=== PATIENT | male | born 1975 | race Caucasian/White ===

== ENCOUNTER 2016-07-03 11:25 | Inpatient (IN) | payer OTHER ==
[2016-07-03 12:17] VITALS: BMI 27.4
--- NOTE | 2016-07-03 15:01 | HP ---
COWS - Scale Resting Pulse: 1= [place] 81-100 Sweatin= Chills/Flushing Restless Observation: 3= Extraneous Movement Pupil Size: 2= Moderately Dilated Bone or Joint Aches: 4=Acute Joint/Muscle Pain Runny Nose/ Eye Tearin= Nasal Congestion GI Upset > 30mins: 3= Vomiting/Diarrhea Tremor Observation: 2= Slight Tremor Visible Yawning Observation: 1= 1-2x During Session Anxiety or Irritability: 2=Irritable/Anxious Goose Flesh Skin: 0=Smooth Skin COWS Score: 20 CIWA Score - CIWA Score Nausea/Vomitin (N/V/D) Muscle Tremors: 4-Moderate,w/Arms Extend Anxiety: 4-Mod. Anxious/Guarded Agitation: 4-Moderately Restless Paroxysmal Sweats: 1-Minimal Palms Moist Orientation: 0-Oriented Tacttile Disturbances: 3-Moderate Itch/Numb/Burn Auditory Disturbances: 0-None Visual Disturbances: 0-None Headache: 1-Very Mild CIWA-Ar Total Score: 22 Admission [facility] - HPI Chief Complaint: DETOX TX FOR HEROIN AND ALCOHOL DEPENDENCE Allergies/Adverse Reactions: Allergies Allergy/AdvReac Type Severity Reaction Status Date / Time No Known Allergies Allergy Verified 07/03/16 13:21 History of Present Illness: 40 Y/O H/M WITH A HX OF HEROIN, ALCOHOL AND COCAINE DEPENDENCE SEEKING DETOX TX. Exam Limitations: No Limitations - Ebola screening Have you traveled outside of the country in the last 21 days: No Have you had contact with anyone from an Ebola affected area: No Have you been sick,other than usual withdrawal symptoms: No Do you have a fever: No - Review of Systems Constitutional: Chills, Loss of Appetite, Night Sweats, Changes in sleep, Unintentional Wgt. Loss EENT: reports: Tearing, Nose Congestion, Dental Problems (MISSING TEETH) Respiratory: reports: No Symptoms reported Cardiac: reports: Lightheadedness GI: reports: Constipated, Diarrhea, Nausea, Poor Appetite, Poor Fluid Intake, Vomiting, Abdominal cramping : reports: No Symptoms Reported Musculoskeletal: reports: Back Pain, Joint Pain, Muscle Pain Integumentary: reports: Bruising (IVD INJ SITES BOTH ELBOWS.) Neuro: reports: Headache, Tremors, Unsteady Gait Endocrine: reports: No Symptoms Reported Hematology: reports: No Symptoms Reported Psychiatric: reports: Orientated x3, Anxious, Depressed Other Systems: Reviewed and Negative Patient History - Patient Medical History Hx Anemia: No Hx Asthma: No Hx Chronic Obstructive Pulmonary Disease (COPD): No Hx Cardiac Disorders: No Hx Hypertension: No Hx Hypercholesterolemia: No HX Cerebrovascular Accident: No Hx Seizures: No Hx Diabetes: No Hx Gastrointestinal Disorders: No Hx Liver Disease: No Hx Genitourinary Disorders: No Hx Sexually Transmitted Disorders: No Hx Renal Disease (ESRD): No Hx Thyroid Disease: Yes (PT STATES STOPPED TAKING SYNTHROID FEW MONTHS AGO.) Hx Human Immunodeficiency Virus (HIV): No (NEGATIVE HX) Hx Hepatitis C: No Hx Depression: Yes (NOT CURRENTLY ON MED) Hx Suicide Attempt: No Hx Bipolar Disorder: No Hx Schizophrenia: No - Patient Surgical History Past Surgical History: No Hx Neurologic Surgery: No Hx Cataract Extraction: No Hx Cardiac Surgery: No Hx Lung Surgery: No Hx Breast Surgery: No Hx Breast Biopsy: No Hx Abdominal Surgery: No Hx Appendectomy: No Hx Cholecystectomy: No Hx Genitourinary Surgery: No Hx Orthopedic Surgery: No Anesthesia Reaction: No - PPD History Previous Implant?: Yes Documented Results: Negative w/o proof Implanted On Prior [facility] Admission?: Yes Date: 08/16/12 Results: 0 MM PPD to be Administered?: Yes - Reproductive History Patient is a Female of Child Bearing Age (11 -55 yrs old): No (MALE) - Smoking Cessation Smoking history: Current every day smoker Have you smoked in the past 12 months: Yes Aproximately how many cigarettes per day: 20 Cigars Per Day: 0 Hx Chewing Tobacco Use: No Initiated information on smoking cessation: Yes 'Breaking Loose' booklet given: 07/03/16 - Substance & Tx. History Hx Alcohol Use: Yes (VODKA/BEER) Hx Substance Use: Yes (HEROIN/COCAINE) - Substances Abused Heroin Route: Injection Frequency: Daily Amount used: 20 BAGS Age of first use: 17 Date of Last Use: 07/02/16 Alcohol Route: Oral Frequency: Daily Amount used: 2 PINTS VODKA Age of first use: 14 Date of Last Use: 07/02/16 Cocaine Route: Inhalation Frequency: Daily Amount used: 1 GRAM Age of first use: 17 Date of Last Use: 07/02/16 Family Disease History - Family Disease History Family Disease History: Heart Disease: Mother (HTN), Other: Father (Etoh) Admission Physical Exam [facility] - Vital Signs Vital Signs: Vital Signs - 24 hr 07/03/16 12:15 Temperature 97.4 F L Pulse Rate 97 H Respiratory 20 Rate Blood Pressure 125/78 - Physical General Appearance: Yes: Moderate Distress, Tremorous, Irritable, Anxious HEENTM: Yes: EOMI, Normocephalic, SAMANTHA, Pharynx Normal Respiratory: Yes: Chest Non-Tender, Lungs Clear, Normal Breath Sounds, No Respiratory Distress Neck: Yes: Supple, Trachea in good position Breast: Yes: Breast Exam Deferred Cardiology: Yes: Regular Rhythm, Regular Rate, S1, S2 Abdominal: Yes: Normal Bowel Sounds, Non Tender, Soft Genitourinary: Yes: Other (N/C) Back: Yes: Within Normal Limits Musculoskeletal: Yes: full range of Motion, Gait Steady Extremities: Yes: Normal Range of Motion, Non-Tender, Tremors 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: Yes: 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 intact, Fully Oriented, Alert, Motor Strength 5/5 Integumentary: Yes: Dry, Warm, Track Rodriguez Lymphatic: Yes: Within Normal Limits - Diagnostic (1) History of - hypothyroidism Current Visit: Yes Status: Chronic Comment: PT NONCOMPLIANT WITH MED (2) mmtp Current Visit: No Status: Inactive (3) Alcohol dependence with uncomplicated withdrawal Current Visit: Yes Status: Acute (4) Opioid dependence with withdrawal Current Visit: Yes Status: Acute (5) Cocaine dependence, uncomplicated Current Visit: Yes Status: Acute (6) Chronic lower back pain Current Visit: Yes Status: Chronic Qualifiers: Back pain laterality: midline Cleared for Admission [facility] - Detox or Rehab [facility] Level of Care: Medically Managed Detox Regimen/Protocol: Methadone/Librium [facility] Breath Alcohol Content Breath Alcohol Content: 0 Urine Drug Screen - Results Drug Screen Negative: No Urine Drug Screen Results: BARBARA-Cocaine, OPI-Opiates, BZO-Benzodiazepines, MTD- Methadone, TCA-Tricyclic Antidepress
[2016-07-03] MEDS ORDERED: IBUPROFEN 400 MG TABLET (FP) PO PRN (15:09)
[2016-07-03] MEDS ORDERED: MAGNESIUM CITRATE 300 ML BOTTLE PO PRN (15:09)
[2016-07-03] MEDS ORDERED: MAG HYDROX/AL HYDROX/SIMETH 30 ML UNIT-DOSE CUP PO PRN (15:09)
[2016-07-03] MEDS ORDERED: guaiFENesin/D-METHORPHAN HB 10 ML UNIT-DOSE CUPS PO PRN (15:09)
[2016-07-03] MEDS ORDERED: LOPERAMIDE HCL 2 MG CAPSULE PO PRN (15:09)
[2016-07-03] MEDS ORDERED: NICOTINE POLACRILEX 4 MG GUM BUC PRN (15:09)
[2016-07-03] MEDS ORDERED: MAGNESIUM HYDROX 2400MG/30ML ORAL SUSPENSION 30 ML CUP PO PRN (15:09)
[2016-07-03] MEDS ORDERED: hydrOXYzine PAMOATE 25 MG CAPSULE (FP) PO PRN (15:09)
[2016-07-03] MEDS ORDERED: P-EPHED 60MG/TRIPROLIDI 2.5MG TABLET PO PRN (15:09)
[2016-07-03] MEDS ORDERED: MENTHOL/PHENOL 1 EACH UD MM PRN (15:09)
[2016-07-03] MEDS ORDERED: diphenhydrAMINE HCL 50 MG CAPSULE PO PRN (15:09)
[2016-07-03] MEDS ORDERED: ACETAMINOPHEN 325 MG TABLET (FP) PO PRN (15:09)
[2016-07-03] MEDS ORDERED: chlordiazePOXIDE HCL 25 MG CAPSULE PO PRN (15:09)
[2016-07-03] MEDS ORDERED: chlordiazePOXIDE HCL 25 MG CAPSULE PO ONE (15:21)
[2016-07-03] MEDS ORDERED: METHADONE HCL 10 MG TABLET (FOR DETOX USE ONLY) PO ONE ×2 (15:21→23:00)
[2016-07-03] MEDS: LEVOTHYROXINE NA 25 MCG TABLET (FP) PO SCH (15:49)
[2016-07-03] MEDS: NICOTINE 21 MG/24 HOURS TOPICAL PATCH TD SCH (15:50)
--- NOTE | 2016-07-03 16:46 | CONSULT ---
[facility] Psychiatric Consult - Data Date of interview: 07/03/16 Admission source: [facility] Identifying data: Readmission to [facility] for this 40 y/o male seeking detox treatment,on ,for alcohol,cocaine and heroin dependence.Patient is single without children,domiciled,unemployed and supported on food stamps. Substance Abuse History: - Smoking Cessation. Smoking history: Current every day smoker. Have you smoked in the past 12 months: Yes. Aproximately how many cigarettes per day: 20. Cigars Per Day: 0. Hx Chewing Tobacco Use: No. Initiated information on smoking cessation: Yes. 'Breaking Loose' booklet given : 07/03/16. - Substance & Tx. History. Hx Alcohol Use: Yes (VODKA/BEER). Hx Substance Use: Yes (HEROIN/COCAINE). - Substances Abused. Heroin. Route: Injection. Frequency: Daily. Amount used: 20 BAGS. Age of first use: 17. Date of Last Use: 07/02/16. Alcohol. Route: Oral. Frequency: Daily. Amount used: 2 PINTS VODKA. Age of first use: 14. Date of Last Use: 07/02/16. Cocaine. Route: Inhalation. Frequency: Daily. Amount used: 1 GRAM. Age of first use: 17. Date of Last Use: 07/02/16. Confirmed by patient. Medical History: GERD and hypothyroidism. Psychiatric History: Patient admits to a remote history of psychiatric admission to [facility] " years ago ".Reportedly diagnosed with MDD.Prescribed trazodone 150 mg/hs + remeron 45 mg/hs + gabapentin 300 mg po tid.Mr Olmos reports chronic non-adherence to OPD care." I never keep my appointments." Patient indicates that his medication refills are provided by his primary care doctor.He states that he last took these medications a week ago.Patient cannot be considered as a reliable historian (pharmacy claims are not consistent with his statements).He denies history of suicide attempts. Physical/Sexual Abuse/Trauma History: Patient denies. Additional Comment: Urine Drug Screen Results: BARBARA-Cocaine, OPI-Opiates, BZO- Benzodiazepines, MTD-Methadone, TCA-Tricyclic Antidepressant.Noted. Mental Status Exam - Mental Status Exam Alert and Oriented to: Time, Place, Person Cognitive Function: Good Patient Appearance: Well Groomed Mood: Anxious, Apprehensive Affect: Mood Congruent Patient Behavior: Fatigued, Appropriate, Cooperative Speech Pattern: Clear Voice Loudness: Normal Thought Process: Goal Oriented Thought Disorder: Not Present Hallucinations: Denies Suicidal Ideation: Denies Homicidal Ideation: Denies Insight/Judgement: Poor Sleep: Poorly, Difficulty falling asleep Appetite: Good Muscle strength/Tone: Normal Gait/Station: Normal Psychiatric Findings - Problem List ([place] 1, 2,3) (1) Alcohol dependence with uncomplicated withdrawal Current Visit: Yes Status: Acute (2) Cocaine dependence, uncomplicated Current Visit: Yes Status: Acute (3) Opioid dependence with withdrawal Current Visit: Yes Status: Acute (4) Nicotine dependence Current Visit: Yes Status: Acute (5) Substance induced mood disorder Current Visit: Yes Status: Acute (6) Chronic lower back pain Current Visit: Yes Status: Chronic Qualifiers: Back pain laterality: midline (7) History of - hypothyroidism Current Visit: Yes Status: Chronic Comment: PT NONCOMPLIANT WITH MED (8) Insomnia Current Visit: Yes Status: Acute - Initial Treatment Plan Initial Treatment Plan: Psychoeducation.Detoxification.Medications : trazodone 100 mg po hs + gabapentin 300 mg po tid.Remeron not ordered (for now).Side effects/benefits discussed with the patient.Made aware of potential for priapism.Patient denies history of adverse events from trazodone and gabapentin.He agreses with this careplan.Observation.
[2016-07-03 16:54] LABS: URINE APPEARANCE CLEAR; URINE BILIRUBIN NEGATIVE (NEGATIVE); URINE BLOOD NEGATIVE (NEGATIVE); URINE COLOR YELLOW; URINE GLUCOSE (UA) NEGATIVE (NEGATIVE); URINE KETONE NEGATIVE (NEGATIVE); URINE LEUK ESTERASE NEGATIVE (NEGATIVE); URINE NITRITE NEGATIVE (NEGATIVE); URINE PROTEIN NEGATIVE (NEGATIVE); URINE UROBILINOGEN NEGATIVE E.U./dl (0.2-1.0)
[2016-07-03 17:39] LABS: MCH 29.7 pg (25.7-33.7); MCHC 32.6 g/dl (32.0-35.9); MEAN PLT VOLUME 8.9 fl (7.5-11.1); PLATELET COUNT 312 K/MM3 (134-434); RDW 14.5 % (11.9-15.9); WHITE BLOOD COUNT 11.4 K/mm3 (4.0-10.0)
[2016-07-03 17:40] LABS: ALBUMIN 4.3 g/dl (3.4-5.0); ANION GAP 11 (8-16); BILIRUBIN,TOTAL 0.7 mg/dL (0.2-1.0); CALCIUM 8.8 mg/dL (8.5-10.1); CO2 26 mmol/L (21-32); COCKROFT - GAULT 81.55; CREATININE 1.3 mg/dL (0.7-1.3); GLUCOSE,RANDOM 127 mg/dL (74-106); SGOT/AST 25 U/L (15-37); SGPT/ALT 40 U/L (12-78); THYROXINE (T4) 9.3 ug/dl (4.5-12.1); TOT PROT 7.3 g/dl (6.4-8.2)
[2016-07-03 17:49] LABS: ALK PHOS 93 U/L (45-117); THYROID STIMULATING HORMONE 5.69 uIU/ml (0.358-3.74)
[2016-07-03] MEDS: PANTOPRAZOLE 40 MG TABLET (FP) PO SCH (18:15)
[2016-07-03] MEDS: chlordiazePOXIDE HCL 25 MG CAPSULE PO SCH ×2 (18:15→22:13)
[2016-07-03 19:35] LABS: SICKLE CELL SCREEN NEGATIVE (NEGATIVE)
[2016-07-03] MEDS ORDERED: CYCLOBENZAPRINE HCL 10 MG TABLET (FP) ONE (19:57)
[2016-07-03] MEDS ORDERED: TRIMETHOBENZAMIDE HCL 200MG/2ML INJ IM ONE (20:51)
[2016-07-03] MEDS ORDERED: GABAPENTIN 250 MG/5 ML ORAL SOLUTION, 470 ML BOTTLE PO SCH (22:00)
[2016-07-03] MEDS: THIAMINE HCL 100 MG TABLET (FP) PO SCH (22:13)
[2016-07-03] MEDS: CYCLOBENZAPRINE HCL 10 MG TABLET (FP) PO SCH (22:13)
[2016-07-03] MEDS: traZODone HCL 100 MG TABLET (FP) PO SCH (22:15)
[2016-07-03] MEDS: GABAPENTIN 300 MG CAPSULE (FP) PO SCH (22:15)
[2016-07-04] MEDS: CYCLOBENZAPRINE HCL 10 MG TABLET (FP) PO SCH ×3 (05:54→22:00)
[2016-07-04] MEDS: chlordiazePOXIDE HCL 25 MG CAPSULE PO SCH ×2 (05:54→10:08)
[2016-07-04] MEDS: GABAPENTIN 300 MG CAPSULE (FP) PO SCH ×3 (05:54→22:00)
[2016-07-04] MEDS: LEVOTHYROXINE NA 25 MCG TABLET (FP) PO SCH (07:42)
--- NOTE | 2016-07-04 09:53 | PN ---
[facility] CIWA - CIWA Score Nausea/Vomitin Muscle Tremors: 4-Moderate,w/Arms Extend Anxiety: 4-Mod. Anxious/Guarded Agitation: 4-Moderately Restless Paroxysmal Sweats: 1-Minimal Palms Moist Tacttile Disturbances: 3-Moderate Itch/Numb/Burn Auditory Disturbances: 0-None Visual Disturbances: 0-None Headache: 0-None Present S COWS - Scale Resting Pulse: 0= [place] 80 or Below Sweatin= Chills/Flushing Restless Observation: 3= Extraneous Movement Pupil Size: 2= Moderately Dilated Bone or Joint Aches: 4=Acute Joint/Muscle Pain Runny Nose/ Eye Tearin= Nasal Congestion GI Upset > 30mins: 1= Stomach Cramp Tremor Observation of Outstretched Hands: 1= Tremor [place], Not Seen Yawning Observation: 2= >3x During Session Anxiety or Irritability: 2=Irritable/Anxious Goose Flesh Skin: 0=Smooth Skin COWS Score: 17 S Progress Note (SOAP) Subjective: ANXIETY,TREMORS,SWEATS,NAUSEA/VOMITING,INTERMITTENT SLEEP Objective: 07/04/16 09:52 Vital Signs Temperature 97.7 F 07/04/16 09:46 Pulse Rate 73 07/04/16 09:46 Respiratory Rate 18 07/04/16 09:46 Blood Pressure 93/52 07/04/16 09:46 O2 Sat by Pulse Oximetry (%) Laboratory Last Values WBC 11.4 K/mm3 (4.0-10.0) H 07/03/16 14:00 RBC 4.39 M/mm3 (4.00-5.60) 07/03/16 14:00 Hgb 13.0 GM/dL (11.7-16.9) 07/03/16 14:00 Hct 39.9 % (35.4-49) 07/03/16 14:00 MCV 91.0 fl (80-96) 07/03/16 14:00 MCHC 32.6 g/dl (32.0-35.9) 07/03/16 14:00 RDW 14.5 % (11.9-15.9) 07/03/16 14:00 Plt Count 312 K/MM3 (134-434) 07/03/16 14:00 MPV 8.9 fl (7.5-11.1) 07/03/16 14:00 Sickle Cell Screen Negative (NEGATIVE) 07/03/16 14:00 Sodium 138 mmol/L (136-145) 07/03/16 14:00 Potassium 4.0 mmol/L (3.5-5.1) 07/03/16 14:00 Chloride 101 mmol/L (98-107) 07/03/16 14:00 Carbon Dioxide 26 mmol/L (21-32) 07/03/16 14:00 Anion Gap 11 (8-16) 07/03/16 14:00 BUN 15 mg/dL (7-18) D 07/03/16 14:00 Creatinine 1.3 mg/dL (0.7-1.3) D 07/03/16 14:00 Creat Clearance w eGFR > 60 (>60) 07/03/16 14:00 Random Glucose 127 mg/dL (74-106) H 07/03/16 14:00 Calcium 8.8 mg/dL (8.5-10.1) 07/03/16 14:00 Total Bilirubin 0.7 mg/dL (0.2-1.0) D 07/03/16 14:00 AST 25 U/L (15-37) D 07/03/16 14:00 ALT 40 U/L (12-78) D 07/03/16 14:00 Alkaline Phosphatase 93 U/L (45-117) 07/03/16 14:00 Total Protein 7.3 g/dl (6.4-8.2) 07/03/16 14:00 Albumin 4.3 g/dl (3.4-5.0) 07/03/16 14:00 TSH 5.69 uIU/ml (0.358-3.74) H 07/03/16 14:00 Resin T3 Uptake 35.3 % (33-40) 07/03/16 14:00 Urine Color Yellow 07/03/16 14:00 Urine Appearance Clear 07/03/16 14:00 Urine pH 6.0 (5.0-8.0) 07/03/16 14:00 Ur Specific [place] 1.024 (1.001-1.035) 07/03/16 14:00 Urine Protein Negative (NEGATIVE) 07/03/16 14:00 Urine Glucose (UA) Negative (NEGATIVE) 07/03/16 14:00 Urine Ketones Negative (NEGATIVE) 07/03/16 14:00 Urine Blood Negative (NEGATIVE) 07/03/16 14:00 Urine Nitrite Negative (NEGATIVE) 07/03/16 14:00 Urine Bilirubin Negative (NEGATIVE) 07/03/16 14:00 Urine Urobilinogen Negative E.U./dl (0.2-1.0) 07/03/16 14:00 Ur Leukocyte Esterase Negative (NEGATIVE) 07/03/16 14:00 LABS NOTED Assessment: 07/04/16 09:53 WITHDRAWAL SX Plan: CONTINUE DETOX
[2016-07-04] MEDS ORDERED: METHADONE HCL 10 MG TABLET (FOR DETOX USE ONLY) PO SCH (10:00)
[2016-07-04] MEDS: PANTOPRAZOLE 40 MG TABLET (FP) PO SCH (10:08)
[2016-07-04] MEDS: PRENATAL VITAMINS W/ FOLIC ACID TABLET (FP) PO SCH (10:08)
[2016-07-04] MEDS: NICOTINE 21 MG/24 HOURS TOPICAL PATCH TD SCH (10:11)
[2016-07-04] MEDS ORDERED: diazePAM 5 MG TABLET PO ONE (14:00)
[2016-07-04] MEDS: diazePAM 5 MG TABLET PO SCH ×2 (14:43→22:00)
[2016-07-04] MEDS ORDERED: chlordiazePOXIDE HCL 25 MG CAPSULE PO SCH (17:00)
[2016-07-04] MEDS: MIRTAZAPINE 15 MG TABLET (FP) PO SCH (22:00)
[2016-07-04] MEDS: traZODone HCL 100 MG TABLET (FP) PO SCH (22:00)
[2016-07-04] MEDS: THIAMINE HCL 100 MG TABLET (FP) PO SCH (22:01)
--- NOTE | 2016-07-04 23:08 | EKG ---
Test Reason : Blood Pressure : / mmHG Vent. Rate : 064 BPM Atrial Rate : 064 BPM P-R Int : 158 ms QRS Dur : 082 ms QT Int : 398 ms P-R-T Axes : 022 031 025 degrees QTc Int : 410 ms NORMAL SINUS RHYTHM WITH SINUS ARRHYTHMIA NORMAL ECG NO PREVIOUS ECGS AVAILABLE Confirmed by BERT RODRIGUEZ MD ([id number]) on 07/04/2016 11:08:05 PM Referred By: Trevon Monaco Confirmed By:BERT RODRIGUEZ MD
[2016-07-05] MEDS: CYCLOBENZAPRINE HCL 10 MG TABLET (FP) PO SCH ×3 (06:11→22:00)
[2016-07-05] MEDS: GABAPENTIN 300 MG CAPSULE (FP) PO SCH ×3 (06:11→22:00)
[2016-07-05] MEDS: diazePAM 5 MG TABLET PO SCH ×3 (06:11→22:00)
[2016-07-05] MEDS: LEVOTHYROXINE NA 25 MCG TABLET (FP) PO SCH (06:22)
[2016-07-05] MEDS ORDERED: METHADONE HCL 5 MG TABLET (FOR DETOX USE ONLY) PO SCH (10:00)
[2016-07-05] MEDS: PANTOPRAZOLE 40 MG TABLET (FP) PO SCH (10:11)
[2016-07-05] MEDS: PRENATAL VITAMINS W/ FOLIC ACID TABLET (FP) PO SCH (10:11)
[2016-07-05] MEDS: NICOTINE 21 MG/24 HOURS TOPICAL PATCH TD SCH (10:12)
[2016-07-05] MEDS: diazePAM 5 MG TABLET PO PRN ×2 (10:12→19:57)
--- NOTE | 2016-07-05 10:14 | PN ---
[facility] CIWA - CIWA Score Nausea/Vomitin-No Nausea/No Vomiting Muscle Tremors: 4-Moderate,w/Arms Extend Anxiety: 4-Mod. Anxious/Guarded Agitation: 4-Moderately Restless Paroxysmal Sweats: 1-Minimal Palms Moist Orientation: 0-Oriented Tacttile Disturbances: 3-Moderate Itch/Numb/Burn Auditory Disturbances: 0-None Visual Disturbances: 0-None Headache: 0-None Present CIWA-Ar Total Score: 16 [facility] COWS - Scale Resting Pulse: 0= [place] 80 or Below Sweatin= Chills/Flushing Restless Observation: 3= Extraneous Movement Pupil Size: 2= Moderately Dilated Bone or Joint Aches: 4=Acute Joint/Muscle Pain Runny Nose/ Eye Tearin= Nasal Congestion GI Upset > 30mins: 1= Stomach Cramp Tremor Observation of Outstretched Hands: 1= Tremor [place], Not Seen Yawning Observation: 1= 1-2x During Session Anxiety or Irritability: 1=Feels Anxious/Irritable Goose Flesh Skin: 0=Smooth Skin COWS Score: 15 [facility] Progress Note (SOAP) Subjective: ANXIETY,SWEATS,TREMORS,INTERMITTENT SLEEP. Objective: 07/05/16 10:12 Vital Signs Temperature 96.7 F L 07/05/16 09:24 Pulse Rate 72 07/05/16 09:24 Respiratory Rate 18 07/05/16 09:24 Blood Pressure 114/77 07/05/16 09:24 O2 Sat by Pulse Oximetry (%) Laboratory Last Values WBC 11.4 K/mm3 (4.0-10.0) H 07/03/16 14:00 RBC 4.39 M/mm3 (4.00-5.60) 07/03/16 14:00 Hgb 13.0 GM/dL (11.7-16.9) 07/03/16 14:00 Hct 39.9 % (35.4-49) 07/03/16 14:00 MCV 91.0 fl (80-96) 07/03/16 14:00 MCHC 32.6 g/dl (32.0-35.9) 07/03/16 14:00 RDW 14.5 % (11.9-15.9) 07/03/16 14:00 Plt Count 312 K/MM3 (134-434) 07/03/16 14:00 MPV 8.9 fl (7.5-11.1) 07/03/16 14:00 Sickle Cell Screen Negative (NEGATIVE) 07/03/16 14:00 Sodium 138 mmol/L (136-145) 07/03/16 14:00 Potassium 4.0 mmol/L (3.5-5.1) 07/03/16 14:00 Chloride 101 mmol/L (98-107) 07/03/16 14:00 Carbon Dioxide 26 mmol/L (21-32) 07/03/16 14:00 Anion Gap 11 (8-16) 07/03/16 14:00 BUN 15 mg/dL (7-18) D 07/03/16 14:00 Creatinine 1.3 mg/dL (0.7-1.3) D 07/03/16 14:00 Creat Clearance w eGFR > 60 (>60) 07/03/16 14:00 Random Glucose 127 mg/dL (74-106) H 07/03/16 14:00 Calcium 8.8 mg/dL (8.5-10.1) 07/03/16 14:00 Total Bilirubin 0.7 mg/dL (0.2-1.0) D 07/03/16 14:00 AST 25 U/L (15-37) D 07/03/16 14:00 ALT 40 U/L (12-78) D 07/03/16 14:00 Alkaline Phosphatase 93 U/L (45-117) 07/03/16 14:00 Total Protein 7.3 g/dl (6.4-8.2) 07/03/16 14:00 Albumin 4.3 g/dl (3.4-5.0) 07/03/16 14:00 TSH 5.69 uIU/ml (0.358-3.74) H 07/03/16 14:00 Resin T3 Uptake 35.3 % (33-40) 07/03/16 14:00 Urine Color Yellow 07/03/16 14:00 Urine Appearance Clear 07/03/16 14:00 Urine pH 6.0 (5.0-8.0) 07/03/16 14:00 Ur Specific [place] 1.024 (1.001-1.035) 07/03/16 14:00 Urine Protein Negative (NEGATIVE) 07/03/16 14:00 Urine Glucose (UA) Negative (NEGATIVE) 07/03/16 14:00 Urine Ketones Negative (NEGATIVE) 07/03/16 14:00 Urine Blood Negative (NEGATIVE) 07/03/16 14:00 Urine Nitrite Negative (NEGATIVE) 07/03/16 14:00 Urine Bilirubin Negative (NEGATIVE) 07/03/16 14:00 Urine Urobilinogen Negative E.U./dl (0.2-1.0) 07/03/16 14:00 Ur Leukocyte Esterase Negative (NEGATIVE) 07/03/16 14:00 RPR Titer Nonreactive (NONREACTIVE) 07/03/16 14:00 Assessment: 07/05/16 10:13 WITHDRAWAL SX Plan: CONTINUE DETOX
[2016-07-05] MEDS ORDERED: chlordiazePOXIDE 5 MG CAPSULE PO SCH (17:00)
[2016-07-05] MEDS: traZODone HCL 100 MG TABLET (FP) PO SCH (22:00)
[2016-07-05] MEDS: MIRTAZAPINE 15 MG TABLET (FP) PO SCH (22:00)
[2016-07-05] MEDS: THIAMINE HCL 100 MG TABLET (FP) PO SCH (22:01)
[2016-07-06] MEDS: CYCLOBENZAPRINE HCL 10 MG TABLET (FP) PO SCH (06:13)
[2016-07-06] MEDS: LEVOTHYROXINE NA 25 MCG TABLET (FP) PO SCH (06:14)
[2016-07-06] MEDS: GABAPENTIN 300 MG CAPSULE (FP) PO SCH (06:14)
[2016-07-06 06:23] VITALS: BP 107/71; PULSE 68; TEMP 97.5
--- NOTE | 2016-07-06 09:45 | DS ---
[facility] Detox Discharge Summary Admission Date: 07/03/16 Discharge Date: 07/06/16 - History Present History: Alcohol Dependence, Cocaine Dependence Additional Comments: PT SIGNED OUT AMA EARLIER THIS MORNING PER NURSES NOTE. Pertinent Past History: HYPOTHYROIDISM CHRONIC BACK PAIN. - Physical Exam Results Vital Signs: Vital Signs Temperature 97.5 F L 07/06/16 06:22 Pulse Rate 68 07/06/16 06:22 Respiratory Rate 16 07/06/16 06:22 Blood Pressure 107/71 07/06/16 06:22 O2 Sat by Pulse Oximetry (%) Pertinent Admission Physical Exam Findings: WITHDRAWAL SX Laboratory Last Values WBC 11.4 K/mm3 (4.0-10.0) H 07/03/16 14:00 RBC 4.39 M/mm3 (4.00-5.60) 07/03/16 14:00 Hgb 13.0 GM/dL (11.7-16.9) 07/03/16 14:00 Hct 39.9 % (35.4-49) 07/03/16 14:00 MCV 91.0 fl (80-96) 07/03/16 14:00 MCHC 32.6 g/dl (32.0-35.9) 07/03/16 14:00 RDW 14.5 % (11.9-15.9) 07/03/16 14:00 Plt Count 312 K/MM3 (134-434) 07/03/16 14:00 MPV 8.9 fl (7.5-11.1) 07/03/16 14:00 Sickle Cell Screen Negative (NEGATIVE) 07/03/16 14:00 Sodium 138 mmol/L (136-145) 07/03/16 14:00 Potassium 4.0 mmol/L (3.5-5.1) 07/03/16 14:00 Chloride 101 mmol/L (98-107) 07/03/16 14:00 Carbon Dioxide 26 mmol/L (21-32) 07/03/16 14:00 Anion Gap 11 (8-16) 07/03/16 14:00 BUN 15 mg/dL (7-18) D 07/03/16 14:00 Creatinine 1.3 mg/dL (0.7-1.3) D 07/03/16 14:00 Creat Clearance w eGFR > 60 (>60) 07/03/16 14:00 Random Glucose 127 mg/dL (74-106) H 07/03/16 14:00 Calcium 8.8 mg/dL (8.5-10.1) 07/03/16 14:00 Total Bilirubin 0.7 mg/dL (0.2-1.0) D 07/03/16 14:00 AST 25 U/L (15-37) D 07/03/16 14:00 ALT 40 U/L (12-78) D 07/03/16 14:00 Alkaline Phosphatase 93 U/L (45-117) 07/03/16 14:00 Total Protein 7.3 g/dl (6.4-8.2) 07/03/16 14:00 Albumin 4.3 g/dl (3.4-5.0) 07/03/16 14:00 TSH 5.69 uIU/ml (0.358-3.74) H 07/03/16 14:00 Resin T3 Uptake 35.3 % (33-40) 07/03/16 14:00 Urine Color Yellow 07/03/16 14:00 Urine Appearance Clear 07/03/16 14:00 Urine pH 6.0 (5.0-8.0) 07/03/16 14:00 Ur Specific [place] 1.024 (1.001-1.035) 07/03/16 14:00 Urine Protein Negative (NEGATIVE) 07/03/16 14:00 Urine Glucose (UA) Negative (NEGATIVE) 07/03/16 14:00 Urine Ketones Negative (NEGATIVE) 07/03/16 14:00 Urine Blood Negative (NEGATIVE) 07/03/16 14:00 Urine Nitrite Negative (NEGATIVE) 07/03/16 14:00 Urine Bilirubin Negative (NEGATIVE) 07/03/16 14:00 Urine Urobilinogen Negative E.U./dl (0.2-1.0) 07/03/16 14:00 Ur Leukocyte Esterase Negative (NEGATIVE) 07/03/16 14:00 RPR Titer Nonreactive (NONREACTIVE) 07/03/16 14:00 - Treatment Hospital Course: Discharged Condition Good - Medication Discharge Medications: Ambulatory Orders Levothyroxine [Synthroid -] 50 mcg PO DAILY #30 tablet 02/24/13 Esomeprazole Magnesium [Nexium 24Hr] 20 mg PO DAILY 07/03/16 - Diagnosis (1) History of - hypothyroidism Status: Chronic (2) mmtp Status: Inactive (3) Alcohol dependence with uncomplicated withdrawal Status: Acute (4) Opioid dependence with withdrawal Status: Acute (5) Cocaine dependence, uncomplicated Status: Acute (6) Chronic lower back pain Status: Chronic Qualifiers: Back pain laterality: midline - AMA Did Patient Leave Against Medical Advice: Yes
[2016-07-06] MEDS ORDERED: diazePAM 5 MG TABLET PO SCH (10:00)
[2016-07-06] MEDS ORDERED: chlordiazePOXIDE HCL 10 MG CAPSULE PO SCH (17:00)
[2016-07-07] MEDS ORDERED: METHADONE HCL 10 MG TABLET (FOR DETOX USE ONLY) PO SCH (10:00)
[2016-07-08] MEDS ORDERED: METHADONE HCL 5 MG TABLET (FOR DETOX USE ONLY) PO SCH (06:00)
[2016-07-08] MEDS ORDERED: diazePAM 5 MG TABLET PO SCH (10:00)
== END 2016-07-06 07:10 | disposition left against medical advice (07) | DRG 770 ==
LOC: YASAS 11:25 → Y3N 14:20
PROVIDERS: ADMIT Internal Medicine; ATTEND Internal Medicine
PROC: HZ2ZZZZ Detoxification Services for Substance Abuse Treatment (ICD-10-PCS; principal; 2016-07-03)
DX: F11.23 Opioid dependence with withdrawal (principal); F10.230 Alcohol dependence with withdrawal, uncomplicated; F14.20 Cocaine dependence, uncomplicated; F17.210 Nicotine dependence, cigarettes, uncomplicated; M54.5 Low back pain; G89.29 Other chronic pain; K21.9 Gastro-esophageal reflux disease without esophagitis; Z86.39 Personal history of other endocrine, nutritional and metabolic disease; Z91.14 Patient's other noncompliance with medication regimen
CPT/HCPCS: 36415; 80053; 81003; 84436; 84443; 84479; 85027; 85660; 86593; 93005; 93010

== ENCOUNTER 2016-08-03 10:28 | Inpatient (IN) | payer OTHER ==
[2016-08-03 11:26] VITALS: BMI 29.0
--- NOTE | 2016-08-03 14:12 | HP ---
COWS - Scale Resting Pulse: 1= [place] 81-100 Sweatin= Chills/Flushing Restless Observation: 3= Extraneous Movement Pupil Size: 2= Moderately Dilated Bone or Joint Aches: 4=Acute Joint/Muscle Pain Runny Nose/ Eye Tearin= Runny Nose/Eyes GI Upset > 30mins: 2= Nausea/Diarrhea Tremor Observation: 1= Tremor [place], Not Seen Yawning Observation: 0= None Anxiety or Irritability: 2=Irritable/Anxious Goose Flesh Skin: 0=Smooth Skin COWS Score: 18 CIWA Score - CIWA Score Nausea/Vomitin Muscle Tremors: 4-Moderate,w/Arms Extend Anxiety: 4-Mod. Anxious/Guarded Agitation: 4-Moderately Restless Paroxysmal Sweats: 1-Minimal Palms Moist Orientation: 0-Oriented Tacttile Disturbances: 3-Moderate Itch/Numb/Burn Auditory Disturbances: 0-None Visual Disturbances: 0-None Headache: 0-None Present CIWA-Ar Total Score: 19 Admission ROS S - HPI Chief Complaint: DETOX TX FOR HEROIN AND ALCOHOL DEPENDENCE Allergies/Adverse Reactions: Allergies Allergy/AdvReac Type Severity Reaction Status Date / Time No Known Allergies Allergy Verified 08/03/16 14:35 History of Present Illness: 40 Y/O H/MALE WITH A HX HEROIN AND ALCOHOL DEPENDENCE SEEKING DETOX [place]. Exam Limitations: No Limitations - Ebola screening Have you traveled outside of the country in the last 21 days: No Have you had contact with anyone from an Ebola affected area: No Have you been sick,other than usual withdrawal symptoms: No Do you have a fever: No - Review of Systems Constitutional: Chills, Loss of Appetite, Night Sweats, Changes in sleep, Unintentional Wgt. Loss EENT: reports: Tearing, Nose Congestion, Dental Problems (MISSING TEETH) Respiratory: reports: No Symptoms reported Cardiac: reports: Chest Pain (DUE TO ANXIETY), Lightheadedness, Chest Tightness (DUE TO ANXIETY) GI: reports: Constipated, Diarrhea, Nausea, Poor Fluid Intake, Vomiting, Abdominal cramping : reports: Dysuria (DUE TO HEROIN USE) Musculoskeletal: reports: Back Pain, Joint Pain, Muscle Pain Integumentary: reports: No Symptoms Reported Neuro: reports: Headache, Tremors, Unsteady Gait, Dizziness Endocrine: reports: No Symptoms Reported Hematology: reports: No Symptoms Reported Psychiatric: reports: Orientated x3, Anxious, Depressed Other Systems: Reviewed and Negative Patient History - Patient Medical History Hx Anemia: No Hx Asthma: No Hx Chronic Obstructive Pulmonary Disease (COPD): No Hx Cardiac Disorders: No Hx Hypertension: No Hx Hypercholesterolemia: No HX Cerebrovascular Accident: No Hx Seizures: No Hx Diabetes: No Hx Gastrointestinal Disorders: Yes (WAS ON PPI) Hx Liver Disease: No Hx Genitourinary Disorders: No Hx Sexually Transmitted Disorders: No Hx Renal Disease (ESRD): No Hx Thyroid Disease: Yes (PT STATES STOPPED TAKING SYNTHROID FEW MONTHS AGO.) Hx Human Immunodeficiency Virus (HIV): No (NEGATIVE HX) Hx Hepatitis C: No Hx Depression: Yes (NOT CURRENTLY ON MED) Hx Suicide Attempt: No Hx Bipolar Disorder: No Hx Schizophrenia: No - Patient Surgical History Past Surgical History: No Hx Neurologic Surgery: No Hx Cataract Extraction: No Hx Cardiac Surgery: No Hx Lung Surgery: No Hx Breast Surgery: No Hx Breast Biopsy: No Hx Abdominal Surgery: No Hx Appendectomy: No Hx Cholecystectomy: No Hx Genitourinary Surgery: No Hx Orthopedic Surgery: No Anesthesia Reaction: No - PPD History Previous Implant?: Yes Documented Results: Negative w/proof Date: 07/05/16 Results: 0 MM PPD to be Administered?: No - Reproductive History Patient is a Female of Child Bearing Age (11 -55 yrs old): No (MALE) - Smoking Cessation Smoking history: Current every day smoker Have you smoked in the past 12 months: Yes Aproximately how many cigarettes per day: 20 Cigars Per Day: 0 Hx Chewing Tobacco Use: No Initiated information on smoking cessation: Yes 'Breaking Loose' booklet given: 08/03/16 - Substance & Tx. History Hx Alcohol Use: Yes (VODKA/BEER) Hx Substance Use: Yes (HEROIN) Substance Use Type: Alcohol, Heroin Hx Substance Use Treatment: Yes ([facility]OX) - Substances Abused Alcohol Route: Oral Frequency: Daily Amount used: 1 PT VODKA/2 CANS 22 OZ Age of first use: 12 Date of Last Use: 08/02/16 Heroin Route: Inhalation Frequency: Daily Amount used: 15 BAGS Age of first use: 12 Date of Last Use: 08/02/16 Family Disease History - Family Disease History Family Disease History: Heart Disease: Mother (HTN), Other: Father (Etoh) Admission Physical Exam BHS - Vital Signs Vital Signs: Vital Signs - 24 hr 08/03/16 11:24 Temperature 96.6 F L Pulse Rate 87 Respiratory 19 Rate Blood Pressure 144/90 Cleared for Admission [facility] - Detox or Rehab [facility] Level of Care: Medically Managed Detox Regimen/Protocol: Methadone/Valium [facility] Breath Alcohol Content Breath Alcohol Content: 0 Urine Drug Screen - Results Drug Screen Negative: No Urine Drug Screen Results: BARBARA-Cocaine, OPI-Opiates, MTD-Methadone, TCA- Tricyclic Antidepress
[2016-08-03] MEDS ORDERED: guaiFENesin/D-METHORPHAN HB 10 ML UNIT-DOSE CUPS PO PRN (14:27)
[2016-08-03] MEDS ORDERED: LOPERAMIDE HCL 2 MG CAPSULE PO PRN (14:27)
[2016-08-03] MEDS ORDERED: P-EPHED 60MG/TRIPROLIDI 2.5MG TABLET PO PRN (14:27)
[2016-08-03] MEDS ORDERED: IBUPROFEN 400 MG TABLET (FP) PO PRN (14:27)
[2016-08-03] MEDS ORDERED: MENTHOL/PHENOL 1 EACH UD MM PRN (14:27)
[2016-08-03] MEDS ORDERED: MAG HYDROX/AL HYDROX/SIMETH 30 ML UNIT-DOSE CUP PO PRN (14:27)
[2016-08-03] MEDS ORDERED: MAGNESIUM CITRATE 300 ML BOTTLE PO PRN (14:27)
[2016-08-03] MEDS ORDERED: NICOTINE POLACRILEX 4 MG GUM BUC PRN (14:27)
[2016-08-03] MEDS ORDERED: MAGNESIUM HYDROX 2400MG/30ML ORAL SUSPENSION 30 ML CUP PO PRN (14:27)
[2016-08-03] MEDS ORDERED: diazePAM 5 MG TABLET PO ONE (15:12)
[2016-08-03] MEDS ORDERED: ACETAMINOPHEN 325 MG TABLET (FP) PO PRN (15:12)
[2016-08-03] MEDS ORDERED: METHADONE HCL 10 MG TABLET (FOR DETOX USE ONLY) PO ONE ×2 (15:13→23:00)
[2016-08-03 17:40] LABS: MCH 30.1 pg (25.7-33.7); MCHC 33.4 g/dl (32.0-35.9); MEAN CELL VOLUME 90.4 fl (80-96); MEAN PLT VOLUME 9.1 fl (7.5-11.1); PLATELET COUNT 349 K/MM3 (134-434); RDW 14.9 % (11.9-15.9); WHITE BLOOD COUNT 10.6 K/mm3 (4.0-10.0)
[2016-08-03] MEDS: NICOTINE 21 MG/24 HOURS TOPICAL PATCH TD SCH (17:43)
[2016-08-03 18:21] LABS: ALBUMIN 4.4 g/dl (3.4-5.0); ALK PHOS 87 U/L (45-117); ANION GAP 12 (8-16); BILIRUBIN,TOTAL 0.4 mg/dL (0.2-1.0); CALCIUM 10.1 mg/dL (8.5-10.1); CO2 26 mmol/L (21-32); COCKROFT - GAULT 86.35; CREATININE 1.3 mg/dL (0.7-1.3); GLUCOSE,RANDOM 123 mg/dL (74-106); SGOT/AST 18 U/L (15-37); SGPT/ALT 25 U/L (12-78); T3 UPTAKE 36.3 % (33-40); THYROID STIMULATING HORMONE 8.59 uIU/ml (0.358-3.74); TOT PROT 7.7 g/dl (6.4-8.2)
[2016-08-03] MEDS: diazePAM 5 MG TABLET PO SCH (22:04)
[2016-08-03] MEDS: diphenhydrAMINE HCL 50 MG CAPSULE PO PRN (22:04)
[2016-08-03] MEDS: THIAMINE HCL 100 MG TABLET (FP) PO SCH (22:04)
[2016-08-03] MEDS ORDERED: RANITIDINE HCL 150 MG TABLET (FP) PO ONE (23:27)
[2016-08-04] MEDS: diazePAM 5 MG TABLET PO SCH ×3 (05:27→22:06)
--- NOTE | 2016-08-04 09:55 | EKG ---
Test Reason : Blood Pressure : / mmHG Vent. Rate : 065 BPM Atrial Rate : 065 BPM P-R Int : 150 ms QRS Dur : 082 ms QT Int : 404 ms P-R-T Axes : 038 057 046 degrees QTc Int : 420 ms NORMAL SINUS RHYTHM NORMAL ECG WHEN COMPARED WITH ECG OF 03-JUL-2016 14:50, NO SIGNIFICANT CHANGE WAS FOUND Confirmed by ADITYA HILL MD ([id number]) on 08/04/2016 9:54:43 AM Referred By: Confirmed By:ADITYA HILL MD
[2016-08-04] MEDS ORDERED: METHADONE HCL 10 MG TABLET (FOR DETOX USE ONLY) PO SCH (10:00)
--- NOTE | 2016-08-04 10:05 | PN ---
S CIWA - CIWA Score Nausea/Vomitin-No Nausea/No Vomiting Muscle Tremors: 4-Moderate,w/Arms Extend Anxiety: 3 Agitation: 4-Moderately Restless Paroxysmal Sweats: 3 Orientation: 0-Oriented Tacttile Disturbances: 0-None Auditory Disturbances: 0-None Visual Disturbances: 0-None Headache: 0-None Present CIWA-Ar Total Score: 14 BHS COWS - Scale Resting Pulse: 0= [place] 80 or Below Sweatin=Flushed/Facial Moisture Restless Observation: 1= Difficult to Sit Still Pupil Size: 0= Normal to Room Light Bone or Joint Aches: 2= Severe Diffuse Aches Runny Nose/ Eye Tearin= Nasal Congestion GI Upset > 30mins: 2= Nausea/Diarrhea Tremor Observation of Outstretched Hands: 2= Slight Tremor Visible Yawning Observation: 2= >3x During Session Anxiety or Irritability: 2=Irritable/Anxious Goose Flesh Skin: 0=Smooth Skin COWS Score: 14 S Progress Note (SOAP) Subjective: sweats agitation irritable body aches interrupted sleep Objective: 08/04/16 10:03 Vital Signs Temperature 97.5 F L 08/04/16 07:10 Pulse Rate 59 L 08/04/16 07:10 Respiratory Rate 16 08/04/16 07:10 Blood Pressure 137/75 08/04/16 07:10 O2 Sat by Pulse Oximetry (%) Laboratory Tests 08/03/16 08/03/16 13:00 13:00 WBC 10.6 H RBC 4.63 Hgb 14.0 Hct 41.9 MCV 90.4 MCHC 33.4 RDW 14.9 Plt Count 349 MPV 9.1 Sodium 141 Potassium 3.9 Chloride 103 Carbon Dioxide 26 Anion Gap 12 BUN 13 Creatinine 1.3 Creat Clearance w eGFR > 60 Random Glucose 123 H Calcium 10.1 Total Bilirubin 0.4 D AST 18 D ALT 25 D Alkaline Phosphatase 87 Total Protein 7.7 Albumin 4.4 TSH 8.59 H D Resin T3 Uptake 36.3 labs pending awake/alert ambulating no acute distress Assessment: 08/04/16 10:04 withdrawal sx Plan: continue detox increase fluids labs pending
[2016-08-04] MEDS: PRENATAL VITAMINS W/ FOLIC ACID TABLET (FP) PO SCH (10:09)
[2016-08-04] MEDS: RANITIDINE HCL 150 MG TABLET (FP) PO SCH ×2 (10:09→22:55)
[2016-08-04] MEDS: NICOTINE 21 MG/24 HOURS TOPICAL PATCH TD SCH (10:09)
[2016-08-04] MEDS: diazePAM 5 MG TABLET PO PRN ×2 (10:09→17:33)
[2016-08-04 13:21] LABS: HIV 1 & 2 AB NEGATIVE; HIV 1 AGp24 NEGATIVE
--- NOTE | 2016-08-04 17:30 | CONSULT ---
[facility] Psychiatric Consult - Data Date of interview: 08/04/16 Admission source: [facility] Identifying data: Another admission to [facility] for this 40 y/o male seeking detox treatment,on ,for alcohol,cocaine and heroin dependence.Patient is single without children,domiciled,unemployed and supported on food stamps. Substance Abuse History: - Smoking Cessation. Smoking history: Current every day smoker. Have you smoked in the past 12 months: Yes. Aproximately how many cigarettes per day: 20. Cigars Per Day: 0. Hx Chewing Tobacco Use: No. Initiated information on smoking cessation: Yes. 'Breaking Loose' booklet given : 08/03/16. - Substance & Tx. History. Hx Alcohol Use: Yes (VODKA/BEER). Hx Substance Use: Yes (HEROIN). Substance Use Type: Alcohol, Heroin. Hx Substance Use Treatment: Yes ([facility]-DETOX). - Substances Abused. Alcohol. Route: Oral. Frequency: Daily. Amount used: 1 PT VODKA/2 CANS 22 OZ. Age of first use: 12. Date of Last Use: 08/02/16. Heroin. Route: Inhalation. Frequency: Daily. Amount used: 15 BAGS. Age of first use: 12. Date of Last Use: 08/02/16. Confirmed by patient. Medical History: GERD and hypothyroidism. Psychiatric History: Distant history of one psychiatric admission to [facility] " years ago ". Diagnosed with MDD.Prescribed trazodone 150 mg/hs + remeron 45 mg/hs + gabapentin 300 mg po tid.Mr Olmos reports chronic non- adherence to [facility]PD care.Stopped taking medications " a few weeks " ago.No contact with psychiatric [facility] care providers..He states that he last took these medications a week ago.He denies history of suicide attempts. Physical/Sexual Abuse/Trauma History: Patient denies. Additional Comment: Urine Drug Screen Results: BARBARA-Cocaine, OPI-Opiates, MTD- Methadone, TCA-Tricyclic Antidepressant.Noted. Mental Status Exam - Mental Status Exam Alert and Oriented to: Time, Place, Person Cognitive Function: Good Patient Appearance: Well Groomed Mood: Nervous, Withdrawn, Anxious Affect: Mood Congruent Patient Behavior: Fatigued, Appropriate, Cooperative Speech Pattern: Clear Voice Loudness: Normal Thought Process: Goal Oriented Thought Disorder: Not Present Hallucinations: Denies Suicidal Ideation: Denies Homicidal Ideation: Denies Insight/Judgement: Poor Sleep: Poorly, Difficulty falling asleep Appetite: Good Muscle strength/Tone: Normal Gait/Station: Normal Psychiatric Findings - Problem List ([place] 1, 2,3) (1) Alcohol dependence with uncomplicated withdrawal Current Visit: Yes Status: Acute (2) Cocaine dependence, uncomplicated Current Visit: Yes Status: Acute (3) Opioid dependence with withdrawal Current Visit: Yes Status: Acute (4) Nicotine dependence Current Visit: Yes Status: Acute (5) Substance induced mood disorder Current Visit: Yes Status: Acute (6) Chronic lower back pain Current Visit: Yes Status: Chronic Qualifiers: Back pain laterality: midline (7) History of - hypothyroidism Current Visit: Yes Status: Chronic Comment: PT NONCOMPLIANT WITH MED (8) Insomnia Current Visit: Yes Status: Acute - Initial Treatment Plan Initial Treatment Plan: Psychoeducation.Detoxification.Medications : seroquel 150 mg po hs + remeron 7.5 mg po hs.Side effects/benefits discussed with patient.He is in agreement with this careplan.Observation.
[2016-08-04] MEDS ORDERED: QUEtiapine FUMARATE 100 MG TABLET (FP) PO SCH (22:00)
[2016-08-04] MEDS: MIRTAZAPINE 15 MG TABLET (FP) PO SCH (22:07)
[2016-08-04] MEDS: THIAMINE HCL 100 MG TABLET (FP) PO SCH (22:07)
[2016-08-05] MEDS: diazePAM 5 MG TABLET PO PRN ×2 (07:34→13:37)
[2016-08-05] MEDS: PRENATAL VITAMINS W/ FOLIC ACID TABLET (FP) PO SCH (11:03)
[2016-08-05] MEDS: METHADONE HCL 5 MG TABLET (FOR DETOX USE ONLY) PO SCH (11:03)
[2016-08-05] MEDS: diazePAM 5 MG TABLET PO SCH ×2 (11:04→21:59)
[2016-08-05] MEDS: RANITIDINE HCL 150 MG TABLET (FP) PO SCH ×2 (11:04→21:58)
[2016-08-05] MEDS: NICOTINE 21 MG/24 HOURS TOPICAL PATCH TD SCH (11:44)
[2016-08-05 15:01] LABS: URINE APPEARANCE CLEAR; URINE BILIRUBIN NEGATIVE (NEGATIVE); URINE BLOOD NEGATIVE (NEGATIVE); URINE COLOR LTYELLOW; URINE GLUCOSE (UA) NEGATIVE (NEGATIVE); URINE KETONE NEGATIVE (NEGATIVE); URINE LEUK ESTERASE NEGATIVE (NEGATIVE); URINE NITRITE NEGATIVE (NEGATIVE); URINE PROTEIN NEGATIVE (NEGATIVE); URINE UROBILINOGEN NEGATIVE E.U./dl (0.2-1.0)
--- NOTE | 2016-08-05 15:46 | PN ---
[facility] CIWA - CIWA Score Nausea/Vomitin-Mild Nausea/No Vomiting Muscle Tremors: 3 Anxiety: 4-Mod. Anxious/Guarded Agitation: 3 Paroxysmal Sweats: 3 Orientation: 0-Oriented Tacttile Disturbances: 0-None Auditory Disturbances: 0-None Visual Disturbances: 0-None Headache: 0-None Present CIWA-Ar Total Score: 14 BHS COWS - Scale Resting Pulse: 0= [place] 80 or Below Sweatin=Flushed/Facial Moisture Restless Observation: 1= Difficult to Sit Still Pupil Size: 0= Normal to Room Light Bone or Joint Aches: 1= Mild Discomfort Runny Nose/ Eye Tearin= Runny Nose/Eyes GI Upset > 30mins: 2= Nausea/Diarrhea Tremor Observation of Outstretched Hands: 2= Slight Tremor Visible Yawning Observation: 1= 1-2x During Session Anxiety or Irritability: 2=Irritable/Anxious Goose Flesh Skin: 0=Smooth Skin COWS Score: 13 S Progress Note (SOAP) Subjective: Anxiety,tremors,sweating,interrupted sleep,restless,body aches Objective: 08/05/16 15:45 Vital Signs - 8 hr 08/05/16 08/05/16 10:00 14:21 Temperature 98.4 F 97.7 F Pulse Rate 73 64 Respiratory 18 16 Rate Blood Pressure 118/68 134/67 Laboratory Tests 08/03/16 08/03/16 08/03/16 13:00 13:00 13:00 WBC 10.6 H RBC 4.63 Hgb 14.0 Hct 41.9 MCV 90.4 MCHC 33.4 RDW 14.9 Plt Count 349 MPV 9.1 Sodium 141 Potassium 3.9 Chloride 103 Carbon Dioxide 26 Anion Gap 12 BUN 13 Creatinine 1.3 Creat Clearance w eGFR > 60 Random Glucose 123 H Calcium 10.1 Total Bilirubin 0.4 D AST 18 D ALT 25 D Alkaline Phosphatase 87 Total Protein 7.7 Albumin 4.4 TSH 8.59 H D Resin T3 Uptake 36.3 Urine Color Urine Appearance Urine pH Urine Protein Urine Glucose (UA) Urine Ketones Urine Blood Urine Nitrite Urine Bilirubin Urine Urobilinogen Ur Leukocyte Esterase RPR Titer Nonreactive HIV 1&2 Antibody Screen HIV P24 Antigen 08/04/16 08/05/16 06:15 09:03 WBC RBC Hgb Hct MCV MCHC RDW Plt Count MPV Sodium Potassium Chloride Carbon Dioxide Anion Gap BUN Creatinine Creat Clearance w eGFR Random Glucose Calcium Total Bilirubin AST ALT Alkaline Phosphatase Total Protein Albumin TSH Resin T3 Uptake Urine Color Ltyellow Urine Appearance Clear Urine pH 6.0 Urine Protein Negative Urine Glucose (UA) Negative Urine Ketones Negative Urine Blood Negative Urine Nitrite Negative Urine Bilirubin Negative Urine Urobilinogen Negative Ur Leukocyte Esterase Negative RPR Titer HIV 1&2 Antibody Screen Negative HIV P24 Antigen Negative labs noted Assessment: 08/05/16 15:45 Withdrawal sx. Plan: Continue detox
[2016-08-05] MEDS: THIAMINE HCL 100 MG TABLET (FP) PO SCH (21:59)
[2016-08-05] MEDS ORDERED: QUEtiapine FUMARATE 50 MG TABLET PO SCH (22:00)
[2016-08-05] MEDS: diphenhydrAMINE HCL 50 MG CAPSULE PO PRN (22:01)
[2016-08-05] MEDS: MIRTAZAPINE 15 MG TABLET (FP) PO SCH (22:02)
[2016-08-06] MEDS: diazePAM 5 MG TABLET PO SCH (10:24)
[2016-08-06] MEDS: METHADONE HCL 5 MG TABLET (FOR DETOX USE ONLY) PO SCH (10:24)
[2016-08-06] MEDS: RANITIDINE HCL 150 MG TABLET (FP) PO SCH (10:25)
[2016-08-06] MEDS: PRENATAL VITAMINS W/ FOLIC ACID TABLET (FP) PO SCH (10:25)
[2016-08-06] MEDS: NICOTINE 21 MG/24 HOURS TOPICAL PATCH TD SCH (10:26)
[2016-08-06] MEDS: diazePAM 5 MG TABLET PO PRN (11:58)
[2016-08-06] MEDS ORDERED: LEVOTHYROXINE NA 50 MCG TABLET (FP) PO SCH (12:00)
--- NOTE | 2016-08-06 12:04 | PN ---
BHS Progress Note (SOAP) Subjective: Sweating,interrupted sleep,restless Objective: 08/06/16 12:04 Vital Signs - 8 hr 08/06/16 08/06/16 06:00 09:56 Temperature 97.5 F L 98.6 F Pulse Rate 55 L 64 Respiratory 18 18 Rate Blood Pressure 120/62 154/80 Laboratory Tests 08/03/16 08/03/16 08/03/16 13:00 13:00 13:00 WBC 10.6 H RBC 4.63 Hgb 14.0 Hct 41.9 MCV 90.4 MCHC 33.4 RDW 14.9 Plt Count 349 MPV 9.1 Sodium 141 Potassium 3.9 Chloride 103 Carbon Dioxide 26 Anion Gap 12 BUN 13 Creatinine 1.3 Creat Clearance w eGFR > 60 Random Glucose 123 H Calcium 10.1 Total Bilirubin 0.4 D AST 18 D ALT 25 D Alkaline Phosphatase 87 Total Protein 7.7 Albumin 4.4 TSH 8.59 H D Resin T3 Uptake 36.3 Urine Color Urine Appearance Urine pH Ur Specific [place] Urine Protein Urine Glucose (UA) Urine Ketones Urine Blood Urine Nitrite Urine Bilirubin Urine Urobilinogen Ur Leukocyte Esterase RPR Titer Nonreactive HIV 1&2 Antibody Screen HIV P24 Antigen 08/04/16 08/05/16 06:15 09:03 WBC RBC Hgb Hct MCV MCHC RDW Plt Count MPV Sodium Potassium Chloride Carbon Dioxide Anion Gap BUN Creatinine Creat Clearance w eGFR Random Glucose Calcium Total Bilirubin AST ALT Alkaline Phosphatase Total Protein Albumin TSH Resin T3 Uptake Urine Color Ltyellow Urine Appearance Clear Urine pH 6.0 Ur Specific [place] 1.020 Urine Protein Negative Urine Glucose (UA) Negative Urine Ketones Negative Urine Blood Negative Urine Nitrite Negative Urine Bilirubin Negative Urine Urobilinogen Negative Ur Leukocyte Esterase Negative RPR Titer HIV 1&2 Antibody Screen Negative HIV P24 Antigen Negative labs noted Assessment: 08/06/16 12:04 Withdrawal sx. Plan: Continue detox
[2016-08-06] MEDS ORDERED: LEVOTHYROXINE NA 25 MCG TABLET (FP) PO SCH (15:00)
[2016-08-06] MEDS ORDERED: cloNIDine HCL 0.1 MG TABLET PO ONE (16:07)
[2016-08-06] MEDS ORDERED: CYCLOBENZAPRINE HCL 10 MG TABLET (FP) PO ONE (16:30)
[2016-08-06 18:10] VITALS: BP 112/58; PULSE 68; TEMP 97.5
--- NOTE | 2016-08-06 18:54 | DS ---
[facility] Detox Discharge Summary Admission Date: 08/03/16 Discharge Date: 08/06/16 - History Present History: Alcohol Dependence, Cocaine Dependence, Opioid Dependence Pertinent Past History: Hypothyroidism - Physical Exam Results Vital Signs: Vital Signs Temperature 97.5 F L 08/06/16 17:56 Pulse Rate 68 08/06/16 17:56 Respiratory Rate 16 08/06/16 17:56 Blood Pressure 112/58 08/06/16 17:56 O2 Sat by Pulse Oximetry (%) Pertinent Admission Physical Exam Findings: Withdrawal sx. Laboratory Last Values WBC 10.6 K/mm3 (4.0-10.0) H 08/03/16 13:00 RBC 4.63 M/mm3 (4.00-5.60) 08/03/16 13:00 Hgb 14.0 GM/dL (11.7-16.9) 08/03/16 13:00 Hct 41.9 % (35.4-49) 08/03/16 13:00 MCV 90.4 fl (80-96) 08/03/16 13:00 MCHC 33.4 g/dl (32.0-35.9) 08/03/16 13:00 RDW 14.9 % (11.9-15.9) 08/03/16 13:00 Plt Count 349 K/MM3 (134-434) 08/03/16 13:00 MPV 9.1 fl (7.5-11.1) 08/03/16 13:00 Sodium 141 mmol/L (136-145) 08/03/16 13:00 Potassium 3.9 mmol/L (3.5-5.1) 08/03/16 13:00 Chloride 103 mmol/L (98-107) 08/03/16 13:00 Carbon Dioxide 26 mmol/L (21-32) 08/03/16 13:00 Anion Gap 12 (8-16) 08/03/16 13:00 BUN 13 mg/dL (7-18) 08/03/16 13:00 Creatinine 1.3 mg/dL (0.7-1.3) 08/03/16 13:00 Creat Clearance w eGFR > 60 (>60) 08/03/16 13:00 Random Glucose 123 mg/dL (74-106) H 08/03/16 13:00 Calcium 10.1 mg/dL (8.5-10.1) 08/03/16 13:00 Total Bilirubin 0.4 mg/dL (0.2-1.0) D 08/03/16 13:00 AST 18 U/L (15-37) D 08/03/16 13:00 ALT 25 U/L (12-78) D 08/03/16 13:00 Alkaline Phosphatase 87 U/L (45-117) 08/03/16 13:00 Total Protein 7.7 g/dl (6.4-8.2) 08/03/16 13:00 Albumin 4.4 g/dl (3.4-5.0) 08/03/16 13:00 TSH 8.59 uIU/ml (0.358-3.74) H D 08/03/16 13:00 Resin T3 Uptake 36.3 % (33-40) 08/03/16 13:00 Urine Color Ltyellow 08/05/16 09:03 Urine Appearance Clear 08/05/16 09:03 Urine pH 6.0 (5.0-8.0) 08/05/16 09:03 Ur Specific [place] 1.020 (1.005-1.025) 08/05/16 09:03 Urine Protein Negative (NEGATIVE) 08/05/16 09:03 Urine Glucose (UA) Negative (NEGATIVE) 08/05/16 09:03 Urine Ketones Negative (NEGATIVE) 08/05/16 09:03 Urine Blood Negative (NEGATIVE) 08/05/16 09:03 Urine Nitrite Negative (NEGATIVE) 08/05/16 09:03 Urine Bilirubin Negative (NEGATIVE) 08/05/16 09:03 Urine Urobilinogen Negative E.U./dl (0.2-1.0) 08/05/16 09:03 Ur Leukocyte Esterase Negative (NEGATIVE) 08/05/16 09:03 RPR Titer Nonreactive (NONREACTIVE) 08/03/16 13:00 HIV 1&2 Antibody Screen Negative 08/04/16 06:15 HIV P24 Antigen Negative 08/04/16 06:15 labs noted - Treatment Patient has Accepted a Rehab Referral to: Positive direction - Medication Discharge Medications: Ambulatory Orders Levothyroxine [Synthroid -] 50 mcg PO DAILY #30 tablet 02/24/13 Esomeprazole Magnesium [Nexium 24Hr] 20 mg PO DAILY 07/03/16 Mirtazapine [Remeron -] 15 mg PO HS #30 tablet 08/04/16 Quetiapine Fumarate [Seroquel -] 200 mg PO HS #30 tab 08/04/16 - Diagnosis (1) Alcohol dependence with uncomplicated withdrawal Status: Acute (2) Cocaine dependence, uncomplicated Status: Acute (3) Insomnia Status: Acute (4) Opioid dependence with withdrawal Status: Acute (5) History of - hypothyroidism Status: Chronic (6) Substance induced mood disorder Status: Acute (7) Nicotine dependence Status: Acute Qualifiers: Nicotine product type: cigarettes Substance use status: uncomplicated Qualified Code(s): F17.210 - Nicotine dependence, cigarettes, uncomplicated - AMA Did Patient Leave Against Medical Advice: Yes
[2016-08-06] MEDS ORDERED: CYCLOBENZAPRINE HCL 10 MG TABLET (FP) PO SCH (22:00)
[2016-08-06] MEDS ORDERED: cloNIDine HCL 0.1 MG TABLET PO SCH (22:00)
[2016-08-07] MEDS ORDERED: METHADONE HCL 10 MG TABLET (FOR DETOX USE ONLY) PO SCH (10:00)
[2016-08-07] MEDS ORDERED: diazePAM 5 MG TABLET PO SCH (10:00)
[2016-08-07] MEDS ORDERED: LEVOTHYROXINE NA 25 MCG TABLET (FP) PO SCH (14:15)
[2016-08-08] MEDS ORDERED: METHADONE HCL 5 MG TABLET (FOR DETOX USE ONLY) PO SCH (06:00)
== END 2016-08-06 18:09 | disposition left against medical advice (07) | DRG 770 ==
LOC: YASAS 10:28 → Y6N 15:04
PROVIDERS: ADMIT Internal Medicine; ATTEND Internal Medicine
PROC: HZ2ZZZZ Detoxification Services for Substance Abuse Treatment (ICD-10-PCS; principal; 2016-08-06)
DX: F11.23 Opioid dependence with withdrawal (principal); F10.230 Alcohol dependence with withdrawal, uncomplicated; F14.20 Cocaine dependence, uncomplicated; F17.210 Nicotine dependence, cigarettes, uncomplicated; F19.24 Other psychoactive substance dependence with psychoactive substance-induced mood disorder; G47.00 Insomnia, unspecified; E03.9 Hypothyroidism, unspecified; M54.5 Low back pain; G89.29 Other chronic pain
CPT/HCPCS: 36415; 80053; 81003; 84436; 84443; 84479; 85027; 86593; 87389; 93005; 93010; J0735

== ENCOUNTER 2016-09-28 09:38 | Inpatient (IN) | payer OTHER ==
[2016-09-28 09:57] VITALS: BMI 28.1
--- NOTE | 2016-09-28 14:37 | HP ---
CIWA Score - CIWA Score Nausea/Vomitin (N/V/D) Muscle Tremors: 4-Moderate,w/Arms Extend Anxiety: 4-Mod. Anxious/Guarded Agitation: 4-Moderately Restless Paroxysmal Sweats: 1-Minimal Palms Moist Orientation: 0-Oriented Tacttile Disturbances: 3-Moderate Itch/Numb/Burn Auditory Disturbances: 0-None Visual Disturbances: 0-None Headache: 0-None Present CIWA-Ar Total Score: 21 Admission ROS S - HPI Chief Complaint: DETOX TX FOR ALCOHOL DEPENDENCE Allergies/Adverse Reactions: Allergies Allergy/AdvReac Type Severity Reaction Status Date / Time No Known Allergies Allergy Verified 09/28/16 13:07 History of Present Illness: 40 Y/O H/M WITH A HX OF ALCOHOL,COCAINE AND HEROIN DEPENDENCE AND ON MMTP SEEKING DETOX TX. Exam Limitations: No Limitations - Ebola screening Have you had contact with anyone from an Ebola affected area: No Have you been sick,other than usual withdrawal symptoms: No Do you have a fever: No - Review of Systems Constitutional: Chills, Loss of Appetite, Night Sweats, Changes in sleep EENT: reports: Tearing, Nose Congestion, Dental Problems (MISSING TEETH) Respiratory: reports: No Symptoms reported Cardiac: reports: Lightheadedness GI: reports: Constipated, Diarrhea, Nausea, Poor Appetite, Poor Fluid Intake, Vomiting : reports: No Symptoms Reported Musculoskeletal: reports: Back Pain, Joint Pain, Muscle Pain Integumentary: reports: No Symptoms Reported Neuro: reports: Headache, Numbness, Tingling, Tremors, Unsteady Gait, Dizziness Endocrine: reports: No Symptoms Reported Hematology: reports: No Symptoms Reported Psychiatric: reports: Orientated x3, Anxious, Depressed Other Systems: Reviewed and Negative Patient History - Patient Medical History Hx Anemia: No Hx Asthma: No Hx Chronic Obstructive Pulmonary Disease (COPD): No Hx Cardiac Disorders: No Hx Hypertension: No Hx Hypercholesterolemia: No HX Cerebrovascular Accident: No Hx Seizures: No Hx Diabetes: No Hx Gastrointestinal Disorders: Yes (acid reflux-NEXIUM IN THE PAST) Hx Liver Disease: No Hx Genitourinary Disorders: No Hx Sexually Transmitted Disorders: No (DENIES) Hx Renal Disease (ESRD): No Hx Thyroid Disease: Yes (PT STATES STOPPED TAKING SYNTHROID FOR 2 WKS AND RESTARTED NOW.) Hx Human Immunodeficiency Virus (HIV): No (NEGATIVE HX) Hx Hepatitis C: No Hx Depression: Yes (ON MED--SEROQUEL AND REMERON) Hx Suicide Attempt: No (DENIES) Hx Bipolar Disorder: No Hx Schizophrenia: No - Patient Surgical History Past Surgical History: No Hx Neurologic Surgery: No Hx Cataract Extraction: No Hx Cardiac Surgery: No Hx Lung Surgery: No Hx Breast Surgery: No Hx Breast Biopsy: No Hx Abdominal Surgery: No Hx Appendectomy: No Hx Cholecystectomy: No Hx Genitourinary Surgery: No Hx Orthopedic Surgery: No Anesthesia Reaction: No - PPD History Previous Implant?: Yes Documented Results: Negative w/proof Implanted On Prior [facility] Admission?: Yes Date: 07/05/16 Results: 0 mm PPD to be Administered?: No - Reproductive History Patient is a Female of Child Bearing Age (11 -55 yrs old): No (MALE) Patient : (N/A) - Smoking Cessation Smoking history: Current every day smoker Have you smoked in the past 12 months: Yes Aproximately how many cigarettes per day: 20 Cigars Per Day: 0 Hx Chewing Tobacco Use: No Initiated information on smoking cessation: Yes 'Breaking Loose' booklet given: 09/28/16 - Substance & Tx. History Hx Alcohol Use: Yes (VODKA/BEER) Hx Substance Use: Yes (HEROIN/COCAINE) Substance Use Type: Alcohol, Cocaine, Heroin Hx Substance Use Treatment: Yes (LAST TX AT [facility] DETOX) - Substances Abused Cocaine Route: Inhalation Frequency: Daily Amount used: 2 gms. Age of first use: 14 Date of Last Use: 09/27/16 Heroin Route: Inhalation Frequency: Daily Amount used: 4-5 bags Age of first use: 14 Date of Last Use: 09/27/16 Alcohol-vodka/beer Route: Oral Frequency: Daily Amount used: 2 pts./1-6 pk. Age of first use: 14 Date of Last Use: 09/27/16 Family Disease History - Family Disease History Family Disease History: Heart Disease: Mother (HTN), Other: Father (Etoh) Admission Physical Exam BHS - Vital Signs Vital Signs: Vital Signs - 24 hr 09/28/16 09:56 Temperature 97.7 F Pulse Rate 73 Respiratory 18 Rate Blood Pressure 139/92 - Physical General Appearance: Yes: Moderate Distress, Irritable, Anxious HEENTM: Yes: EOMI, Normocephalic, SAMANTHA, Pharynx Normal, Nasal Congestion, Rhinorrhea Respiratory: Yes: Chest Non-Tender, Rhonchi, Wheezing Breast: Yes: Breast Exam Deferred Cardiology: Yes: Regular Rhythm, Regular Rate, S1, S2 Abdominal: Yes: Normal Bowel Sounds, Non Tender, Soft Genitourinary: Yes: Other (N/C) Back: Yes: Within Normal Limits Musculoskeletal: Yes: full range of Motion, Gait Steady Extremities: Yes: Normal Range of Motion, Non-Tender 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: Yes: kst operator II-XII NML intact, Fully Oriented, Alert, Motor Strength 5/5 Integumentary: Yes: Dry, Warm Lymphatic: Yes: Within Normal Limits - Diagnostic (1) Alcohol dependence with uncomplicated withdrawal Current Visit: Yes Status: Acute (2) Cocaine dependence, uncomplicated Current Visit: Yes Status: Acute (3) Nicotine dependence Current Visit: Yes Status: Acute Qualifiers: Nicotine product type: cigarettes Substance use status: in withdrawal Qualified Code(s): F17.213 - Nicotine dependence, cigarettes, with withdrawal (4) Chronic lower back pain Current Visit: Yes Status: Chronic Qualifiers: Back pain laterality: midline (5) History of - hypothyroidism Current Visit: Yes Status: Chronic Comment: PT NONCOMPLIANT WITH MED BUT STATES HE RESTARTED ON MED RECENTLY. (6) Bronchitis Current Visit: Yes Status: Acute (7) Methadone maintenance therapy patient Current Visit: Yes Status: Chronic Cleared for Admission [facility] - Detox or Rehab [facility] Level of Care: Medically Managed Detox Regimen/Protocol: Librium [facility] Breath Alcohol Content Breath Alcohol Content: 0 Urine Drug Screen - Results Drug Screen Negative: No Urine Drug Screen Results: BARBARA-Cocaine, OPI-Opiates, MTD-Methadone
[2016-09-28] MEDS ORDERED: MAGNESIUM HYDROX 2400MG/30ML ORAL SUSPENSION 30 ML CUP PO PRN (14:41)
[2016-09-28] MEDS ORDERED: IBUPROFEN 400 MG TABLET (FP) PO PRN (14:41)
[2016-09-28] MEDS ORDERED: MENTHOL/PHENOL 1 EACH UD MM PRN (14:41)
[2016-09-28] MEDS ORDERED: guaiFENesin/D-METHORPHAN HB 10 ML UNIT-DOSE CUPS PO PRN (14:41)
[2016-09-28] MEDS ORDERED: MAGNESIUM CITRATE 300 ML BOTTLE PO PRN (14:41)
[2016-09-28] MEDS ORDERED: ACETAMINOPHEN 325 MG TABLET (FP) PO PRN (14:41)
[2016-09-28] MEDS ORDERED: MAG HYDROX/AL HYDROX/SIMETH 30 ML UNIT-DOSE CUP PO PRN (14:41)
[2016-09-28] MEDS ORDERED: P-EPHED 60MG/TRIPROLIDI 2.5MG TABLET PO PRN (14:41)
[2016-09-28] MEDS ORDERED: LOPERAMIDE HCL 2 MG CAPSULE PO PRN (14:41)
[2016-09-28] MEDS ORDERED: diazePAM 5 MG TABLET PO ONE (14:52)
--- NOTE | 2016-09-28 14:53 | CONSULT ---
[facility] Psychiatric Consult - Data Date of interview: 09/28/16 Admission source: [facility] Identifying data: This is 40 years old male with history of psychiatric hospitalizations, history of MDD, intoxicated with: Alcohol, Heroin, Cocaine and Methadone, Nicotine Substance Abuse History: Urine Drug Screen Results: BRABARA-Cocaine, OPI-Opiates, MTD-Methadone. - Smoking Cessation. Smoking history: Current every day smoker. Have you smoked in the past 12 months: Yes. Aproximately how many cigarettes per day: 20. Cigars Per Day: 0. Hx Chewing Tobacco Use: No. Initiated information on smoking cessation: Yes. 'Breaking Loose' booklet given : 09/28/16. - Substance & Tx. History. Hx Alcohol Use: Yes (VODKA/BEER). Hx Substance Use: Yes (HEROIN/COCAINE). Substance Use Type: Alcohol, Cocaine, Heroin. Hx Substance Use Treatment: Yes (LAST TX AT [facility] DETOX). - Substances Abused. Cocaine. Route: Inhalation. Frequency: Daily. Amount used: 2 gms. Age of first use: 14. Date of Last Use: 09/27/16. Heroin. Route: Inhalation. Frequency: Daily. Amount used: 4-5 bags. Age of first use: 14. Date of Last Use: 09/27/16. Alcohol-vodka/beer. Route: Oral. Frequency: Daily. Amount used: 2 pts./1-6 pk. Age of first use: 14. Date of Last Use: Medical History: Hyporhyroidism, LBP, MMTP 40MG PER DAY Psychiatric History: Patient reports hisatory of MDD with most recent psychiatric hospitalization at [facility] for safety on 2015. Reports currently taking: Seroquel 200mg po qhs. Remeron 15mg po qhs Physical/Sexual Abuse/Trauma History: Denies Additional Comment: Urine Drug Screen Results: BARBARA-Cocaine, OPI-Opiates, MTD- Methadone. Seroquel 200mg po qhs. Remeron 15mg po qhs Mental Status Exam - Mental Status Exam Alert and Oriented to: Person Cognitive Function: Fair Patient Appearance: Well Groomed Mood: Anxious Affect: Mood Congruent Patient Behavior: Cooperative Speech Pattern: Appropriate Voice Loudness: Normal Thought Process: Goal Oriented Thought Disorder: Being Controlled Hallucinations: Denies Suicidal Ideation: Denies Homicidal Ideation: Denies Insight/Judgement: Fair Sleep: Difficulty falling asleep Appetite: Fair Muscle strength/Tone: Normal Gait/Station: Normal Additional Comments: Seroquel 200mg po qhs. Remeron 15mg po qhs Psychiatric Findings - Problem List ([place] 1, 2,3) (1) Alcohol dependence with uncomplicated withdrawal Current Visit: Yes Status: Acute (2) Cocaine dependence, uncomplicated Current Visit: Yes Status: Acute (3) Nicotine dependence Current Visit: Yes Status: Acute Qualifiers: Nicotine product type: cigarettes Substance use status: in withdrawal Qualified Code(s): F17.213 - Nicotine dependence, cigarettes, with withdrawal (4) Major depressive disorder Current Visit: No Status: Acute (5) Substance induced mood disorder Current Visit: No Status: Acute (6) Opioid dependence with withdrawal Current Visit: No Status: Chronic - Initial Treatment Plan Initial Treatment Plan: Seroquel 200mg po qhs. Remeron 15mg po qhs
[2016-09-28] MEDS: NICOTINE 21 MG/24 HOURS TOPICAL PATCH TD SCH (15:13)
[2016-09-28] MEDS: LEVOTHYROXINE NA 25 MCG TABLET (FP) PO SCH (15:13)
[2016-09-28] MEDS: PANTOPRAZOLE 40 MG TABLET (FP) PO SCH (15:13)
[2016-09-28] MEDS: NICOTINE POLACRILEX 4 MG GUM BUC PRN (15:13)
[2016-09-28 17:02] LABS: URINE APPEARANCE CLEAR; URINE BILIRUBIN NEGATIVE (NEGATIVE); URINE BLOOD NEGATIVE (NEGATIVE); URINE COLOR YELLOW; URINE GLUCOSE (UA) NEGATIVE (NEGATIVE); URINE KETONE NEGATIVE (NEGATIVE); URINE LEUK ESTERASE NEGATIVE (NEGATIVE); URINE NITRITE NEGATIVE (NEGATIVE); URINE PROTEIN NEGATIVE (NEGATIVE); URINE UROBILINOGEN NEGATIVE mg/dL (0.2-1.0)
[2016-09-28] MEDS ORDERED: ALBUTEROL SO4 2.5/IPRATROPIUM 0.5 INH SOL 3 ML VIAL.NEB. NEB ONE (19:08)
[2016-09-28] MEDS: diazePAM 5 MG TABLET PO SCH (22:34)
[2016-09-28] MEDS: MIRTAZAPINE 15 MG TABLET (FP) PO SCH (22:34)
[2016-09-28] MEDS: THIAMINE HCL 100 MG TABLET (FP) PO SCH (22:34)
[2016-09-28] MEDS: QUEtiapine FUMARATE 200 MG TABLET PO SCH (22:34)
[2016-09-29] MEDS: ALBUTEROL SO4 2.5/IPRATROPIUM 0.5 INH SOL 3 ML VIAL.NEB. NEB SCH ×5 (00:38→23:49)
[2016-09-29] MEDS: diazePAM 5 MG TABLET PO SCH ×3 (06:03→22:29)
[2016-09-29] MEDS: LEVOTHYROXINE NA 25 MCG TABLET (FP) PO SCH (07:35)
--- NOTE | 2016-09-29 09:26 | EKG ---
Test Reason : Blood Pressure : / mmHG Vent. Rate : 067 BPM Atrial Rate : 067 BPM P-R Int : 138 ms QRS Dur : 082 ms QT Int : 408 ms P-R-T Axes : 000 049 027 degrees QTc Int : 431 ms NORMAL SINUS RHYTHM NORMAL ECG WHEN COMPARED WITH ECG OF 03-AUG-2016 15:45, NO SIGNIFICANT CHANGE WAS FOUND Confirmed by ADITYA HILL MD ([id number]) on 09/29/2016 9:25:50 AM Referred By: Confirmed By:ADITYA HILL MD
[2016-09-29 10:23] LABS: MCH 29.8 pg (25.7-33.7); MCHC 32.8 g/dl (32.0-35.9); MEAN CELL VOLUME 90.7 fl (80-96); MEAN PLT VOLUME 9.3 fl (7.5-11.1); PLATELET COUNT 349 K/MM3 (134-434); RDW 14.2 % (11.9-15.9); WHITE BLOOD COUNT 12.9 K/mm3 (4.0-10.0)
[2016-09-29 10:37] LABS: ALBUMIN 4.3 g/dl (3.4-5.0); ALK PHOS 91 U/L (45-117); ANION GAP 9 (8-16); BILIRUBIN,TOTAL 0.8 mg/dL (0.2-1.0); CALCIUM 9.5 mg/dL (8.5-10.1); CO2 27 mmol/L (21-32); CREATININE 1.2 mg/dL (0.7-1.3); GLUCOSE,RANDOM 114 mg/dL (74-106); SGOT/AST 21 U/L (15-37); SGPT/ALT 23 U/L (12-78); TOT PROT 7.3 g/dl (6.4-8.2)
[2016-09-29] MEDS: NICOTINE 21 MG/24 HOURS TOPICAL PATCH TD SCH (11:05)
[2016-09-29] MEDS: PRENATAL VITAMINS W/ FOLIC ACID TABLET (FP) PO SCH (11:05)
[2016-09-29] MEDS: METHADONE HCL 40 MG DISPERSABLE TABLET PO SCH (11:05)
[2016-09-29] MEDS: PANTOPRAZOLE 40 MG TABLET (FP) PO SCH (11:06)
[2016-09-29] MEDS: diazePAM 5 MG TABLET PO PRN (12:16)
--- NOTE | 2016-09-29 12:20 | PN ---
[facility] CIWA - CIWA Score Nausea/Vomitin-Mild Nausea/No Vomiting Muscle Tremors: 2 Anxiety: 3 Agitation: 2 Paroxysmal Sweats: 3 Orientation: 0-Oriented Tacttile Disturbances: 0-None Auditory Disturbances: 2-Mild Harshness/Frighten Visual Disturbances: 2-Mild Sensitivity Headache: 3-Moderate CIWA-Ar Total Score: 18 S Progress Note (SOAP) Subjective: Fatigue, Sweating, H/A, Lower Back Ache. Objective: PT. A & O X 3. NO ACUTE DISTRESS. PT. DENIES CHEST PAIN. 09/29/16 12:18 Vital Signs Temperature 97.6 F 09/29/16 09:30 Pulse Rate 61 09/29/16 09:30 Respiratory Rate 18 09/29/16 09:30 Blood Pressure 131/90 09/29/16 09:30 O2 Sat by Pulse Oximetry (%) Laboratory Tests 09/28/16 09/29/16 09/29/16 15:15 06:00 06:00 WBC 12.9 H RBC 4.56 Hgb 13.6 Hct 41.4 MCV 90.7 MCH 29.8 MCHC 32.8 RDW 14.2 Plt Count 349 MPV 9.3 Sodium 137 Potassium 4.2 Chloride 101 Carbon Dioxide 27 Anion Gap 9 BUN 15 Creatinine 1.2 Creat Clearance w eGFR > 60 Random Glucose 114 H Calcium 9.5 Total Bilirubin 0.8 D AST 21 ALT 23 Alkaline Phosphatase 91 Total Protein 7.3 Albumin 4.3 Urine Color Yellow Urine Appearance Clear Urine pH 5.0 Ur Specific [place] 1.025 Urine Protein Negative Urine Glucose (UA) Negative Urine Ketones Negative Urine Blood Negative Urine Nitrite Negative Urine Bilirubin Negative Urine Urobilinogen Negative Ur Leukocyte Esterase Negative LABS NOTED. HIV AND RPR RESULTS PENDING. 09/29/16 12:19 09/29/16 12:20 Assessment: 09/29/16 12:18 WITHDRAWAL SYMPTOMS. Plan: CONTINUE DETOX.
[2016-09-29 14:48] LABS: HIV 1 & 2 AB NEGATIVE; HIV 1 AGp24 NEGATIVE
[2016-09-29] MEDS: THIAMINE HCL 100 MG TABLET (FP) PO SCH (22:29)
[2016-09-29] MEDS: diphenhydrAMINE HCL 50 MG CAPSULE PO PRN (22:30)
[2016-09-29] MEDS: MIRTAZAPINE 15 MG TABLET (FP) PO SCH (22:34)
[2016-09-29] MEDS: QUEtiapine FUMARATE 200 MG TABLET PO SCH (22:58)
[2016-09-30] MEDS: METHADONE HCL 40 MG DISPERSABLE TABLET PO SCH (05:48)
[2016-09-30] MEDS: ALBUTEROL SO4 2.5/IPRATROPIUM 0.5 INH SOL 3 ML VIAL.NEB. NEB SCH ×3 (05:48→20:48)
[2016-09-30] MEDS: diazePAM 5 MG TABLET PO PRN ×2 (05:50→17:59)
[2016-09-30] MEDS: LEVOTHYROXINE NA 25 MCG TABLET (FP) PO SCH (06:16)
[2016-09-30] MEDS: PANTOPRAZOLE 40 MG TABLET (FP) PO SCH (10:35)
[2016-09-30] MEDS: PRENATAL VITAMINS W/ FOLIC ACID TABLET (FP) PO SCH (10:35)
[2016-09-30] MEDS: NICOTINE 21 MG/24 HOURS TOPICAL PATCH TD SCH (10:35)
[2016-09-30] MEDS: diazePAM 5 MG TABLET PO SCH ×2 (10:35→22:31)
--- NOTE | 2016-09-30 16:59 | PN ---
[facility] CIWA - CIWA Score Nausea/Vomitin-No Nausea/No Vomiting Muscle Tremors: 4-Moderate,w/Arms Extend Anxiety: 3 Agitation: 2 Paroxysmal Sweats: 3 Orientation: 0-Oriented Tacttile Disturbances: 1-Very Mild Itch/Numbness Auditory Disturbances: 0-None Visual Disturbances: 2-Mild Sensitivity Headache: 0-None Present CIWA-Ar Total Score: 15 S Progress Note (SOAP) Subjective: Tremors, Interrupted Sleep, sweating, Lower Back Ache. Objective: PT. A & O X 3, OBSERVED AMBULATING ON UNIT. NO ACUTE DISTRESS. 09/30/16 17:01 Vital Signs Temperature 97.5 F L 09/30/16 14:01 Pulse Rate 58 L 09/30/16 14:01 Respiratory Rate 18 09/30/16 14:01 Blood Pressure 127/75 09/30/16 14:01 O2 Sat by Pulse Oximetry (%) Laboratory Tests 09/28/16 09/28/16 09/29/16 10:30 15:15 06:00 WBC 12.9 H RBC 4.56 Hgb 13.6 Hct 41.4 MCV 90.7 MCH 29.8 MCHC 32.8 RDW 14.2 Plt Count 349 MPV 9.3 Sodium Potassium Chloride Carbon Dioxide Anion Gap BUN Creatinine Creat Clearance w eGFR Random Glucose Calcium Total Bilirubin AST ALT Alkaline Phosphatase Total Protein Albumin Urine Color Yellow Urine Appearance Clear Urine pH 5.0 Ur Specific [place] 1.025 Urine Protein Negative Urine Glucose (UA) Negative Urine Ketones Negative Urine Blood Negative Urine Nitrite Negative Urine Bilirubin Negative Urine Urobilinogen Negative Ur Leukocyte Esterase Negative RPR Titer HIV 1&2 Antibody Screen Negative HIV P24 Antigen Negative 09/29/16 09/29/16 06:00 06:00 WBC RBC Hgb Hct MCV MCH MCHC RDW Plt Count MPV Sodium 137 Potassium 4.2 Chloride 101 Carbon Dioxide 27 Anion Gap 9 BUN 15 Creatinine 1.2 Creat Clearance w eGFR > 60 Random Glucose 114 H Calcium 9.5 Total Bilirubin 0.8 D AST 21 ALT 23 Alkaline Phosphatase 91 Total Protein 7.3 Albumin 4.3 Urine Color Urine Appearance Urine pH Ur Specific [place] Urine Protein Urine Glucose (UA) Urine Ketones Urine Blood Urine Nitrite Urine Bilirubin Urine Urobilinogen Ur Leukocyte Esterase RPR Titer Nonreactive HIV 1&2 Antibody Screen HIV P24 Antigen LABS NOTED. Assessment: WITHDRAWAL SYMPTOMS. 09/30/16 17:02 Plan: CONTINUE DETOX.
[2016-09-30] MEDS: QUEtiapine FUMARATE 200 MG TABLET PO SCH (22:30)
[2016-09-30] MEDS: THIAMINE HCL 100 MG TABLET (FP) PO SCH (22:30)
[2016-09-30] MEDS: MIRTAZAPINE 15 MG TABLET (FP) PO SCH (22:30)
[2016-10-01] MEDS: METHADONE HCL 40 MG DISPERSABLE TABLET PO SCH (05:47)
[2016-10-01] MEDS: LEVOTHYROXINE NA 25 MCG TABLET (FP) PO SCH (06:11)
[2016-10-01] MEDS: PRENATAL VITAMINS W/ FOLIC ACID TABLET (FP) PO SCH (10:28)
[2016-10-01] MEDS: PANTOPRAZOLE 40 MG TABLET (FP) PO SCH (10:28)
[2016-10-01] MEDS: diazePAM 5 MG TABLET PO SCH ×2 (10:28→22:15)
[2016-10-01] MEDS: NICOTINE 21 MG/24 HOURS TOPICAL PATCH TD SCH (10:48)
[2016-10-01] MEDS: diazePAM 5 MG TABLET PO PRN (13:26)
[2016-10-01] MEDS: ALBUTEROL SO4 2.5/IPRATROPIUM 0.5 INH SOL 3 ML VIAL.NEB. NEB SCH (13:27)
--- NOTE | 2016-10-01 16:12 | PN ---
[facility] Progress Note (SOAP) Subjective: Anxious, restless, interrupted sleep Objective: 10/01/16 16:10 Last Vital Signs Temp Pulse Resp BP Pulse Ox 97.4 F L 75 18 120/73 10/01/16 14:05 10/01/16 14:05 10/01/16 14:05 10/01/16 14:05 Laboratory Tests 09/28/16 09/28/16 09/29/16 10:30 15:15 06:00 WBC 12.9 H RBC 4.56 Hgb 13.6 Hct 41.4 MCV 90.7 MCH 29.8 MCHC 32.8 RDW 14.2 Plt Count 349 MPV 9.3 Sodium Potassium Chloride Carbon Dioxide Anion Gap BUN Creatinine Creat Clearance w eGFR Random Glucose Calcium Total Bilirubin AST ALT Alkaline Phosphatase Total Protein Albumin Urine Color Yellow Urine Appearance Clear Urine pH 5.0 Ur Specific [place] 1.025 Urine Protein Negative Urine Glucose (UA) Negative Urine Ketones Negative Urine Blood Negative Urine Nitrite Negative Urine Bilirubin Negative Urine Urobilinogen Negative Ur Leukocyte Esterase Negative RPR Titer HIV 1&2 Antibody Screen Negative HIV P24 Antigen Negative 09/29/16 09/29/16 06:00 06:00 WBC RBC Hgb Hct MCV MCH MCHC RDW Plt Count MPV Sodium 137 Potassium 4.2 Chloride 101 Carbon Dioxide 27 Anion Gap 9 BUN 15 Creatinine 1.2 Creat Clearance w eGFR > 60 Random Glucose 114 H Calcium 9.5 Total Bilirubin 0.8 D AST 21 ALT 23 Alkaline Phosphatase 91 Total Protein 7.3 Albumin 4.3 Urine Color Urine Appearance Urine pH Ur Specific [place] Urine Protein Urine Glucose (UA) Urine Ketones Urine Blood Urine Nitrite Urine Bilirubin Urine Urobilinogen Ur Leukocyte Esterase RPR Titer Nonreactive HIV 1&2 Antibody Screen HIV P24 Antigen Labs noted: wbc 12.9 Assessment: 10/01/16 16:11 Withdrawal symptoms Noted with leukocytosis Plan: Continue detox Leukocytosis: repeat CBC
[2016-10-01] MEDS: MIRTAZAPINE 15 MG TABLET (FP) PO SCH (22:15)
[2016-10-01] MEDS: QUEtiapine FUMARATE 200 MG TABLET PO SCH (22:15)
[2016-10-01] MEDS: THIAMINE HCL 100 MG TABLET (FP) PO SCH (22:15)
[2016-10-01] MEDS: diphenhydrAMINE HCL 50 MG CAPSULE PO PRN (22:16)
[2016-10-02] MEDS: ALBUTEROL SO4 2.5/IPRATROPIUM 0.5 INH SOL 3 ML VIAL.NEB. NEB SCH ×4 (00:46→23:03)
[2016-10-02] MEDS: METHADONE HCL 40 MG DISPERSABLE TABLET PO SCH (07:02)
[2016-10-02] MEDS: LEVOTHYROXINE NA 25 MCG TABLET (FP) PO SCH (07:03)
[2016-10-02 09:48] LABS: BASOPHIL 0.7 % (0-2.0); EOSINOPHIL 6.5 % (0-4.5); MCH 30.1 pg (25.7-33.7); MCHC 33.4 g/dl (32.0-35.9); MEAN PLT VOLUME 8.6 fl (7.5-11.1); NEUTROPHILS 39.3 % (42.8-82.8); PLATELET COUNT 270 K/MM3 (134-434); RDW 14.3 % (11.9-15.9); WHITE BLOOD COUNT 7.9 K/mm3 (4.0-10.0)
[2016-10-02] MEDS ORDERED: diazePAM 5 MG TABLET PO SCH (10:00)
[2016-10-02] MEDS: PANTOPRAZOLE 40 MG TABLET (FP) PO SCH (10:16)
[2016-10-02] MEDS: PRENATAL VITAMINS W/ FOLIC ACID TABLET (FP) PO SCH (10:16)
[2016-10-02] MEDS: NICOTINE 21 MG/24 HOURS TOPICAL PATCH TD SCH (10:17)
--- NOTE | 2016-10-02 13:32 | PN ---
[facility] Progress Note (SOAP) Subjective: Sweating,interrupted sleep,restless. Objective: 10/02/16 13:31 Vital Signs - 8 hr 10/02/16 10/02/16 06:30 09:32 Temperature 97.3 F L 97.5 F L Pulse Rate 76 72 Respiratory 18 16 Rate Blood Pressure 131/76 126/81 Laboratory Last Values WBC 7.9 K/mm3 (4.0-10.0) D 10/02/16 06:30 RBC 4.71 M/mm3 (4.00-5.60) 10/02/16 06:30 Hgb 14.1 GM/dL (11.7-16.9) 10/02/16 06:30 Hct 42.3 % (35.4-49) 10/02/16 06:30 MCV 90.0 fl (80-96) 10/02/16 06:30 MCH 30.1 pg (25.7-33.7) 10/02/16 06:30 MCHC 33.4 g/dl (32.0-35.9) 10/02/16 06:30 RDW 14.3 % (11.9-15.9) 10/02/16 06:30 Plt Count 270 K/MM3 (134-434) D 10/02/16 06:30 MPV 8.6 fl (7.5-11.1) 10/02/16 06:30 Neutrophils % 39.3 % (42.8-82.8) L D 10/02/16 06:30 Lymphocytes % 44.4 % (8-40) H 10/02/16 06:30 Monocytes % 9.1 % (3.8-10.2) 10/02/16 06:30 Eosinophils % 6.5 % (0-4.5) H D 10/02/16 06:30 Basophils % 0.7 % (0-2.0) 10/02/16 06:30 Sodium 137 mmol/L (136-145) 09/29/16 06:00 Potassium 4.2 mmol/L (3.5-5.1) 09/29/16 06:00 Chloride 101 mmol/L (98-107) 09/29/16 06:00 Carbon Dioxide 27 mmol/L (21-32) 09/29/16 06:00 Anion Gap 9 (8-16) 09/29/16 06:00 BUN 15 mg/dL (7-18) 09/29/16 06:00 Creatinine 1.2 mg/dL (0.7-1.3) 09/29/16 06:00 Creat Clearance w eGFR > 60 (>60) 09/29/16 06:00 Random Glucose 114 mg/dL (74-106) H 09/29/16 06:00 Calcium 9.5 mg/dL (8.5-10.1) 09/29/16 06:00 Total Bilirubin 0.8 mg/dL (0.2-1.0) D 09/29/16 06:00 AST 21 U/L (15-37) 09/29/16 06:00 ALT 23 U/L (12-78) 09/29/16 06:00 Alkaline Phosphatase 91 U/L (45-117) 09/29/16 06:00 Total Protein 7.3 g/dl (6.4-8.2) 09/29/16 06:00 Albumin 4.3 g/dl (3.4-5.0) 09/29/16 06:00 Urine Color Yellow 09/28/16 15:15 Urine Appearance Clear 09/28/16 15:15 Urine pH 5.0 (5.0-8.0) 09/28/16 15:15 Ur Specific [place] 1.025 (1.005-1.025) 09/28/16 15:15 Urine Protein Negative (NEGATIVE) 09/28/16 15:15 Urine Glucose (UA) Negative (NEGATIVE) 09/28/16 15:15 Urine Ketones Negative (NEGATIVE) 09/28/16 15:15 Urine Blood Negative (NEGATIVE) 09/28/16 15:15 Urine Nitrite Negative (NEGATIVE) 09/28/16 15:15 Urine Bilirubin Negative (NEGATIVE) 09/28/16 15:15 Urine Urobilinogen Negative mg/dL (0.2-1.0) 09/28/16 15:15 Ur Leukocyte Esterase Negative (NEGATIVE) 09/28/16 15:15 RPR Titer Nonreactive (NONREACTIVE) 09/29/16 06:00 HIV 1&2 Antibody Screen Negative 09/28/16 10:30 HIV P24 Antigen Negative 09/28/16 10:30 labs noted Assessment: 10/02/16 13:32 Withdrawal sx. Plan: Continue detox
[2016-10-02] MEDS: AMOX TR/POT CLAV 875MG/125MG TABLETS (FP) PO SCH (17:21)
[2016-10-02] MEDS: NICOTINE POLACRILEX 4 MG GUM BUC PRN (19:47)
[2016-10-02] MEDS: THIAMINE HCL 100 MG TABLET (FP) PO SCH (22:34)
[2016-10-02] MEDS: QUEtiapine FUMARATE 200 MG TABLET PO SCH (22:34)
[2016-10-02] MEDS: MIRTAZAPINE 15 MG TABLET (FP) PO SCH (22:34)
[2016-10-03 06:17] VITALS: BP 122/74; PULSE 73; TEMP 97.5
[2016-10-03] MEDS: ALBUTEROL SO4 2.5/IPRATROPIUM 0.5 INH SOL 3 ML VIAL.NEB. NEB SCH (07:00)
[2016-10-03] MEDS: LEVOTHYROXINE NA 25 MCG TABLET (FP) PO SCH (07:26)
[2016-10-03] MEDS: AMOX TR/POT CLAV 875MG/125MG TABLETS (FP) PO SCH (07:26)
[2016-10-03] MEDS: METHADONE HCL 40 MG DISPERSABLE TABLET PO SCH (07:26)
--- NOTE | 2016-10-03 11:05 | DS ---
[facility] Detox Discharge Summary Admission Date: 09/28/16 Discharge Date: 10/03/16 - History Present History: Alcohol Dependence, Cocaine Dependence, MMTP Additional Comments: DETOX COMPLETED. PT INSTRUCTED TO FOLLOW UP WITH AFTERCARE AT POSITIVE DIRECTIONS/MMTP AND MEDICAL MANAGEMENT AT [facility]. Pertinent Past History: R/O COPD HYPOTHYROIDISM GERD - Physical Exam Results Vital Signs: Vital Signs Temperature 97.5 F L 10/03/16 06:17 Pulse Rate 73 10/03/16 06:17 Respiratory Rate 18 10/03/16 06:17 Blood Pressure 122/74 10/03/16 06:17 O2 Sat by Pulse Oximetry (%) Pertinent Admission Physical Exam Findings: WITHDRAWAL SX WHEEZING WITH RHONCHI COUGHING WITH YELLOWISH BROWN SPUTUM Laboratory Last Values WBC 7.9 K/mm3 (4.0-10.0) D 10/02/16 06:30 RBC 4.71 M/mm3 (4.00-5.60) 10/02/16 06:30 Hgb 14.1 GM/dL (11.7-16.9) 10/02/16 06:30 Hct 42.3 % (35.4-49) 10/02/16 06:30 MCV 90.0 fl (80-96) 10/02/16 06:30 MCH 30.1 pg (25.7-33.7) 10/02/16 06:30 MCHC 33.4 g/dl (32.0-35.9) 10/02/16 06:30 RDW 14.3 % (11.9-15.9) 10/02/16 06:30 Plt Count 270 K/MM3 (134-434) D 10/02/16 06:30 MPV 8.6 fl (7.5-11.1) 10/02/16 06:30 Neutrophils % 39.3 % (42.8-82.8) L D 10/02/16 06:30 Lymphocytes % 44.4 % (8-40) H 10/02/16 06:30 Monocytes % 9.1 % (3.8-10.2) 10/02/16 06:30 Eosinophils % 6.5 % (0-4.5) H D 10/02/16 06:30 Basophils % 0.7 % (0-2.0) 10/02/16 06:30 Sodium 137 mmol/L (136-145) 09/29/16 06:00 Potassium 4.2 mmol/L (3.5-5.1) 09/29/16 06:00 Chloride 101 mmol/L (98-107) 09/29/16 06:00 Carbon Dioxide 27 mmol/L (21-32) 09/29/16 06:00 Anion Gap 9 (8-16) 09/29/16 06:00 BUN 15 mg/dL (7-18) 09/29/16 06:00 Creatinine 1.2 mg/dL (0.7-1.3) 09/29/16 06:00 Creat Clearance w eGFR > 60 (>60) 09/29/16 06:00 Random Glucose 114 mg/dL (74-106) H 09/29/16 06:00 Calcium 9.5 mg/dL (8.5-10.1) 09/29/16 06:00 Total Bilirubin 0.8 mg/dL (0.2-1.0) D 09/29/16 06:00 AST 21 U/L (15-37) 09/29/16 06:00 ALT 23 U/L (12-78) 09/29/16 06:00 Alkaline Phosphatase 91 U/L (45-117) 09/29/16 06:00 Total Protein 7.3 g/dl (6.4-8.2) 09/29/16 06:00 Albumin 4.3 g/dl (3.4-5.0) 09/29/16 06:00 Urine Color Yellow 09/28/16 15:15 Urine Appearance Clear 09/28/16 15:15 Urine pH 5.0 (5.0-8.0) 09/28/16 15:15 Ur Specific [place] 1.025 (1.005-1.025) 09/28/16 15:15 Urine Protein Negative (NEGATIVE) 09/28/16 15:15 Urine Glucose (UA) Negative (NEGATIVE) 09/28/16 15:15 Urine Ketones Negative (NEGATIVE) 09/28/16 15:15 Urine Blood Negative (NEGATIVE) 09/28/16 15:15 Urine Nitrite Negative (NEGATIVE) 09/28/16 15:15 Urine Bilirubin Negative (NEGATIVE) 09/28/16 15:15 Urine Urobilinogen Negative mg/dL (0.2-1.0) 09/28/16 15:15 Ur Leukocyte Esterase Negative (NEGATIVE) 09/28/16 15:15 RPR Titer Nonreactive (NONREACTIVE) 09/29/16 06:00 HIV 1&2 Antibody Screen Negative 09/28/16 10:30 HIV P24 Antigen Negative 09/28/16 10:30 - Treatment Hospital Course: Detox Protocol Followed, Detoxed Safely, Responded well, Discharged Condition Good, Rehab Referral Accepted Patient has Accepted a Rehab Referral to: [facility] - Medication Discharge Medications: Ambulatory Orders Levothyroxine [Synthroid -] 50 mcg PO DAILY #30 tablet 10/03/16 Tiotropium [place] [Spiriva] 1 inh IH DAILY #1 inh 10/03/16 Albuterol Sulfate Inhaler - [Ventolin HFA Inhaler -] 2 inh PO Q4H PRN 10/04/16 Baclofen 10 mg PO Q8H 10/04/16 Clonidine HCl [Catapres -] 0.2 mg PO BID 10/04/16 Folic Acid - 1 mg PO DAILY 10/04/16 Gabapentin [Neurontin] 600 mg PO TID 10/04/16 Hydroxyzine Pamoate [Vistaril -] 50 mg PO Q6H PRN 10/04/16 Ibuprofen [Motrin -] 600 mg PO Q6H PRN 10/04/16 Mirtazapine [Remeron -] 30 mg PO HS 10/04/16 Ranitidine [Zantac -] 150 mg PO BID 10/04/16 - Diagnosis (1) Alcohol dependence with uncomplicated withdrawal Status: Acute (2) Cocaine dependence, uncomplicated Status: Acute (3) Nicotine dependence Status: Acute Qualifiers: Nicotine product type: cigarettes Substance use status: in withdrawal Qualified Code(s): F17.213 - Nicotine dependence, cigarettes, with withdrawal (4) Chronic lower back pain Status: Chronic Qualifiers: Back pain laterality: unspecified (5) History of - hypothyroidism Status: Chronic (6) Bronchitis Status: Acute (7) Methadone maintenance therapy patient Status: Chronic (8) GERD (gastroesophageal reflux disease) Status: Chronic Qualifiers: Esophagitis presence: without esophagitis Qualified Code(s): K21.9 - Gastro-esophageal reflux disease without esophagitis - AMA Did Patient Leave Against Medical Advice: No
== END 2016-10-03 09:25 | disposition home or self-care (01) | DRG 773 ==
LOC: YASAS 09:38 → Y3N 13:50
PROVIDERS: ADMIT Internal Medicine; ATTEND Internal Medicine
PROC: HZ2ZZZZ Detoxification Services for Substance Abuse Treatment (ICD-10-PCS; principal; 2016-09-28)
DX: F10.230 Alcohol dependence with withdrawal, uncomplicated (principal); F11.20 Opioid dependence, uncomplicated; F14.20 Cocaine dependence, uncomplicated; F17.213 Nicotine dependence, cigarettes, with withdrawal; F32.9 Major depressive disorder, single episode, unspecified; F19.24 Other psychoactive substance dependence with psychoactive substance-induced mood disorder; E03.9 Hypothyroidism, unspecified; J40 Bronchitis, not specified as acute or chronic; M54.5 Low back pain; G89.29 Other chronic pain; D72.829 Elevated white blood cell count, unspecified; K21.9 Gastro-esophageal reflux disease without esophagitis
CPT/HCPCS: 36415; 80053; 81003; 85025; 85027; 86593; 87389; 93005; 93010; 94640

== ENCOUNTER 2016-10-04 10:22 | Inpatient (IN) | payer OTHER ==
[2016-10-04 10:50] VITALS: BMI 28.1
[2016-10-04] MEDS ORDERED: MENTHOL/PHENOL 1 EACH UD MM PRN (12:54)
[2016-10-04] MEDS ORDERED: diphenhydrAMINE HCL 50 MG CAPSULE PO PRN (12:54)
[2016-10-04] MEDS ORDERED: NICOTINE POLACRILEX 4 MG GUM BUC PRN (12:54)
[2016-10-04] MEDS ORDERED: MAG HYDROX/AL HYDROX/SIMETH 30 ML UNIT-DOSE CUP PO PRN (12:54)
[2016-10-04] MEDS ORDERED: IBUPROFEN 400 MG TABLET (FP) PO PRN (12:54)
[2016-10-04] MEDS ORDERED: P-EPHED 60MG/TRIPROLIDI 2.5MG TABLET PO PRN (12:54)
[2016-10-04] MEDS ORDERED: hydrOXYzine PAMOATE 50 MG CAPSULE (FP) PO PRN (12:54)
[2016-10-04] MEDS ORDERED: ACETAMINOPHEN 325 MG TABLET (FP) PO PRN (12:54)
[2016-10-04] MEDS ORDERED: MAGNESIUM CITRATE 300 ML BOTTLE PO PRN (12:54)
[2016-10-04] MEDS ORDERED: LOPERAMIDE HCL 2 MG CAPSULE PO PRN (12:54)
[2016-10-04] MEDS ORDERED: guaiFENesin/D-METHORPHAN HB 10 ML UNIT-DOSE CUPS PO PRN (12:54)
[2016-10-04] MEDS ORDERED: MAGNESIUM HYDROX 2400MG/30ML ORAL SUSPENSION 30 ML CUP PO PRN (12:54)
--- NOTE | 2016-10-04 12:54 | HP ---
[facility] Rehab Assess/Revision - Admission History Admitted to Rehab from: [facility] (COMPLETED DETOX ON ON 10/03/16) Date of Admission to Rehab: 10/04/16 - Vital signs Vital Signs: Vital Signs Period Temp Pulse Resp BP Sys/[place] Pulse Ox Last 24 Hr 97 F 119 18 139/87 - Findings Detox History & Physical reviewed: Yes Concur with findings: Yes Comments/Additional Findings: PT RETURNED TODAY TO CONTINUE WITH REHAB AFTERCARE PLANNED. ALERT O X 3. NAD. LUNGS:MILD TO MODERATE WHEEZING WITH RHONCHI MOSTLY IN RIGHT LUNG BASES. ADMIT TO REHAB.
[2016-10-04] MEDS ORDERED: ALBUTEROL SO4 6.7 GM HFA INHALER IH PRN (13:17)
[2016-10-04] MEDS: NICOTINE 21 MG/24 HOURS TOPICAL PATCH TD SCH (14:51)
[2016-10-04] MEDS: ACLIDINIUM BROMIDE 400 MCG/INH AERO.POWD IH SCH ×2 (14:52→21:19)
[2016-10-04] MEDS: GABAPENTIN 300 MG CAPSULE (FP) PO SCH ×2 (14:54→21:15)
[2016-10-04] MEDS: LEVOTHYROXINE NA 25 MCG TABLET (FP) PO SCH (15:29)
[2016-10-04] MEDS: AMOX TR/POT CLAV 875MG/125MG TABLETS (FP) PO SCH (17:00)
[2016-10-04 17:08] LABS: URINE APPEARANCE CLEAR; URINE BILIRUBIN NEGATIVE (NEGATIVE); URINE BLOOD NEGATIVE (NEGATIVE); URINE COLOR YELLOW; URINE GLUCOSE (UA) NEGATIVE (NEGATIVE); URINE KETONE NEGATIVE (NEGATIVE); URINE LEUK ESTERASE NEGATIVE (NEGATIVE); URINE NITRITE NEGATIVE (NEGATIVE); URINE UROBILINOGEN NEGATIVE mg/dL (0.2-1.0)
[2016-10-04 17:14] LABS: URINE PROTEIN 2+ (NEGATIVE)
[2016-10-04 17:43] LABS: GRANULAR CASTS 3 /lpf; URINE HYALINE CAST 4 /lpf; URINE MUCUS RARE; URINE RBC 2 /hpf (0-3); URINE WBC 2 /hpf (3-5)
--- NOTE | 2016-10-04 19:21 | PN ---
S Progress Note Note: called by the nurse to enter the orders for Seroquel 200 mg po hs ans Remeron 15 mg po hs, patient was transferred from , was on the same medications, will continue the same.
[2016-10-04] MEDS: THIAMINE HCL 100 MG TABLET (FP) PO SCH (21:15)
[2016-10-04] MEDS: MIRTAZAPINE 15 MG TABLET (FP) PO SCH (21:17)
[2016-10-04] MEDS: QUEtiapine FUMARATE 200 MG TABLET PO SCH (21:17)
[2016-10-04] MEDS: RANITIDINE HCL 150 MG TABLET (FP) PO SCH (21:17)
[2016-10-05] MEDS: LEVOTHYROXINE NA 25 MCG TABLET (FP) PO SCH (06:36)
[2016-10-05] MEDS: GABAPENTIN 300 MG CAPSULE (FP) PO SCH ×3 (06:36→21:56)
[2016-10-05] MEDS: METHADONE HCL 40 MG DISPERSABLE TABLET PO SCH (06:36)
[2016-10-05] MEDS: AMOX TR/POT CLAV 875MG/125MG TABLETS (FP) PO SCH ×2 (07:49→17:05)
[2016-10-05] MEDS: RANITIDINE HCL 150 MG TABLET (FP) PO SCH ×2 (10:36→21:56)
[2016-10-05] MEDS: PRENATAL VITAMINS W/ FOLIC ACID TABLET (FP) PO SCH (10:36)
[2016-10-05] MEDS: NICOTINE 21 MG/24 HOURS TOPICAL PATCH TD SCH (10:37)
[2016-10-05] MEDS: ACLIDINIUM BROMIDE 400 MCG/INH AERO.POWD IH SCH ×2 (10:37→21:58)
--- NOTE | 2016-10-05 11:28 | EKG ---
Test Reason : Blood Pressure : / mmHG Vent. Rate : 077 BPM Atrial Rate : 077 BPM P-R Int : 148 ms QRS Dur : 084 ms QT Int : 398 ms P-R-T Axes : 046 049 034 degrees QTc Int : 450 ms NORMAL SINUS RHYTHM NORMAL ECG WHEN COMPARED WITH ECG OF 28-SEP-2016 14:20, NO SIGNIFICANT CHANGE WAS FOUND Confirmed by PRIMO MATHIAS MD ([id number]) on 10/05/2016 11:28:14 AM Referred By: Lorena Bowman Confirmed By:PRIMO MATHIAS MD
--- NOTE | 2016-10-05 11:58 | HP ---
Psychiatrist Admission - Data Date of interview: 10/05/16 Admission source: [facility] Identifying data: This is the first [facility] inpatient rehabilitation admission for this 40 year old single without children male, unemployed, no source of income, residing with his mother. Medical History: Acid Reflux, Hypothyroidism, Asthma, Bronchitis. Patient is on Methadone 40 mg. p.o. daily with [facility]. Smokes cigarettes 1PPD. Psychiatric History: Patient reports one psychiatric hospitalization in 2014 to [facility] to address depression, reports was asolative, anxious, poor appetite, was not abble to sleep, was admitted for 2 weeks, after discharge did not follow with aftercare. He states he was on and off medications , latly his PCP prescribed him Seroquel 200 mg po hs and Remeron 30 mg po hs. Reports no history of suicidal attempts. While at [facility] seen by and continued his medications. Physical/Sexual Abuse/Trauma History: Patient reports no history of sexual, physical and verbal abuse. Additional Comment: ! 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 Vital Signs: Vital Signs - 24 hr 10/04/16 10/05/16 10/05/16 14:12 00:30 03:30 Temperature 97.9 F Pulse Rate 93 H Respiratory 18 16 16 Rate Blood Pressure 143/86 10/05/16 07:56 Temperature 97.1 F L Pulse Rate 87 Respiratory 18 Rate Blood Pressure 115/57 Allergies/Adverse Reactions: Allergies Allergy/AdvReac Type Severity Reaction Status Date / Time No Known Allergies Allergy Verified 10/04/16 10:55 Date of last physical exam: 10/04/16 Concur with the findings of this exam: Yes - Substance Abuse/Tx History Hx Alcohol Use: Yes (started at age of 12, his drinking progressed at age of 29 ) Substance Use Type: Alcohol (1 pint of vodka, beer daily), Cocaine ("here and there" 2 gr), Heroin (started at age 14, progressed at 29, daily use 7-12 bags) Hx Substance Use Treatment: Yes ([facility]) Mental Status Exam - Mental Status Exam Alert and Oriented to: Time, Place, Person Cognitive Function: Good Patient Appearance: Well Groomed Mood: Sad Affect: Appropriate, Mood Congruent Patient Behavior: Appropriate, Cooperative Speech Pattern: Clear, Appropriate Voice Loudness: Normal Thought Process: Intact, Goal Oriented Thought Disorder: Not Present Hallucinations: Denies Suicidal Ideation: Denies Homicidal Ideation: Denies Insight/Judgement: Fair Sleep: Fair Appetite: Fair Muscle strength/Tone: Normal Gait/Station: Normal Psychiatric Findings - Problem List ([place] 1, 2,3) (1) Cocaine dependence, uncomplicated Current Visit: Yes Status: Acute (2) Nicotine dependence Current Visit: Yes Status: Acute Qualifiers: Nicotine product type: cigarettes Substance use status: in withdrawal Qualified Code(s): F17.213 - Nicotine dependence, cigarettes, with withdrawal (3) History of - hypothyroidism Current Visit: Yes Status: Chronic Comment: PT NONCOMPLIANT WITH MED BUT STATES HE RESTARTED ON MED RECENTLY. (4) Methadone maintenance therapy patient Current Visit: Yes Status: Chronic (5) GERD (gastroesophageal reflux disease) Current Visit: No Status: Chronic Qualifiers: (6) Alcohol dependence Current Visit: Yes Status: Acute (7) Opioid dependence Current Visit: Yes Status: Acute (8) MDD (major depressive disorder), recurrent episode Current Visit: Yes Status: Acute - Initial Treatment Plan Initial Treatment Plan: Will continue his current medications, monitor progress as needed.
[2016-10-05] MEDS ORDERED: diphenhydrAMINE HCL 25 MG CAPSULE (FP) PO PRN (17:00)
[2016-10-05] MEDS: QUEtiapine FUMARATE 200 MG TABLET PO SCH (21:56)
[2016-10-05] MEDS: THIAMINE HCL 100 MG TABLET (FP) PO SCH (21:56)
[2016-10-05] MEDS: MIRTAZAPINE 15 MG TABLET (FP) PO SCH (21:57)
[2016-10-06] MEDS: GABAPENTIN 300 MG CAPSULE (FP) PO SCH ×3 (06:34→21:58)
[2016-10-06] MEDS: METHADONE HCL 40 MG DISPERSABLE TABLET PO SCH (06:34)
[2016-10-06] MEDS: LEVOTHYROXINE NA 25 MCG TABLET (FP) PO SCH (06:35)
[2016-10-06] MEDS: AMOX TR/POT CLAV 875MG/125MG TABLETS (FP) PO SCH ×2 (07:08→16:54)
[2016-10-06] MEDS: PRENATAL VITAMINS W/ FOLIC ACID TABLET (FP) PO SCH (10:16)
[2016-10-06] MEDS: ACLIDINIUM BROMIDE 400 MCG/INH AERO.POWD IH SCH ×2 (10:16→22:24)
[2016-10-06] MEDS: NICOTINE 21 MG/24 HOURS TOPICAL PATCH TD SCH (10:16)
[2016-10-06] MEDS: RANITIDINE HCL 150 MG TABLET (FP) PO SCH ×2 (10:16→21:59)
[2016-10-06] MEDS: MIRTAZAPINE 15 MG TABLET (FP) PO SCH (21:58)
[2016-10-06] MEDS: QUEtiapine FUMARATE 200 MG TABLET PO SCH (21:59)
[2016-10-06] MEDS: THIAMINE HCL 100 MG TABLET (FP) PO SCH (21:59)
[2016-10-07] MEDS: GABAPENTIN 300 MG CAPSULE (FP) PO SCH ×2 (07:02→14:02)
[2016-10-07] MEDS: LEVOTHYROXINE NA 25 MCG TABLET (FP) PO SCH (07:02)
[2016-10-07] MEDS: AMOX TR/POT CLAV 875MG/125MG TABLETS (FP) PO SCH (07:02)
[2016-10-07 07:34] VITALS: BP 134/73; PULSE 60; TEMP 97.3
[2016-10-07] MEDS ORDERED: METHADONE HCL 40 MG DISPERSABLE TABLET PO SCH (10:00)
[2016-10-07] MEDS: PRENATAL VITAMINS W/ FOLIC ACID TABLET (FP) PO SCH (10:38)
[2016-10-07] MEDS: RANITIDINE HCL 150 MG TABLET (FP) PO SCH (10:39)
[2016-10-07] MEDS: NICOTINE 21 MG/24 HOURS TOPICAL PATCH TD SCH (10:39)
[2016-10-07] MEDS: ACLIDINIUM BROMIDE 400 MCG/INH AERO.POWD IH SCH (10:39)
== END 2016-10-07 14:30 | disposition left against medical advice (07) | DRG 770 ==
LOC: YASAS 10:22 → Y5N 13:32
PROVIDERS: ADMIT Psychiatry & Neurology Psychiatry; ATTEND Psychiatry & Neurology Psychiatry
PROC: HZ42ZZZ Group Counseling for Substance Abuse Treatment, Cognitive-Behavioral (ICD-10-PCS; principal; 2016-10-04)
DX: F10.20 Alcohol dependence, uncomplicated (principal); F11.20 Opioid dependence, uncomplicated; F14.20 Cocaine dependence, uncomplicated; F17.213 Nicotine dependence, cigarettes, with withdrawal; F33.9 Major depressive disorder, recurrent, unspecified; F19.24 Other psychoactive substance dependence with psychoactive substance-induced mood disorder; K21.9 Gastro-esophageal reflux disease without esophagitis; E03.9 Hypothyroidism, unspecified; J40 Bronchitis, not specified as acute or chronic; M54.5 Low back pain; G89.29 Other chronic pain
CPT/HCPCS: 81003; 81015; 93005; 93010

== ENCOUNTER 2016-11-04 12:28 | Inpatient (IN) | payer OTHER ==
[2016-11-04 12:51] VITALS: BMI 27.3
--- NOTE | 2016-11-04 14:12 | HP ---
COWS - Scale Resting Pulse: 0= [place] 80 or Below Sweatin= Chills/Flushing Restless Observation: 1= Difficult to Sit Still Pupil Size: 0= Normal to Room Light Bone or Joint Aches: 1= Mild Discomfort Runny Nose/ Eye Tearin= Nasal Congestion GI Upset > 30mins: 1= Stomach Cramp Tremor Observation: 1= Tremor [place], Not Seen Yawning Observation: 1= 1-2x During Session Anxiety or Irritability: 1=Feels Anxious/Irritable Goose Flesh Skin: 0=Smooth Skin COWS Score: 8 Admission ROS S - HPI Allergies/Adverse Reactions: Allergies Allergy/AdvReac Type Severity Reaction Status Date / Time No Known Allergies Allergy Verified 10/04/16 10:55 - Ebola screening Have you traveled outside of the country in the last 21 days: No Have you had contact with anyone from an Ebola affected area: No Have you been sick,other than usual withdrawal symptoms: No Do you have a fever: No Patient History - Patient Medical History Hx Anemia: No Hx Asthma: Yes Hx Chronic Obstructive Pulmonary Disease (COPD): No Hx Cardiac Disorders: No Hx Hypertension: No Hx Hypercholesterolemia: No HX Cerebrovascular Accident: No Hx Seizures: No Hx Diabetes: No Hx Gastrointestinal Disorders: Yes (acid reflux) Hx Liver Disease: No Hx Genitourinary Disorders: No Hx Sexually Transmitted Disorders: No Hx Renal Disease (ESRD): No Hx Thyroid Disease: Yes (PT STATES STOPPED TAKING SYNTHROID FOR 2 WKS AND RESTARTED NOW.) Hx Human Immunodeficiency Virus (HIV): No (NEGATIVE HX) Hx Hepatitis C: No Hx Depression: Yes Hx Suicide Attempt: No Hx Bipolar Disorder: No Hx Schizophrenia: No - Patient Surgical History Past Surgical History: No Hx Neurologic Surgery: No Hx Cataract Extraction: No Hx Cardiac Surgery: No Hx Lung Surgery: No Hx Breast Surgery: No Hx Breast Biopsy: No Hx Abdominal Surgery: No Hx Appendectomy: No Hx Cholecystectomy: No Hx Genitourinary Surgery: No Hx Section: No Hx Orthopedic Surgery: No Anesthesia Reaction: No - PPD History Date: 07/05/16 Results: 0 mm - Smoking Cessation Smoking history: Current every day smoker Have you smoked in the past 12 months: Yes Aproximately how many cigarettes per day: 20 Cigars Per Day: 0 Hx Chewing Tobacco Use: No Family Disease History - Family Disease History Family Disease History: Heart Disease: Mother (HTN), Other: Father (Etoh) Admission Physical Exam [facility] - Vital Signs Vital Signs: Vital Signs - 24 hr 11/04/16 12:50 Temperature 96.8 F L Pulse Rate 77 Respiratory 20 Rate Blood Pressure 155/92 [facility] Breath Alcohol Content Breath Alcohol Content: 0 Urine Drug Screen - Results Drug Screen Negative: No Urine Drug Screen Results: BARBARA-Cocaine, OPI-Opiates, BZO-Benzodiazepines, MTD- Methadone
[2016-11-04] MEDS ORDERED: METHADONE HCL 10 MG TABLET (FOR DETOX USE ONLY) PO ONE ×2 (14:13→23:00)
[2016-11-04] MEDS ORDERED: IBUPROFEN 400 MG TABLET (FP) PO PRN (14:13)
[2016-11-04] MEDS ORDERED: NICOTINE POLACRILEX 4 MG GUM BUC PRN (14:13)
[2016-11-04] MEDS ORDERED: LOPERAMIDE HCL 2 MG CAPSULE PO PRN (14:13)
[2016-11-04] MEDS ORDERED: hydrOXYzine PAMOATE 25 MG CAPSULE (FP) PO PRN (14:13)
[2016-11-04] MEDS ORDERED: diphenhydrAMINE HCL 50 MG CAPSULE PO PRN (14:13)
[2016-11-04] MEDS ORDERED: MAGNESIUM CITRATE 300 ML BOTTLE PO PRN (14:13)
[2016-11-04] MEDS ORDERED: guaiFENesin/D-METHORPHAN HB 10 ML UNIT-DOSE CUPS PO PRN (14:13)
[2016-11-04] MEDS ORDERED: P-EPHED 60MG/TRIPROLIDI 2.5MG TABLET PO PRN (14:13)
[2016-11-04] MEDS ORDERED: diazePAM 5 MG TABLET PO ONE (14:13)
[2016-11-04] MEDS ORDERED: MENTHOL/PHENOL 1 EACH UD MM PRN (14:13)
[2016-11-04] MEDS ORDERED: MAGNESIUM HYDROX 2400MG/30ML ORAL SUSPENSION 30 ML CUP PO PRN (14:13)
[2016-11-04] MEDS ORDERED: ACETAMINOPHEN 325 MG TABLET (FP) PO PRN (14:13)
[2016-11-04] MEDS ORDERED: ALBUTEROL SO4 6.7 GM HFA INHALER IH PRN (14:15)
--- NOTE | 2016-11-04 14:32 | HP ---
COWS - Scale Resting Pulse: 0= [place] 80 or Below Sweatin= Chills/Flushing Restless Observation: 1= Difficult to Sit Still Pupil Size: 0= Normal to Room Light Bone or Joint Aches: 1= Mild Discomfort Runny Nose/ Eye Tearin= Runny Nose/Eyes GI Upset > 30mins: 1= Stomach Cramp Tremor Observation: 1= Tremor [place], Not Seen Yawning Observation: 1= 1-2x During Session Anxiety or Irritability: 1=Feels Anxious/Irritable Goose Flesh Skin: 0=Smooth Skin COWS Score: 9 CIWA Score - CIWA Score Nausea/Vomitin-Mild Nausea/No Vomiting Muscle Tremors: 2 Anxiety: 4-Mod. Anxious/Guarded Agitation: 1-Slight > Activity Paroxysmal Sweats: No Perspiration Orientation: 1-Uncertain about Date Tacttile Disturbances: 1-Very Mild Itch/Numbness Auditory Disturbances: 1-Very Mild Visual Disturbances: 1-Very Mild Sensitivity Headache: 2-Mild CIWA-Ar Total Score: 14 Admission ROS S - HPI Chief Complaint: I need to kick this, I want to stop using Allergies/Adverse Reactions: Allergies Allergy/AdvReac Type Severity Reaction Status Date / Time No Known Allergies Allergy Verified 10/04/16 10:55 History of Present Illness: 40 yo gentleman here for detox from heroin and alcohol,also using cocaine. Was on [facility] but states he stopped going 'a month ago' . Last here in detox 10/04/16. No seizures but does have black outs. Exam Limitations: Clinical Condition - Ebola screening Have you traveled outside of the country in the last 21 days: No Have you had contact with anyone from an Ebola affected area: No Have you been sick,other than usual withdrawal symptoms: No Do you have a fever: No - Review of Systems Constitutional: Chills, Loss of Appetite, Malaise, Changes in sleep, Weakness, Unintentional Wgt. Loss EENT: reports: Nose Congestion Respiratory: reports: No Symptoms reported Cardiac: reports: No Symptoms Reported GI: reports: Poor Appetite, Indigestion : reports: No Symptoms Reported Musculoskeletal: reports: Back Pain Integumentary: reports: No Symptoms Reported Neuro: reports: Headache Endocrine: reports: No Symptoms Reported Hematology: reports: No Symptoms Reported Psychiatric: reports: Judgement Intact, Mood/Affect Appropiate, Anxious Other Systems: Reviewed and Negative Patient History - Patient Medical History Hx Anemia: No Hx Asthma: Yes Hx Chronic Obstructive Pulmonary Disease (COPD): No Hx Cancer: No Hx Cardiac Disorders: No Hx Hypertension: No Hx Hypercholesterolemia: No HX Cerebrovascular Accident: No Hx Seizures: No Hx Diabetes: No Hx Gastrointestinal Disorders: Yes (gerd) Hx Liver Disease: No Hx Genitourinary Disorders: No Hx Sexually Transmitted Disorders: No Hx Renal Disease (ESRD): No Hx Thyroid Disease: Yes (on meds, poor adherence) Hx Human Immunodeficiency Virus (HIV): No (NEGATIVE HX) Hx Hepatitis C: No Hx Depression: Yes Hx Suicide Attempt: No Hx Bipolar Disorder: No Hx Schizophrenia: No Other Medical History: back pain - Patient Surgical History Past Surgical History: No Hx Neurologic Surgery: No Hx Cataract Extraction: No Hx Cardiac Surgery: No Hx Lung Surgery: No Hx Breast Surgery: No Hx Breast Biopsy: No Hx Abdominal Surgery: No Hx Appendectomy: No Hx Cholecystectomy: No Hx Genitourinary Surgery: No Hx Section: No Hx Orthopedic Surgery: No Anesthesia Reaction: No - PPD History Previous Implant?: Yes Documented Results: Negative w/proof Implanted On Prior [facility] Admission?: Yes Date: 07/05/16 Results: 0 mm PPD to be Administered?: No - Reproductive History Patient is a Female of Child Bearing Age (11 -55 yrs old): No (male) - Smoking Cessation Smoking history: Current every day smoker Have you smoked in the past 12 months: Yes Aproximately how many cigarettes per day: 20 Cigars Per Day: 0 Hx Chewing Tobacco Use: No Initiated information on smoking cessation: Yes 'Breaking Loose' booklet given: 11/04/16 (give on floor) - Substance & Tx. History Hx Alcohol Use: Yes Hx Substance Use: Yes Substance Use Type: Alcohol, Cocaine, Heroin, Opiates Hx Substance Use Treatment: Yes (detox, methadone program) - Substances Abused Alcohol Route: Oral Frequency: Daily Amount used: 1 pint liquor; 3 beers Age of first use: 12 Date of Last Use: 11/03/16 Heroin Route: Inhalation Frequency: Daily Amount used: 15 bags Age of first use: 15 Date of Last Use: 11/03/16 Non-Rx Methadone Route: Oral Frequency: 1-2 times per week Amount used: 30mg Age of first use: 24 Date of Last Use: 11/01/16 cocaine Route: Inhalation Frequency: Daily Amount used: 1 gram Age of first use: 17 Date of Last Use: 11/03/16 Family Disease History - Family Disease History Family Disease History: Heart Disease: Mother (HTN), Other: Father (Etoh), Brother (younger etoh/drugs), Sister (depression) Admission Physical Exam [facility] - Vital Signs Vital Signs: Vital Signs - 24 hr 11/04/16 12:50 Temperature 96.8 F L Pulse Rate 77 Respiratory 20 Rate Blood Pressure 155/92 - Physical General Appearance: Yes: Nourished, Appropriately Dressed, Moderate Distress, Anxious HEENTM: Yes: Hearing grossly Normal, Normocephalic, Normal Voice, Pharynx Normal Respiratory: Yes: Normal Breath Sounds, No Respiratory Distress Neck: Yes: No masses,lesions,Nodules, Supple Breast: Yes: Breast Exam Deferred Cardiology: Yes: Regular Rhythm, Regular Rate Abdominal: Yes: Soft Genitourinary: Yes: Within Normal Limits Back: Yes: Normal Inspection Musculoskeletal: Yes: full range of Motion, Gait Steady Extremities: Yes: Normal Inspection, Normal Range of Motion, Non-Tender 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: Yes: Fully Oriented, Alert, Normal Mood/Affect, Normal Response Integumentary: Yes: Normal Color, Warm Lymphatic: Yes: Within Normal Limits - Diagnostic (1) Opioid dependence with withdrawal Current Visit: Yes Status: Chronic (2) Alcohol dependence with uncomplicated withdrawal Current Visit: Yes Status: Chronic (3) Cocaine dependence, uncomplicated Current Visit: Yes Status: Chronic (4) Chronic lower back pain Current Visit: Yes Status: Chronic Qualifiers: Back pain laterality: unspecified Sciatica presence: without sciatica Qualified Code(s): M54.5 - Low back pain; G89.29 - Other chronic pain (5) GERD (gastroesophageal reflux disease) Current Visit: Yes Status: Chronic Qualifiers: Esophagitis presence: without esophagitis Qualified Code(s): K21.9 - Gastro-esophageal reflux disease without esophagitis (6) History of - hypothyroidism Current Visit: Yes Status: Chronic Comment: poor adherence (7) Nicotine dependence Current Visit: Yes Status: Chronic Qualifiers: Nicotine product type: cigarettes Substance use status: in withdrawal Qualified Code(s): F17.213 - Nicotine dependence, cigarettes, with withdrawal Cleared for Admission [facility] - Detox or Rehab [facility] Level of Care: Medically Managed Detox Regimen/Protocol: Methadone/Valium [facility] Breath Alcohol Content Breath Alcohol Content: 0 Urine Drug Screen - Results Drug Screen Negative: No Urine Drug Screen Results: BARBARA-Cocaine, OPI-Opiates, BZO-Benzodiazepines, MTD- Methadone
[2016-11-04] MEDS: GABAPENTIN 300 MG CAPSULE (FP) PO SCH ×2 (15:46→22:03)
[2016-11-04] MEDS: LIDOCAINE 5% TOPICAL PATCH TP SCH (15:46)
[2016-11-04 15:47] LABS: URINE APPEARANCE CLEAR; URINE BILIRUBIN NEGATIVE (NEGATIVE); URINE BLOOD NEGATIVE (NEGATIVE); URINE COLOR LTYELLOW; URINE GLUCOSE (UA) NEGATIVE (NEGATIVE); URINE KETONE NEGATIVE (NEGATIVE); URINE LEUK ESTERASE NEGATIVE (NEGATIVE); URINE NITRITE NEGATIVE (NEGATIVE); URINE PROTEIN NEGATIVE (NEGATIVE); URINE UROBILINOGEN NEGATIVE mg/dL (0.2-1.0)
[2016-11-04] MEDS: LEVOTHYROXINE NA 50 MCG TABLET (FP) PO SCH (16:52)
[2016-11-04] MEDS: MAG HYDROX/AL HYDROX/SIMETH 30 ML UNIT-DOSE CUP PO PRN (20:14)
[2016-11-04] MEDS: RANITIDINE HCL 150 MG TABLET (FP) PO SCH (22:03)
[2016-11-04] MEDS: THIAMINE HCL 100 MG TABLET (FP) PO SCH (22:03)
[2016-11-04] MEDS: ACLIDINIUM BROMIDE 400 MCG/INH AERO.POWD IH SCH (22:04)
[2016-11-04] MEDS: diazePAM 5 MG TABLET PO SCH (22:04)
[2016-11-04] MEDS: LIDOCAINE PATCH REMOVAL MC SCH (23:34)
[2016-11-05] MEDS: diazePAM 5 MG TABLET PO SCH ×3 (05:25→22:05)
[2016-11-05] MEDS: GABAPENTIN 300 MG CAPSULE (FP) PO SCH ×3 (05:25→22:05)
[2016-11-05] MEDS ORDERED: METHADONE HCL 10 MG TABLET (FOR DETOX USE ONLY) PO SCH (10:00)
[2016-11-05 10:28] LABS: MCH 29.4 pg (25.7-33.7); MCHC 32.5 g/dl (32.0-35.9); MEAN CELL VOLUME 90.5 fl (80-96); MEAN PLT VOLUME 8.2 fl (7.5-11.1); PLATELET COUNT 294 K/MM3 (134-434); RDW 14.6 % (11.9-15.9); WHITE BLOOD COUNT 8.1 K/mm3 (4.0-10.0)
--- NOTE | 2016-11-05 10:32 | PN ---
S CIWA - CIWA Score Nausea/Vomitin Muscle Tremors: 4-Moderate,w/Arms Extend Anxiety: 4-Mod. Anxious/Guarded Agitation: 4-Moderately Restless Paroxysmal Sweats: 3 Orientation: 0-Oriented Tacttile Disturbances: 0-None Auditory Disturbances: 0-None Visual Disturbances: 0-None Headache: 0-None Present CIWA-Ar Total Score: 18 [facility] COWS - Scale Resting Pulse: 1= [place] 81-100 Sweatin= Chills/Flushing Restless Observation: 1= Difficult to Sit Still Pupil Size: 1= Pupils >than Normal Bone or Joint Aches: 1= Mild Discomfort Runny Nose/ Eye Tearin= Nasal Congestion GI Upset > 30mins: 2= Nausea/Diarrhea Tremor Observation of Outstretched Hands: 2= Slight Tremor Visible Yawning Observation: 1= 1-2x During Session Anxiety or Irritability: 2=Irritable/Anxious Goose Flesh Skin: 3=Piloerection COWS Score: 16 B[facility] Progress Note (SOAP) Subjective: nausea, sweats, interrupted sleep, anxiety, tremors Objective: 11/05/16 10:31 Vital Signs - 24 hr 11/04/16 11/04/16 11/04/16 12:50 15:16 18:24 Temperature 96.8 F L 97.7 F 97.7 F Pulse Rate 77 77 82 Respiratory 20 18 18 Rate Blood Pressure 155/92 120/72 127/78 11/04/16 11/05/16 11/05/16 23:21 00:30 03:30 Temperature 97.9 F Pulse Rate 79 Respiratory 18 18 18 Rate Blood Pressure 125/76 11/05/16 06:24 Temperature 97.3 F L Pulse Rate 74 Respiratory 18 Rate Blood Pressure 115/50 Laboratory Tests 11/04/16 15:35 Urine Color Ltyellow Urine Appearance Clear Urine pH 5.0 D Ur Specific [place] 1.020 Urine Protein Negative Urine Glucose (UA) Negative Urine Ketones Negative Urine Blood Negative Urine Nitrite Negative Urine Bilirubin Negative Urine Urobilinogen Negative Ur Leukocyte Esterase Negative labs pending Assessment: 11/05/16 10:32 withdrawal sx Plan: cont detox
[2016-11-05 10:52] LABS: ALBUMIN 3.8 g/dl (3.4-5.0); SGOT/AST 18 U/L (15-37)
[2016-11-05] MEDS: diazePAM 5 MG TABLET PO PRN ×2 (10:53→20:06)
[2016-11-05] MEDS: PRENATAL VITAMINS W/ FOLIC ACID TABLET (FP) PO SCH (10:53)
[2016-11-05] MEDS: RANITIDINE HCL 150 MG TABLET (FP) PO SCH (10:53)
[2016-11-05] MEDS: ACLIDINIUM BROMIDE 400 MCG/INH AERO.POWD IH SCH ×2 (10:53→22:03)
[2016-11-05] MEDS: LIDOCAINE 5% TOPICAL PATCH TP SCH (10:54)
[2016-11-05 10:55] LABS: ALK PHOS 79 U/L (45-117); ANION GAP 8 (8-16); BILIRUBIN,TOTAL 0.7 mg/dL (0.2-1.0); CALCIUM 9.2 mg/dL (8.5-10.1); CO2 28 mmol/L (21-32); GLUCOSE,RANDOM 83 mg/dL (74-106); SGPT/ALT 28 U/L (12-78); TOT PROT 6.6 g/dl (6.4-8.2)
[2016-11-05] MEDS: LEVOTHYROXINE NA 50 MCG TABLET (FP) PO SCH (11:10)
[2016-11-05 11:28] LABS: HIV 1 & 2 AB NEGATIVE; HIV 1 AGp24 NEGATIVE
--- NOTE | 2016-11-05 13:59 | EKG ---
Test Reason : Blood Pressure : / mmHG Vent. Rate : 068 BPM Atrial Rate : 068 BPM P-R Int : 148 ms QRS Dur : 094 ms QT Int : 404 ms P-R-T Axes : 013 037 035 degrees QTc Int : 429 ms NORMAL SINUS RHYTHM MINOR ST CHANGES WHEN COMPARED WITH ECG OF 04-OCT-2016 21:36, NO SIGNIFICANT CHANGE WAS FOUND CLINICAL CORRELATION IS RECOMMENDED Confirmed by ELIN VIZCAINO MD ([id number]) on 11/05/2016 1:58:52 PM Referred By: Confirmed By:ELIN VIZCAINO MD
[2016-11-05] MEDS ORDERED: cloNIDine HCL 0.1 MG TABLET PO ONE (14:26)
[2016-11-05] MEDS: PANTOPRAZOLE 40 MG TABLET (FP) PO SCH (15:35)
[2016-11-05] MEDS: BACLOFEN 10 MG TABLET (FP) PO SCH ×2 (20:18→23:47)
[2016-11-05] MEDS: cloNIDine HCL 0.1 MG TABLET PO SCH (22:04)
[2016-11-05] MEDS: THIAMINE HCL 100 MG TABLET (FP) PO SCH (22:04)
[2016-11-05] MEDS: QUEtiapine FUMARATE 200 MG TABLET PO SCH (22:04)
[2016-11-05] MEDS: ZOLPIDEM TARTRATE 10 MG TABLET (PARK CARE ONLY) PO SCH (22:04)
[2016-11-05] MEDS: NAPROXEN 500 MG TABLET (FP) PO SCH (22:05)
[2016-11-05] MEDS: MIRTAZAPINE 30 MG TABLET (FP) PO SCH (22:05)
[2016-11-05] MEDS: LIDOCAINE PATCH REMOVAL MC SCH (23:47)
[2016-11-05] MEDS ORDERED: ONDANSETRON *ODT* 4 MG TABLET SL PRN (23:58)
[2016-11-06] MEDS: GABAPENTIN 300 MG CAPSULE (FP) PO SCH ×3 (05:38→22:02)
[2016-11-06] MEDS: diazePAM 5 MG TABLET PO PRN ×3 (05:40→18:11)
[2016-11-06] MEDS: BACLOFEN 10 MG TABLET (FP) PO SCH ×3 (06:32→22:02)
[2016-11-06] MEDS: LEVOTHYROXINE NA 25 MCG TABLET (FP) PO SCH (06:32)
[2016-11-06] MEDS: METHADONE HCL 5 MG TABLET (FOR DETOX USE ONLY) PO SCH (10:08)
[2016-11-06] MEDS: diazePAM 5 MG TABLET PO SCH ×2 (10:08→22:03)
[2016-11-06] MEDS: LIDOCAINE 5% TOPICAL PATCH TP SCH (10:09)
[2016-11-06] MEDS: NAPROXEN 500 MG TABLET (FP) PO SCH ×2 (10:09→22:02)
[2016-11-06] MEDS: cloNIDine HCL 0.1 MG TABLET PO SCH ×2 (10:09→22:03)
[2016-11-06] MEDS: ACLIDINIUM BROMIDE 400 MCG/INH AERO.POWD IH SCH ×2 (10:09→22:04)
[2016-11-06] MEDS: PANTOPRAZOLE 40 MG TABLET (FP) PO SCH (10:09)
[2016-11-06] MEDS: PRENATAL VITAMINS W/ FOLIC ACID TABLET (FP) PO SCH (10:09)
--- NOTE | 2016-11-06 10:18 | PN ---
S CIWA - CIWA Score Nausea/Vomitin-Int. Nausea w/Dry Heave Muscle Tremors: 4-Moderate,w/Arms Extend Anxiety: 4-Mod. Anxious/Guarded Agitation: 4-Moderately Restless Paroxysmal Sweats: 3 Orientation: 0-Oriented Tacttile Disturbances: 0-None Auditory Disturbances: 0-None Visual Disturbances: 0-None Headache: 0-None Present CIWA-Ar Total Score: 19 [facility] COWS - Scale Resting Pulse: 0= [place] 80 or Below Sweatin= Chills/Flushing Restless Observation: 1= Difficult to Sit Still Pupil Size: 1= Pupils >than Normal Bone or Joint Aches: 1= Mild Discomfort Runny Nose/ Eye Tearin= Nasal Congestion GI Upset > 30mins: 2= Nausea/Diarrhea Tremor Observation of Outstretched Hands: 2= Slight Tremor Visible Yawning Observation: 1= 1-2x During Session Anxiety or Irritability: 2=Irritable/Anxious Goose Flesh Skin: 3=Piloerection COWS Score: 15 S Progress Note (SOAP) Subjective: nausea, sweats, interrupted sleep, anxiety, tremors Objective: 11/06/16 10:18 Vital Signs - 24 hr 11/05/16 11/05/16 11/05/16 10:40 14:19 18:13 Temperature 97.7 F 96.3 F L 97.0 F L Pulse Rate 73 72 63 Respiratory 16 18 20 Rate Blood Pressure 113/81 137/62 107/65 11/05/16 11/06/16 11/06/16 23:18 00:30 03:30 Temperature 98.1 F Pulse Rate 72 Respiratory 18 18 18 Rate Blood Pressure 108/71 11/06/16 11/06/16 06:39 09:34 Temperature 97.3 F L 97.9 F Pulse Rate 61 70 Respiratory 16 18 Rate Blood Pressure 101/54 125/75 Laboratory Tests 11/04/16 11/05/16 11/05/16 15:35 07:00 07:00 WBC 8.1 RBC 4.91 Hgb 14.5 Hct 44.5 MCV 90.5 MCH 29.4 MCHC 32.5 RDW 14.6 Plt Count 294 MPV 8.2 Sodium 138 Potassium 4.6 Chloride 102 Carbon Dioxide 28 Anion Gap 8 BUN 13 Creatinine 1.0 Creat Clearance w eGFR > 60 Random Glucose 83 D Calcium 9.2 Total Bilirubin 0.7 AST 18 ALT 28 D Alkaline Phosphatase 79 Total Protein 6.6 Albumin 3.8 Urine Color Ltyellow Urine Appearance Clear Urine pH 5.0 D Ur Specific [place] 1.020 Urine Protein Negative Urine Glucose (UA) Negative Urine Ketones Negative Urine Blood Negative Urine Nitrite Negative Urine Bilirubin Negative Urine Urobilinogen Negative Ur Leukocyte Esterase Negative RPR Titer HIV 1&2 Antibody Screen HIV P24 Antigen 11/05/16 11/05/16 07:00 07:00 WBC RBC Hgb Hct MCV MCH MCHC RDW Plt Count MPV Sodium Potassium Chloride Carbon Dioxide Anion Gap BUN Creatinine Creat Clearance w eGFR Random Glucose Calcium Total Bilirubin AST ALT Alkaline Phosphatase Total Protein Albumin Urine Color Urine Appearance Urine pH Ur Specific [place] Urine Protein Urine Glucose (UA) Urine Ketones Urine Blood Urine Nitrite Urine Bilirubin Urine Urobilinogen Ur Leukocyte Esterase RPR Titer Nonreactive HIV 1&2 Antibody Screen Negative HIV P24 Antigen Negative Assessment: 11/06/16 10:18 withdrawal sx Plan: cont detox , fluids
--- NOTE | 2016-11-06 10:35 | CONSULT ---
[facility] Psychiatric Consult - Data Date of interview: 11/06/16 Admission source: [facility] Identifying data: This is a 40 year old single without children male , unemployed, no source of income, residing with his mother. Substance Abuse History: Patient reports age of first use of cocaine 17, uses 1 gm 1-2 times a week, heroin age of first use 15, daily use of 15 bags, alcohol age of first use 12, 1 pint of liquor and 3 beers daily, he uses methadone 30 mg 1-2 times a week. Smokes cigarettes 1 ppd. Medical History: GERD, hypothiroidism, asthma. Psychiatric History: Patient reports carries a diagnosis of depressive disorder , reports one psychiatric hospitalization in 2014 at [facility] for 2 weeks due to depression, isolation, insomnia, poor appetite and anxiety, was put on Seroquel 200 mg po hs and Remeron 30 mg, he did not f/u with a psychiatrist, states his PCP was provided with scripts. Physical/Sexual Abuse/Trauma History: Denies. Mental Status Exam - Mental Status Exam Alert and Oriented to: Time, Place, Person Cognitive Function: Grossly Intact Patient Appearance: Well Groomed Mood: Sad, Anxious Affect: Mood Congruent Patient Behavior: Cooperative Speech Pattern: Clear, Appropriate Voice Loudness: Normal Thought Process: Goal Oriented Thought Disorder: Not Present Hallucinations: Denies Suicidal Ideation: Denies Homicidal Ideation: Denies Insight/Judgement: Fair Sleep: Poorly, Difficulty falling asleep Appetite: Fair Muscle strength/Tone: Normal Gait/Station: Normal Psychiatric Findings - Problem List ([place] 1, 2,3) (1) Alcohol dependence with uncomplicated withdrawal Current Visit: Yes Status: Chronic (2) Cocaine dependence, uncomplicated Current Visit: Yes Status: Chronic (3) Nicotine dependence Current Visit: Yes Status: Chronic Qualifiers: Nicotine product type: cigarettes Substance use status: in withdrawal Qualified Code(s): F17.213 - Nicotine dependence, cigarettes, with withdrawal (4) Opioid dependence with withdrawal Current Visit: Yes Status: Chronic (5) MDD (major depressive disorder), recurrent episode Current Visit: No Status: Acute - Initial Treatment Plan Initial Treatment Plan: will continue seroquel and remeron, monitor progress.
[2016-11-06] MEDS: MAG HYDROX/AL HYDROX/SIMETH 30 ML UNIT-DOSE CUP PO PRN (15:56)
[2016-11-06] MEDS: MIRTAZAPINE 30 MG TABLET (FP) PO SCH (22:02)
[2016-11-06] MEDS: ZOLPIDEM TARTRATE 10 MG TABLET (PARK CARE ONLY) PO SCH (22:02)
[2016-11-06] MEDS: QUEtiapine FUMARATE 200 MG TABLET PO SCH (22:03)
[2016-11-06] MEDS: THIAMINE HCL 100 MG TABLET (FP) PO SCH (22:03)
[2016-11-06] MEDS: LIDOCAINE PATCH REMOVAL MC SCH (22:04)
[2016-11-07] MEDS: GABAPENTIN 300 MG CAPSULE (FP) PO SCH (05:22)
[2016-11-07] MEDS: BACLOFEN 10 MG TABLET (FP) PO SCH (05:22)
[2016-11-07] MEDS: diazePAM 5 MG TABLET PO PRN (05:24)
[2016-11-07 06:13] VITALS: TEMP 97.5
[2016-11-07] MEDS: LEVOTHYROXINE NA 25 MCG TABLET (FP) PO SCH (07:42)
[2016-11-07] MEDS: cloNIDine HCL 0.1 MG TABLET PO SCH (10:14)
[2016-11-07] MEDS: PANTOPRAZOLE 40 MG TABLET (FP) PO SCH (10:14)
[2016-11-07] MEDS: NAPROXEN 500 MG TABLET (FP) PO SCH (10:14)
[2016-11-07] MEDS: ACLIDINIUM BROMIDE 400 MCG/INH AERO.POWD IH SCH (10:14)
[2016-11-07] MEDS: PRENATAL VITAMINS W/ FOLIC ACID TABLET (FP) PO SCH (10:14)
[2016-11-07] MEDS: diazePAM 5 MG TABLET PO SCH (10:14)
[2016-11-07] MEDS: METHADONE HCL 5 MG TABLET (FOR DETOX USE ONLY) PO SCH (10:15)
[2016-11-07] MEDS: LIDOCAINE 5% TOPICAL PATCH TP SCH (10:15)
[2016-11-07 11:14] VITALS: BP 115/66; PULSE 69
--- NOTE | 2016-11-07 12:20 | PN ---
[facility] Progress Note Note: I need to go home I have things to do. Pt was asked to stay to complete but he insisted on signing out. Pt signed out AMA.
--- NOTE | 2016-11-07 12:22 | DS ---
[facility] Detox Discharge Summary Admission Date: 11/04/16 Discharge Date: 11/07/16 - History Present History: Alcohol Dependence, Cocaine Dependence, Opioid Dependence - Physical Exam Results Vital Signs: Vital Signs Temperature 97.5 F L 11/07/16 06:00 Pulse Rate 69 11/07/16 11:13 Respiratory Rate 18 11/07/16 11:13 Blood Pressure 115/66 11/07/16 11:13 O2 Sat by Pulse Oximetry (%) - Medication Discharge Medications: Ambulatory Orders Levothyroxine [Synthroid -] 50 mcg PO DAILY #30 tablet 10/03/16 Tiotropium Arma [Spiriva] 1 inh IH DAILY #1 inh 10/03/16 Albuterol Sulfate Inhaler - [Ventolin HFA Inhaler -] 2 inh PO Q4H PRN 10/04/16 Baclofen 10 mg PO Q8H 10/04/16 Gabapentin [Neurontin] 600 mg PO TID 10/04/16 Mirtazapine [Remeron -] 30 mg PO HS 10/04/16 Quetiapine Fumarate [Seroquel -] 200 mg PO HS 10/04/16 Ranitidine [Zantac -] 150 mg PO BID 10/04/16 Zolpidem Tartrate [Ambien] 10 mg PO HS 11/04/16 Mirtazapine [Remeron -] 30 mg PO HS #30 tablet 11/06/16 Quetiapine Fumarate [Seroquel -] 200 mg PO HS #30 tablet 11/06/16 - Diagnosis (1) Alcohol dependence with uncomplicated withdrawal Current Visit: Yes Status: Chronic (2) Chronic lower back pain Current Visit: Yes Status: Chronic Qualifiers: Back pain laterality: unspecified Sciatica presence: without sciatica Qualified Code(s): M54.5 - Low back pain; G89.29 - Other chronic pain (3) Cocaine dependence, uncomplicated Current Visit: Yes Status: Chronic (4) GERD (gastroesophageal reflux disease) Current Visit: Yes Status: Chronic Qualifiers: Esophagitis presence: without esophagitis Qualified Code(s): K21.9 - Gastro-esophageal reflux disease without esophagitis (5) History of - hypothyroidism Current Visit: Yes Status: Chronic (6) Nicotine dependence Current Visit: Yes Status: Chronic Qualifiers: Nicotine product type: cigarettes Substance use status: uncomplicated Qualified Code(s): F17.210 - Nicotine dependence, cigarettes, uncomplicated (7) Opioid dependence with withdrawal Current Visit: Yes Status: Chronic (8) Insomnia Current Visit: No Status: Acute (9) MDD (major depressive disorder), recurrent episode Current Visit: No Status: Acute (10) Major depressive disorder Current Visit: No Status: Acute (11) Substance induced mood disorder Current Visit: No Status: Acute - AMA Did Patient Leave Against Medical Advice: Yes
[2016-11-08] MEDS ORDERED: diazePAM 5 MG TABLET PO SCH (10:00)
[2016-11-08] MEDS ORDERED: METHADONE HCL 10 MG TABLET (FOR DETOX USE ONLY) PO SCH (10:00)
[2016-11-09] MEDS ORDERED: METHADONE HCL 5 MG TABLET (FOR DETOX USE ONLY) PO SCH (06:00)
== END 2016-11-07 11:35 | disposition left against medical advice (07) | DRG 770 ==
LOC: YASAS 12:28 → Y6N 14:27
PROVIDERS: ADMIT Internal Medicine Addiction Medicine; ATTEND Internal Medicine Addiction Medicine
PROC: HZ2ZZZZ Detoxification Services for Substance Abuse Treatment (ICD-10-PCS; principal; 2016-11-04)
DX: F11.23 Opioid dependence with withdrawal (principal); F10.230 Alcohol dependence with withdrawal, uncomplicated; F14.20 Cocaine dependence, uncomplicated; F17.210 Nicotine dependence, cigarettes, uncomplicated; F33.9 Major depressive disorder, recurrent, unspecified; F19.24 Other psychoactive substance dependence with psychoactive substance-induced mood disorder; K21.9 Gastro-esophageal reflux disease without esophagitis; G47.00 Insomnia, unspecified; E03.9 Hypothyroidism, unspecified; J45.909 Unspecified asthma, uncomplicated; M54.5 Low back pain; G89.29 Other chronic pain; Z91.14 Patient's other noncompliance with medication regimen
CPT/HCPCS: 36415; 80053; 81003; 85027; 86593; 87389; 93005; 93010; J0475

== ENCOUNTER 2016-12-18 14:02 | Inpatient (IN) | payer OTHER ==
[2016-12-18 18:25] VITALS: BMI 27.2
--- NOTE | 2016-12-18 20:14 | HP ---
COWS - Scale Resting Pulse: 0= [place] 80 or Below Sweatin= Beads of Sweat on Face Restless Observation: 5= Unable to Sit Still Pupil Size: 1= Pupils >than Normal Bone or Joint Aches: 4=Acute Joint/Muscle Pain Runny Nose/ Eye Tearin= Runny Nose/Eyes GI Upset > 30mins: 3= Vomiting/Diarrhea (diarrhea) Tremor Observation: 4= Gross Tremor/Twitching Yawning Observation: 1= 1-2x During Session Anxiety or Irritability: 4=Extreme Anxiety Goose Flesh Skin: 3=Piloerection COWS Score: 30 CIWA Score - CIWA Score Nausea/Vomitin Muscle Tremors: 5 Anxiety: 4-Mod. Anxious/Guarded Agitation: 4-Moderately Restless Paroxysmal Sweats: 3 Orientation: 0-Oriented Tacttile Disturbances: 3-Moderate Itch/Numb/Burn Auditory Disturbances: 0-None Visual Disturbances: 0-None Headache: 4-Moderately Severe CIWA-Ar Total Score: 26 Admission ROS BHS - HPI Chief Complaint: alcohol and heroin Allergies/Adverse Reactions: Allergies Allergy/AdvReac Type Severity Reaction Status Date / Time No Known Allergies Allergy Verified 12/18/16 19:45 History of Present Illness: 41 years old male with long dependence admitted for detox. Patient has been in previous rehab. Reports a year of sobriety. Exam Limitations: Intoxication - Ebola screening Have you traveled outside of the country in the last 21 days: No (N) Have you had contact with anyone from an Ebola affected area: No Have you been sick,other than usual withdrawal symptoms: No Do you have a fever: No - Review of Systems Constitutional: Chills, Malaise, Night Sweats, Changes in sleep EENT: reports: No Symptoms Reported, Nose Congestion, Sinus Pressure Respiratory: reports: No Symptoms reported Cardiac: reports: No Symptoms Reported GI: reports: Diarrhea, Poor Appetite, Poor Fluid Intake : reports: No Symptoms Reported Musculoskeletal: reports: Joint Pain, Muscle Pain, Muscle Weakness, Neck Pain, Joint Stiffness Integumentary: reports: Dryness, Flushing Neuro: reports: Headache, Tingling, Tremors, Weakness Endocrine: reports: Excessive Sweating Hematology: reports: No Symptoms Reported Psychiatric: reports: Orientated x3, Agitated, Anxious Other Systems: Reviewed and Negative Patient History - Patient Medical History Hx Anemia: No Hx Asthma: Yes (Not on meds) Hx Chronic Obstructive Pulmonary Disease (COPD): No Hx Cancer: No Hx Cardiac Disorders: No Hx Hypertension: No Hx Hypercholesterolemia: No HX Cerebrovascular Accident: No Hx Seizures: No Hx Diabetes: No Hx Gastrointestinal Disorders: Yes (GERD) Hx Liver Disease: No Hx Genitourinary Disorders: No Hx Sexually Transmitted Disorders: No Hx Renal Disease (ESRD): No Hx Thyroid Disease: Yes (on meds, poor adherence) Hx Human Immunodeficiency Virus (HIV): No (NEGATIVE HX) Hx Hepatitis C: No Hx Depression: Yes Hx Suicide Attempt: No Hx Bipolar Disorder: No Hx Schizophrenia: No - Patient Surgical History Past Surgical History: No Hx Neurologic Surgery: No Hx Cataract Extraction: No Hx Cardiac Surgery: No Hx Lung Surgery: No Hx Breast Surgery: No Hx Breast Biopsy: No Hx Abdominal Surgery: No Hx Appendectomy: No Hx Cholecystectomy: No Hx Genitourinary Surgery: No Hx Section: No Hx Orthopedic Surgery: No Anesthesia Reaction: No - PPD History Previous Implant?: Yes Documented Results: Negative w/proof Date: 07/05/16 Results: 0 mm PPD to be Administered?: No - Smoking Cessation Smoking history: Current every day smoker Have you smoked in the past 12 months: Yes Aproximately how many cigarettes per day: 20 Cigars Per Day: 0 Hx Chewing Tobacco Use: No Initiated information on smoking cessation: Yes 'Breaking Loose' booklet given: 12/18/16 - Substance & Tx. History Hx Alcohol Use: Yes Hx Substance Use: Yes (Heroine) Substance Use Type: Alcohol, Cocaine, Heroin Hx Substance Use Treatment: Yes (Alcohol/ Heroin Detox 11/2016) - Substances Abused Alcohol Route: Oral Frequency: Daily Amount used: LIQUOR- 1 PINT, BEER- 4 (25oz) Age of first use: 14 Date of Last Use: 12/17/16 Heroin Route: Inhalation Frequency: Daily Amount used: 15 bags Age of first use: 14 Date of Last Use: 12/17/16 Family Disease History - Family Disease History Family Disease History: Heart Disease: Mother (HTN), Other: Father (Etoh), Brother (younger etoh/drugs), Sister (depression) Admission Physical Exam BHS - Vital Signs Vital Signs: Vital Signs - 24 hr 12/18/16 18:23 Temperature 95.9 F L Pulse Rate 75 Respiratory 18 Rate Blood Pressure 123/91 - Physical General Appearance: Yes: Severe Distress, Alcohol on Breath, Intoxicated HEENTM: Yes: Normal Voice, SAMANTHA Respiratory: Yes: Lungs Clear (mild), No Accessory Muscle Use, Wheezing Neck: Yes: Supple Breast: Yes: Breast Exam Deferred Cardiology: Yes: Regular Rhythm, Regular Rate, S1, S2 Abdominal: Yes: Normal Bowel Sounds, Soft Genitourinary: Yes: Within Normal Limits Back: Yes: Normal Inspection Musculoskeletal: Yes: Joint Stiffness, Muscle Pain, Muscle weakness Extremities: Yes: Tremors, Other (Right arm and left leg tatoo) 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: Yes: Fully Oriented, Alert, Normal Response Integumentary: Yes: Dry, Warm, Clammy Lymphatic: Yes: Within Normal Limits Cleared for Admission S - Detox or Rehab [facility] Level of Care: Medically Managed Detox Regimen/Protocol: Methadone/Valium [facility] Breath Alcohol Content Breath Alcohol Content: 0 Urine Drug Screen - Results Drug Screen Negative: No Urine Drug Screen Results: BARBARA-Cocaine, OPI-Opiates
[2016-12-18] MEDS ORDERED: chlordiazePOXIDE HCL 25 MG CAPSULE PO PRN ×2 (20:37→21:00)
[2016-12-18] MEDS ORDERED: MAGNESIUM HYDROX 2400MG/30ML ORAL SUSPENSION 30 ML CUP PO PRN (20:37)
[2016-12-18] MEDS ORDERED: P-EPHED 60MG/TRIPROLIDI 2.5MG TABLET PO PRN (20:37)
[2016-12-18] MEDS ORDERED: IBUPROFEN 400 MG TABLET (FP) PO PRN (20:37)
[2016-12-18] MEDS ORDERED: MAG HYDROX/AL HYDROX/SIMETH 30 ML UNIT-DOSE CUP PO PRN (20:37)
[2016-12-18] MEDS ORDERED: MENTHOL/PHENOL 1 EACH UD MM PRN (20:37)
[2016-12-18] MEDS ORDERED: LOPERAMIDE HCL 2 MG CAPSULE PO PRN (20:37)
[2016-12-18] MEDS ORDERED: NICOTINE POLACRILEX 2 MG GUM BUC PRN (20:37)
[2016-12-18] MEDS ORDERED: METHADONE HCL 10 MG TABLET (FOR DETOX USE ONLY) PO ONE ×4 (20:37→23:00)
[2016-12-18] MEDS ORDERED: diphenhydrAMINE HCL 50 MG CAPSULE PO PRN (20:37)
[2016-12-18] MEDS ORDERED: ACETAMINOPHEN 325 MG TABLET (FP) PO PRN (20:37)
[2016-12-18] MEDS ORDERED: MAGNESIUM CITRATE 300 ML BOTTLE PO PRN (20:37)
[2016-12-18] MEDS ORDERED: guaiFENesin/D-METHORPHAN HB 10 ML UNIT-DOSE CUPS PO PRN (20:37)
[2016-12-18] MEDS: THIAMINE HCL 100 MG TABLET (FP) PO SCH (22:28)
[2016-12-18] MEDS ORDERED: diazePAM 5 MG TABLET PO ONE (22:42)
[2016-12-18] MEDS ORDERED: chlordiazePOXIDE HCL 25 MG CAPSULE PO SCH ×2 (23:00)
[2016-12-18] MEDS: diazePAM 5 MG TABLET PO SCH (23:05)
[2016-12-18] MEDS: RANITIDINE HCL 150 MG TABLET (FP) PO SCH (23:05)
[2016-12-19 01:07] LABS: URINE APPEARANCE CLEAR; URINE BILIRUBIN NEGATIVE (NEGATIVE); URINE BLOOD NEGATIVE (NEGATIVE); URINE COLOR YELLOW; URINE GLUCOSE (UA) NEGATIVE (NEGATIVE); URINE KETONE NEGATIVE (NEGATIVE); URINE NITRITE NEGATIVE (NEGATIVE); URINE PROTEIN NEGATIVE (NEGATIVE); URINE UROBILINOGEN NEGATIVE mg/dL (0.2-1.0)
[2016-12-19] MEDS: diazePAM 5 MG TABLET PO SCH ×3 (06:32→22:34)
[2016-12-19 10:00] LABS: MCH 29.8 pg (25.7-33.7); MCHC 32.8 g/dl (32.0-35.9); MEAN CELL VOLUME 90.9 fl (80-96); MEAN PLT VOLUME 8.5 fl (7.5-11.1); PLATELET COUNT 305 K/MM3 (134-434); RDW 14.6 % (11.9-15.9); WHITE BLOOD COUNT 10.8 K/mm3 (4.0-10.0)
[2016-12-19] MEDS ORDERED: METHADONE HCL 10 MG TABLET (FOR DETOX USE ONLY) PO SCH ×2 (10:00)
[2016-12-19 10:18] LABS: ALBUMIN 3.6 g/dl (3.4-5.0); ALK PHOS 87 U/L (45-117); ANION GAP 8 (8-16); BILIRUBIN,TOTAL 0.6 mg/dL (0.2-1.0); CALCIUM 8.2 mg/dL (8.5-10.1); CO2 29 mmol/L (21-32); GLUCOSE,RANDOM 72 mg/dL (74-106); SGOT/AST 18 U/L (15-37); SGPT/ALT 20 U/L (12-78); TOT PROT 6.3 g/dl (6.4-8.2)
[2016-12-19 10:25] LABS: HIV 1 & 2 AB NEGATIVE; HIV 1 AGp24 NEGATIVE
[2016-12-19 10:26] LABS: URINE LEUK ESTERASE Negative (NEGATIVE)
[2016-12-19] MEDS: PRENATAL VITAMINS W/ FOLIC ACID TABLET (FP) PO SCH (10:33)
[2016-12-19] MEDS: RANITIDINE HCL 150 MG TABLET (FP) PO SCH ×2 (10:33→22:34)
[2016-12-19] MEDS: diazePAM 5 MG TABLET PO PRN (10:34)
[2016-12-19] MEDS: NICOTINE 14 MG/24 HOURS TOPICAL PATCH TD SCH (10:35)
--- NOTE | 2016-12-19 12:40 | PN ---
[facility] CIWA - CIWA Score Nausea/Vomitin-No Nausea/No Vomiting Muscle Tremors: 4-Moderate,w/Arms Extend Anxiety: 3 Agitation: 3 Paroxysmal Sweats: 3 Orientation: 0-Oriented Tacttile Disturbances: 2-Mild Itch/Numbness/Burn Auditory Disturbances: 1-Very Mild Visual Disturbances: 2-Mild Sensitivity Headache: 0-None Present CIWA-Ar Total Score: 18 S COWS - Scale Resting Pulse: 1= [place] 81-100 Sweatin= Chills/Flushing Restless Observation: 1= Difficult to Sit Still Pupil Size: 0= Normal to Room Light Bone or Joint Aches: 2= Severe Diffuse Aches Runny Nose/ Eye Tearin= Nasal Congestion GI Upset > 30mins: 2= Nausea/Diarrhea Tremor Observation of Outstretched Hands: 2= Slight Tremor Visible Yawning Observation: 1= 1-2x During Session Anxiety or Irritability: 2=Irritable/Anxious Goose Flesh Skin: 0=Smooth Skin COWS Score: 13 [facility] Progress Note (SOAP) Subjective: Tremors, Chills, Fatigue, Diarrhea, Sweating, interrupted sleep, Body Aches. Objective: PT. A & O X 3. NO ACUTE DISTRESS. 12/19/16 12:38 Vital Signs Temperature 97.3 F L 12/19/16 09:45 Pulse Rate 89 12/19/16 09:45 Respiratory Rate 18 12/19/16 09:45 Blood Pressure 117/71 12/19/16 09:45 O2 Sat by Pulse Oximetry (%) Laboratory Tests 12/18/16 12/19/16 12/19/16 22:25 07:00 07:00 WBC 10.8 H D RBC 4.72 Hgb 14.1 Hct 42.9 MCV 90.9 MCH 29.8 MCHC 32.8 RDW 14.6 Plt Count 305 MPV 8.5 Sodium Potassium Chloride Carbon Dioxide Anion Gap BUN Creatinine Creat Clearance w eGFR Random Glucose Calcium Total Bilirubin AST ALT Alkaline Phosphatase Total Protein Albumin Urine Color Yellow Urine Appearance Clear Urine pH 5.0 Ur Specific [place] >= 1.030 H Urine Protein Negative Urine Glucose (UA) Negative Urine Ketones Negative Urine Blood Negative Urine Nitrite Negative Urine Bilirubin Negative Urine Urobilinogen Negative Ur Leukocyte Esterase Negative RPR Titer HIV 1&2 Antibody Screen Negative HIV P24 Antigen Negative 12/19/16 12/19/16 07:00 07:00 WBC RBC Hgb Hct MCV MCH MCHC RDW Plt Count MPV Sodium 139 Potassium 3.9 Chloride 102 Carbon Dioxide 29 Anion Gap 8 BUN 17 D Creatinine 1.0 Creat Clearance w eGFR > 60 Random Glucose 72 L Calcium 8.2 L Total Bilirubin 0.6 AST 18 ALT 20 D Alkaline Phosphatase 87 Total Protein 6.3 L Albumin 3.6 Urine Color Urine Appearance Urine pH Ur Specific [place] Urine Protein Urine Glucose (UA) Urine Ketones Urine Blood Urine Nitrite Urine Bilirubin Urine Urobilinogen Ur Leukocyte Esterase RPR Titer Nonreactive HIV 1&2 Antibody Screen HIV P24 Antigen LABS NOTED. Assessment: 12/19/16 12:39 WITHDRAWAL SYMPTOMS. Plan: CONTINUE DETOX. PRN IMMODIUM FOR DIARRHEA. INCREASE DAILY PO FLUID INTAKE.
--- NOTE | 2016-12-19 17:14 | CONSULT ---
[facility] Psychiatric Consult - Data Date of interview: 12/19/16 Admission source: [facility] Identifying data: Readmission to [facility] for this 41 y/o male seeking detox treatment,on ,for alcohol,cocaine and heroin dependence.Patient is single without children,domiciled,unemployed and supported on food stamps. Substance Abuse History: Confirmed by patient in this session. Smoking Cessation. Smoking history: Current every day smoker. Have you smoked in the past 12 months: Yes. Aproximately how many cigarettes per day: 20. Cigars Per Day: 0. Hx Chewing Tobacco Use: No. Initiated information on smoking cessation : Yes. 'Breaking Loose' booklet given: 12/18/16. - Substance & Tx. History. Hx Alcohol Use: Yes. Hx Substance Use: Yes (Heroine). Substance Use Type: Alcohol, Cocaine, Heroin. Hx Substance Use Treatment: Yes (Alcohol/ Heroin Detox 11/2016). - Substances Abused. Alcohol. Route: Oral. Frequency: Daily. Amount used: LIQUOR- 1 PINT, BEER- 4 (25oz). Age of first use: 14. Date of Last Use: 12/17/16. Heroin. Route: Inhalation. Frequency: Daily. Amount used: 15 bags. Age of first use: 14. Date of Last Use: 12/17/16 Medical History: GERD and hypothyroidism. Psychiatric History: One psychiatric admission to [facility] " years ago ". Diagnosed with MDD.Prescribed seroquel 200 mg/hs + remeron 45 mg/hs .Mr Olmos reports chronic non-adherence to OPD care.No contact with psychiatric OPD care providers.Patient relies on a primary care provider for refills.No reported history of suicide attempts. Physical/Sexual Abuse/Trauma History: Patient denies. Additional Comment: Urine Drug Screen Results: BARBARA-Cocaine, OPI-Opiates.Noted. Mental Status Exam - Mental Status Exam Alert and Oriented to: Time, Place, Person Cognitive Function: Good Patient Appearance: Well Groomed Mood: Hopeful, Euthymic Affect: Appropriate, Normal Range Patient Behavior: Fatigued, Cooperative Speech Pattern: Clear Voice Loudness: Normal Thought Process: Goal Oriented Thought Disorder: Not Present Hallucinations: Denies Suicidal Ideation: Denies Homicidal Ideation: Denies Insight/Judgement: Poor Sleep: Poorly, Difficulty falling asleep Appetite: Good Muscle strength/Tone: Normal Gait/Station: Normal Psychiatric Findings - Problem List ([place] 1, 2,3) (1) Alcohol dependence with uncomplicated withdrawal Current Visit: Yes Status: Acute (2) Cocaine dependence, uncomplicated Current Visit: Yes Status: Acute (3) Opioid dependence with withdrawal Current Visit: Yes Status: Acute (4) Nicotine dependence Current Visit: Yes Status: Acute Qualifiers: Nicotine product type: cigarettes Substance use status: uncomplicated Qualified Code(s): F17.210 - Nicotine dependence, cigarettes, uncomplicated; F17.210 - Nicotine dependence, cigarettes, uncomplicated (5) Substance induced mood disorder Current Visit: Yes Status: Acute (6) GERD (gastroesophageal reflux disease) Current Visit: Yes Status: Chronic Qualifiers: Esophagitis presence: without esophagitis Qualified Code(s): K21.9 - Gastro-esophageal reflux disease without esophagitis; K21.9 - Gastro- esophageal reflux disease without esophagitis; K21.9 - Gastro-esophageal reflux disease without esophagitis (7) History of - hypothyroidism Current Visit: Yes Status: Chronic Comment: poor adherence (8) Chronic lower back pain Current Visit: No Status: Chronic Qualifiers: Back pain laterality: unspecified Sciatica presence: without sciatica Qualified Code(s): M54.5 - Low back pain; M54.5 - Low back pain; G89.29 - Other chronic pain; G89.29 - Other chronic pain (9) Insomnia Current Visit: Yes Status: Acute - Initial Treatment Plan Initial Treatment Plan: Psychoeducation.Detoxification.Medications : seroquel 200 mg po hs + remeron 7.5 mg po hs.Side effects/benefits discussed with the patient.Consent (verbal) given.Observation.
[2016-12-19] MEDS ORDERED: QUEtiapine FUMARATE 200 MG TABLET PO SCH (22:00)
[2016-12-19] MEDS: THIAMINE HCL 100 MG TABLET (FP) PO SCH (22:34)
[2016-12-19] MEDS ORDERED: chlordiazePOXIDE HCL 25 MG CAPSULE PO SCH ×2 (23:00)
[2016-12-20] MEDS: diazePAM 5 MG TABLET PO PRN (08:42)
[2016-12-20] MEDS ORDERED: METHADONE HCL 5 MG TABLET (FOR DETOX USE ONLY) PO SCH ×2 (10:00)
[2016-12-20] MEDS ORDERED: diazePAM 5 MG TABLET PO SCH (10:00)
[2016-12-20] MEDS: RANITIDINE HCL 150 MG TABLET (FP) PO SCH (10:15)
[2016-12-20] MEDS: PRENATAL VITAMINS W/ FOLIC ACID TABLET (FP) PO SCH (10:15)
[2016-12-20] MEDS: NICOTINE 14 MG/24 HOURS TOPICAL PATCH TD SCH (10:17)
--- NOTE | 2016-12-20 11:58 | EKG ---
Test Reason : Blood Pressure : / mmHG Vent. Rate : 069 BPM Atrial Rate : 069 BPM P-R Int : 152 ms QRS Dur : 080 ms QT Int : 396 ms P-R-T Axes : 035 061 040 degrees QTc Int : 424 ms NORMAL SINUS RHYTHM NORMAL ECG WHEN COMPARED WITH ECG OF 04-NOV-2016 14:19, NO SIGNIFICANT CHANGE WAS FOUND Confirmed by NORMA WALLACE MD ([id number]) on 12/20/2016 11:58:43 AM Referred By: Confirmed By:NORMA WALLACE MD
--- NOTE | 2016-12-20 13:33 | PN ---
S CIWA - CIWA Score Nausea/Vomitin Muscle Tremors: 4-Moderate,w/Arms Extend Anxiety: 4-Mod. Anxious/Guarded Agitation: 2 Paroxysmal Sweats: 3 Orientation: 2-Disoriented Date<2 days Tacttile Disturbances: 1-Very Mild Itch/Numbness Auditory Disturbances: 0-None Visual Disturbances: 0-None Headache: 2-Mild CIWA-Ar Total Score: 21 BHS COWS - Scale Resting Pulse: 1= [place] 81-100 Sweatin= Chills/Flushing Restless Observation: 1= Difficult to Sit Still Pupil Size: 0= Normal to Room Light Bone or Joint Aches: 2= Severe Diffuse Aches Runny Nose/ Eye Tearin= Nasal Congestion GI Upset > 30mins: 2= Nausea/Diarrhea Tremor Observation of Outstretched Hands: 2= Slight Tremor Visible Yawning Observation: 1= 1-2x During Session Anxiety or Irritability: 2=Irritable/Anxious Goose Flesh Skin: 0=Smooth Skin COWS Score: 13 S Progress Note (SOAP) Subjective: Tremors, Nausea, Anxious, Body Aches, H/A, Sweating, Diarrhea. Objective: PT. A & O X 2 (DISORIENTED ABOUT DAY / DATE). PT. OBSERVED AMBULATING ON UNIT. NO ACUTE DISTRESS. 12/20/16 13:29 Vital Signs Temperature 97.7 F 12/20/16 13:08 Pulse Rate 100 H 12/20/16 13:08 Respiratory Rate 20 12/20/16 13:08 Blood Pressure 127/77 12/20/16 13:08 O2 Sat by Pulse Oximetry (%) Laboratory Tests 12/18/16 12/19/16 12/19/16 22:25 07:00 07:00 WBC 10.8 H D RBC 4.72 Hgb 14.1 Hct 42.9 MCV 90.9 MCH 29.8 MCHC 32.8 RDW 14.6 Plt Count 305 MPV 8.5 Sodium Potassium Chloride Carbon Dioxide Anion Gap BUN Creatinine Creat Clearance w eGFR Random Glucose Calcium Total Bilirubin AST ALT Alkaline Phosphatase Total Protein Albumin Urine Color Yellow Urine Appearance Clear Urine pH 5.0 Ur Specific [place] >= 1.030 H Urine Protein Negative Urine Glucose (UA) Negative Urine Ketones Negative Urine Blood Negative Urine Nitrite Negative Urine Bilirubin Negative Urine Urobilinogen Negative Ur Leukocyte Esterase Negative RPR Titer HIV 1&2 Antibody Screen Negative HIV P24 Antigen Negative 12/19/16 12/19/16 07:00 07:00 WBC RBC Hgb Hct MCV MCH MCHC RDW Plt Count MPV Sodium 139 Potassium 3.9 Chloride 102 Carbon Dioxide 29 Anion Gap 8 BUN 17 D Creatinine 1.0 Creat Clearance w eGFR > 60 Random Glucose 72 L Calcium 8.2 L Total Bilirubin 0.6 AST 18 ALT 20 D Alkaline Phosphatase 87 Total Protein 6.3 L Albumin 3.6 Urine Color Urine Appearance Urine pH Ur Specific [place] Urine Protein Urine Glucose (UA) Urine Ketones Urine Blood Urine Nitrite Urine Bilirubin Urine Urobilinogen Ur Leukocyte Esterase RPR Titer Nonreactive HIV 1&2 Antibody Screen HIV P24 Antigen LABS NOTED. Assessment: 12/20/16 13:30 WITHDRAWAL SYMPTOMS. Plan: CONTINUE DETOX. PATIENT REPORTS HISTORY OF PRESCRIPTION PRIOR TO ADMISSION TO DETOX AND REQUESTING TO BE CONTINUED ON GABAPENTIN WHILE ADMITTED TO DETOX. HOWEVER, PHARMACIST AT PATIENT'S PHARMACY ([facility] [place] DENIES ANY RECORD OF PREVIOUS PRESCRIPTION OF GABAPENTIN FOR PATIENT.
[2016-12-20 17:16] VITALS: BP 121/61; PULSE 62; TEMP 97.9
--- NOTE | 2016-12-20 19:25 | DS ---
[facility] Detox Discharge Summary Admission Date: 12/18/16 Discharge Date: 12/20/16 - History Present History: Alcohol Dependence, Cocaine Dependence Additional Comments: received nurse call that the patient is smoking heavily in his room, insists continuing cigarette smoking patient had been removed from the unit prior to arrival to the unit Pertinent Past History: gerd nicotine - Physical Exam Results Vital Signs: Vital Signs Temperature 97.9 F 12/20/16 17:16 Pulse Rate 62 12/20/16 17:16 Respiratory Rate 18 12/20/16 17:16 Blood Pressure 121/61 12/20/16 17:16 O2 Sat by Pulse Oximetry (%) Pertinent Admission Physical Exam Findings: withdrawal sx Laboratory Last Values WBC 10.8 K/mm3 (4.0-10.0) H D 12/19/16 07:00 RBC 4.72 M/mm3 (4.00-5.60) 12/19/16 07:00 Hgb 14.1 GM/dL (11.7-16.9) 12/19/16 07:00 Hct 42.9 % (35.4-49) 12/19/16 07:00 MCV 90.9 fl (80-96) 12/19/16 07:00 MCH 29.8 pg (25.7-33.7) 12/19/16 07:00 MCHC 32.8 g/dl (32.0-35.9) 12/19/16 07:00 RDW 14.6 % (11.9-15.9) 12/19/16 07:00 Plt Count 305 K/MM3 (134-434) 12/19/16 07:00 MPV 8.5 fl (7.5-11.1) 12/19/16 07:00 Sodium 139 mmol/L (136-145) 12/19/16 07:00 Potassium 3.9 mmol/L (3.5-5.1) 12/19/16 07:00 Chloride 102 mmol/L (98-107) 12/19/16 07:00 Carbon Dioxide 29 mmol/L (21-32) 12/19/16 07:00 Anion Gap 8 (8-16) 12/19/16 07:00 BUN 17 mg/dL (7-18) D 12/19/16 07:00 Creatinine 1.0 mg/dL (0.7-1.3) 12/19/16 07:00 Creat Clearance w eGFR > 60 (>60) 12/19/16 07:00 Random Glucose 72 mg/dL (74-106) L 12/19/16 07:00 Calcium 8.2 mg/dL (8.5-10.1) L 12/19/16 07:00 Total Bilirubin 0.6 mg/dL (0.2-1.0) 12/19/16 07:00 AST 18 U/L (15-37) 12/19/16 07:00 ALT 20 U/L (12-78) D 12/19/16 07:00 Alkaline Phosphatase 87 U/L (45-117) 12/19/16 07:00 Total Protein 6.3 g/dl (6.4-8.2) L 12/19/16 07:00 Albumin 3.6 g/dl (3.4-5.0) 12/19/16 07:00 Urine Color Yellow 12/18/16 22:25 Urine Appearance Clear 12/18/16 22:25 Urine pH 5.0 (5.0-8.0) 12/18/16 22:25 Ur Specific [place] >= 1.030 (1.005-1.025) H 12/18/16 22:25 Urine Protein Negative (NEGATIVE) 12/18/16 22:25 Urine Glucose (UA) Negative (NEGATIVE) 12/18/16 22:25 Urine Ketones Negative (NEGATIVE) 12/18/16 22:25 Urine Blood Negative (NEGATIVE) 12/18/16 22:25 Urine Nitrite Negative (NEGATIVE) 12/18/16 22:25 Urine Bilirubin Negative (NEGATIVE) 12/18/16 22:25 Urine Urobilinogen Negative mg/dL (0.2-1.0) 12/18/16 22:25 Ur Leukocyte Esterase Negative (NEGATIVE) 12/18/16 22:25 RPR Titer Nonreactive (NONREACTIVE) 12/19/16 07:00 HIV 1&2 Antibody Screen Negative 12/19/16 07:00 HIV P24 Antigen Negative 12/19/16 07:00 lab noted - Treatment Hospital Course: Detox Protocol Followed, Responded well - Medication Discharge Medications: Ambulatory Orders Levothyroxine [Synthroid -] 50 mcg PO DAILY #30 tablet 10/03/16 Tiotropium [place] [Spiriva] 1 inh IH DAILY #1 inh 10/03/16 Albuterol Sulfate Inhaler - [Ventolin HFA Inhaler -] 2 inh PO Q4H PRN 10/04/16 Baclofen 10 mg PO Q8H 10/04/16 Gabapentin [Neurontin] 600 mg PO TID 10/04/16 Mirtazapine [Remeron -] 30 mg PO HS 10/04/16 Quetiapine Fumarate [Seroquel -] 200 mg PO HS 10/04/16 Ranitidine [Zantac -] 150 mg PO BID 10/04/16 Zolpidem Tartrate [Ambien] 10 mg PO HS 11/04/16 Mirtazapine [Remeron -] 30 mg PO HS #30 tablet 11/06/16 Quetiapine Fumarate [Seroquel -] 200 mg PO HS #30 tablet 11/06/16 Quetiapine Fumarate [Seroquel -] 200 mg PO HS #30 tab 12/19/16 - Diagnosis (1) Alcohol dependence with uncomplicated withdrawal Current Visit: Yes Status: Acute (2) Cocaine dependence, uncomplicated Current Visit: Yes Status: Chronic (3) Nicotine dependence Current Visit: Yes Status: Acute Qualifiers: Nicotine product type: cigarettes Substance use status: in withdrawal Qualified Code(s): F17.213 - Nicotine dependence, cigarettes, with withdrawal; F17.213 - Nicotine dependence, cigarettes, with withdrawal (4) GERD (gastroesophageal reflux disease) Current Visit: Yes Status: Chronic Qualifiers: Esophagitis presence: without esophagitis Qualified Code(s): K21.9 - Gastro-esophageal reflux disease without esophagitis; K21.9 - Gastro- esophageal reflux disease without esophagitis; K21.9 - Gastro-esophageal reflux disease without esophagitis - AMA Did Patient Leave Against Medical Advice: No
[2016-12-20] MEDS ORDERED: chlordiazePOXIDE 5 MG CAPSULE PO SCH ×2 (23:00)
[2016-12-21] MEDS ORDERED: chlordiazePOXIDE HCL 10 MG CAPSULE PO SCH ×2 (23:00)
[2016-12-22] MEDS ORDERED: diazePAM 5 MG TABLET PO SCH (10:00)
[2016-12-22] MEDS ORDERED: METHADONE HCL 10 MG TABLET (FOR DETOX USE ONLY) PO SCH ×2 (10:00)
[2016-12-23] MEDS ORDERED: METHADONE HCL 5 MG TABLET (FOR DETOX USE ONLY) PO SCH ×2 (06:00)
== END 2016-12-20 19:15 | disposition home or self-care (01) | DRG 773 ==
LOC: YASAS 14:02 → Y3N 21:17
PROVIDERS: ADMIT Internal Medicine; ATTEND Internal Medicine
PROC: HZ2ZZZZ Detoxification Services for Substance Abuse Treatment (ICD-10-PCS; principal; 2016-12-18)
DX: F11.23 Opioid dependence with withdrawal (principal); F10.230 Alcohol dependence with withdrawal, uncomplicated; F14.20 Cocaine dependence, uncomplicated; F17.210 Nicotine dependence, cigarettes, uncomplicated; F19.24 Other psychoactive substance dependence with psychoactive substance-induced mood disorder; K21.9 Gastro-esophageal reflux disease without esophagitis; E03.9 Hypothyroidism, unspecified; G47.00 Insomnia, unspecified; M54.5 Low back pain; G89.29 Other chronic pain
CPT/HCPCS: 36415; 80053; 81003; 85027; 86593; 87389; 93005; 93010

== ENCOUNTER 2017-03-01 19:05 | Inpatient (IN) | payer OTHER ==
[2017-03-01 20:21] VITALS: BMI 27.4
--- NOTE | 2017-03-01 22:16 | HP ---
COWS - Scale Resting Pulse: 1= [place] 81-100 Sweatin=Flushed/Facial Moisture Restless Observation: 1= Difficult to Sit Still Pupil Size: 1= Pupils >than Normal Bone or Joint Aches: 4=Acute Joint/Muscle Pain Runny Nose/ Eye Tearin= Runny Nose/Eyes GI Upset > 30mins: 3= Vomiting/Diarrhea (diarrhea x 3, vomiting x 2) Tremor Observation: 2= Slight Tremor Visible Yawning Observation: 0= None Anxiety or Irritability: 2=Irritable/Anxious Goose Flesh Skin: 0=Smooth Skin COWS Score: 18 CIWA Score - CIWA Score Nausea/Vomitin Muscle Tremors: 4-Moderate,w/Arms Extend Anxiety: 4-Mod. Anxious/Guarded Agitation: 2 Paroxysmal Sweats: 3 Orientation: 1-Uncertain about Date Tacttile Disturbances: 0-None Auditory Disturbances: 0-None Visual Disturbances: 0-None Headache: 3-Moderate CIWA-Ar Total Score: 20 Admission ROS S - HPI Chief Complaint: Opioid and alcohol withdrawal symptoms Allergies/Adverse Reactions: Allergies Allergy/AdvReac Type Severity Reaction Status Date / Time No Known Allergies Allergy Verified 03/01/17 23:30 History of Present Illness: 41 years old male with a long history of heroin, alcohol and cocaine dependence is admitted to detox. Patient has been in previous detox and reports insignificant period of abstinence. He has medical history of hypothyroidism, Asthma, GERD and depression. Denies suicidal ideation at this time. Exam Limitations: No Limitations - Ebola screening Have you traveled outside of the country in the last 21 days: No Have you had contact with anyone from an Ebola affected area: No Have you been sick,other than usual withdrawal symptoms: No Do you have a fever: No - Review of Systems Constitutional: Chills, Diaphoresis, Loss of Appetite, Malaise, Night Sweats, Changes in sleep, Weakness EENT: reports: No Symptoms Reported Respiratory: reports: No Symptoms reported, Cough (yellowish phlegm) Cardiac: reports: No Symptoms Reported GI: reports: Diarrhea, Nausea, Poor Appetite, Poor Fluid Intake, Vomiting, Abdominal cramping : reports: No Symptoms Reported Musculoskeletal: reports: Back Pain, Joint Pain, Muscle Pain, Muscle Weakness, Joint Stiffness Integumentary: reports: Dryness, Flushing Neuro: reports: Headache, Tingling, Tremors Endocrine: reports: No Symptoms Reported Hematology: reports: No Symptoms Reported Psychiatric: reports: Mood/Affect Appropiate, Orientated x3, Agitated, Anxious Other Systems: Reviewed and Negative Patient History - Patient Medical History Hx Anemia: No Hx Asthma: Yes (Not on meds) Hx Chronic Obstructive Pulmonary Disease (COPD): No Hx Cancer: No Hx Cardiac Disorders: No Hx Congestive Heart Failure: No Hx Hypertension: No Hx Hypercholesterolemia: No Hx Pacemaker: No HX Cerebrovascular Accident: No Hx Seizures: No Hx Dementia: No Hx Diabetes: No Hx Gastrointestinal Disorders: Yes (GERD) Hx Liver Disease: No Hx Genitourinary Disorders: No Hx Sexually Transmitted Disorders: No Hx Renal Disease (ESRD): No Hx Thyroid Disease: Yes (on meds, poor adherence) Hx Human Immunodeficiency Virus (HIV): No (NEGATIVE HX) Hx Hepatitis C: No Hx Depression: Yes Hx Suicide Attempt: No (Denies suicidal ideation) Hx Bipolar Disorder: No Hx Schizophrenia: No - Patient Surgical History Past Surgical History: No Hx Neurologic Surgery: No Hx Cataract Extraction: No Hx Cardiac Surgery: No Hx Lung Surgery: No Hx Abdominal Surgery: No Hx Appendectomy: No Hx Cholecystectomy: No Hx Genitourinary Surgery: No Hx Orthopedic Surgery: No Anesthesia Reaction: No - PPD History Previous Implant?: Yes Documented Results: Negative w/proof Implanted On Prior [facility] Admission?: Yes Date: 07/05/16 Results: 0 mm PPD to be Administered?: No - Reproductive History Patient is a Female of Child Bearing Age (11 -55 yrs old): No (Male) - Smoking Cessation Smoking history: Current every day smoker Have you smoked in the past 12 months: Yes Aproximately how many cigarettes per day: 20 Cigars Per Day: 0 Hx Chewing Tobacco Use: No Initiated information on smoking cessation: Yes 'Breaking Loose' booklet given: 03/01/17 - Substance & Tx. History Hx Alcohol Use: Yes (Vodka, Beer) Hx Substance Use: Yes Substance Use Type: Alcohol, Cocaine, Heroin Hx Substance Use Treatment: Yes - Substances Abused Alcohol Route: Smoking Frequency: Daily Amount used: Beer 6 x (6 pack of 22oz), Vodka 1 pint Age of first use: 17 Date of Last Use: 02/28/17 Cocaine Route: Inhalation Frequency: Daily Age of first use: 17 Date of Last Use: 03/01/17 Heroin Route: Injection Frequency: Daily Amount used: 20 bags Age of first use: 17 Date of Last Use: 03/01/17 Family Disease History - Family Disease History Family Disease History: Heart Disease: Mother (HTN), Other: Father (Etoh), Brother (younger etoh/drugs), Sister (depression) Admission Physical Exam [facility] - Vital Signs Vital Signs: Vital Signs - 24 hr 03/01/17 20:20 Temperature 96 F L Pulse Rate 91 H Respiratory 18 Rate Blood Pressure 146/93 - Physical General Appearance: Yes: Moderate Distress, Tremorous, Irritable, Sweating, Anxious HEENTM: Yes: EOMI, Normal Voice, SAMANTHA Respiratory: Yes: Lungs Clear, Normal Breath Sounds, No Respiratory Distress, No Accessory Muscle Use Neck: Yes: Within Normal Limits, Supple, Trachea in good position Breast: Yes: Breast Exam Deferred Cardiology: Yes: Regular Rhythm, Regular Rate, S1, S2 Abdominal: Yes: Normal Bowel Sounds, Soft Genitourinary: Yes: Within Normal Limits Back: Yes: Normal Inspection Musculoskeletal: Yes: Back pain, Muscle Pain, Muscle weakness Extremities: Yes: Normal Range of Motion, Tremors 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: Yes: Within Normal Limits, Alert, Normal Response Integumentary: Yes: Dry Lymphatic: Yes: Within Normal Limits - Diagnostic (1) Alcohol dependence with uncomplicated withdrawal Current Visit: Yes Status: Chronic (2) Nicotine dependence Current Visit: Yes Status: Chronic Qualifiers: Nicotine product type: cigarettes Substance use status: in withdrawal Qualified Code(s): F17.213 - Nicotine dependence, cigarettes, with withdrawal (3) Opioid dependence with withdrawal Current Visit: Yes Status: Chronic (4) Cocaine dependence, uncomplicated Current Visit: Yes Status: Chronic (5) GERD (gastroesophageal reflux disease) Current Visit: Yes Status: Chronic Qualifiers: Esophagitis presence: without esophagitis Qualified Code(s): K21.9 - Gastro -esophageal reflux disease without esophagitis (6) History of - hypothyroidism Current Visit: Yes Status: Chronic Comment: poor adherence Cleared for Admission [facility] - Detox or Rehab [facility] Level of Care: Medically Managed [facility] Breath Alcohol Content Breath Alcohol Content: 0 Urine Drug Screen - Results Drug Screen Negative: No Urine Drug Screen Results: BARBARA-Cocaine, OPI-Opiates
[2017-03-01] MEDS ORDERED: guaiFENesin/D-METHORPHAN HB 10 ML UNIT-DOSE CUPS PO PRN (22:36)
[2017-03-01] MEDS ORDERED: LOPERAMIDE HCL 2 MG CAPSULE PO PRN (22:36)
[2017-03-01] MEDS ORDERED: MAGNESIUM HYDROX 2400MG/30ML ORAL SUSPENSION 30 ML CUP PO PRN (22:36)
[2017-03-01] MEDS ORDERED: P-EPHED 60MG/TRIPROLIDI 2.5MG TABLET PO PRN (22:36)
[2017-03-01] MEDS ORDERED: ACETAMINOPHEN 325 MG TABLET (FP) PO PRN (22:36)
[2017-03-01] MEDS ORDERED: MAGNESIUM CITRATE 300 ML BOTTLE PO PRN (22:36)
[2017-03-01] MEDS ORDERED: IBUPROFEN 400 MG TABLET (FP) PO PRN (22:36)
[2017-03-01] MEDS ORDERED: chlordiazePOXIDE HCL 25 MG CAPSULE PO PRN (22:36)
[2017-03-01] MEDS ORDERED: MAG HYDROX/AL HYDROX/SIMETH 30 ML UNIT-DOSE CUP PO PRN (22:36)
[2017-03-01] MEDS ORDERED: MENTHOL/PHENOL 1 EACH UD MM PRN (22:36)
[2017-03-01] MEDS ORDERED: chlordiazePOXIDE HCL 25 MG CAPSULE PO SCH (23:00)
[2017-03-02] MEDS ORDERED: METHADONE HCL 10 MG TABLET (FOR DETOX USE ONLY) PO ONE ×3 (00:11→23:00)
[2017-03-02] MEDS ORDERED: diazePAM 5 MG TABLET PO ONE (00:11)
[2017-03-02] MEDS: diazePAM 5 MG TABLET PO SCH ×3 (05:51→22:25)
[2017-03-02 09:44] LABS: MCH 29.4 pg (25.7-33.7); MCHC 32.6 g/dl (32.0-35.9); MEAN CELL VOLUME 90.4 fl (80-96); MEAN PLT VOLUME 8.6 fl (7.5-11.1); PLATELET COUNT 298 K/MM3 (134-434); WHITE BLOOD COUNT 10.5 K/mm3 (4.0-10.0)
--- NOTE | 2017-03-02 09:51 | EKG ---
Test Reason : Blood Pressure : / mmHG Vent. Rate : 078 BPM Atrial Rate : 078 BPM P-R Int : 130 ms QRS Dur : 078 ms QT Int : 368 ms P-R-T Axes : -15 073 045 degrees QTc Int : 419 ms NORMAL SINUS RHYTHM NORMAL ECG WHEN COMPARED WITH ECG OF 18-DEC-2016 21:57, NO SIGNIFICANT CHANGE WAS FOUND Confirmed by ADITYA HILL MD ([id number]) on 03/02/2017 9:51:17 AM Referred By: Confirmed By:ADITYA HILL MD
[2017-03-02 10:15] LABS: ALBUMIN 3.2 g/dl (3.4-5.0); ALK PHOS 85 U/L (45-117); ANION GAP 6 (8-16); BILIRUBIN,TOTAL 0.4 mg/dL (0.2-1.0); CALCIUM 7.9 mg/dL (8.5-10.1); CO2 28 mmol/L (21-32); CREATININE 0.9 mg/dL (0.7-1.3); GLUCOSE,RANDOM 98 mg/dL (74-106); SGOT/AST 14 U/L (15-37); SGPT/ALT 22 U/L (12-78); TOT PROT 5.9 g/dl (6.4-8.2)
[2017-03-02] MEDS: diazePAM 5 MG TABLET PO PRN (10:34)
[2017-03-02] MEDS: PRENATAL VITAMINS W/ FOLIC ACID TABLET (FP) PO SCH (10:34)
[2017-03-02 11:13] LABS: HIV 1 & 2 AB NEGATIVE; HIV 1 AGp24 NEGATIVE
[2017-03-02] MEDS ORDERED: FLU VACCINE QUAD 60 MCG/0.5 ML (MDV 17-18) IM ONE (12:00)
--- NOTE | 2017-03-02 12:41 | PN ---
[facility] CIWA - CIWA Score Nausea/Vomitin-No Nausea/No Vomiting Muscle Tremors: 4-Moderate,w/Arms Extend Anxiety: 4-Mod. Anxious/Guarded Agitation: 4-Moderately Restless Paroxysmal Sweats: 1-Minimal Palms Moist Orientation: 0-Oriented Tacttile Disturbances: 3-Moderate Itch/Numb/Burn Auditory Disturbances: 0-None Visual Disturbances: 0-None Headache: 0-None Present CIWA-Ar Total Score: 16 BHS COWS - Scale Resting Pulse: 0= [place] 80 or Below Sweatin= Chills/Flushing Restless Observation: 3= Extraneous Movement Pupil Size: 2= Moderately Dilated Bone or Joint Aches: 4=Acute Joint/Muscle Pain Runny Nose/ Eye Tearin= Nasal Congestion GI Upset > 30mins: 0= None Tremor Observation of Outstretched Hands: 1= Tremor [place], Not Seen Yawning Observation: 1= 1-2x During Session Anxiety or Irritability: 2=Irritable/Anxious Goose Flesh Skin: 0=Smooth Skin COWS Score: 15 S Progress Note (SOAP) Subjective: ANXIETY,IRRITABILITY,FATIGUE. Objective: 03/02/17 12:41 Vital Signs Temperature 97.8 F 03/02/17 09:14 Pulse Rate 66 03/02/17 09:14 Respiratory Rate 18 03/02/17 09:14 Blood Pressure 115/79 03/02/17 09:14 O2 Sat by Pulse Oximetry (%) Laboratory Last Values WBC 10.5 K/mm3 (4.0-10.0) H 03/02/17 07:30 RBC 4.54 M/mm3 (4.00-5.60) 03/02/17 07:30 Hgb 13.4 GM/dL (11.7-16.9) 03/02/17 07:30 Hct 41.1 % (35.4-49) 03/02/17 07:30 MCV 90.4 fl (80-96) 03/02/17 07:30 MCH 29.4 pg (25.7-33.7) 03/02/17 07:30 MCHC 32.6 g/dl (32.0-35.9) 03/02/17 07:30 RDW 14.0 % (11.9-15.9) 03/02/17 07:30 Plt Count 298 K/MM3 (134-434) 03/02/17 07:30 MPV 8.6 fl (7.5-11.1) 03/02/17 07:30 Sodium 139 mmol/L (136-145) 03/02/17 07:30 Potassium 3.9 mmol/L (3.5-5.1) 03/02/17 07:30 Chloride 105 mmol/L (98-107) 03/02/17 07:30 Carbon Dioxide 28 mmol/L (21-32) 03/02/17 07:30 Anion Gap 6 (8-16) L 03/02/17 07:30 BUN 14 mg/dL (7-18) 03/02/17 07:30 Creatinine 0.9 mg/dL (0.7-1.3) 03/02/17 07:30 Creat Clearance w eGFR > 60 (>60) 03/02/17 07:30 Random Glucose 98 mg/dL (74-106) D 03/02/17 07:30 Calcium 7.9 mg/dL (8.5-10.1) L 03/02/17 07:30 Total Bilirubin 0.4 mg/dL (0.2-1.0) D 03/02/17 07:30 AST 14 U/L (15-37) L D 03/02/17 07:30 ALT 22 U/L (12-78) 03/02/17 07:30 Alkaline Phosphatase 85 U/L (45-117) 03/02/17 07:30 Total Protein 5.9 g/dl (6.4-8.2) L 03/02/17 07:30 Albumin 3.2 g/dl (3.4-5.0) L 03/02/17 07:30 RPR Titer Nonreactive (NONREACTIVE) 03/02/17 07:30 HIV 1&2 Antibody Screen Negative 03/02/17 07:30 HIV P24 Antigen Negative 03/02/17 07:30 Assessment: 03/02/17 12:41 WITHDRAWAL SX Plan: CONTINUE DETOX
--- NOTE | 2017-03-02 12:42 | CONSULT ---
[facility] Psychiatric Consult - Data Date of interview: 03/02/17 Admission source: [facility] Identifying data: One of multiple admissions to [facility] for this 41 y/o male seeking detox treatment,on ,for alcohol,cocaine and heroin dependence.Patient is single without children,domiciled,unemployed and supported on food stamps. Substance Abuse History: Confirmed by patient in this interview.See details in current [facility] report : Smoking history: Current every day smoker. Have you smoked in the past 12 months: Yes. Aproximately how many cigarettes per day: 20. Cigars Per Day: 0. Hx Chewing Tobacco Use: No. Initiated information on smoking cessation: Yes. 'Breaking Loose' booklet given: 03/01/17. - Substance & Tx. History. Hx Alcohol Use: Yes (Vodka, Beer). Hx Substance Use: Yes. Substance Use Type: Alcohol, Cocaine, Heroin. Hx Substance Use Treatment: Yes. - Substances Abused. Alcohol. Route: Smoking. Frequency: Daily. Amount used: Beer 6 x (6 pack of 22oz), Vodka 1 pint. Age of first use: 17. Date of Last Use: 02/28/17. Cocaine. Route: Inhalation. Frequency: Daily. Age of first use: 17. Date of Last Use: 03/01/17. Heroin. Route: Injection. Frequency: Daily. Amount used: 20 bags. Age of first use: 17. Date of Last Use: 03/01/17 Medical History: Bronchial asthma,GERD and hypothyroidism. Psychiatric History: Patient declines to provide information (hostile and irritable historian).History taken for previous records : multiple psychiatric admissions to [facility] and [facility]. Diagnosed with MDD.Used to be prescribed seroquel 200 mg/hs + remeron 45 mg/hs.Non- adherent to OPD care.No contact with psychiatric OPD care providers.Dependence on primary care providers for refills.No reported history of suicide attempts. Physical/Sexual Abuse/Trauma History: No information. Additional Comment: Urine Drug Screen Results: BARBARA-Cocaine, OPI-Opiates.Noted. Mental Status Exam - Mental Status Exam Alert and Oriented to: Time, Place, Person Cognitive Function: Grossly Intact Patient Appearance: Disheveled Mood: Hostile, Withdrawn, Irritable Affect: Mood Congruent Patient Behavior: Fatigued, Uncooperative Speech Pattern: Clear Voice Loudness: Normal Thought Process: Goal Oriented Thought Disorder: Not Present Hallucinations: Denies Suicidal Ideation: Denies Homicidal Ideation: Denies Insight/Judgement: Poor Sleep: Poorly, Difficulty falling asleep (requests seroquel at bedtime) Appetite: Good Muscle strength/Tone: Normal Gait/Station: Normal Psychiatric Findings - Problem List ([place] 1, 2,3) (1) Opioid dependence with withdrawal Current Visit: Yes Status: Acute (2) Alcohol dependence with uncomplicated withdrawal Current Visit: Yes Status: Acute (3) Cocaine dependence, uncomplicated Current Visit: Yes Status: Acute (4) Nicotine dependence Current Visit: Yes Status: Acute Qualifiers: Nicotine product type: cigarettes Substance use status: in withdrawal Qualified Code(s): F17.213 - Nicotine dependence, cigarettes, with withdrawal (5) Substance induced mood disorder Current Visit: Yes Status: Acute (6) Insomnia Current Visit: Yes Status: Acute - Initial Treatment Plan Initial Treatment Plan: Previous records are reviewed.Psychoeducation initiated (met with patient's indifference).Detoxification in progress.Seroquel 100 mg is ordered at patient's specific request (insomnia).He is made aware of side effects/benefits.Consent (verbal) given.Observation.
[2017-03-02] MEDS ORDERED: THIAMINE HCL 100 MG TABLET (FP) PO SCH (22:00)
[2017-03-02] MEDS ORDERED: QUEtiapine FUMARATE 100 MG TABLET (FP) PO SCH (22:00)
[2017-03-02] MEDS ORDERED: chlordiazePOXIDE HCL 25 MG CAPSULE PO SCH (23:00)
[2017-03-03] MEDS: diazePAM 5 MG TABLET PO SCH ×2 (06:27→13:10)
[2017-03-03] MEDS ORDERED: METHADONE HCL 10 MG TABLET (FOR DETOX USE ONLY) PO SCH (10:00)
[2017-03-03] MEDS: PRENATAL VITAMINS W/ FOLIC ACID TABLET (FP) PO SCH (10:10)
[2017-03-03] MEDS: diazePAM 5 MG TABLET PO PRN ×2 (10:12→16:41)
--- NOTE | 2017-03-03 16:43 | PN ---
[facility] CIWA - CIWA Score Nausea/Vomitin-No Nausea/No Vomiting Muscle Tremors: None Anxiety: 4-Mod. Anxious/Guarded Agitation: 3 Paroxysmal Sweats: 3 Orientation: 2-Disoriented Date<2 days Tacttile Disturbances: 2-Mild Itch/Numbness/Burn Auditory Disturbances: 2-Mild Harshness/Frighten Visual Disturbances: 1-Very Mild Sensitivity Headache: 0-None Present CIWA-Ar Total Score: 17 S COWS - Scale Resting Pulse: 0= [place] 80 or Below Sweatin= Chills/Flushing Restless Observation: 1= Difficult to Sit Still Pupil Size: 0= Normal to Room Light Bone or Joint Aches: 2= Severe Diffuse Aches Runny Nose/ Eye Tearin= None GI Upset > 30mins: 0= None Tremor Observation of Outstretched Hands: 2= Slight Tremor Visible Yawning Observation: 2= >3x During Session Anxiety or Irritability: 2=Irritable/Anxious Goose Flesh Skin: 3=Piloe[place] COWS Score: 13 S Progress Note (SOAP) Subjective: Anxious, Sweating, Body Aches. Objective: PT. A & O X 2 (UNCERTAIN ABOUT CURRENT DAY / DATE). PT. OBSERVED AMBULATING ON UNIT. NO ACUTE DISTRESS. 03/03/17 16:41 Vital Signs Temperature 96.7 F L 03/03/17 13:43 Pulse Rate 69 03/03/17 13:43 Respiratory Rate 18 03/03/17 13:43 Blood Pressure 121/74 03/03/17 13:43 O2 Sat by Pulse Oximetry (%) Laboratory Tests 03/02/17 03/02/17 03/02/17 07:30 07:30 07:30 WBC 10.5 H RBC 4.54 Hgb 13.4 Hct 41.1 MCV 90.4 MCH 29.4 MCHC 32.6 RDW 14.0 Plt Count 298 MPV 8.6 Sodium 139 Potassium 3.9 Chloride 105 Carbon Dioxide 28 Anion Gap 6 L BUN 14 Creatinine 0.9 Creat Clearance w eGFR > 60 Random Glucose 98 D Calcium 7.9 L Total Bilirubin 0.4 D AST 14 L D ALT 22 Alkaline Phosphatase 85 Total Protein 5.9 L Albumin 3.2 L RPR Titer Nonreactive HIV 1&2 Antibody Screen HIV P24 Antigen 03/02/17 07:30 WBC RBC Hgb Hct MCV MCH MCHC RDW Plt Count MPV Sodium Potassium Chloride Carbon Dioxide Anion Gap BUN Creatinine Creat Clearance w eGFR Random Glucose Calcium Total Bilirubin AST ALT Alkaline Phosphatase Total Protein Albumin RPR Titer HIV 1&2 Antibody Screen Negative HIV P24 Antigen Negative LABS NOTED. Assessment: 03/03/17 16:42 WITHDRAWAL SYMPTOMS. Plan: CONTINUE DETOX.
[2017-03-03 18:50] VITALS: BP 119/70; PULSE 68; TEMP 98.3
[2017-03-03] MEDS ORDERED: chlordiazePOXIDE 5 MG CAPSULE PO SCH (23:00)
[2017-03-04] MEDS ORDERED: diazePAM 5 MG TABLET PO SCH (10:00)
[2017-03-04] MEDS ORDERED: METHADONE HCL 5 MG TABLET (FOR DETOX USE ONLY) PO SCH (10:00)
[2017-03-04] MEDS ORDERED: chlordiazePOXIDE HCL 10 MG CAPSULE PO SCH (23:00)
[2017-03-06] MEDS ORDERED: diazePAM 5 MG TABLET PO SCH (10:00)
[2017-03-06] MEDS ORDERED: METHADONE HCL 10 MG TABLET (FOR DETOX USE ONLY) PO SCH (10:00)
[2017-03-07] MEDS ORDERED: METHADONE HCL 5 MG TABLET (FOR DETOX USE ONLY) PO SCH (06:00)
== END 2017-03-03 06:55 | disposition left against medical advice (07) | DRG 770 ==
LOC: YASAS 19:05 → Y3N 23:43
PROVIDERS: ADMIT Internal Medicine; ATTEND Internal Medicine
PROC: HZ2ZZZZ Detoxification Services for Substance Abuse Treatment (ICD-10-PCS; principal; 2017-03-01)
DX: F11.23 Opioid dependence with withdrawal (principal); F10.230 Alcohol dependence with withdrawal, uncomplicated; F14.20 Cocaine dependence, uncomplicated; F17.213 Nicotine dependence, cigarettes, with withdrawal; F19.24 Other psychoactive substance dependence with psychoactive substance-induced mood disorder; K21.9 Gastro-esophageal reflux disease without esophagitis; G47.00 Insomnia, unspecified; M54.5 Low back pain; G89.29 Other chronic pain; Z86.39 Personal history of other endocrine, nutritional and metabolic disease
CPT/HCPCS: 36415; 80053; 85027; 86593; 87389; 93005; 93010

== ENCOUNTER 2017-04-14 09:13 | Inpatient (IN) | payer OTHER ==
[2017-04-14 09:52] VITALS: BMI 26.4
--- NOTE | 2017-04-14 10:08 | HP ---
COWS - Scale Resting Pulse: 0= [place] 80 or Below Sweatin= Chills/Flushing Restless Observation: 1= Difficult to Sit Still Pupil Size: 0= Normal to Room Light Bone or Joint Aches: 1= Mild Discomfort Runny Nose/ Eye Tearin= Nasal Congestion GI Upset > 30mins: 1= Stomach Cramp Tremor Observation: 1= Tremor [place], Not Seen Yawning Observation: 0= None Anxiety or Irritability: 1=Feels Anxious/Irritable Goose Flesh Skin: 0=Smooth Skin COWS Score: 7 CIWA Score - CIWA Score Nausea/Vomitin Muscle Tremors: 4-Moderate,w/Arms Extend Anxiety: 4-Mod. Anxious/Guarded Agitation: 1-Slight > Activity Paroxysmal Sweats: 1-Minimal Palms Moist Orientation: 1-Uncertain about Date Tacttile Disturbances: 0-None Auditory Disturbances: 0-None Visual Disturbances: 1-Very Mild Sensitivity Headache: 1-Very Mild CIWA-Ar Total Score: 15 Admission ROS [facility] - HPI Chief Complaint: I got to stop, I need help, I have to get it right this time Allergies/Adverse Reactions: Allergies Allergy/AdvReac Type Severity Reaction Status Date / Time No Known Allergies Allergy Verified 04/14/17 10:31 History of Present Illness: 41 yo gentleman here for detox from alcohol and opiates. No seizures, but does have black outs. This is one of many admissions for detox, has also been in rehab. Interested in getting back on methadone program which he was on in the past. Exam Limitations: No Limitations - Ebola screening Have you traveled outside of the country in the last 21 days: No (N) Have you had contact with anyone from an Ebola affected area: No Have you been sick,other than usual withdrawal symptoms: No Do you have a fever: No - Review of Systems Constitutional: Chills, Loss of Appetite, Night Sweats, Changes in sleep EENT: reports: Blurred Vision, Nose Congestion Respiratory: reports: No Symptoms reported Cardiac: reports: Lightheadedness GI: reports: Nausea, Poor Appetite, Poor Fluid Intake, Indigestion : reports: Frequency Musculoskeletal: reports: Back Pain, Muscle Pain Integumentary: reports: No Symptoms Reported Neuro: reports: Headache, Tremors Endocrine: reports: No Symptoms Reported Hematology: reports: No Symptoms Reported Psychiatric: reports: Judgement Intact, Mood/Affect Appropiate, Anxious Other Systems: Reviewed and Negative Patient History - Patient Medical History Hx Anemia: No Hx Asthma: Yes (Pt is on MDI.) Hx Chronic Obstructive Pulmonary Disease (COPD): No Hx Cancer: No Hx Cardiac Disorders: No Hx Congestive Heart Failure: No Hx Hypertension: No Hx Hypercholesterolemia: No Hx Pacemaker: No HX Cerebrovascular Accident: No Hx Seizures: No Hx Dementia: No Hx Diabetes: No Hx Gastrointestinal Disorders: No Hx Liver Disease: No Hx Genitourinary Disorders: No Hx Sexually Transmitted Disorders: No Hx Renal Disease (ESRD): No Hx Thyroid Disease: Yes (on meds, poor adherence) Hx Human Immunodeficiency Virus (HIV): No Hx Hepatitis C: No Hx Depression: Yes (hx seroquel ) Hx Suicide Attempt: No Hx Bipolar Disorder: No Hx Schizophrenia: No - Patient Surgical History Past Surgical History: No Hx Neurologic Surgery: No Hx Cataract Extraction: No Hx Cardiac Surgery: No Hx Lung Surgery: No Hx Breast Surgery: No Hx Breast Biopsy: No Hx Abdominal Surgery: No Hx Appendectomy: No Hx Cholecystectomy: No Hx Genitourinary Surgery: No Hx Section: No Hx Orthopedic Surgery: No Anesthesia Reaction: No - PPD History Previous Implant?: Yes Documented Results: Negative w/proof Implanted On Prior R Admission?: Yes Date: 07/05/16 Results: 0 mm PPD to be Administered?: No - Reproductive History Patient is a Female of Child Bearing Age (11 -55 yrs old): No (male) - Smoking Cessation Smoking history: Former smoker Have you smoked in the past 12 months: Yes Aproximately how many cigarettes per day: 20 Cigars Per Day: 0 Hx Chewing Tobacco Use: No Initiated information on smoking cessation: Yes 'Breaking Loose' booklet given: 04/14/17 (give on floor) - Substance & Tx. History Hx Alcohol Use: Yes Hx Substance Use: Yes Substance Use Type: Alcohol, Cocaine, Heroin Hx Substance Use Treatment: Yes (detox, rehab) - Substances Abused alcohol Route: Oral Frequency: Daily Amount used: 1.5 pints vodka Age of first use: 14 Date of Last Use: 04/13/17 Heroin Route: Inhalation Frequency: Daily Amount used: 15 bags Age of first use: 14 Date of Last Use: 04/13/17 Cocaine Route: Inhalation Frequency: 1-2 times per week Amount used: 1gm Age of first use: 14 Date of Last Use: 04/13/17 Family Disease History - Family Disease History Family Disease History: Other: Father (living, healthy), Mother (living, healthy ), Brother (younger etoh/drugs), Sister (living, depression) Admission Physical Exam [facility] - Vital Signs Vital Signs: Vital Signs - 24 hr 04/14/17 09:46 Temperature 97.4 F L Pulse Rate 73 Respiratory 20 Rate Blood Pressure 119/68 - Physical General Appearance: Yes: Nourished, Appropriately Dressed, Mild Distress HEENTM: Yes: EOMI, Hearing grossly Normal, Normocephalic, Normal Voice, Pharynx Normal Respiratory: Yes: No Respiratory Distress, Wheezing Neck: Yes: No masses,lesions,Nodules, Supple Breast: Yes: Breast Exam Deferred Cardiology: Yes: Regular Rhythm, Regular Rate Abdominal: Yes: Flat Genitourinary: Yes: Frequency Back: Yes: Normal Inspection Musculoskeletal: Yes: Gait Steady, Back pain, Muscle Pain Extremities: Yes: Normal Inspection, Normal Range of Motion, Non-Tender 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: Yes: Alert, Motor Strength 5/5, Normal Mood/Affect, Normal Response Integumentary: Yes: Normal Color, Warm Lymphatic: Yes: Within Normal Limits - Diagnostic (1) Opioid dependence with withdrawal Current Visit: Yes Status: Chronic (2) Alcohol dependence with uncomplicated withdrawal Current Visit: Yes Status: Chronic (3) Asthma Current Visit: Yes Status: Chronic Qualifiers: Asthma severity: moderate Asthma persistence: persistent Asthma complication type: uncomplicated Qualified Code(s): J45.40 - Moderate persistent asthma, uncomplicated (4) Nicotine dependence Current Visit: Yes Status: Chronic Qualifiers: Nicotine product type: cigarettes Substance use status: in withdrawal Qualified Code(s): F17.213 - Nicotine dependence, cigarettes, with withdrawal (5) History of - hypothyroidism Current Visit: Yes Status: Chronic Comment: poor adherence Cleared for Admission [facility] - Detox or Rehab [facility] Level of Care: Medically Managed Detox Regimen/Protocol: Methadone/Librium [facility] Breath Alcohol Content Breath Alcohol Content: 0 Urine Drug Screen - Results Drug Screen Negative: No Urine Drug Screen Results: BARBARA-Cocaine, OPI-Opiates, TCA-Tricyclic Antidepress
[2017-04-14] MEDS ORDERED: P-EPHED 60MG/TRIPROLIDI 2.5MG TABLET PO PRN (10:28)
[2017-04-14] MEDS ORDERED: ACETAMINOPHEN 325 MG TABLET (FP) PO PRN (10:28)
[2017-04-14] MEDS ORDERED: LOPERAMIDE HCL 2 MG CAPSULE PO PRN (10:28)
[2017-04-14] MEDS ORDERED: IBUPROFEN 400 MG TABLET (FP) PO PRN (10:28)
[2017-04-14] MEDS ORDERED: MENTHOL/PHENOL 1 EACH UD MM PRN (10:28)
[2017-04-14] MEDS ORDERED: chlordiazePOXIDE HCL 25 MG CAPSULE PO PRN (10:28)
[2017-04-14] MEDS ORDERED: guaiFENesin/D-METHORPHAN HB 10 ML UNIT-DOSE CUPS PO PRN (10:28)
[2017-04-14] MEDS ORDERED: MAGNESIUM HYDROX 2400MG/30ML ORAL SUSPENSION 30 ML CUP PO PRN (10:28)
[2017-04-14] MEDS ORDERED: MAGNESIUM CITRATE 300 ML BOTTLE PO PRN (10:28)
[2017-04-14] MEDS ORDERED: MAG HYDROX/AL HYDROX/SIMETH 30 ML UNIT-DOSE CUP PO PRN (10:28)
[2017-04-14] MEDS ORDERED: NICOTINE POLACRILEX 4 MG GUM BUC PRN (10:28)
[2017-04-14] MEDS ORDERED: ALBUTEROL SO4 18 GM HFA INHALER IH PRN (10:31)
[2017-04-14] MEDS ORDERED: hydrOXYzine PAMOATE 25 MG CAPSULE (FP) PO PRN (10:54)
[2017-04-14] MEDS ORDERED: METHADONE HCL 10 MG TABLET (FOR DETOX USE ONLY) PO ONE ×2 (11:00→23:00)
[2017-04-14] MEDS ORDERED: chlordiazePOXIDE HCL 25 MG CAPSULE PO ONE (11:00)
[2017-04-14] MEDS: chlordiazePOXIDE HCL 25 MG CAPSULE PO SCH ×2 (17:44→22:52)
[2017-04-14 18:22] LABS: URINE APPEARANCE CLEAR; URINE BILIRUBIN NEGATIVE (NEGATIVE); URINE BLOOD NEGATIVE (NEGATIVE); URINE COLOR AMBER; URINE GLUCOSE (UA) NEGATIVE (NEGATIVE); URINE KETONE NEGATIVE (NEGATIVE); URINE LEUK ESTERASE NEGATIVE (NEGATIVE); URINE NITRITE NEGATIVE (NEGATIVE); URINE PROTEIN NEGATIVE (NEGATIVE); URINE UROBILINOGEN 4.0 E.U/dl mg/dL (0.2-1.0)
[2017-04-14] MEDS: THIAMINE HCL 100 MG TABLET (FP) PO SCH (22:51)
[2017-04-15] MEDS: chlordiazePOXIDE HCL 25 MG CAPSULE PO SCH ×2 (06:01→10:43)
[2017-04-15] MEDS: LEVOTHYROXINE NA 25 MCG TABLET (FP) PO SCH (07:20)
--- NOTE | 2017-04-15 08:39 | EKG ---
Test Reason : Blood Pressure : / mmHG Vent. Rate : 067 BPM Atrial Rate : 067 BPM P-R Int : 128 ms QRS Dur : 082 ms QT Int : 398 ms P-R-T Axes : 007 058 031 degrees QTc Int : 420 ms NORMAL SINUS RHYTHM NORMAL ECG WHEN COMPARED WITH ECG OF 02-MAR-2017 01:36, NO SIGNIFICANT CHANGE WAS FOUND Confirmed by NORMA WALLACE MD ([id number]) on 04/15/2017 8:38:40 AM Referred By: Confirmed By:NORMA WALLACE MD
--- NOTE | 2017-04-15 08:52 | PN ---
[facility] CIWA - CIWA Score Nausea/Vomitin-Mild Nausea/No Vomiting Muscle Tremors: 4-Moderate,w/Arms Extend Anxiety: 4-Mod. Anxious/Guarded Agitation: 4-Moderately Restless Paroxysmal Sweats: 1-Minimal Palms Moist Orientation: 0-Oriented Tacttile Disturbances: 0-None Auditory Disturbances: 0-None Visual Disturbances: 0-None Headache: 0-None Present CIWA-Ar Total Score: 14 S COWS - Scale Resting Pulse: 0= [place] 80 or Below Sweatin= Chills/Flushing Restless Observation: 1= Difficult to Sit Still Pupil Size: 0= Normal to Room Light Bone or Joint Aches: 0= None Runny Nose/ Eye Tearin= None GI Upset > 30mins: 2= Nausea/Diarrhea Tremor Observation of Outstretched Hands: 2= Slight Tremor Visible Yawning Observation: 0= None Anxiety or Irritability: 0= None Goose Flesh Skin: 0=Smooth Skin COWS Score: 6 S Progress Note (SOAP) Subjective: joint ache stuffy nose GI distress/ acid reflux anxiety irritable agitation Objective: 04/15/17 08:51 Vital Signs Temperature 98.1 F 04/15/17 06:00 Pulse Rate 60 04/15/17 06:00 Respiratory Rate 18 04/15/17 06:00 Blood Pressure 122/65 04/15/17 06:00 O2 Sat by Pulse Oximetry (%) Laboratory Last Values Urine Color Essence 04/14/17 13:46 Urine Appearance Clear 04/14/17 13:46 Urine pH 6.0 (5.0-8.0) 04/14/17 13:46 Ur Specific [place] 1.020 (1.001-1.035) 04/14/17 13:46 Urine Protein Negative (NEGATIVE) 04/14/17 13:46 Urine Glucose (UA) Negative (NEGATIVE) 04/14/17 13:46 Urine Ketones Negative (NEGATIVE) 04/14/17 13:46 Urine Blood Negative (NEGATIVE) 04/14/17 13:46 Urine Nitrite Negative (NEGATIVE) 04/14/17 13:46 Urine Bilirubin Negative (NEGATIVE) 04/14/17 13:46 Urine Urobilinogen 4.0 e.u/dl mg/dL (0.2-1.0) 04/14/17 13:46 Ur Leukocyte Esterase Negative (NEGATIVE) 04/14/17 13:46 lab noted Assessment: 04/15/17 08:52 withdrawal sx gerd Plan: continue detox zantac 150 mg po bid
[2017-04-15] MEDS ORDERED: METHADONE HCL 10 MG TABLET (FOR DETOX USE ONLY) PO SCH (10:00)
--- NOTE | 2017-04-15 10:00 | CONSULT ---
[facility] Psychiatric Consult - Data Date of interview: 04/15/17 Admission source: Self-referred Identifying data: Mr Olmos is a 41 years old single male, unemployed on food stamp, domiciled seeking detox treatment for alcohol, heroin and cocaine Substance Abuse History: Reports history of alcohol, heroin and cocaine use. Refer to addiction counselor's note for further information Medical History: Significant for bronchial asthma, GERD and hypothyroidism. Smokes cigarettes 1ppd Psychiatric History: Patient was uncooperative and reluctant to provide information (hostile and irritable historian). Acording to previous record, he was diagnosed with MDD in 2007 while in skilled nursing and treated with Prozac, Seroquel. Reports multiple psychiatric admissions to [facility] and [facility]. Reportedly used to be prescribed Seroquel 200 mg/hs + Remeron 45 mg/hs. Non-adherent to OPD care. No contact with psychiatric OPD care providers.Claims that he was taking Seroquel prescribed to his brother. No reported history of suicide attempt. Reports feeling depressed and sleeping poorly at present and requests to be ordered Seroquel Physical/Sexual Abuse/Trauma History: Denies Additional Comment: 07/04 Mental Status Exam - Mental Status Exam Alert and Oriented to: Time, Place, Person Cognitive Function: Fair Patient Appearance: Well Groomed Mood: Depressed, Anxious Affect: Appropriate Speech Pattern: Clear Voice Loudness: Normal Thought Process: Intact, Goal Oriented Thought Disorder: Not Present Hallucinations: Denies Suicidal Ideation: Denies Homicidal Ideation: Denies Insight/Judgement: Poor Sleep: Poorly Appetite: Poor Muscle strength/Tone: Normal Gait/Station: Normal Psychiatric Findings - Problem List ([place] 1, 2,3) (1) Substance induced mood disorder Current Visit: No Status: Acute (2) MDD (major depressive disorder), recurrent episode Current Visit: No Status: Ruled-out (3) Substance-induced sleep disorder Current Visit: Yes Status: Acute (4) Alcohol dependence with uncomplicated withdrawal Current Visit: Yes Status: Chronic (5) Opioid dependence with withdrawal Current Visit: Yes Status: Chronic (6) Cocaine dependence, uncomplicated Current Visit: No Status: Acute (7) Nicotine dependence Current Visit: Yes Status: Chronic Qualifiers: Nicotine product type: cigarettes Substance use status: in withdrawal Qualified Code(s): F17.213 - Nicotine dependence, cigarettes, with withdrawal (8) Asthma Current Visit: Yes Status: Chronic Qualifiers: Asthma severity: moderate Asthma persistence: persistent Asthma complication type: uncomplicated Qualified Code(s): J45.40 - Moderate persistent asthma, uncomplicated (9) History of - hypothyroidism Current Visit: Yes Status: Chronic Comment: poor adherence - Initial Treatment Plan Initial Treatment Plan: 1) Start Seroquel 100 mg po HS. 2) Continue inpatient detoxification
[2017-04-15] MEDS: PRENATAL VITAMINS W/ FOLIC ACID TABLET (FP) PO SCH (10:42)
[2017-04-15] MEDS: RANITIDINE HCL 150 MG TABLET (FP) PO SCH ×2 (10:42→22:29)
[2017-04-15] MEDS: diazePAM 5 MG TABLET PO SCH ×2 (15:00→22:28)
[2017-04-15] MEDS ORDERED: chlordiazePOXIDE HCL 25 MG CAPSULE PO SCH (17:00)
[2017-04-15] MEDS: diazePAM 5 MG TABLET PO PRN (17:33)
[2017-04-15] MEDS ORDERED: QUEtiapine FUMARATE 100 MG TABLET (FP) PO SCH (22:00)
[2017-04-15] MEDS: THIAMINE HCL 100 MG TABLET (FP) PO SCH (22:28)
[2017-04-16] MEDS: diazePAM 5 MG TABLET PO SCH ×2 (06:49→14:27)
[2017-04-16] MEDS: LEVOTHYROXINE NA 25 MCG TABLET (FP) PO SCH (07:49)
[2017-04-16] MEDS ORDERED: METHADONE HCL 5 MG TABLET (FOR DETOX USE ONLY) PO SCH (10:00)
[2017-04-16] MEDS: PRENATAL VITAMINS W/ FOLIC ACID TABLET (FP) PO SCH (10:36)
[2017-04-16] MEDS: RANITIDINE HCL 150 MG TABLET (FP) PO SCH (10:37)
[2017-04-16] MEDS: diazePAM 5 MG TABLET PO PRN (10:51)
--- NOTE | 2017-04-16 11:04 | PN ---
[facility] CIWA - CIWA Score Nausea/Vomitin Muscle Tremors: 3 Anxiety: 3 Agitation: 2 Paroxysmal Sweats: 1-Minimal Palms Moist Orientation: 0-Oriented Tacttile Disturbances: 1-Very Mild Itch/Numbness Auditory Disturbances: 1-Very Mild Visual Disturbances: 0-None Headache: 2-Mild CIWA-Ar Total Score: 16 BHS COWS - Scale Resting Pulse: 0= [place] 80 or Below Sweatin= Chills/Flushing Restless Observation: 3= Extraneous Movement Pupil Size: 1= Pupils >than Normal Bone or Joint Aches: 2= Severe Diffuse Aches Runny Nose/ Eye Tearin= Runny Nose/Eyes GI Upset > 30mins: 2= Nausea/Diarrhea Tremor Observation of Outstretched Hands: 2= Slight Tremor Visible Yawning Observation: 1= 1-2x During Session Anxiety or Irritability: 2=Irritable/Anxious Goose Flesh Skin: 0=Smooth Skin COWS Score: 16 [facility] Progress Note (SOAP) Subjective: ALERT,IRRITABLE,ANXIOUS,INTERRUPTED SLEEP,TREMOR,PAIN IN THE BODY AND BACK Objective: 04/16/17 11:01 Vital Signs Temperature 97.9 F 04/16/17 10:38 Pulse Rate 58 L 04/16/17 10:38 Respiratory Rate 20 04/16/17 10:38 Blood Pressure 120/65 04/16/17 10:38 O2 Sat by Pulse Oximetry (%) EKG NSR,NORMAL ECG Laboratory Last Values Urine Color Essence 04/14/17 13:46 Urine Appearance Clear 04/14/17 13:46 Urine pH 6.0 (5.0-8.0) 04/14/17 13:46 Ur Specific [place] 1.020 (1.001-1.035) 04/14/17 13:46 Urine Protein Negative (NEGATIVE) 04/14/17 13:46 Urine Glucose (UA) Negative (NEGATIVE) 04/14/17 13:46 Urine Ketones Negative (NEGATIVE) 04/14/17 13:46 Urine Blood Negative (NEGATIVE) 04/14/17 13:46 Urine Nitrite Negative (NEGATIVE) 04/14/17 13:46 Urine Bilirubin Negative (NEGATIVE) 04/14/17 13:46 Urine Urobilinogen 4.0 e.u/dl mg/dL (0.2-1.0) 04/14/17 13:46 Ur Leukocyte Esterase Negative (NEGATIVE) 04/14/17 13:46 LABS PENDING Assessment: 04/16/17 11:02 WITHDRAWAL SYMPTOM Plan: CONTINUE DETOX
--- NOTE | 2017-04-16 16:52 | DS ---
[facility] Detox Discharge Summary Admission Date: 04/14/17 Discharge Date: 04/16/17 - History Present History: Alcohol Dependence, Cocaine Dependence, Opioid Dependence Pertinent Past History: GERD Asthma Hypothyroidism - Physical Exam Results Vital Signs: Vital Signs Temperature 97 F L 04/16/17 14:54 Pulse Rate 57 L 04/16/17 14:54 Respiratory Rate 18 04/16/17 14:54 Blood Pressure 117/70 04/16/17 14:54 O2 Sat by Pulse Oximetry (%) Pertinent Admission Physical Exam Findings: Laboratory Last Values Urine Color Essence 04/14/17 13:46 Urine Appearance Clear 04/14/17 13:46 Urine pH 6.0 (5.0-8.0) 04/14/17 13:46 Ur Specific [place] 1.020 (1.001-1.035) 04/14/17 13:46 Urine Protein Negative (NEGATIVE) 04/14/17 13:46 Urine Glucose (UA) Negative (NEGATIVE) 04/14/17 13:46 Urine Ketones Negative (NEGATIVE) 04/14/17 13:46 Urine Blood Negative (NEGATIVE) 04/14/17 13:46 Urine Nitrite Negative (NEGATIVE) 04/14/17 13:46 Urine Bilirubin Negative (NEGATIVE) 04/14/17 13:46 Urine Urobilinogen 4.0 e.u/dl mg/dL (0.2-1.0) 04/14/17 13:46 Ur Leukocyte Esterase Negative (NEGATIVE) 04/14/17 13:46 - Medication Discharge Medications: Ambulatory Orders Albuterol Sulfate Inhaler - [Ventolin HFA Inhaler -] 2 inh PO Q4H PRN 10/04/16 Levothyroxine Sodium [Levoxyl] 25 mcg PO DAILY 03/29/17 Quetiapine Fumarate [Seroquel] 100 mg PO HS #30 tablet 04/15/17 - Diagnosis (1) Substance-induced sleep disorder Current Visit: Yes Status: Acute (2) Alcohol dependence with uncomplicated withdrawal Current Visit: Yes Status: Chronic (3) Asthma Current Visit: Yes Status: Chronic Qualifiers: Asthma severity: moderate Asthma persistence: persistent Asthma complication type: uncomplicated Qualified Code(s): J45.40 - Moderate persistent asthma, uncomplicated (4) History of - hypothyroidism Current Visit: Yes Status: Chronic (5) Nicotine dependence Current Visit: Yes Status: Chronic Qualifiers: Nicotine product type: cigarettes Substance use status: in withdrawal Qualified Code(s): F17.213 - Nicotine dependence, cigarettes, with withdrawal (6) Opioid dependence with withdrawal Current Visit: Yes Status: Chronic (7) Cocaine dependence, uncomplicated Current Visit: No Status: Acute (8) GERD (gastroesophageal reflux disease) Current Visit: No Status: Chronic Qualifiers: Esophagitis presence: without esophagitis Qualified Code(s): K21.9 - Gastro -esophageal reflux disease without esophagitis (9) MDD (major depressive disorder), recurrent episode Current Visit: No Status: Ruled-out - AMA Did Patient Leave Against Medical Advice: Yes
[2017-04-16] MEDS ORDERED: chlordiazePOXIDE 5 MG CAPSULE PO SCH (17:00)
[2017-04-16 17:17] VITALS: BP 124/67; PULSE 60; TEMP 98.1
[2017-04-17] MEDS ORDERED: diazePAM 5 MG TABLET PO SCH (10:00)
[2017-04-17] MEDS ORDERED: chlordiazePOXIDE HCL 10 MG CAPSULE PO SCH (17:00)
[2017-04-18] MEDS ORDERED: METHADONE HCL 10 MG TABLET (FOR DETOX USE ONLY) PO SCH (10:00)
[2017-04-19] MEDS ORDERED: diazePAM 5 MG TABLET PO SCH ×2 (06:00→10:00)
[2017-04-19] MEDS ORDERED: METHADONE HCL 5 MG TABLET (FOR DETOX USE ONLY) PO SCH (06:00)
== END 2017-04-16 16:57 | disposition left against medical advice (07) | DRG 770 ==
LOC: YASAS 09:13 → Y6N 10:58
PROVIDERS: ADMIT Internal Medicine; ATTEND Internal Medicine
PROC: HZ2ZZZZ Detoxification Services for Substance Abuse Treatment (ICD-10-PCS; principal; 2017-04-14)
DX: F11.23 Opioid dependence with withdrawal (principal); F10.230 Alcohol dependence with withdrawal, uncomplicated; F14.20 Cocaine dependence, uncomplicated; F17.213 Nicotine dependence, cigarettes, with withdrawal; F19.24 Other psychoactive substance dependence with psychoactive substance-induced mood disorder; F19.282 Other psychoactive substance dependence with psychoactive substance-induced sleep disorder; F33.9 Major depressive disorder, recurrent, unspecified; J45.40 Moderate persistent asthma, uncomplicated; E03.9 Hypothyroidism, unspecified; K21.9 Gastro-esophageal reflux disease without esophagitis; Z91.14 Patient's other noncompliance with medication regimen
CPT/HCPCS: 81003; 93005; 93010

== ENCOUNTER 2017-06-13 16:23 | Inpatient (IN) | payer OTHER ==
[2017-06-13 17:07] VITALS: BMI 24.2
--- NOTE | 2017-06-13 21:26 | HP ---
COWS - Scale Resting Pulse: 0= [place] 80 or Below Sweatin= Chills/Flushing Restless Observation: 1= Difficult to Sit Still Pupil Size: 0= Normal to Room Light Bone or Joint Aches: 1= Mild Discomfort Runny Nose/ Eye Tearin= Runny Nose/Eyes GI Upset > 30mins: 2= Nausea/Diarrhea (BM x 2) Tremor Observation: 1= Tremor [place], Not Seen Yawning Observation: 2= >3x During Session Anxiety or Irritability: 2=Irritable/Anxious Goose Flesh Skin: 0=Smooth Skin COWS Score: 12 CIWA Score - CIWA Score Nausea/Vomitin Muscle Tremors: 2 Anxiety: 3 Agitation: 2 Paroxysmal Sweats: 2 Orientation: 1-Uncertain about Date Tacttile Disturbances: 0-None Auditory Disturbances: 0-None Visual Disturbances: 1-Very Mild Sensitivity Headache: 2-Mild CIWA-Ar Total Score: 15 Admission ROS S - HPI Chief Complaint: withdrawal symptoms Allergies/Adverse Reactions: Allergies Allergy/AdvReac Type Severity Reaction Status Date / Time No Known Allergies Allergy Verified 06/13/17 21:10 History of Present Illness: 41 yo with history of nicotine, opioid, cocaine and alcohol dependence is here seeking detox. Patient current1 pack of cigarretets per day No seizures, but does have black outs. This is one of many admissions for detox, has also been in rehab. Interested in getting back on methadone program which he was on in the past. PMHX: hypothyroid, anxiety, insominia. Longest period of sobrierity 1 year. Plan to attends rehab. Denies suicidal / homicidal ideation, suicide attempts. Denies hx of OD or seizures. Exam Limitations: No Limitations - Ebola screening Have you traveled outside of the country in the last 21 days: No Have you had contact with anyone from an Ebola affected area: No Have you been sick,other than usual withdrawal symptoms: No Do you have a fever: No - Review of Systems Constitutional: Chills, Changes in sleep, Unintentional Wgt. Loss (20 lbs over the past two months) EENT: reports: Nose Congestion Respiratory: reports: No Symptoms reported Cardiac: reports: No Symptoms Reported GI: reports: Diarrhea Musculoskeletal: reports: No Symptoms Reported Integumentary: reports: No Symptoms Reported Neuro: reports: Weakness Endocrine: reports: Excessive Sweating, Increased Thirst Hematology: reports: No Symptoms Reported Psychiatric: reports: Orientated x3, Anxious Other Systems: Reviewed and Negative Patient History - Patient Medical History Hx Anemia: No Hx Asthma: No Hx Chronic Obstructive Pulmonary Disease (COPD): No Hx Cancer: No Hx Cardiac Disorders: No Hx Congestive Heart Failure: No Hx Hypertension: No Hx Hypercholesterolemia: No Hx Pacemaker: No HX Cerebrovascular Accident: No Hx Seizures: No Hx Dementia: No Hx Diabetes: No Hx Gastrointestinal Disorders: No Hx Liver Disease: No Hx Genitourinary Disorders: No Hx Sexually Transmitted Disorders: No Hx Renal Disease (ESRD): No Hx Thyroid Disease: Yes (on meds, poor adherence) Hx Human Immunodeficiency Virus (HIV): No Hx Hepatitis C: No Hx Depression: Yes Hx Suicide Attempt: No Hx Bipolar Disorder: No Hx Schizophrenia: No - Patient Surgical History Past Surgical History: No Hx Neurologic Surgery: No Hx Cataract Extraction: No Hx Cardiac Surgery: No Hx Lung Surgery: No Hx Breast Surgery: No Hx Breast Biopsy: No Hx Abdominal Surgery: No Hx Appendectomy: No Hx Cholecystectomy: No Hx Genitourinary Surgery: No Hx Section: No Hx Orthopedic Surgery: No Anesthesia Reaction: No - PPD History Previous Implant?: Yes Date: 07/05/16 Results: 0 mm - Reproductive History Patient : No - Smoking Cessation Smoking history: Current every day smoker Have you smoked in the past 12 months: Yes Aproximately how many cigarettes per day: 20 Cigars Per Day: 0 Hx Chewing Tobacco Use: No Initiated information on smoking cessation: Yes 'Breaking Loose' booklet given: 06/13/17 - Substance & Tx. History Hx Alcohol Use: Yes Hx Substance Use: Yes Substance Use Type: Alcohol, Cocaine, Heroin Hx Substance Use Treatment: Yes ([facility] 2017) - Substances Abused Alcohol Amount used: 2 pint Age of first use: 14 Date of Last Use: 06/13/17 Cocaine Route: Injection Frequency: Daily Amount used: i bag Age of first use: 17 Date of Last Use: 06/13/17 Heroin Route: Injection Frequency: Daily Amount used: 20 bag Age of first use: 14 Date of Last Use: 06/13/17 Family Disease History - Family Disease History Family Disease History: Other: Father (living, healthy), Mother (living, healthy ), Brother (younger etoh/drugs), Sister (living, depression) Admission Physical Exam S - Vital Signs Vital Signs: Vital Signs - 24 hr 06/13/17 17:04 Temperature 97.6 F Pulse Rate 78 Respiratory 20 Rate Blood Pressure 150/87 - Physical General Appearance: Yes: Mild Distress, Thin, Anxious HEENTM: Yes: EOMI, Hearing grossly Normal, Normal ENT Inspection, Normocephalic , Normal Voice, SAMANTHA, Pharynx Normal, Tm's normal Respiratory: Yes: Chest Non-Tender, No Respiratory Distress, No Accessory Muscle Use, Wheezing Neck: Yes: No masses,lesions,Nodules, Trachea in good position Breast: Yes: Breast Exam Deferred Cardiology: Yes: Regular Rhythm, Regular Rate Abdominal: Yes: Normal Bowel Sounds, Non Tender, Flat, Soft Genitourinary: Yes: Within Normal Limits Back: Yes: Normal Inspection Musculoskeletal: Yes: full range of Motion, Gait Steady, Pelvis Stable, Back pain Extremities: Yes: Normal Capillary Refill, Normal Inspection, Normal Range of Motion, Non-Tender 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: Yes: director intelligence analysis programs II-XII NML intact, Fully Oriented, Motor Strength 5/5, Depressed Affect Integumentary: Yes: Normal Color, Warm, Moist Lymphatic: Yes: Within Normal Limits - Diagnostic (1) Hypothyroid Current Visit: Yes Status: Chronic Qualifiers: Hypothyroidism type: unspecified Qualified Code(s): E03.9 - Hypothyroidism , unspecified (2) Cocaine dependence, uncomplicated Current Visit: Yes Status: Acute (3) Insomnia Current Visit: Yes Status: Acute Qualifiers: Insomnia type: unspecified Qualified Code(s): G47.00 - Insomnia, unspecified (4) Alcohol dependence with uncomplicated withdrawal Current Visit: Yes Status: Chronic (5) Asthma Current Visit: Yes Status: Chronic Qualifiers: Asthma severity: moderate Asthma persistence: persistent Asthma complication type: uncomplicated Qualified Code(s): J45.40 - Moderate persistent asthma, uncomplicated (6) Chronic lower back pain Current Visit: Yes Status: Chronic Qualifiers: Back pain laterality: bilateral Sciatica presence: without sciatica Qualified Code(s): M54.5 - Low back pain; G89.29 - Other chronic pain; G89.29 - Other chronic pain (7) GERD (gastroesophageal reflux disease) Current Visit: Yes Status: Chronic Qualifiers: Esophagitis presence: without esophagitis Qualified Code(s): K21.9 - Gastro -esophageal reflux disease without esophagitis (8) Nicotine dependence Current Visit: Yes Status: Chronic Qualifiers: Nicotine product type: cigarettes Substance use status: in withdrawal Qualified Code(s): F17.213 - Nicotine dependence, cigarettes, with withdrawal (9) Opioid dependence with withdrawal Current Visit: Yes Status: Acute (10) Wheezing Current Visit: Yes Status: Acute Cleared for Admission S - Detox or Rehab S Level of Care: Medically Managed Detox Regimen/Protocol: Methadone/Valium BHS Breath Alcohol Content Breath Alcohol Content: 0 Urine Drug Screen - Results Drug Screen Negative: No Urine Drug Screen Results: BARBARA-Cocaine, OPI-Opiates
[2017-06-13] MEDS ORDERED: hydrOXYzine PAMOATE 50 MG CAPSULE (FP) PO PRN (21:30)
[2017-06-13] MEDS ORDERED: P-EPHED 60MG/TRIPROLIDI 2.5MG TABLET PO PRN (21:30)
[2017-06-13] MEDS ORDERED: NICOTINE POLACRILEX 2 MG GUM BC PRN (21:30)
[2017-06-13] MEDS ORDERED: LOPERAMIDE HCL 2 MG CAPSULE PO PRN (21:30)
[2017-06-13] MEDS ORDERED: MAG HYDROX/AL HYDROX/SIMETH 30 ML UNIT-DOSE CUP PO PRN (21:30)
[2017-06-13] MEDS ORDERED: MAGNESIUM CITRATE 300 ML BOTTLE PO PRN (21:30)
[2017-06-13] MEDS ORDERED: ACETAMINOPHEN 325 MG TABLET (FP) PO PRN (21:30)
[2017-06-13] MEDS ORDERED: diazePAM 5 MG TABLET PO ONE (21:30)
[2017-06-13] MEDS ORDERED: MAGNESIUM HYDROX 2400MG/30ML ORAL SUSPENSION 30 ML CUP PO PRN (21:30)
[2017-06-13] MEDS ORDERED: MENTHOL/PHENOL 1 EACH UD MM PRN (21:30)
[2017-06-13] MEDS ORDERED: IBUPROFEN 400 MG TABLET (FP) PO PRN (21:30)
[2017-06-13] MEDS ORDERED: guaiFENesin/D-METHORPHAN HB 10 ML UNIT-DOSE CUPS PO PRN (21:30)
[2017-06-13] MEDS ORDERED: METHADONE HCL 10 MG TABLET (FOR DETOX USE ONLY) PO ONE ×2 (21:30→23:00)
[2017-06-13] MEDS ORDERED: CYCLOBENZAPRINE HCL 5 MG TABLET PO PRN (21:33)
[2017-06-13] MEDS ORDERED: ALBUTEROL SO4 2.5/IPRATROPIUM 0.5 INH SOL 3 ML VIAL.NEB. NEB PRN (21:35)
[2017-06-13] MEDS ORDERED: ALBUTEROL SO4 18 GM HFA INHALER IH PRN (21:35)
[2017-06-13] MEDS ORDERED: MELATONIN 5 MG TABLETS PO PRN (22:00)
[2017-06-13] MEDS: THIAMINE HCL 100 MG TABLET (FP) PO SCH (22:58)
[2017-06-13] MEDS: LIDOCAINE PATCH REMOVAL MC SCH (22:59)
[2017-06-13] MEDS: diazePAM 5 MG TABLET PO SCH (22:59)
[2017-06-13] MEDS: LIDOCAINE 5% TOPICAL PATCH TP SCH (22:59)
[2017-06-13 23:58] LABS: URINE APPEARANCE CLOUDY; URINE BILIRUBIN NEGATIVE (<2.0 mg/dL); URINE BLOOD NEGATIVE (NEGATIVE); URINE COLOR YELLOW; URINE GLUCOSE (UA) NEGATIVE (NEGATIVE); URINE KETONE NEGATIVE (NEGATIVE); URINE LEUK ESTERASE NEGATIVE (NEGATIVE); URINE NITRITE NEGATIVE (NEGATIVE); URINE PROTEIN NEGATIVE (NEGATIVE)
[2017-06-14] MEDS: diazePAM 5 MG TABLET PO SCH ×3 (06:56→22:36)
[2017-06-14] MEDS: LEVOTHYROXINE NA 25 MCG TABLET (FP) PO SCH (07:15)
[2017-06-14] MEDS: diazePAM 5 MG TABLET PO PRN (07:17)
[2017-06-14] MEDS ORDERED: METHADONE HCL 10 MG TABLET (FOR DETOX USE ONLY) PO SCH (10:00)
[2017-06-14 10:28] LABS: HEMATOCRIT 42.4 % (35.4-49); HEMOGLOBIN 14.3 GM/dL (11.7-16.9); MCH 30.7 pg (25.7-33.7); MCHC 33.8 g/dl (32.0-35.9); MEAN CELL VOLUME 90.9 fl (80-96); MEAN PLT VOLUME 8.7 fl (7.5-11.1); PLATELET COUNT 334 K/MM3 (134-434); RBC 4.66 M/mm3 (4.00-5.60); RDW 15.5 % (11.9-15.9); WHITE BLOOD COUNT 9.7 K/mm3 (4.0-10.0)
[2017-06-14] MEDS: PRENATAL VITAMINS W/ FOLIC ACID TABLET (FP) PO SCH (10:46)
[2017-06-14] MEDS: LIDOCAINE 5% TOPICAL PATCH TP SCH (10:47)
[2017-06-14] MEDS: NICOTINE 21 MG/24 HOURS TOPICAL PATCH TD SCH (10:47)
[2017-06-14 10:52] LABS: ALBUMIN 3.3 g/dl (3.4-5.0); ANION GAP 5 (8-16); BLOOD UREA NITROGEN 13 mg/dL (7-18); CALCIUM 8.6 mg/dL (8.5-10.1); CHLORIDE 104 mmol/L (98-107); CO2 29 mmol/L (21-32); CREATININE 0.9 mg/dL (0.7-1.3); GLUCOSE,RANDOM 88 mg/dL (74-106); POTASSIUM 4.5 mmol/L (3.5-5.1); SODIUM 138 mmol/L (136-145)
[2017-06-14 11:00] LABS: ALK PHOS 107 U/L (45-117); BILIRUBIN,TOTAL 0.3 mg/dL (0.2-1.0); SGOT/AST 118 U/L (15-37); SGPT/ALT 236 U/L (12-78); TOT PROT 6.3 g/dl (6.4-8.2)
--- NOTE | 2017-06-14 14:59 | CONSULT ---
[facility] Psychiatric Consult - Data Date of interview: 06/14/17 Admission source: [facility] Identifying data: Pt. is a 41 year old single male, without kids, unemployed, and living with family. This is one of multiple admissions for patient. Pt. admitted to for alcohol, cocaine, and opiate dependence. Substance Abuse History: Following information confirmed with Mr. Olmos: - Smoking Cessation. Smoking history: Current every day smoker. Have you smoked in the past 12 months: Yes. Aproximately how many cigarettes per day: 20. Cigars Per Day: 0. Hx Chewing Tobacco Use: No. Initiated information on smoking cessation: Yes. 'Breaking Loose' booklet given: 06/13/17. - Substance & Tx. History. Hx Alcohol Use: Yes. Hx Substance Use: Yes. Substance Use Type : Alcohol, Cocaine, Heroin. Hx Substance Use Treatment: Yes ([facility] 2017) . - Substances Abused. Alcohol. Amount used: 2 pint. Age of first use: 14. Date of Last Use: 06/13/17. Cocaine. Route: Injection. Frequency: Daily. Amount used: i bag. Age of first use: 17. Date of Last Use: 06/13/17. Heroin. Route: Injection. Frequency: Daily. Amount used: 20 bag. Age of first use: 14. Date of Last Use: 06/13/17 Medical History: Thyroid disease. Psychiatric History: Pt. presents as fatigues and is relucatant to provide detailed information. Pt. denies h/o psychiatric hospitalizations but as per Dr. Bowman's and Dr. Hinton note patient has a diagnosis of MDD and has been prescribed Seroquel 200mg + Mirtzapine 45mg. Pt. has been hospitalized at [facility] and [facility]. While incarcerated patient was treated with seroquel and prozac. Pt. is nonadherent to medication and outpatient care. Pt. requesting to take seroquel. Pt. denies h/o suicide attempt. Pt. currently denies suicidal and homicidal ideation. Physical/Sexual Abuse/Trauma History: Denies. Mental Status Exam - Mental Status Exam Alert and Oriented to: Time, Place, Person Cognitive Function: Good Patient Appearance: Well Groomed Mood: Withdrawn Affect: Mood Congruent Patient Behavior: Sedated, Fatigued (Pt. able to be awaken but is reluctant to give information. ) Speech Pattern: Delayed Voice Loudness: Moderately Soft/Quiet Thought Process: Intact Thought Disorder: Not Present Hallucinations: Denies Suicidal Ideation: Denies Homicidal Ideation: Denies Insight/Judgement: Poor Sleep: Fair Appetite: Fair Muscle strength/Tone: Normal Gait/Station: Normal Psychiatric Findings - Problem List ([place] 1, 2,3) (1) Cocaine dependence, uncomplicated Current Visit: Yes Status: Acute (2) Opioid dependence with withdrawal Current Visit: Yes Status: Acute (3) Alcohol dependence with uncomplicated withdrawal Current Visit: Yes Status: Acute (4) Substance induced mood disorder Current Visit: Yes Status: Acute (5) Nicotine dependence Current Visit: Yes Status: Chronic Qualifiers: Nicotine product type: cigarettes Substance use status: in withdrawal Qualified Code(s): F17.213 - Nicotine dependence, cigarettes, with withdrawal - Initial Treatment Plan Initial Treatment Plan: Psychoeducation provided. Detoxification provided. Seroquel 100mg qhs ordered. Benefits and side effects discussed. Verbal consent given. Will continue to monitor.
--- NOTE | 2017-06-14 15:56 | PN ---
[facility] CIWA - CIWA Score Nausea/Vomitin-No Nausea/No Vomiting Muscle Tremors: 2 Anxiety: 3 Agitation: 3 Paroxysmal Sweats: 3 Orientation: 0-Oriented Tacttile Disturbances: 3-Moderate Itch/Numb/Burn Auditory Disturbances: 2-Mild Harshness/Frighten Visual Disturbances: 0-None Headache: 0-None Present CIWA-Ar Total Score: 16 S COWS - Scale Resting Pulse: 0= [place] 80 or Below Sweatin= Chills/Flushing Restless Observation: 1= Difficult to Sit Still Pupil Size: 0= Normal to Room Light Bone or Joint Aches: 1= Mild Discomfort Runny Nose/ Eye Tearin= None GI Upset > 30mins: 1= Stomach Cramp Tremor Observation of Outstretched Hands: 2= Slight Tremor Visible Yawning Observation: 1= 1-2x During Session Anxiety or Irritability: 2=Irritable/Anxious Goose Flesh Skin: 3=Piloerection COWS Score: 12 S Progress Note (SOAP) Subjective: Sweating, Fatigue, anxious, Tremors. Objective: PATIENT A & O X 3. NO ACUTE DISTRESS. 06/14/17 15:57 Vital Signs Temperature 98.1 F 06/14/17 13:09 Pulse Rate 66 06/14/17 13:09 Respiratory Rate 19 06/14/17 13:09 Blood Pressure 117/69 06/14/17 13:09 O2 Sat by Pulse Oximetry (%) Laboratory Tests 06/13/17 06/14/17 06/14/17 23:50 07:00 07:00 WBC 9.7 RBC 4.66 Hgb 14.3 Hct 42.4 MCV 90.9 MCH 30.7 MCHC 33.8 RDW 15.5 D Plt Count 334 MPV 8.7 Sodium Potassium Chloride Carbon Dioxide Anion Gap BUN Creatinine Creat Clearance w eGFR Random Glucose Calcium Total Bilirubin AST ALT Alkaline Phosphatase Total Protein Albumin Urine Color Yellow Urine Appearance Cloudy Urine pH 7.0 Ur Specific [place] 1.017 Urine Protein Negative Urine Glucose (UA) Negative Urine Ketones Negative Urine Blood Negative Urine Nitrite Negative Urine Bilirubin Negative Urine Urobilinogen 2.0 Ur Leukocyte Esterase Negative HIV 1&2 Antibody Screen Negative HIV P24 Antigen Negative 06/14/17 07:00 WBC RBC Hgb Hct MCV MCH MCHC RDW Plt Count MPV Sodium 138 Potassium 4.5 Chloride 104 Carbon Dioxide 29 Anion Gap 5 L BUN 13 Creatinine 0.9 Creat Clearance w eGFR > 60 Random Glucose 88 Calcium 8.6 Total Bilirubin 0.3 D AST 118 H D ALT 236 H D Alkaline Phosphatase 107 D Total Protein 6.3 L Albumin 3.3 L Urine Color Urine Appearance Urine pH Ur Specific [place] Urine Protein Urine Glucose (UA) Urine Ketones Urine Blood Urine Nitrite Urine Bilirubin Urine Urobilinogen Ur Leukocyte Esterase HIV 1&2 Antibody Screen HIV P24 Antigen LABS NOTED. Assessment: 06/14/17 15:58 WITHDRAWAL SYMPTOMS. Plan: CONTINUE DETOX. INCREASE DAILY PO FLUID INTAKE. REPEAT AST, ALT ON 06/16/2017.
[2017-06-14] MEDS: THIAMINE HCL 100 MG TABLET (FP) PO SCH (22:35)
[2017-06-14] MEDS: LIDOCAINE PATCH REMOVAL MC SCH (22:35)
[2017-06-14] MEDS: RANITIDINE HCL 150 MG TABLET (FP) PO SCH (22:35)
[2017-06-14] MEDS: QUEtiapine FUMARATE 100 MG TABLET (FP) PO SCH (22:36)
[2017-06-15] MEDS: LEVOTHYROXINE NA 25 MCG TABLET (FP) PO SCH (08:36)
--- NOTE | 2017-06-15 09:37 | EKG ---
Test Reason : Blood Pressure : / mmHG Vent. Rate : 065 BPM Atrial Rate : 065 BPM P-R Int : 136 ms QRS Dur : 082 ms QT Int : 400 ms P-R-T Axes : 052 077 062 degrees QTc Int : 416 ms NORMAL SINUS RHYTHM NORMAL ECG WHEN COMPARED WITH ECG OF 14-APR-2017 12:40, NO SIGNIFICANT CHANGE WAS FOUND Confirmed by ADITYA HILL MD ([id number]) on 06/15/2017 9:37:14 AM Referred By: Confirmed By:ADITYA HILL MD
[2017-06-15] MEDS: METHADONE HCL 5 MG TABLET (FOR DETOX USE ONLY) PO SCH (10:11)
[2017-06-15] MEDS: diazePAM 5 MG TABLET PO SCH ×2 (10:12→22:36)
[2017-06-15] MEDS: RANITIDINE HCL 150 MG TABLET (FP) PO SCH ×2 (10:13→22:36)
[2017-06-15] MEDS: PRENATAL VITAMINS W/ FOLIC ACID TABLET (FP) PO SCH (10:13)
[2017-06-15] MEDS: LIDOCAINE 5% TOPICAL PATCH TP SCH (10:14)
[2017-06-15] MEDS: NICOTINE 21 MG/24 HOURS TOPICAL PATCH TD SCH (10:14)
--- NOTE | 2017-06-15 11:27 | PN ---
[facility] CIWA - CIWA Score Nausea/Vomitin-No Nausea/No Vomiting Muscle Tremors: 4-Moderate,w/Arms Extend Anxiety: 4-Mod. Anxious/Guarded Agitation: 4-Moderately Restless Paroxysmal Sweats: 1-Minimal Palms Moist Orientation: 0-Oriented Tacttile Disturbances: 0-None Auditory Disturbances: 0-None Visual Disturbances: 0-None Headache: 0-None Present CIWA-Ar Total Score: 13 S COWS - Scale Resting Pulse: 2= [place] 101-120 Sweatin= Chills/Flushing Restless Observation: 3= Extraneous Movement Pupil Size: 0= Normal to Room Light Bone or Joint Aches: 1= Mild Discomfort Runny Nose/ Eye Tearin= Nasal Congestion GI Upset > 30mins: 0= None Tremor Observation of Outstretched Hands: 2= Slight Tremor Visible Yawning Observation: 0= None Anxiety or Irritability: 2=Irritable/Anxious Goose Flesh Skin: 0=Smooth Skin COWS Score: 12 S Progress Note (SOAP) Subjective: ANXIETY,SWEATS,FATIGUE. Objective: 06/15/17 11:27 Vital Signs Temperature 98.6 F 06/15/17 09:04 Pulse Rate 101 H 06/15/17 09:04 Respiratory Rate 18 06/15/17 09:04 Blood Pressure 114/81 06/15/17 09:04 O2 Sat by Pulse Oximetry (%) Laboratory Last Values WBC 9.7 K/mm3 (4.0-10.0) 06/14/17 07:00 RBC 4.66 M/mm3 (4.00-5.60) 06/14/17 07:00 Hgb 14.3 GM/dL (11.7-16.9) 06/14/17 07:00 Hct 42.4 % (35.4-49) 06/14/17 07:00 MCV 90.9 fl (80-96) 06/14/17 07:00 MCH 30.7 pg (25.7-33.7) 06/14/17 07:00 MCHC 33.8 g/dl (32.0-35.9) 06/14/17 07:00 RDW 15.5 % (11.9-15.9) D 06/14/17 07:00 Plt Count 334 K/MM3 (134-434) 06/14/17 07:00 MPV 8.7 fl (7.5-11.1) 06/14/17 07:00 Sodium 138 mmol/L (136-145) 06/14/17 07:00 Potassium 4.5 mmol/L (3.5-5.1) 06/14/17 07:00 Chloride 104 mmol/L (98-107) 06/14/17 07:00 Carbon Dioxide 29 mmol/L (21-32) 06/14/17 07:00 Anion Gap 5 (8-16) L 06/14/17 07:00 BUN 13 mg/dL (7-18) 06/14/17 07:00 Creatinine 0.9 mg/dL (0.7-1.3) 06/14/17 07:00 Creat Clearance w eGFR > 60 (>60) 06/14/17 07:00 Random Glucose 88 mg/dL (74-106) 06/14/17 07:00 Calcium 8.6 mg/dL (8.5-10.1) 06/14/17 07:00 Total Bilirubin 0.3 mg/dL (0.2-1.0) D 06/14/17 07:00 AST 118 U/L (15-37) H D 06/14/17 07:00 ALT 236 U/L (12-78) H D 06/14/17 07:00 Alkaline Phosphatase 107 U/L (45-117) D 06/14/17 07:00 Total Protein 6.3 g/dl (6.4-8.2) L 06/14/17 07:00 Albumin 3.3 g/dl (3.4-5.0) L 06/14/17 07:00 Urine Color Yellow 06/13/17 23:50 Urine Appearance Cloudy 06/13/17 23:50 Urine pH 7.0 (5.0-8.0) 06/13/17 23:50 Ur Specific [place] 1.017 (1.001-1.035) 06/13/17 23:50 Urine Protein Negative (NEGATIVE) 06/13/17 23:50 Urine Glucose (UA) Negative (NEGATIVE) 06/13/17 23:50 Urine Ketones Negative (NEGATIVE) 06/13/17 23:50 Urine Blood Negative (NEGATIVE) 06/13/17 23:50 Urine Nitrite Negative (NEGATIVE) 06/13/17 23:50 Urine Bilirubin Negative (<2.0 mg/dL) 06/13/17 23:50 Urine Urobilinogen 2.0 mg/dL (0.2-1.0) 06/13/17 23:50 Ur Leukocyte Esterase Negative (NEGATIVE) 06/13/17 23:50 RPR Titer Nonreactive (NONREACTIVE) 06/14/17 07:00 HIV 1&2 Antibody Screen Negative 06/14/17 07:00 HIV P24 Antigen Negative 06/14/17 07:00 Assessment: 06/15/17 11:27 WITHDRAWAL SX Plan: CONTINUE DETOX
[2017-06-15] MEDS: diazePAM 5 MG TABLET PO PRN (16:40)
[2017-06-15] MEDS: QUEtiapine FUMARATE 100 MG TABLET (FP) PO SCH (22:36)
[2017-06-15] MEDS: THIAMINE HCL 100 MG TABLET (FP) PO SCH (22:36)
[2017-06-15] MEDS: LIDOCAINE PATCH REMOVAL MC SCH (23:20)
[2017-06-16] MEDS: diazePAM 5 MG TABLET PO PRN (07:33)
[2017-06-16] MEDS: LEVOTHYROXINE NA 25 MCG TABLET (FP) PO SCH (07:34)
[2017-06-16] MEDS: METHADONE HCL 5 MG TABLET (FOR DETOX USE ONLY) PO SCH (10:28)
[2017-06-16] MEDS: PRENATAL VITAMINS W/ FOLIC ACID TABLET (FP) PO SCH (10:28)
[2017-06-16] MEDS: diazePAM 5 MG TABLET PO SCH (10:28)
[2017-06-16] MEDS: NICOTINE 21 MG/24 HOURS TOPICAL PATCH TD SCH (10:29)
[2017-06-16] MEDS: LIDOCAINE 5% TOPICAL PATCH TP SCH (10:29)
[2017-06-16] MEDS: RANITIDINE HCL 150 MG TABLET (FP) PO SCH (10:29)
[2017-06-16 10:32] VITALS: BP 97/57; PULSE 70; TEMP 97.4
--- NOTE | 2017-06-16 14:46 | PN ---
[facility] Progress Note (SOAP) Subjective: Anxiety, Sweating. Objective: PATIENT A & O X 3, OBSERVED AMBULATING ON UNIT. NO ACUTE DISTRESS. 06/16/17 14:45 Vital Signs Temperature 97.4 F L 06/16/17 10:31 Pulse Rate 70 06/16/17 10:31 Respiratory Rate 18 06/16/17 10:31 Blood Pressure 97/57 06/16/17 10:31 O2 Sat by Pulse Oximetry (%) Laboratory Tests 06/13/17 06/14/17 06/14/17 23:50 07:00 07:00 WBC 9.7 RBC 4.66 Hgb 14.3 Hct 42.4 MCV 90.9 MCH 30.7 MCHC 33.8 RDW 15.5 D Plt Count 334 MPV 8.7 Sodium Potassium Chloride Carbon Dioxide Anion Gap BUN Creatinine Creat Clearance w eGFR Random Glucose Calcium Total Bilirubin AST ALT Alkaline Phosphatase Total Protein Albumin Urine Color Yellow Urine Appearance Cloudy Urine pH 7.0 Ur Specific [place] 1.017 Urine Protein Negative Urine Glucose (UA) Negative Urine Ketones Negative Urine Blood Negative Urine Nitrite Negative Urine Bilirubin Negative Urine Urobilinogen 2.0 Ur Leukocyte Esterase Negative RPR Titer HIV 1&2 Antibody Screen Negative HIV P24 Antigen Negative 06/14/17 06/14/17 07:00 07:00 WBC RBC Hgb Hct MCV MCH MCHC RDW Plt Count MPV Sodium 138 Potassium 4.5 Chloride 104 Carbon Dioxide 29 Anion Gap 5 L BUN 13 Creatinine 0.9 Creat Clearance w eGFR > 60 Random Glucose 88 Calcium 8.6 Total Bilirubin 0.3 D AST 118 H D ALT 236 H D Alkaline Phosphatase 107 D Total Protein 6.3 L Albumin 3.3 L Urine Color Urine Appearance Urine pH Ur Specific [place] Urine Protein Urine Glucose (UA) Urine Ketones Urine Blood Urine Nitrite Urine Bilirubin Urine Urobilinogen Ur Leukocyte Esterase RPR Titer Nonreactive HIV 1&2 Antibody Screen HIV P24 Antigen LABS NOTED. Assessment: 06/16/17 14:45 WITHDRAWAL SYMPTOMS. Plan: CONTINUE DETOX. INCREASE DAILY PO FLUID INTAKE.
--- NOTE | 2017-06-16 14:50 | DS ---
[facility] Detox Discharge Summary Admission Date: 06/13/17 Discharge Date: 06/16/17 - History Present History: Alcohol Dependence, Cocaine Dependence, Opioid Dependence Additional Comments: PATIENT DOES NOT WISH TO STAY TO COMPLETE DETOX REGIMEN. RISKS OF LEAVING DETOX UNIT AGAINST MEDICAL ADVICE AND PRIOR TO COMPLETION OF DETOX REGIMEN EXPLAINED TO PATIENT. PATIENT ADVISED TO GO IMMEDIATELY TO NEAREST ER SHOULD ANY INTOLERABLE DETOX SYMPTOMS DEVELOP AT ANY TIME. PATIENT LEFT DETOX UNIT IN STABLE MEDICAL CONDITION. Pertinent Past History: Asthma, Hypothyroidism, Wheezing, Insomnia, Low Back Pain, GERD, Nicotine Dependence. - Physical Exam Results Vital Signs: Vital Signs Temperature 97.4 F L 06/16/17 10:31 Pulse Rate 70 06/16/17 10:31 Respiratory Rate 18 06/16/17 10:31 Blood Pressure 97/57 06/16/17 10:31 O2 Sat by Pulse Oximetry (%) Pertinent Admission Physical Exam Findings: WITHDRAWAL SYMPTOMS. Laboratory Tests 06/13/17 06/14/17 06/14/17 23:50 07:00 07:00 WBC 9.7 RBC 4.66 Hgb 14.3 Hct 42.4 MCV 90.9 MCH 30.7 MCHC 33.8 RDW 15.5 D Plt Count 334 MPV 8.7 Sodium Potassium Chloride Carbon Dioxide Anion Gap BUN Creatinine Creat Clearance w eGFR Random Glucose Calcium Total Bilirubin AST ALT Alkaline Phosphatase Total Protein Albumin Urine Color Yellow Urine Appearance Cloudy Urine pH 7.0 Ur Specific [place] 1.017 Urine Protein Negative Urine Glucose (UA) Negative Urine Ketones Negative Urine Blood Negative Urine Nitrite Negative Urine Bilirubin Negative Urine Urobilinogen 2.0 Ur Leukocyte Esterase Negative RPR Titer HIV 1&2 Antibody Screen Negative HIV P24 Antigen Negative 06/14/17 06/14/17 07:00 07:00 WBC RBC Hgb Hct MCV MCH MCHC RDW Plt Count MPV Sodium 138 Potassium 4.5 Chloride 104 Carbon Dioxide 29 Anion Gap 5 L BUN 13 Creatinine 0.9 Creat Clearance w eGFR > 60 Random Glucose 88 Calcium 8.6 Total Bilirubin 0.3 D AST 118 H D ALT 236 H D Alkaline Phosphatase 107 D Total Protein 6.3 L Albumin 3.3 L Urine Color Urine Appearance Urine pH Ur Specific [place] Urine Protein Urine Glucose (UA) Urine Ketones Urine Blood Urine Nitrite Urine Bilirubin Urine Urobilinogen Ur Leukocyte Esterase RPR Titer Nonreactive HIV 1&2 Antibody Screen HIV P24 Antigen LABS NOTED. - Treatment Hospital Course: Detoxed Safely - Medication Discharge Medications: Ambulatory Orders Albuterol Sulfate Inhaler - [Ventolin HFA Inhaler -] 2 inh PO Q4H PRN 10/04/16 Levothyroxine Sodium [Levoxyl] 25 mcg PO DAILY 03/29/17 Quetiapine Fumarate [Seroquel] 100 mg PO HS #30 tablet 04/15/17 - Diagnosis (1) Alcohol dependence with uncomplicated withdrawal Status: Acute (2) Cocaine dependence, uncomplicated Status: Acute (3) Insomnia Status: Acute Qualifiers: Insomnia type: unspecified Qualified Code(s): G47.00 - Insomnia, unspecified (4) Opioid dependence with withdrawal Status: Acute (5) Wheezing Status: Acute (6) Asthma Status: Chronic Qualifiers: Asthma severity: moderate Asthma persistence: persistent Asthma complication type: uncomplicated Qualified Code(s): J45.40 - Moderate persistent asthma, uncomplicated (7) Chronic lower back pain Status: Chronic Qualifiers: Back pain laterality: bilateral Sciatica presence: without sciatica Qualified Code(s): M54.5 - Low back pain; G89.29 - Other chronic pain; G89.29 - Other chronic pain (8) Hypothyroid Status: Chronic Qualifiers: Hypothyroidism type: unspecified Qualified Code(s): E03.9 - Hypothyroidism , unspecified (9) Nicotine dependence Status: Acute Qualifiers: Nicotine product type: cigarettes Substance use status: in withdrawal Qualified Code(s): F17.213 - Nicotine dependence, cigarettes, with withdrawal (10) GERD (gastroesophageal reflux disease) Status: Chronic Qualifiers: Esophagitis presence: without esophagitis Qualified Code(s): K21.9 - Gastro -esophageal reflux disease without esophagitis (11) Substance induced mood disorder Status: Acute - AMA Did Patient Leave Against Medical Advice: Yes (PATIENT DID NOT WISH TO STAY TO COMPLETE DETOX REGIMEN.)
[2017-06-17] MEDS ORDERED: diazePAM 5 MG TABLET PO SCH (10:00)
[2017-06-17] MEDS ORDERED: METHADONE HCL 10 MG TABLET (FOR DETOX USE ONLY) PO SCH (10:00)
[2017-06-18] MEDS ORDERED: METHADONE HCL 5 MG TABLET (FOR DETOX USE ONLY) PO SCH (06:00)
== END 2017-06-16 10:30 | disposition left against medical advice (07) | DRG 770 ==
LOC: YASAS 16:23 → Y3N 18:37
PROVIDERS: ADMIT Internal Medicine; ATTEND Internal Medicine
PROC: HZ2ZZZZ Detoxification Services for Substance Abuse Treatment (ICD-10-PCS; principal; 2017-06-13)
DX: F11.23 Opioid dependence with withdrawal (principal); F10.230 Alcohol dependence with withdrawal, uncomplicated; F14.20 Cocaine dependence, uncomplicated; F17.210 Nicotine dependence, cigarettes, uncomplicated; F19.24 Other psychoactive substance dependence with psychoactive substance-induced mood disorder; J45.909 Unspecified asthma, uncomplicated; R06.2 Wheezing; G47.00 Insomnia, unspecified; E03.9 Hypothyroidism, unspecified; K21.9 Gastro-esophageal reflux disease without esophagitis; M54.5 Low back pain; G89.29 Other chronic pain
CPT/HCPCS: 36415; 80053; 81003; 85027; 86593; 87389; 93005; 93010

== ENCOUNTER 2017-07-14 13:27 | Inpatient (IN) | payer OTHER ==
--- NOTE | 2017-07-14 13:46 | PDOC ---
History of Present Illness - General Chief Complaint: Pain Stated Complaint: SWOLLEN FACE - History of Present Illness Initial Comments: Patient is a 41 year old male, with a significant past medical history of asthma , hypothyroidism, GERD, Nicotine Dependence, PSA, who presents to the emergency department complaining of two days of worsening L sided facial swelling and pain. Pt was recently seen at [facility] due to increasing swelling and pain in the L maxilla, now with mild inferior periorbital edema. He was discharged with PO clindamycin and did not receive imaging at the time. Pt states the pain has been worsening over the last two days and endorses mild subjective fevers/ chills. Pt had brief episode of similar pain one month ago, which resolved spontaneously. Pt denies any trauma to the area, recent dental procedures and endorses good oral care. Has been unable to tolerate PO feeds due to pain. Denies any neuro symptoms, changes in vision, lightheadness or local numbness. No GI symptoms. No recent travel or sick contacts. No prior hx of dental abscesses. Patient denies chest pain, shortness of breath, headache or dizziness. Denies nausea, vomiting and constipation. One episode of diarrhea this AM. Denies dysuria, frequency, urgency and hematuria. Allergies: None Past surgical history: None Social History: Current smoker, half pack per day. Prior alcohol use. Prior hx of drug use, IV heroin. PMD: Dr. Winters 07/14/17 14:15 Past History - Past Medical History Allergies/Adverse Reactions: Allergies Allergy/AdvReac Type Severity Reaction Status Date / Time Fish Containing Products Allergy Verified 07/14/17 13:34 Home Medications: Ambulatory Orders Clindamycin [Cleocin -] 300 mg PO Q6HPO 07/14/17 Anemia: No Asthma: No Cancer: No Cardiac Disorders: No CVA: No COPD: No CHF: No DVT: No Dementia: No Diabetes: No GI Disorders: No Disorders: No HTN: No Hypercholesterolemia: No Kidney Stones: No Liver Disease: No Seizures: No Thyroid Disease: Yes (on meds, poor adherence) Other medical history: HEROIN ABUSE - Surgical History Abdominal Surgery: No Appendectomy: No Cardiac Surgery: No Cholecystectomy: No Lung Surgery: No Neurologic Surgery: No Orthopedic Surgery: No - Reproductive History Testicular Surgery: No - Suicide/Smoking/Psychosocial Hx Smoking History: Current every day smoker Have you smoked in the past 12 months: Yes Number of Cigarettes Smoked Daily: 20 Cigars Per Day: 0 Information on smoking cessation initiated: Yes 'Breaking Loose' booklet given: 07/14/17 Hx Alcohol Use: Yes Drug/Substance Use Hx: Yes Substance Use Type: Alcohol, Cocaine, Heroin Hx Substance Use Treatment: Yes ([facility] 2017) Review of Systems - Review of Systems Comments:: GENERAL/CONSTITUTIONAL: Intermittent fever/chills for last day. No weakness. HEAD, EYES, EARS, NOSE AND THROAT: L maxillary pakin, Mild blurry vision in L eye. No ear pain or discharge. No sore throat. CARDIOVASCULAR: No chest pain or shortness of breath RESPIRATORY: No cough, wheezing, or hemoptysis. GASTROINTESTINAL: One episode of diarrhea this AM. No nausea, vomiting, or constipation. GENITOURINARY: No dysuria, frequency, or change in urination. MUSCULOSKELETAL: No joint or muscle swelling or pain. No neck or back pain. SKIN: No rash NEUROLOGIC: No headache, vertigo, loss of consciousness, or change in strength/ sensation. ENDOCRINE: No increased thirst. No abnormal weight change HEMATOLOGIC/LYMPHATIC: No anemia, easy bleeding, or history of blood clots. ALLERGIC/IMMUNOLOGIC: No hives or skin allergy. 07/14/17 13:44 *Physical Exam - Vital Signs Last Vital Signs Temp Pulse Resp BP Pulse Ox 98.6 F 97 H 18 131/82 100 07/14/17 13:35 07/14/17 13:35 07/14/17 13:35 07/14/17 13:35 07/14/17 13:35 - Physical Exam Comments: GENERAL: Middle aged man, Awake, alert, and fully oriented, in mild discomfort HEAD: No signs of trauma, normocephalic, atraumatic. L maxillary swelling, with mild inferior periorbital edema. TTP. EYES: PERRLA, EOMI, sclera anicteric, conjunctiva clear ENT: Oropharynx with no lesions, erythema, edema or drainage. Poor dentition noted, with defect in L upper posterior molars. Auricles normal inspection, hearing grossly normal, nares patent. Moist mucosa NECK: Normal ROM, supple, no lymphadenopathy, JVD, or masses LUNGS: No distress, speaks full sentences, clear to auscultation bilaterally HEART: Regular rate and rhythm, normal S1 and S2, no murmurs, rubs or gallops, peripheral pulses normal and equal bilaterally. ABDOMEN: Soft, nontender, normoactive bowel sounds. No guarding, no rebound. No masses EXTREMITIES : Normal inspection, Normal range of motion, no edema. No clubbing or cyanosis. NEUROLOGICAL: Cranial nerves II through XII grossly intact. Normal speech, normal gait, no focal sensorimotor deficits SKIN: Warm, Dry, normal turgor, no rashes or lesions noted 07/14/17 13:45 ED Treatment Course - LABORATORY CBC & Chemistry Diagram: 07/14/17 15:25 07/14/17 15:25 Medical Decision Making - Medical Decision Making Patient is a 41 year old male, with a significant past medical history of asthma , hypothyroidism, GERD, Nicotine Dependence, PSA, who presents to the emergency department complaining of two days of worsening L sided facial swelling and pain. Will order CBC, CMP. Give IV fluids and pain meds. Consider possible CT soft tissue head to evaluate for abscess. 07/14/17 14:30 Spoke with Hospitalist on-call Dr. Bernal. Will admit to [facility] 07/14/17 19:48 *DC/Admit/Observation/Transfer Diagnosis at time of Disposition: Cellulitis and abscess of face - Discharge Dispostion Condition at time of disposition: Fair Decision to Admit order: Yes - Referrals Referrals: Nav Winters [Primary Care Provider] - - Patient Instructions - Post Discharge Activity
[2017-07-14] MEDS ORDERED: morphine SULFATE 4 MG/ML VIAL IVPUSH ONE (14:52)
[2017-07-14] MEDS ORDERED: CLINDAMYCIN 600MG PREMIX IVPB 600 MG/50 ML BAG IVPB ONE ×3 (14:56→21:24)
--- NOTE | 2017-07-14 15:16 | PDOC ---
Attending Attestation - Resident Resident Name: Madhu Louie - ED Attending Attestation I have performed the following: I have examined & evaluated the patient, The case was reviewed & discussed with the resident, I agree w/resident's findings & plan, Exceptions are as noted - HPI HPI: 07/14/17 15:06 The patient is a 41 year old female with past medical history of hypothyroidism , asthma, GERD, and polysubstance abuse (previous IV heroin, non currently) who presents to the ED with complaints of L facial swelling for the past few days. He reports yesterday he went to [facility] for these symptoms where he was discharged on clindamycin, which he has taken 4 doses of. Since then hes begun to experience subjective chills as well as worsening swelling and pain. He also states it has been hard to eat with these symptoms and reports decreased PO intake. He denies any dental procedures or trauma. Denies any fevers, nausea, vomiting, diarrhea, cough, SOB or urinary symptoms. Denies visual sxs. - Physicial Exam PE: 07/14/17 15:06 GENERAL: Awake, alert, and fully oriented, in no acute distress HEAD: No signs of trauma EYES: PERRLA, EOMI, sclera anicteric, conjunctiva clear ENT: Auricles normal inspection, hearing grossly normal, nares patent, oropharynx clear without exudates. Dentition wnl. Submandibular spaces wnl. Moist mucosa NECK: Normal ROM, supple, no lymphadenopathy, JVD, or masses LUNGS: Breath sounds equal, clear to auscultation bilaterally. No wheezes, and no crackles HEART: Regular rate and rhythm, normal S1 and S2, no murmurs, rubs or gallops ABDOMEN: Soft, nontender, normoactive bowel sounds. No guarding, no rebound. No masses EXTREMITIES: Normal range of motion, no edema. No clubbing or cyanosis. No cords, erythema, or tenderness NEUROLOGICAL: Normal speech, cranial nerves intact, negative pronator drift, 5/ 5 strength in all 4 extremities, normal sensation to light touch in all 4 extremities, normal cerebellar exam, normal gait, normal reflexes and tone SKIN: L face, extending from zygoma to mandible with erythema, edema, and ttp. No palpable collections. Warm, Dry, normal turgor, no rashes or lesions noted. - Medical Decision Making 07/14/17 15:16 41-year-old male presents with worsening L facial pain, swelling, redness and chills after 24hrs of PO clinda. Vitals wnl. Will obtain CT facial bones, give IV abx and reassess. 07/14/17 17:30 Labs with WBC 12. CT pending. Pt given IV clinda, admit to obs. Case signed out to evening attending for f/u on CT and admission.
[2017-07-14] MEDS ORDERED: morphine SULFATE 4 MG/ML VIAL ONE ×2 (15:33→17:22)
[2017-07-14 15:34] LABS: BASO % 0.6 % (0-2.0); EOS % 3.2 % (0-4.5); HEMATOCRIT 41.5 % (35.4-49); HEMOGLOBIN 14.2 GM/dL (11.7-16.9); LYMPH % 17.5 % (8-40); MCHC 34.1 g/dl (32.0-35.9); MEAN CELL VOLUME 90.7 fl (80-96); MEAN PLT VOLUME 8.1 fl (7.5-11.1); MONO % 15.2 % (3.8-10.2); NEUT % 63.5 % (42.8-82.8); PLATELET COUNT 295 K/MM3 (134-434); RBC 4.57 M/mm3 (4.00-5.60); RDW 15.2 % (11.9-15.9); WHITE BLOOD COUNT 12.3 K/mm3 (4.0-10.0)
[2017-07-14] MEDS: SODIUM CHLORIDE 1,000 ML IV SCH ×2 (15:35→23:43)
[2017-07-14 15:58] LABS: ALBUMIN 3.8 g/dl (3.4-5.0); AMYLASE 78 U/L (25-115); ANION GAP 7 (8-16); BILIRUBIN,TOTAL 0.7 mg/dL (0.2-1.0); BLOOD UREA NITROGEN 13 mg/dL (7-18); CALCIUM 9.4 mg/dL (8.5-10.1); CHLORIDE 105 mmol/L (98-107); CO2 27 mmol/L (21-32); GLUCOSE,RANDOM 111 mg/dL (74-106); POTASSIUM 4.3 mmol/L (3.5-5.1); SGOT/AST 134 U/L (15-37); SGPT/ALT 338 U/L (12-78); SODIUM 139 mmol/L (136-145); TOT PROT 7.5 g/dl (6.4-8.2)
[2017-07-14 15:59] LABS: ALK PHOS 111 U/L (45-117)
[2017-07-14] MEDS ORDERED: morphine CARPU-JECT 2 MG/1 ML DISP.SYRIN IVPUSH ONE (16:39)
[2017-07-14] MEDS ORDERED: morphine CARPU-JECT 4 MG/1 ML DISP.SYRIN IVPUSH ONE (18:15)
[2017-07-14 18:27] LABS: PHENCYCLIDINE,URINE NEGATIVE ng/ml (CUTOFF=25); URINE AMPHETAMINES NEGATIVE ng/ml (CUTOFF=500); URINE BARBITURATES NEGATIVE ng/ml (CUTOFF=200)
[2017-07-14 18:28] LABS: COCAINE, UR POSITIVE ng/ml (CUTOFF=300); METHADONE, UR POSITIVE ng/ml (CUTOFF=300); OPIATES, URI POSITIVE ng/ml (CUTOFF=300); URINE APPEARANCE CLEAR; URINE BENZODIAZEPINES POSITIVE ng/ml (CUTOFF=200); URINE BILIRUBIN NEGATIVE (<2.0 mg/dL); URINE COLOR YELLOW; URINE GLUCOSE (UA) 1+ (NEGATIVE); URINE KETONE NEGATIVE (NEGATIVE); URINE LEUK ESTERASE NEGATIVE (NEGATIVE); URINE NITRITE NEGATIVE (NEGATIVE); URINE PROTEIN NEGATIVE (NEGATIVE)
[2017-07-14] MEDS ORDERED: MORPHINE SULFATE 10 MG/1 ML *VIAL ONE (18:46)
--- NOTE | 2017-07-14 20:04 | HP ---
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: Alzheimer's, CVA, Dementia, Migraine, Multiple Sclerosis, Peripheral Neuropathy, Parkinson's, Seizure, Syncope, TIA, Vertigo, Other Cardiovascular: No: AFIB, Aneurysm, Aortic Insufficiency, Aortic Stenosis, CAD, CHF, Deep Vein Thrombosis, HTN, Hyperlipdemia, GA, Mitral Insufficiency, Mitral Stenosis, Murmur, Pulmonary Hypertension, Other Pulmonary: No: Asthma, Bronchitis, Cancer, COPD, O2 Dependent, Pneumonia, Previously Intubated, Pulmonary Embolus, Pulmonary Fibrosis, Sleep Apnea, Other Endocrine: Yes: Hypothyroidism - Past Surgical History Past Surgical History: No: None, AAA Repair, AICD, Amputation, Appendectomy, Arthrosocopy, AV Fistula/Graft, Bariatric Surgery, Breast Biopsy, Bypass, CABG, Carotid Endarterectomy, Cataract Removal, Cholecystectomy, Colectomy, Colonoscopy, Colostomy, Craniotomy, , Cystectomy, Hernia Repair, Hysterectomy, Ileal Conduit, Ileosotomy, Joint Replacement, Kidney Transplant, Laminectomy, Liver Transplant, Mastectomy, Nephrectomy, Oopherectomy, Orchiectomy, Permanent Pacemaker, Prostatectomy, Splenectomy, Stent, Thoracotomy , TURP, Tonsillectomy, Tubal Ligation, Upper Endoscopy, Valve Replacement, Vasectomy, Vein Stripping/Ligation - Smoking History Smoking history: Current every day smoker Have you smoked in the past 12 months: Yes Aproximately how many cigarettes per day: 20 - Alcohol/Substance Use Hx Alcohol Use: Yes History of Substance Use: reports: Heroin Date of Last Use: 07/12/17 Home Medications - Allergies Allergies/Adverse Reactions: Allergies Allergy/AdvReac Type Severity Reaction Status Date / Time Fish Containing Products Allergy Verified 07/14/17 13:34 - Home Medications Home Medications: Ambulatory Orders Clindamycin [Cleocin -] 300 mg PO Q6HPO 07/14/17 Family Disease History - Family Disease History Family Disease History: Other: Father (living, healthy), Mother (living, healthy ), Brother (younger etoh/drugs), Sister (living, depression) Review of Systems - Review of Systems Constitutional: reports: Chills, Diaphoresis, Fever, Malaise, Night Sweats Eyes: reports: No Symptoms HENT: reports: No Symptoms Neck: reports: No Symptoms Cardiovascular: reports: No Symptoms Respiratory: reports: No Symptoms Gastrointestinal: reports: No Symptoms Genitourinary: reports: No Symptoms Musculoskeletal: reports: No Symptoms Integumentary: reports: No Symptoms Physical Examination Vital Signs: Vital Signs Temperature 98.6 F 07/14/17 13:35 Pulse Rate 76 07/14/17 17:35 Respiratory Rate 18 07/14/17 13:35 Blood Pressure 133/86 07/14/17 17:35 O2 Sat by Pulse Oximetry (%) 100 07/14/17 17:35 Constitutional: Yes: Well Nourished, No Distress, Calm Eyes: Yes: WNL, Conjunctiva Clear, EOM Intact HENT: Yes: WNL, Other (swelling of the left side of the face, with tenderness) Neck: Yes: WNL Cardiovascular: Yes: WNL Respiratory: Yes: WNL Labs: CBC, BMP 07/14/17 15:25 07/14/17 15:25 Imaging - Results Cat Scan: Report Reviewed, Image Reviewed Problem List - Problems (1) Nicotine dependence Assessment/Plan: nicotine patch placement advised to stop smoking Code(s): F17.200 - NICOTINE DEPENDENCE, UNSPECIFIED, UNCOMPLICATED Qualifiers: (2) Opioid dependence with withdrawal Assessment/Plan: [facility] consult detox withdrawal monitoring advised to quit and if he needs rehab we can assist him Code(s): F11.23 - OPIOID DEPENDENCE WITH WITHDRAWAL (3) GERD (gastroesophageal reflux disease) Assessment/Plan: panteprazole 40mg daily Code(s): K21.9 - GASTRO-ESOPHAGEAL REFLUX DISEASE WITHOUT ESOPHAGITIS Qualifiers: (4) Hypothyroid Assessment/Plan: synthroid 25ucg daily in the am Code(s): E03.9 - HYPOTHYROIDISM, UNSPECIFIED Qualifiers: (5) Cellulitis and abscess of face Assessment/Plan: clindamycin 600mg q6hrs oral maxillary facial consultation Code(s): L03.211 - CELLULITIS OF FACE; L02.01 - CUTANEOUS ABSCESS OF FACE
[2017-07-14] MEDS ORDERED: LEVOTHYROXINE NA 25 MCG TABLET (FP) PO ONE (20:15)
[2017-07-14] MEDS ORDERED: PANTOPRAZOLE 40 MG TABLET (FP) PO ONE (20:30)
[2017-07-14] MEDS ORDERED: METHADONE HCL 10 MG TABLET ONE (20:34)
[2017-07-14] MEDS: METHADONE HCL 10 MG TABLET PO SCH (20:45)
[2017-07-14] MEDS ORDERED: LEVOTHYROXINE NA 25 MCG TABLET (FP) ONE (21:24)
[2017-07-14] MEDS ORDERED: PANTOPRAZOLE 40 MG TABLET (FP) ONE (21:24)
[2017-07-14] MEDS: CLINDAMYCIN 600MG PREMIX IVPB 600 MG/50 ML BAG IVPB SCH (21:35)
[2017-07-15] MEDS ORDERED: IBUPROFEN 400 MG TABLET (FP) PO ONE (00:31)
[2017-07-15] MEDS ORDERED: ZOLPIDEM TARTRATE 5 MG TABLET PO ONE (00:32)
[2017-07-15] MEDS: CLINDAMYCIN 600MG PREMIX IVPB 600 MG/50 ML BAG IVPB SCH ×4 (02:52→20:43)
[2017-07-15] MEDS ORDERED: KETOROLAC TROMETHAMINE 15 MG/ML VIAL IM ONE (05:12)
[2017-07-15 07:37] LABS: BASO % 0.7 % (0-2.0); EOS % 4.5 % (0-4.5); HEMATOCRIT 35.8 % (35.4-49); HEMOGLOBIN 12.4 GM/dL (11.7-16.9); LYMPH % 27.8 % (8-40); MCH 31.5 pg (25.7-33.7); MCHC 34.6 g/dl (32.0-35.9); MEAN PLT VOLUME 8.2 fl (7.5-11.1); MONO % 13.9 % (3.8-10.2); NEUT % 53.1 % (42.8-82.8); PLATELET COUNT 292 K/MM3 (134-434); RBC 3.93 M/mm3 (4.00-5.60); RDW 15.3 % (11.9-15.9); WHITE BLOOD COUNT 10.8 K/mm3 (4.0-10.0)
[2017-07-15 07:53] LABS: ANION GAP 6 (8-16); BILIRUBIN,TOTAL 0.9 mg/dL (0.2-1.0); BLOOD UREA NITROGEN 11 mg/dL (7-18); CHLORIDE 108 mmol/L (98-107); CO2 28 mmol/L (21-32); CREATININE 0.9 mg/dL (0.7-1.3); GLUCOSE,RANDOM 82 mg/dL (74-106); PHOSPHOROUS 3.9 mg/dL (2.5-4.9); POTASSIUM 4.6 mmol/L (3.5-5.1); SGOT/AST 91 U/L (15-37); SGPT/ALT 236 U/L (12-78); SODIUM 142 mmol/L (136-145); TOT PROT 5.8 g/dl (6.4-8.2)
[2017-07-15 07:54] LABS: ALK PHOS 90 U/L (45-117)
[2017-07-15 07:59] LABS: INR 0.98 (0.82-1.09); PROTHROMBIN TIME (PATIENT) 11.1 SEC (9.7-13.0)
[2017-07-15 08:01] LABS: ACTIVATED PTT 33.9 SECONDS (26.9-34.4)
[2017-07-15] MEDS: METHADONE HCL 10 MG TABLET PO SCH (09:14)
[2017-07-15] MEDS: KETOROLAC TROMETHAMINE 30 MG/1 ML VIAL IVPUSH PRN ×3 (09:45→21:55)
--- NOTE | 2017-07-15 11:36 | PN ---
Progress Note, Physician Chief Complaint: Maxillary abscess History of Present Illness: Patient Name: Trevin Olmos Date: 1975 [facility] [address] [place] [id number] Sex: Male Rx Written Rx Dispensed Drug Quantity Days Supply Prescriber Name 04/19/2017 04/19/2017 chlordiazepoxide 25 mg capsule 12 3 Ryan Us 01/16/2017 01/16/2017 chlordiazepoxide 25 mg capsule 8 2 Andrea Zhao ( HEATHER) Patient Name: Trevin Olmos Date: 1975 Address: [address] [place] [address] Sex: Male Rx Written Rx Dispensed Drug Quantity Days Supply Prescriber Name 11/13/2016 11/13/2016 diazepam 5 mg tablet 16 8 Blanquita Guadalupesa [employer] LIBRARIAN 11/13/2016 11/13/2016 suboxone 2 mg-0.5 mg sl film 16 2 Bette Guadalupe FIL[employer] TAPE LIBRARIAN Patient Name: Trevin Olmos Date: 1975 Address: [address] [place] [address] Sex: Male Rx Written Rx Dispensed Drug Quantity Days Supply Prescriber Name 07/08/2016 09/08/2016 tramadol hcl 50 mg tablet 60 30 Nav Winters MD 07/08/2016 08/07/2016 tramadol hcl 50 mg tablet 60 30 Nav Winters MD Patient Name: Trevin Olmos Date: 1975 Address: [place] [address] Sex: Male Rx Written Rx Dispensed Drug Quantity Days Supply Prescriber Name 08/11/2016 08/14/2016 chlordiazepoxide 25 mg capsule 8 2 Andrea Zhao ( HEATHER) NAD Father at bedside, very anxious Tox screen positive for multiple illicit drugs He - Current Medication List Current Medications: Active Medications Acetaminophen (Tylenol -) 650 mg PO Q4H PRN PRN Reason: PAIN LEVEL 1-5 Sodium Chloride (Normal Saline -) 1,000 mls @ 75 mls/hr IV ASDIR MAYA Last Admin: 07/14/17 23:43 Dose: 75 mls/hr Clindamycin Phosphate (Cleocin 600 Mg Premix Ivpb -) 600 mg in 50 mls @ 100 mls /hr IVPB Q6H-IV MAYA PRN Reason: Protocol Last Admin: 07/15/17 09:14 Dose: 100 mls/hr Ketorolac Tromethamine (Toradol Injection -) 30 mg IVPUSH Q6H PRN PRN Reason: PAIN LEVEL 6-10 Stop: 07/20/17 09:35 Last Admin: 07/15/17 09:45 Dose: 30 mg Methadone HCl (Dolophine -) 10 mg PO BID MAYA Last Admin: 07/15/17 09:14 Dose: 10 mg - Objective Vital Signs: Vital Signs Temperature 98.2 F 07/15/17 05:00 Pulse Rate 61 07/15/17 05:00 Respiratory Rate 18 07/15/17 05:00 Blood Pressure 129/86 07/15/17 05:00 O2 Sat by Pulse Oximetry (%) 98 07/14/17 21:00 Constitutional: Yes: Well Nourished, No Distress, Calm HENT: Yes: Other (maxila) Cardiovascular: Yes: Regular Rate and Rhythm Respiratory: Yes: Regular Gastrointestinal: Yes: Normal Bowel Sounds, Soft Musculoskeletal: Yes: WNL Extremities: Yes: WNL Edema: No Peripheral Pulses WNL: Yes 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: Yes: Alert, Oriented Psychiatric: Yes: Alert, Oriented Labs: CBC, BMP 07/15/17 06:35 07/15/17 06:35 INR, PTT INR 0.98 (0.82-1.09) 07/15/17 06:35 Problem List - Problems (1) Drug abuse and dependence Assessment/Plan: -Toxicology screen + for methadone,benzodiazepine, cocaine and opiates-as per pt he gets all of them off the street -Please avoid ay narcotics at this time -S consult -Psychiatry consult -Pain management consult Code(s): F19.20 - OTHER PSYCHOACTIVE SUBSTANCE DEPENDENCE, UNCOMPLICATED (2) Cellulitis and abscess of face Assessment/Plan: -ID consult -WBC trendig down -afebrile -IV abx -CT maxillary reviewed -pain management: Methadone 10 mg TID, Toradol 30 g Q6H prn x 2 days only along with PPI, trial of gabapentin 300 mg po TID, titrate up as tolerated Code(s): L03.211 - CELLULITIS OF FACE; L02.01 - CUTANEOUS ABSCESS OF FACE (3) Major depressive disorder Assessment/Plan: -Psychiatry consult -Compliance is an issue Code(s): F32.9 - MAJOR DEPRESSIVE DISORDER, SINGLE EPISODE, UNSPECIFIED Assessment/Plan see problem list
[2017-07-15] MEDS ORDERED: diphenhydrAMINE HCL 25 MG CAPSULE (FP) PO PRN (11:48)
[2017-07-15] MEDS ORDERED: PANTOPRAZOLE SODIUM 40 MG in SODIUM CHLORIDE 100 ML IVPB SCH (12:00)
--- NOTE | 2017-07-15 13:24 | EKG ---
Test Reason : Blood Pressure : / mmHG Vent. Rate : 068 BPM Atrial Rate : 068 BPM P-R Int : 128 ms QRS Dur : 082 ms QT Int : 398 ms P-R-T Axes : -05 059 045 degrees QTc Int : 423 ms NORMAL SINUS RHYTHM NORMAL ECG WHEN COMPARED WITH ECG OF 14-JUL-2017 23:36, NO SIGNIFICANT CHANGE WAS FOUND Confirmed by NORMA WALLACE MD ([id number]) on 07/15/2017 1:24:30 PM Referred By: Cristy CASTANEDA Confirmed By:NORMA WALLACE MD
[2017-07-15] MEDS: GABAPENTIN 300 MG CAPSULE (FP) PO SCH ×2 (13:37→21:55)
[2017-07-15] MEDS: PANTOPRAZOLE SODIUM 40 MG VIAL IVPUSH SCH (13:37)
[2017-07-15] MEDS: SODIUM CHLORIDE 1,000 ML IV SCH ×2 (13:38→15:44)
[2017-07-15] MEDS ORDERED: METHADONE HCL 10 MG TABLET PO SCH (14:00)
--- NOTE | 2017-07-15 18:03 | CONSULT ---
Consult Detox [facility] Reason for Current Admission/Consult: substance use - History History of Present Illness: tatyana perry - Alcohol/Substance Use Hx Alcohol Use: Yes - Past Medical History [employer]: No: Alzheimer's, CVA, Dementia, Migraine, Multiple Sclerosis, Peripheral Neuropathy, Parkinson's, Seizure, Syncope, TIA, Vertigo, Other Cardio/Vascular: No: AFIB, Aneurysm, Aortic Insufficiency, Aortic Stenosis, CAD , CHF, Deep Vein Thrombosis, HTN, Hyperlipdemia, SD, Mitral Insufficiency, Mitral Stenosis, Murmur, Pulmonary Hypertension, Other Pulmonary: No: Asthma, Bronchitis, Cancer, COPD, O2 Dependent, Pneumonia, Previously Intubated, Pulmonary Embolus, Pulmonary Fibrosis, Sleep Apnea, Other Endocrine: Yes: Hypothyroidism - Past Surgical History Past Surgical History: No: None, AAA Repair, AICD, Amputation, Appendectomy, Arthrosocopy, AV Fistula/Graft, Bariatric Surgery, Breast Biopsy, Bypass, CABG, Carotid Endarterectomy, Cataract Removal, Cholecystectomy, Colectomy, Colonoscopy, Colostomy, Craniotomy, , Cystectomy, Hernia Repair, Hysterectomy, Ileal Conduit, Ileosotomy, Joint Replacement, Kidney Transplant, Laminectomy, Liver Transplant, Mastectomy, Nephrectomy, Oopherectomy, Orchiectomy, Permanent Pacemaker, Prostatectomy, Splenectomy, Stent, Thoracotomy , TURP, Tonsillectomy, Tubal Ligation, Upper Endoscopy, Valve Replacement, Vasectomy, Vein Stripping/Ligation Assessment Plan - Diagnosis (1) Alcohol dependence with uncomplicated withdrawal Status: Acute (2) Cellulitis and abscess of face Status: Acute (3) Cocaine dependence, uncomplicated Status: Acute (4) Nicotine dependence Status: Acute Qualifiers: (5) Opioid dependence with withdrawal Status: Acute (6) Substance induced mood disorder Status: Acute (7) Substance-induced sleep disorder Status: Acute (8) Asthma Status: Chronic Qualifiers: Asthma severity: moderate Asthma persistence: persistent Asthma complication type: uncomplicated Qualified Code(s): J45.40 - Moderate persistent asthma, uncomplicated (9) GERD (gastroesophageal reflux disease) Status: Chronic Qualifiers: (10) MDD (major depressive disorder), recurrent episode Status: Ruled-out - Plan Plan: chart, imaging and labs reviewed. Pateint admitted with cellulits of face and abscess. [facility] and bnez detox. REcommend: 1. confirm presence fo polysubstance use with utox 2. start methadone and vlaium detox as per protocol while patient is hospitalized. 3. Refer to rehab if medically stable post detox. 4. fluids, vitmains 5. antibiotics as per priamry team. - Medication Detox Regimen/Protocol: Methadone/Valium
[2017-07-15] MEDS ORDERED: diazePAM 5 MG TABLET PO PRN (18:07)
[2017-07-15] MEDS ORDERED: diazePAM 5 MG TABLET PO ONE (18:45)
[2017-07-15] MEDS ORDERED: METHADONE HCL 10 MG TABLET PO ONE ×2 (19:15→23:00)
--- NOTE | 2017-07-15 21:44 | EKG ---
Test Reason : Blood Pressure : / mmHG Vent. Rate : 072 BPM Atrial Rate : 072 BPM P-R Int : 140 ms QRS Dur : 074 ms QT Int : 398 ms P-R-T Axes : 044 064 046 degrees QTc Int : 435 ms NORMAL SINUS RHYTHM NORMAL ECG WHEN COMPARED WITH ECG OF 13-JUN-2017 23:11, NO SIGNIFICANT CHANGE WAS FOUND Confirmed by NORMA WALLACE MD ([id number]) on 07/15/2017 9:44:17 PM Referred By: Confirmed By:NORMA WALLACE MD
[2017-07-15] MEDS: diazePAM 5 MG TABLET PO SCH (21:55)
[2017-07-15] MEDS ORDERED: THIAMINE HCL 100 MG TABLET (FP) PO SCH (22:00)
[2017-07-16] MEDS: CLINDAMYCIN 600MG PREMIX IVPB 600 MG/50 ML BAG IVPB SCH ×3 (02:00→15:33)
[2017-07-16] MEDS: ACETAMINOPHEN 325 MG TABLET (FP) PO PRN ×2 (02:00→09:36)
[2017-07-16] MEDS: SODIUM CHLORIDE 1,000 ML IV SCH ×2 (04:32→15:34)
[2017-07-16] MEDS: KETOROLAC TROMETHAMINE 30 MG/1 ML VIAL IVPUSH PRN ×2 (04:33→10:46)
[2017-07-16] MEDS: GABAPENTIN 300 MG CAPSULE (FP) PO SCH ×2 (05:51→15:33)
[2017-07-16] MEDS: diazePAM 5 MG TABLET PO SCH ×2 (05:51→15:33)
[2017-07-16] MEDS: PANTOPRAZOLE SODIUM 40 MG VIAL IVPUSH SCH (09:37)
[2017-07-16] MEDS ORDERED: METHADONE HCL 10 MG TABLET PO SCH (10:00)
[2017-07-16] MEDS ORDERED: PRENATAL VITAMINS W/ FOLIC ACID TABLET (FP) PO SCH (10:00)
--- NOTE | 2017-07-16 10:21 | PN ---
Progress Note (short form) - Note Progress Note: ID Asked to see this 41 year old Macanese male with pain in his left upper molar and facial swelling cheek on off for a month. He is substance abusing nasal opiates He does not use IVD and is Hep C and IV negative Denies fever or chills Seen [facility] and given oral Clindamycn without improvovement. He is on same now. Selected Entries 07/16/17 07/16/17 09:00 09:55 Temperature 98 F Pulse Rate 69 Respiratory 18 Rate Blood Pressure 120/65 O2 Sat by Pulse 96 Oximetry (%) HEENT Left cheek swelling and pain with pain upper let molar Neck Supple no adenopathy Lung Clear Cor S1 S2 RR Abd Benign Skin tatoos Laboratory Tests 07/14/17 07/14/17 07/15/17 15:25 18:10 06:35 WBC 12.3 H Plt Count 295 BUN 11 Creatinine 0.9 Total Bilirubin 0.9 D AST 91 H D ALT 236 H D Alkaline Phosphatase 90 Total Protein 5.8 L D Albumin 3.0 L D Opiates Screen Positive Methadone Screen Positive Benzodiazepines Screen Positive Cocaine Screen Positive Assessment Dental abscess molar with facial swelling Elevated LFTS ?etiology Polysubstance abuse Plan Blood cutures x 2 CRP ESR HIV and Hep C screening Moniter LFTS ? drug chemical related Compresses to face Narciso GARSIA Problem List - Problems (1) Dental abscess Code(s): K04.7 - PERIAPICAL ABSCESS WITHOUT SINUS (2) Cellulitis and abscess of face Code(s): L03.211 - CELLULITIS OF FACE; L02.01 - CUTANEOUS ABSCESS OF FACE (3) Drug abuse and dependence Code(s): F19.20 - OTHER PSYCHOACTIVE SUBSTANCE DEPENDENCE, UNCOMPLICATED
--- NOTE | 2017-07-16 11:20 | PN ---
Progress Note, Physician Chief Complaint: patient has left facial swelling and pain in left tooth on iv clindamycin once he is better and discharge form hospital he will go and see dentist complaining of tooth ache - Current Medication List Current Medications: Active Medications Acetaminophen (Tylenol -) 650 mg PO Q4H PRN PRN Reason: PAIN LEVEL 1-5 Last Admin: 07/16/17 09:36 Dose: 650 mg Diazepam (Valium -) 5 mg PO TID [facility] Stop: 07/16/17 22:01 Last Admin: 07/16/17 05:51 Dose: 5 mg Diazepam (Valium -) 5 mg PO BID [facility] Stop: 07/18/17 22:01 Diazepam (Valium -) 5 mg PO DAILY [facility] Stop: 07/19/17 10:01 Diazepam (Valium -) 10 mg PO Q4H PRN PRN Reason: WITHDRAWAL(CONT SUBST) Stop: 07/16/17 18:06 Diphenhydramine HCl (Benadryl -) 50 mg PO HS PRN PRN Reason: INSOMNIA Last Admin: 07/15/17 22:09 Dose: 50 mg Gabapentin (Neurontin -) 300 mg PO TID [facility] Last Admin: 07/16/17 05:51 Dose: 300 mg Sodium Chloride (Normal Saline -) 1,000 mls @ 75 mls/hr IV ASDIR [facility] Last Admin: 07/16/17 04:32 Dose: 75 mls/hr Clindamycin Phosphate (Cleocin 600 Mg Premix Ivpb -) 600 mg in 50 mls @ 100 mls /hr IVPB Q6H-IV MAYA PRN Reason: Protocol Last Admin: 07/16/17 08:28 Dose: 100 mls/hr Ketorolac Tromethamine (Toradol Injection -) 30 mg IVPUSH Q6H PRN PRN Reason: PAIN LEVEL 6-10 Stop: 07/17/17 08:00 Last Admin: 07/16/17 10:46 Dose: 30 mg Methadone HCl (Dolophine -) 10 mg PO DAILY [facility] Stop: 07/19/17 10:01 Methadone HCl (Dolophine -) 15 mg PO DAILY [facility] Stop: 07/18/17 10:01 Pantoprazole Sodium (Protonix Iv) 40 mg IVPUSH DAILY [facility] Last Admin: 07/16/17 09:37 Dose: 40 mg Multivit/Folic Acid/Iron ( Vitamins (Sjr) -) 1 tab PO DAILY [facility] Last Admin: 07/16/17 09:38 Dose: 1 tab Thiamine HCl (Vitamin B1 -) 100 mg PO [facility] Last Admin: 07/15/17 21:55 Dose: 100 mg - Objective Vital Signs: Vital Signs Temperature 98 F 07/16/17 09:55 Pulse Rate 69 07/16/17 09:55 Respiratory Rate 18 07/16/17 09:55 Blood Pressure 120/65 07/16/17 09:55 O2 Sat by Pulse Oximetry (%) 96 07/16/17 09:00 Constitutional: Yes: Calm HENT: Yes: Other (left facial swelling) Neck: Yes: Other (no lymphadenopathy) Cardiovascular: Yes: Regular Rate and Rhythm, S1, S2, Other Respiratory: Yes: CTA Bilaterally Gastrointestinal: Yes: Normal Bowel Sounds, Soft Edema: No 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: Yes: Alert, Oriented Labs: CBC, BMP 07/15/17 06:35 07/15/17 06:35 INR, PTT INR 0.98 (0.82-1.09) 07/15/17 06:35 Problem List - Problems (1) Cellulitis and abscess of face Assessment/Plan: leukoytosis iv clindamycin ESR and crp pending ct scan noted Code(s): L03.211 - CELLULITIS OF FACE; L02.01 - CUTANEOUS ABSCESS OF FACE (2) Nicotine dependence Assessment/Plan: start nicotine patch Code(s): F17.200 - NICOTINE DEPENDENCE, UNSPECIFIED, UNCOMPLICATED Qualifiers: (3) Drug abuse and dependence Assessment/Plan: seen by S diazepam and methadone no narcotics toradol for pain relief pain management and psych consult pending Code(s): F19.20 - OTHER PSYCHOACTIVE SUBSTANCE DEPENDENCE, UNCOMPLICATED
[2017-07-16 13:01] VITALS: BMI 24.8
--- NOTE | 2017-07-16 14:23 | CON.PSY ---
Psychiatry Consult Chief Complaint: I go for depression treatment at [facility]. I trake REmeron 30 mg pop hs. I am ok mentally. History of substance cabuse also on Methadone maintanance. - Previous Psychiatric Treatment Outpatient: Less than 6 mos ago Inpatient: Within the last 12 months - Previous Substance Abuse Treatment Outpatient: None - Reason for Previous Treatment Reason for Previous Treatment: Major Depression, Heroin or Other Narcotics, Other Drugs - Current Medications Current Medications: Active Medications Acetaminophen (Tylenol -) 650 mg PO Q4H PRN PRN Reason: PAIN LEVEL 1-5 Last Admin: 07/16/17 09:36 Dose: 650 mg Diazepam (Valium -) [address] [facility] Stop: 07/16/17 22:01 Last Admin: 07/16/17 05:51 Dose: 5 mg Diazepam (Valium -) [address] [facility] Stop: 07/18/17 22:01 Diazepam (Valium -) [address] [facility] Stop: 07/19/17 10:01 Diazepam (Valium -) 10 mg PO Q4H PRN PRN Reason: WITHDRAWAL(CONT SUBST) Stop: 07/16/17 18:06 Diphenhydramine HCl (Benadryl -) 50 mg PO HS PRN PRN Reason: INSOMNIA Last Admin: 07/15/17 22:09 Dose: 50 mg Gabapentin (Neurontin -) [address] [facility] Last Admin: 07/16/17 05:51 Dose: 300 mg Sodium Chloride (Normal Saline -) 1,000 mls @ 75 mls/hr IV ASDIR MAYA Last Admin: 07/16/17 04:32 Dose: 75 mls/hr Clindamycin Phosphate (Cleocin 600 Mg Premix Ivpb -) 600 mg in 50 mls @ 100 mls /hr IVPB Q6H-IV MAYA PRN Reason: Protocol Last Admin: 07/16/17 08:28 Dose: 100 mls/hr Ketorolac Tromethamine (Toradol Injection -) 30 mg IVPUSH Q6H PRN PRN Reason: PAIN LEVEL 6-10 Stop: 07/17/17 08:00 Last Admin: 07/16/17 10:46 Dose: 30 mg Methadone HCl (Dolophine -) [address] [facility] Stop: 07/19/17 10:01 Methadone HCl (Dolophine -) [address] [facility] Stop: 07/18/17 10:01 Nicotine (Nicoderm Patch -) [address] [facility] Pantoprazole Sodium (Protonix Iv) [address] [facility] Last Admin: 07/16/17 09:37 Dose: 40 mg Multivit/Folic Acid/Iron ( Vitamins (Sjr) -) [address] [facility] Last Admin: 07/16/17 09:38 Dose: 1 tab Thiamine HCl (Vitamin B1 -) [address] [facility] Last Admin: 07/15/17 21:55 Dose: 100 mg - Allergies Allergies: Allergies Allergy/AdvReac Type Severity Reaction Status Date / Time Fish Containing Products Allergy Verified 07/14/17 13:34 - Current Living Status Usual Living Arrangement: Alone - Current Mental Status Evaluation Appearance: Well Groomed Attitude: Cooperative - Affect Affect: Constrictive Appropriateness: Appropriate to Content - Mood Mood: Irritable - Speech/Language Expressive: Coherent - Psychomotor Activity Psychomotor Activity: Normal - Thought Process Thought Process: Intact - Thought Content Hallucinations: Absent Delusions: Absent - Self Perception Self Perception: No Impairment - Cognition Attention: Alert Orientation: Time Memory, Immediate Recall: Intact Memory, Short Term: 3/3 Memory, Remote with Promptin/3 - Concentration Serial Sevens Intact: No Simple Calculations Intact: No - Abstraction Proverb Interpretation: Intact Judgement: Minimally Impaired - Insight Insight: Intact - Impulse Control Impulse Control: Moderately Impaired - Suicidal Ideation Suicidal Ideation: No - Homicidal Ideation Homicidal Ideation: No Assessment/Plan 1) Patient is not suicidal at this time. @) Start Remeron 30mg po hs. 3) discharge when medically stable, Psych follow up at [facility].
[2017-07-16 15:37] VITALS: BP 140/83; PULSE 67; TEMP 98.4
[2017-07-16] MEDS ORDERED: MIRTAZAPINE 30 MG TABLET (FP) PO SCH (22:00)
[2017-07-17] MEDS ORDERED: METHADONE HCL 5 MG TABLET PO SCH (10:00)
[2017-07-17] MEDS ORDERED: NICOTINE 14 MG/24 HOURS TOPICAL PATCH TD SCH (10:00)
[2017-07-17] MEDS ORDERED: diazePAM 5 MG TABLET PO SCH (10:00)
[2017-07-18 08:07] LABS: HBSAG SCREEN Negative (Negative); HEP B CORE AB, TOT Negative (Negative)
[2017-07-19] MEDS ORDERED: diazePAM 5 MG TABLET PO SCH (10:00)
[2017-07-19] MEDS ORDERED: METHADONE HCL 10 MG TABLET PO SCH (10:00)
[2017-07-20] MEDS ORDERED: METHADONE HCL 5 MG TABLET (FOR DETOX USE ONLY) PO SCH (06:00)
== END 2017-07-16 16:26 | disposition left against medical advice (07) | DRG 383 ==
LOC: JER 13:27 → JERBED 19:44 → OBSVTOIN 19:52 → J5S 21:48
PROVIDERS: ADMIT Internal Medicine; ATTEND Family Medicine
PROC: HZ2ZZZZ Detoxification Services for Substance Abuse Treatment (ICD-10-PCS; principal; 2017-07-14)
DX: L03.211 Cellulitis of face (principal); L02.01 Cutaneous abscess of face; F19.20 Other psychoactive substance dependence, uncomplicated; K04.7 Periapical abscess without sinus; F32.9 Major depressive disorder, single episode, unspecified; F17.210 Nicotine dependence, cigarettes, uncomplicated; E03.9 Hypothyroidism, unspecified; K21.9 Gastro-esophageal reflux disease without esophagitis; J45.909 Unspecified asthma, uncomplicated; F11.23 Opioid dependence with withdrawal
CPT/HCPCS: 36415; 70486-TC; 80053; 80307; 81003; 82150; 83735; 84100; 84439; 84443; 84481; 85025; 85610; 85730; 86140; 86704; 86706; 86708; 87040; 87340; 93005; 93010; 99284-25; G0378; J7030

== ENCOUNTER 2017-07-31 09:59 | Inpatient (IN) | payer OTHER ==
[2017-07-31 10:46] VITALS: BMI 25.0
--- NOTE | 2017-07-31 14:18 | HP ---
Screened but not Admitted - Documentation of Visit Screened but not Admitted: Yes Additional Information/Explanation: patient left s during waiting for evaluation
[2017-08-01] MEDS ORDERED: NICOTINE POLACRILEX 2 MG GUM BC PRN (03:31)
[2017-08-01] MEDS ORDERED: MENTHOL/PHENOL 1 EACH UD MM PRN (03:31)
[2017-08-01] MEDS ORDERED: diazePAM 5 MG TABLET PO ONE (03:31)
[2017-08-01] MEDS ORDERED: ACETAMINOPHEN 325 MG TABLET (FP) PO PRN (03:31)
[2017-08-01] MEDS ORDERED: P-EPHED 60MG/TRIPROLIDI 2.5MG TABLET PO PRN (03:31)
[2017-08-01] MEDS ORDERED: METHADONE HCL 10 MG TABLET (FOR DETOX USE ONLY) PO ONE ×3 (03:31→23:00)
[2017-08-01] MEDS ORDERED: MAGNESIUM CITRATE 300 ML BOTTLE PO PRN (03:31)
[2017-08-01] MEDS ORDERED: MAGNESIUM HYDROX 2400MG/30ML ORAL SUSPENSION 30 ML CUP PO PRN (03:31)
[2017-08-01] MEDS ORDERED: guaiFENesin/D-METHORPHAN HB 10 ML UNIT-DOSE CUPS PO PRN (03:31)
[2017-08-01] MEDS ORDERED: IBUPROFEN 400 MG TABLET (FP) PO PRN (03:31)
[2017-08-01] MEDS ORDERED: MAG HYDROX/AL HYDROX/SIMETH 30 ML UNIT-DOSE CUP PO PRN (03:31)
[2017-08-01] MEDS ORDERED: LOPERAMIDE HCL 2 MG CAPSULE PO PRN (03:31)
--- NOTE | 2017-08-01 03:37 | HP ---
COWS - Scale Resting Pulse: 0= CO 80 or Below Sweatin=Flushed/Facial Moisture Restless Observation: 1= Difficult to Sit Still Pupil Size: 1= Pupils >than Normal Bone or Joint Aches: 4=Acute Joint/Muscle Pain Runny Nose/ Eye Tearin= Nasal Congestion GI Upset > 30mins: 1= Stomach Cramp Tremor Observation: 4= Gross Tremor/Twitching Yawning Observation: 0= None Anxiety or Irritability: 2=Irritable/Anxious Goose Flesh Skin: 0=Smooth Skin COWS Score: 16 CIWA Score - CIWA Score Nausea/Vomitin-No Nausea/No Vomiting Muscle Tremors: 4-Moderate,w/Arms Extend Anxiety: 4-Mod. Anxious/Guarded Agitation: 4-Moderately Restless Paroxysmal Sweats: 3 Orientation: 0-Oriented Tacttile Disturbances: 2-Mild Itch/Numbness/Burn Auditory Disturbances: 0-None Visual Disturbances: 0-None Headache: 3-Moderate CIWA-Ar Total Score: 20 Admission ROS S - HPI Chief Complaint: C/O WITHDRAWAL SX'S Allergies/Adverse Reactions: Allergies Allergy/AdvReac Type Severity Reaction Status Date / Time Fish Containing Products Allergy Verified 07/14/17 13:34 History of Present Illness: 41 yo with history of nicotine, opioid, cocaine and alcohol dependence is here seeking detox. This is one of many admissions for detox, has also been in rehab. PMHX: hypothyroid, anxiety, insominiA, black outs Longest period of sobrierity 1 year. Plan to attends rehab. Denies suicidal / homicidal ideation, suicide attempts. Denies hx of OD or seizures. Exam Limitations: No Limitations - Ebola screening Have you traveled outside of the country in the last 21 days: No Have you had contact with anyone from an Ebola affected area: No Have you been sick,other than usual withdrawal symptoms: No Do you have a fever: No - Review of Systems Constitutional: Chills, Loss of Appetite, Malaise, Night Sweats, Changes in sleep, Unintentional Wgt. Loss EENT: reports: Nose Congestion, Dental Problems (poor dentition) Respiratory: reports: No Symptoms reported Cardiac: reports: No Symptoms Reported GI: reports: Nausea, Poor Appetite, Abdominal cramping : reports: No Symptoms Reported Musculoskeletal: reports: Back Pain, Joint Pain Integumentary: reports: Sweating Neuro: reports: No Symptoms reported Endocrine: reports: No Symptoms Reported Hematology: reports: No Symptoms Reported Psychiatric: reports: Anxious, Depressed Other Systems: Reviewed and Negative Patient History - Patient Medical History Hx Anemia: No Hx Asthma: No Hx Chronic Obstructive Pulmonary Disease (COPD): No Hx Cancer: No Hx Cardiac Disorders: No Hx Congestive Heart Failure: No Hx Hypertension: No Hx Hypercholesterolemia: No Hx Pacemaker: No HX Cerebrovascular Accident: No Hx Seizures: No Hx Dementia: No Hx Diabetes: No Hx Gastrointestinal Disorders: No Hx Liver Disease: No Hx Genitourinary Disorders: No Hx Sexually Transmitted Disorders: No Hx Renal Disease (ESRD): No Hx Thyroid Disease: Yes (on meds, poor adherence) Hx Human Immunodeficiency Virus (HIV): No Hx Hepatitis C: No Hx Depression: Yes Hx Suicide Attempt: No Hx Bipolar Disorder: No Hx Schizophrenia: No Other Medical History: denies - Patient Surgical History Past Surgical History: No Hx Neurologic Surgery: No Hx Cataract Extraction: No Hx Cardiac Surgery: No Hx Lung Surgery: No Hx Breast Surgery: No Hx Breast Biopsy: No Hx Abdominal Surgery: No Hx Appendectomy: No Hx Cholecystectomy: No Hx Genitourinary Surgery: No Hx Section: No Hx Orthopedic Surgery: No Hx Hysterectomy: No Anesthesia Reaction: No - PPD History Previous Implant?: Yes Documented Results: Negative w/proof Implanted On Prior [facility] Admission?: Yes Date: 07/05/16 Results: 0 mm PPD to be Administered?: Yes - Reproductive History Patient : No - Smoking Cessation Smoking history: Current every day smoker Have you smoked in the past 12 months: Yes Aproximately how many cigarettes per day: 20 Cigars Per Day: 0 Hx Chewing Tobacco Use: No Initiated information on smoking cessation: Yes 'Breaking Loose' booklet given: 08/01/17 - Substance & Tx. History Hx Alcohol Use: Yes Hx Substance Use: Yes Substance Use Type: Alcohol, Cocaine, Heroin Hx Substance Use Treatment: Yes ([facility]) - Substances Abused Alcohol Route: Oral Frequency: Daily Amount used: 1 1/2 pint Age of first use: 17 Date of Last Use: 07/31/17 heroin Route: Injection Frequency: Daily Amount used: 20 Age of first use: 14 Date of Last Use: 07/31/17 cocaine Route: Injection Frequency: Daily Amount used: 1 bag Age of first use: 17 Date of Last Use: 07/31/17 Family Disease History - Family Disease History Family Disease History: Other: Father (living, healthy), Mother (living, healthy ), Brother (younger etoh/drugs), Sister (living, depression) Admission Physical Exam S - Vital Signs Vital Signs: Vital Signs - 24 hr 07/31/17 10:37 Temperature 98 F Pulse Rate 80 Respiratory 18 Rate Blood Pressure 138/94 - Physical General Appearance: Yes: Appropriately Dressed, Mild Distress, Tremorous, Irritable, Sweating HEENTM: Yes: EOMI, Normocephalic, Normal Voice, SAMANTHA, Pharynx Normal, Nasal Congestion Respiratory: Yes: Chest Non-Tender, Lungs Clear, Normal Breath Sounds, No Respiratory Distress, No Accessory Muscle Use Neck: Yes: No masses,lesions,Nodules, Supple, Trachea in good position Breast: Yes: Breast Exam Deferred Cardiology: Yes: Regular Rhythm, Regular Rate, S1, S2 Abdominal: Yes: Non Tender, Soft, Increased Bowel Sounds Genitourinary: Yes: Within Normal Limits Back: Yes: Normal Inspection Musculoskeletal: Yes: Gait Steady Extremities: Yes: Normal Capillary Refill, Normal Range of Motion, Non-Tender, Tremors 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: Yes: Fully Oriented, Alert, Motor Strength 5/5 Integumentary: Yes: Warm, Moist, Other (flushed face) Lymphatic: Yes: Within Normal Limits - Diagnostic (1) Alcohol dependence with uncomplicated withdrawal Current Visit: No Status: Acute (2) Cocaine dependence, uncomplicated Current Visit: No Status: Acute (3) Insomnia Current Visit: No Status: Acute Qualifiers: Insomnia type: unspecified Qualified Code(s): G47.00 - Insomnia, unspecified (4) Nicotine dependence Current Visit: No Status: Acute Qualifiers: (5) Opioid dependence with withdrawal Current Visit: No Status: Acute (6) Substance induced mood disorder Current Visit: No Status: Acute (7) Asthma Current Visit: No Status: Chronic Qualifiers: Asthma severity: moderate Asthma persistence: persistent Asthma complication type: uncomplicated Qualified Code(s): J45.40 - Moderate persistent asthma, uncomplicated (8) Chronic lower back pain Current Visit: No Status: Chronic Qualifiers: Back pain laterality: bilateral Sciatica presence: without sciatica Qualified Code(s): M54.5 - Low back pain; G89.29 - Other chronic pain; G89.29 - Other chronic pain (9) GERD (gastroesophageal reflux disease) Current Visit: No Status: Chronic Qualifiers: (10) History of - hypothyroidism Current Visit: No Status: Chronic Comment: poor adherence Cleared for Admission [facility] - Detox or Rehab [facility] Level of Care: Medically Managed Detox Regimen/Protocol: Methadone/Valium Claeared for Rehab Admission: No [facility] Breath Alcohol Content Breath Alcohol Content: 0 Urine Drug Screen - Results Drug Screen Negative: No Urine Drug Screen Results: BARBARA-Cocaine, OPI-Opiates
[2017-08-01] MEDS: diazePAM 5 MG TABLET PO SCH ×3 (07:03→22:05)
--- NOTE | 2017-08-01 10:13 | CONSULT ---
[facility] Psychiatric Consult - Data Date of interview: 08/01/17 Admission source: [facility] Identifying data: This is a 41 years old male, , living with family, unemployed, with history of nicotine, opioid, cocaine and alcohol dependence is here seeking detox. Reports no psychiatric hospitalization history. Substance Abuse History: Smoking Cessation. Smoking history: Current every day smoker. Have you smoked in the past 12 months: Yes. Aproximately how many cigarettes per day: 20. Cigars Per Day: 0. Hx Chewing Tobacco Use: No. Initiated information on smoking cessation: Yes. 'Breaking Loose' booklet given : 08/01/17. - Substance & Tx. History. Hx Alcohol Use: Yes. Hx Substance Use : Yes. Substance Use Type: Alcohol, Cocaine, Heroin. Hx Substance Use Treatment: Yes ([facility]). - Substances Abused. Alcohol. Route: Oral. Frequency: Daily. Amount used: 1 1/2 pint. Age of first use: 17. Date of Last Use: 07/31/17. heroin. Route: Injection. Frequency: Daily. Amount used: 20. Age of first use: 14. Date of Last Use: 07/31/17. cocaine. Route: Injection. Frequency: Daily. Amount used: 1 bag. Age of first use: 17. Date of Last Use: 07/31/17 Medical History: GERD, Hypothyroidism history, LBP, Asthma Psychiatric History: Patient reports history of anxiety and insomnia, MDD, denies suicidal, homicidal history, reports taking prior to admission: Remeron 45mg po qhs Physical/Sexual Abuse/Trauma History: Denies Additional Comment: Remeron 45mg po qhs Mental Status Exam - Mental Status Exam Alert and Oriented to: Person Cognitive Function: Fair Patient Appearance: Unkempt Mood: Sad Affect: Flat Patient Behavior: Sedated Speech Pattern: Delayed Voice Loudness: Mildly Soft/Quiet Thought Process: Circumstantial Thought Disorder: Being Controlled Hallucinations: Denies Suicidal Ideation: Denies Homicidal Ideation: Denies Insight/Judgement: Fair Sleep: Difficulty falling asleep Appetite: Fair Muscle strength/Tone: Mild Hypotonicity Gait/Station: Normal Additional Comments: Remeron 45mg po qhs Psychiatric Findings - Problem List ([place] 1, 2,3) (1) Drug-induced mood disorder Current Visit: Yes Status: Acute (2) Alcohol dependence with uncomplicated withdrawal Current Visit: No Status: Acute (3) Cocaine dependence, uncomplicated Current Visit: No Status: Acute (4) Nicotine dependence Current Visit: No Status: Acute Qualifiers: (5) Substance induced mood disorder Current Visit: No Status: Acute (6) Substance-induced sleep disorder Current Visit: No Status: Acute - Initial Treatment Plan Initial Treatment Plan: Remeron 45mg po qhs
[2017-08-01] MEDS: PRENATAL VITAMINS W/ FOLIC ACID TABLET (FP) PO SCH (10:39)
[2017-08-01] MEDS: NICOTINE 14 MG/24 HOURS TOPICAL PATCH TD SCH (10:40)
[2017-08-01 10:44] LABS: HEMATOCRIT 38.1 % (35.4-49); HEMOGLOBIN 12.8 GM/dL (11.7-16.9); MCHC 33.6 g/dl (32.0-35.9); MEAN CELL VOLUME 92.2 fl (80-96); MEAN PLT VOLUME 8.7 fl (7.5-11.1); PLATELET COUNT 327 K/MM3 (134-434); RBC 4.13 M/mm3 (4.00-5.60); RDW 14.3 % (11.9-15.9); WHITE BLOOD COUNT 9.4 K/mm3 (4.0-10.0)
[2017-08-01 10:50] LABS: BILIRUBIN,TOTAL 0.4 mg/dL (0.2-1.0); CHLORIDE 106 mmol/L (98-107); POTASSIUM 4.1 mmol/L (3.5-5.1); SGOT/AST 107 U/L (15-37); SODIUM 140 mmol/L (136-145); TOT PROT 6.3 g/dl (6.4-8.2)
--- NOTE | 2017-08-01 11:39 | PN ---
[facility] CIWA - CIWA Score Nausea/Vomitin-Mild Nausea/No Vomiting Muscle Tremors: 4-Moderate,w/Arms Extend Anxiety: 4-Mod. Anxious/Guarded Agitation: 4-Moderately Restless Paroxysmal Sweats: 1-Minimal Palms Moist Orientation: 0-Oriented Tacttile Disturbances: 1-Very Mild Itch/Numbness Auditory Disturbances: 0-None Visual Disturbances: 0-None Headache: 0-None Present CIWA-Ar Total Score: 15 S COWS - Scale Resting Pulse: 0= [place] 80 or Below Sweatin= Chills/Flushing Restless Observation: 1= Difficult to Sit Still Pupil Size: 0= Normal to Room Light Bone or Joint Aches: 2= Severe Diffuse Aches Runny Nose/ Eye Tearin= Nasal Congestion GI Upset > 30mins: 2= Nausea/Diarrhea Tremor Observation of Outstretched Hands: 2= Slight Tremor Visible Yawning Observation: 1= 1-2x During Session Anxiety or Irritability: 2=Irritable/Anxious Goose Flesh Skin: 3=Piloerection COWS Score: 15 [facility] Progress Note (SOAP) Subjective: joint pain body ache sweat tremor anxiety restlessness patient stated that taking clindymycine for tooth abscess days ago toke one four days ago patient is able to chew regular food and drinking room temperature fluid Objective: 08/01/17 11:35 Vital Signs Temperature 97.7 F 08/01/17 10:02 Pulse Rate 69 08/01/17 10:02 Respiratory Rate 18 08/01/17 10:02 Blood Pressure 127/77 08/01/17 10:02 O2 Sat by Pulse Oximetry (%) Laboratory Last Values WBC 9.4 K/mm3 (4.0-10.0) 08/01/17 07:30 RBC 4.13 M/mm3 (4.00-5.60) 08/01/17 07:30 Hgb 12.8 GM/dL (11.7-16.9) 08/01/17 07:30 Hct 38.1 % (35.4-49) 08/01/17 07:30 MCV 92.2 fl (80-96) 08/01/17 07:30 MCH 31.0 pg (25.7-33.7) 08/01/17 07:30 MCHC 33.6 g/dl (32.0-35.9) 08/01/17 07:30 RDW 14.3 % (11.9-15.9) 08/01/17 07:30 Plt Count 327 K/MM3 (134-434) 08/01/17 07:30 MPV 8.7 fl (7.5-11.1) 08/01/17 07:30 Sodium 140 mmol/L (136-145) 08/01/17 07:30 Potassium 4.1 mmol/L (3.5-5.1) 08/01/17 07:30 Chloride 106 mmol/L (98-107) 08/01/17 07:30 Total Bilirubin 0.4 mg/dL (0.2-1.0) D 08/01/17 07:30 AST 107 U/L (15-37) H 08/01/17 07:30 Total Protein 6.3 g/dl (6.4-8.2) L 08/01/17 07:30 lab noted wbc within normal range Assessment: 08/01/17 11:39 withdrawal sx Plan: continue detox
[2017-08-01] MEDS: LEVOTHYROXINE NA 25 MCG TABLET (FP) PO SCH (12:22)
[2017-08-01 12:26] LABS: ALBUMIN 3.4 g/dl (3.4-5.0); ALK PHOS 94 U/L (45-117); ANION GAP 5 (8-16); BLOOD UREA NITROGEN 12 mg/dL (7-18); CALCIUM 8.2 mg/dL (8.5-10.1); CO2 29 mmol/L (21-32); GLUCOSE,RANDOM 87 mg/dL (74-106)
--- NOTE | 2017-08-01 13:28 | EKG ---
Test Reason : Blood Pressure : / mmHG Vent. Rate : 069 BPM Atrial Rate : 069 BPM P-R Int : 140 ms QRS Dur : 082 ms QT Int : 396 ms P-R-T Axes : 035 073 048 degrees QTc Int : 424 ms NORMAL SINUS RHYTHM NORMAL ECG WHEN COMPARED WITH ECG OF 15-JUL-2017 10:41, NO SIGNIFICANT CHANGE WAS FOUND Confirmed by NORMA WALLACE MD ([id number]) on 08/01/2017 1:27:42 PM Referred By: Confirmed By:NORMA WALLACE MD
[2017-08-01 13:31] LABS: SGPT/ALT 191 U/L (12-78)
[2017-08-01] MEDS ORDERED: MELATONIN 5 MG TABLETS PO PRN (22:00)
[2017-08-01] MEDS: MIRTAZAPINE 15 MG TABLET (FP) PO SCH (22:05)
[2017-08-01] MEDS: THIAMINE HCL 100 MG TABLET (FP) PO SCH (22:05)
[2017-08-02] MEDS: LEVOTHYROXINE NA 25 MCG TABLET (FP) PO SCH (06:32)
[2017-08-02] MEDS: diazePAM 5 MG TABLET PO SCH ×3 (06:32→22:47)
[2017-08-02] MEDS ORDERED: METHADONE HCL 10 MG TABLET (FOR DETOX USE ONLY) PO SCH (10:00)
[2017-08-02] MEDS: PRENATAL VITAMINS W/ FOLIC ACID TABLET (FP) PO SCH (10:07)
[2017-08-02] MEDS: NICOTINE 14 MG/24 HOURS TOPICAL PATCH TD SCH (10:08)
[2017-08-02] MEDS: diazePAM 5 MG TABLET PO PRN ×2 (10:09→22:27)
--- NOTE | 2017-08-02 10:56 | PN ---
[facility] CIWA - CIWA Score Nausea/Vomitin-Mild Nausea/No Vomiting Muscle Tremors: 3 Anxiety: 3 Agitation: 3 Paroxysmal Sweats: 1-Minimal Palms Moist Orientation: 0-Oriented Tacttile Disturbances: 1-Very Mild Itch/Numbness Auditory Disturbances: 0-None Visual Disturbances: 0-None Headache: 0-None Present CIWA-Ar Total Score: 12 [facility] COWS - Scale Resting Pulse: 0= [place] 80 or Below Sweatin= Chills/Flushing Restless Observation: 1= Difficult to Sit Still Pupil Size: 0= Normal to Room Light Bone or Joint Aches: 2= Severe Diffuse Aches Runny Nose/ Eye Tearin= Nasal Congestion GI Upset > 30mins: 2= Nausea/Diarrhea Tremor Observation of Outstretched Hands: 2= Slight Tremor Visible Yawning Observation: 1= 1-2x During Session Anxiety or Irritability: 2=Irritable/Anxious Goose Flesh Skin: 0=Smooth Skin COWS Score: 12 [facility] Progress Note (SOAP) Subjective: joint pain body ache sweat tremor irritable agitative trouble sleep at night Objective: 08/02/17 11:02 Vital Signs Temperature 99.9 F H 08/02/17 10:43 Pulse Rate 88 08/02/17 10:43 Respiratory Rate 20 08/02/17 10:43 Blood Pressure 136/78 08/02/17 10:43 O2 Sat by Pulse Oximetry (%) Laboratory Last Values WBC 9.4 K/mm3 (4.0-10.0) 08/01/17 07:30 RBC 4.13 M/mm3 (4.00-5.60) 08/01/17 07:30 Hgb 12.8 GM/dL (11.7-16.9) 08/01/17 07:30 Hct 38.1 % (35.4-49) 08/01/17 07:30 MCV 92.2 fl (80-96) 08/01/17 07:30 MCH 31.0 pg (25.7-33.7) 08/01/17 07:30 MCHC 33.6 g/dl (32.0-35.9) 08/01/17 07:30 RDW 14.3 % (11.9-15.9) 08/01/17 07:30 Plt Count 327 K/MM3 (134-434) 08/01/17 07:30 MPV 8.7 fl (7.5-11.1) 08/01/17 07:30 Sodium 140 mmol/L (136-145) 08/01/17 07:30 Potassium 4.1 mmol/L (3.5-5.1) 08/01/17 07:30 Chloride 106 mmol/L (98-107) 08/01/17 07:30 Carbon Dioxide 29 mmol/L (21-32) 08/01/17 07:30 Anion Gap 5 (8-16) L 08/01/17 07:30 BUN 12 mg/dL (7-18) 08/01/17 07:30 Creatinine 1.0 mg/dL (0.7-1.3) 08/01/17 07:30 Creat Clearance w eGFR > 60 (>60) 08/01/17 07:30 Random Glucose 87 mg/dL (74-106) 08/01/17 07:30 Calcium 8.2 mg/dL (8.5-10.1) L 08/01/17 07:30 Total Bilirubin 0.4 mg/dL (0.2-1.0) D 08/01/17 07:30 AST 107 U/L (15-37) H 08/01/17 07:30 ALT 191 U/L (12-78) H 08/01/17 07:30 Alkaline Phosphatase 94 U/L (45-117) 08/01/17 07:30 Total Protein 6.3 g/dl (6.4-8.2) L 08/01/17 07:30 Albumin 3.4 g/dl (3.4-5.0) 08/01/17 07:30 RPR Titer Nonreactive (NONREACTIVE) 08/01/17 07:30 lab noted repeat ASTALT Assessment: 08/02/17 11:05 withdrawal sx liver enzyme elevation Plan: continue detox repeat alt ast
[2017-08-02 14:00] LABS: URINE APPEARANCE SLCLOUDY; URINE BILIRUBIN NEGATIVE (<2.0 mg/dL); URINE COLOR YELLOW; URINE GLUCOSE (UA) NEGATIVE (NEGATIVE); URINE KETONE NEGATIVE (NEGATIVE); URINE LEUK ESTERASE NEGATIVE (NEGATIVE); URINE NITRITE NEGATIVE (NEGATIVE); URINE PROTEIN NEGATIVE (NEGATIVE); URINE UROBILINOGEN NEGATIVE mg/dL (0.2-1.0)
[2017-08-02] MEDS: MIRTAZAPINE 15 MG TABLET (FP) PO SCH (22:27)
[2017-08-02] MEDS: THIAMINE HCL 100 MG TABLET (FP) PO SCH (22:27)
[2017-08-03] MEDS: LEVOTHYROXINE NA 25 MCG TABLET (FP) PO SCH (08:00)
[2017-08-03 09:03] VITALS: BP 117/56; PULSE 63; TEMP 97.7
[2017-08-03] MEDS ORDERED: diazePAM 5 MG TABLET PO SCH (10:00)
[2017-08-03] MEDS ORDERED: METHADONE HCL 5 MG TABLET (FOR DETOX USE ONLY) PO SCH (10:00)
[2017-08-03] MEDS: PRENATAL VITAMINS W/ FOLIC ACID TABLET (FP) PO SCH (10:20)
--- NOTE | 2017-08-03 10:38 | PN ---
[facility] Progress Note (SOAP) Subjective: alert,pain in the body,insomnia Objective: 08/03/17 10:37 Vital Signs Temperature 97.7 F 08/03/17 09:02 Pulse Rate 63 08/03/17 09:02 Respiratory Rate 18 08/03/17 09:02 Blood Pressure 117/56 08/03/17 09:02 O2 Sat by Pulse Oximetry (%) Assessment: 08/03/17 10:37 withdrawal symptom Plan: continue detox
--- NOTE | 2017-08-03 10:42 | PN ---
S Progress Note Note: patient did not want to complete treatment,stated has family emergency,signed release ama
--- NOTE | 2017-08-03 10:47 | DS ---
[facility] Detox Discharge Summary Admission Date: 07/31/17 Discharge Date: 08/03/17 - History Present History: Alcohol Dependence, Opioid Dependence Additional Comments: patient did not want to complete treatment,due to family emergency,signed relese ama, Pertinent Past History: hypothyroidism - Physical Exam Results Vital Signs: Vital Signs Temperature 97.7 F 08/03/17 09:02 Pulse Rate 63 08/03/17 09:02 Respiratory Rate 18 08/03/17 09:02 Blood Pressure 117/56 08/03/17 09:02 O2 Sat by Pulse Oximetry (%) Pertinent Admission Physical Exam Findings: withdrawal signs and symptom Laboratory Last Values WBC 9.4 K/mm3 (4.0-10.0) 08/01/17 07:30 RBC 4.13 M/mm3 (4.00-5.60) 08/01/17 07:30 Hgb 12.8 GM/dL (11.7-16.9) 08/01/17 07:30 Hct 38.1 % (35.4-49) 08/01/17 07:30 MCV 92.2 fl (80-96) 08/01/17 07:30 MCH 31.0 pg (25.7-33.7) 08/01/17 07:30 MCHC 33.6 g/dl (32.0-35.9) 08/01/17 07:30 RDW 14.3 % (11.9-15.9) 08/01/17 07:30 Plt Count 327 K/MM3 (134-434) 08/01/17 07:30 MPV 8.7 fl (7.5-11.1) 08/01/17 07:30 Sodium 140 mmol/L (136-145) 08/01/17 07:30 Potassium 4.1 mmol/L (3.5-5.1) 08/01/17 07:30 Chloride 106 mmol/L (98-107) 08/01/17 07:30 Carbon Dioxide 29 mmol/L (21-32) 08/01/17 07:30 Anion Gap 5 (8-16) L 08/01/17 07:30 BUN 12 mg/dL (7-18) 08/01/17 07:30 Creatinine 1.0 mg/dL (0.7-1.3) 08/01/17 07:30 Creat Clearance w eGFR > 60 (>60) 08/01/17 07:30 Random Glucose 87 mg/dL (74-106) 08/01/17 07:30 Calcium 8.2 mg/dL (8.5-10.1) L 08/01/17 07:30 Total Bilirubin 0.4 mg/dL (0.2-1.0) D 08/01/17 07:30 AST 107 U/L (15-37) H 08/01/17 07:30 ALT 191 U/L (12-78) H 08/01/17 07:30 Alkaline Phosphatase 94 U/L (45-117) 08/01/17 07:30 Total Protein 6.3 g/dl (6.4-8.2) L 08/01/17 07:30 Albumin 3.4 g/dl (3.4-5.0) 08/01/17 07:30 Urine Color Yellow 08/02/17 11:30 Urine Appearance Slcloudy 08/02/17 11:30 Urine pH 8.0 (5.0-8.0) D 08/02/17 11:30 Ur Specific [place] 1.018 (1.001-1.035) 08/02/17 11:30 Urine Protein Negative (NEGATIVE) 08/02/17 11:30 Urine Glucose (UA) Negative (NEGATIVE) 08/02/17 11:30 Urine Ketones Negative (NEGATIVE) 08/02/17 11:30 Urine Blood Negative (NEGATIVE) 08/02/17 11:30 Urine Nitrite Negative (NEGATIVE) 08/02/17 11:30 Urine Bilirubin Negative (<2.0 mg/dL) 08/02/17 11:30 Urine Urobilinogen Negative mg/dL (0.2-1.0) 08/02/17 11:30 Ur Leukocyte Esterase Negative (NEGATIVE) 08/02/17 11:30 RPR Titer Nonreactive (NONREACTIVE) 08/01/17 07:30 - Medication Discharge Medications: Ambulatory Orders Clindamycin [Cleocin -] 300 mg PO Q6HPO 08/01/17 Mirtazapine [Remeron -] 45 mg PO HS #30 tablet 08/01/17 - Diagnosis (1) Opioid dependence with withdrawal Current Visit: No Status: Acute (2) Alcohol dependence with uncomplicated withdrawal Current Visit: No Status: Acute (3) Nicotine dependence Current Visit: No Status: Acute Qualifiers: (4) Asthma Current Visit: No Status: Chronic Qualifiers: Asthma severity: moderate Asthma persistence: persistent Asthma complication type: uncomplicated Qualified Code(s): J45.40 - Moderate persistent asthma, uncomplicated (5) Hypothyroidism Current Visit: Yes Status: Acute - AMA Did Patient Leave Against Medical Advice: Yes
--- NOTE | 2017-08-03 10:54 | PN ---
[facility] Progress Note Note: revolving tooth abscess,will follow with own dentist,has synthroid 25 mcg po daily at home
[2017-08-03] MEDS: NICOTINE 14 MG/24 HOURS TOPICAL PATCH TD SCH (10:59)
[2017-08-05] MEDS ORDERED: METHADONE HCL 10 MG TABLET (FOR DETOX USE ONLY) PO SCH (10:00)
[2017-08-05] MEDS ORDERED: diazePAM 5 MG TABLET PO SCH (10:00)
[2017-08-06] MEDS ORDERED: METHADONE HCL 5 MG TABLET (FOR DETOX USE ONLY) PO SCH (06:00)
== END 2017-08-03 10:58 | disposition left against medical advice (07) | DRG 770 ==
LOC: YASAS 09:59 → Y6N 23:45
PROVIDERS: ADMIT Surgery; ATTEND Surgery
PROC: HZ2ZZZZ Detoxification Services for Substance Abuse Treatment (ICD-10-PCS; principal; 2017-07-31)
DX: F11.23 Opioid dependence with withdrawal (principal); F10.230 Alcohol dependence with withdrawal, uncomplicated; F17.210 Nicotine dependence, cigarettes, uncomplicated; F19.24 Other psychoactive substance dependence with psychoactive substance-induced mood disorder; F19.282 Other psychoactive substance dependence with psychoactive substance-induced sleep disorder; G47.00 Insomnia, unspecified; J45.40 Moderate persistent asthma, uncomplicated; E03.9 Hypothyroidism, unspecified; K21.9 Gastro-esophageal reflux disease without esophagitis; M54.5 Low back pain; G89.29 Other chronic pain
CPT/HCPCS: 36415; 80053; 81003; 85027; 86593; 93005; 93010

== ENCOUNTER 2017-08-28 14:54 | Emergency (ER) | payer OTHER ==
[2017-08-28 15:09] VITALS: BP 149/85; PULSE 86; TEMP 98.5; BMI 25.0
--- NOTE | 2017-08-28 15:13 | PDOC ---
Rapid Medical Evaluation Time Seen by Provider: 08/28/17 15:06 Medical Evaluation: Allergies Allergy/AdvReac Type Severity Reaction Status Date / Time Fish Containing Products Allergy Verified 08/28/17 15:07 08/28/17 15:08 Pt presents to Cellulitis and swelling to RLE. HX of IVDU, Started 2 days ago. Exam: Swelling to R lower leg/ankle with redness to the distal lopes. AAOx3, breathing easily, afebrile Orders: CBC, CMP, Ankle x-ray, Blood cultures, 08/28/17 15:13 Discharge Disposition - Referrals Referrals: Nav Winters [Primary Care Provider] - - Patient Instructions - Post Discharge Activity
[2017-08-28 15:41] LABS: BASO % 0.8 % (0-2.0); EOS % 5.1 % (0-4.5); HEMATOCRIT 39.1 % (35.4-49); HEMOGLOBIN 13.1 GM/dL (11.7-16.9); LYMPH % 24.6 % (8-40); MCH 30.8 pg (25.7-33.7); MCHC 33.6 g/dl (32.0-35.9); MEAN CELL VOLUME 91.6 fl (80-96); MEAN PLT VOLUME 7.9 fl (7.5-11.1); MONO % 9.6 % (3.8-10.2); NEUT % 59.9 % (42.8-82.8); PLATELET COUNT 381 K/MM3 (134-434); RBC 4.26 M/mm3 (4.00-5.60); RDW 14.5 % (11.9-15.9); WHITE BLOOD COUNT 10.9 K/mm3 (4.0-10.0)
[2017-08-28 16:37] LABS: ALBUMIN 3.7 g/dl (3.4-5.0); ANION GAP 5 (8-16); BLOOD UREA NITROGEN 9 mg/dL (7-18); CALCIUM 8.9 mg/dL (8.5-10.1); CHLORIDE 104 mmol/L (98-107); CO2 29 mmol/L (21-32); CREATININE 0.9 mg/dL (0.7-1.3); GLUCOSE,RANDOM 95 mg/dL (74-106); POTASSIUM 4.3 mmol/L (3.5-5.1); SGOT/AST 96 U/L (15-37); SGPT/ALT 220 U/L (12-78); SODIUM 138 mmol/L (136-145)
[2017-08-28 16:39] LABS: ALK PHOS 117 U/L (45-117); BILIRUBIN,TOTAL 0.6 mg/dL (0.2-1.0); TOT PROT 7.4 g/dl (6.4-8.2)
--- NOTE | 2017-08-28 17:12 | PDOC ---
History of Present Illness <Jerman Gaston - Last Filed: 08/28/17 18:13> - General History Source: Patient Exam Limitations: No Limitations - History of Present Illness Initial Comments: 08/28/17 19:03 The patient is a 41 year old male with past medical history of depression, hypothyroidism, GERD, Nicotine Dependence, PSA and IVDA presents to the emergency department with R. lower extremity pain. The patient presents with R leg swelling for the past 3-4 days, initially to the mid-lopes region that radiated down, with ankle redness and swelling noted 2 days ago. The patient refers pain along the redness, no relief with left over clindamycin or with Heroin. The patient reports 2-3 months prior he was prescribed clindamycin at [facility] for dental abscess, which he states he didnt use secondary to IV antibiotic received at [place]. The patient has a history of chronic athlete's foot w/ blisters noted. Denies fever, chills, cough or a headache. Denies injury or trauma to the foot. Denies recent travel. Denies abdominal pain or back pain. Denies nausea or vomiting. Denies diarrhea or constipation. Denies Allergies: Fish containing products Social history: Denies the use of alcohol. Reports the use of cocaine and Heroin. Daily use of cigarettes reported. Surgical history: None reported. PCP: Nav Roque <Sylvia Bai - Last Filed: 08/28/17 19:04> - General Chief Complaint: Edema Stated Complaint: RIGHT LEG PAIN Time Seen by Provider: 08/28/17 15:06 Past History - Past Medical History Anemia: No Asthma: No Cancer: No Cardiac Disorders: No CVA: No COPD: No CHF: No DVT: No Dementia: No Diabetes: No GI Disorders: No Disorders: No HTN: No Hypercholesterolemia: No Kidney Stones: No Liver Disease: No Seizures: No Thyroid Disease: Yes (on meds, poor adherence) - Surgical History Abdominal Surgery: No Appendectomy: No Cardiac Surgery: No Cholecystectomy: No Lung Surgery: No Neurologic Surgery: No Orthopedic Surgery: No - Reproductive History Testicular Surgery: No - Suicide/Smoking/Psychosocial Hx Smoking History: Current every day smoker Have you smoked in the past 12 months: Yes Number of Cigarettes Smoked Daily: 20 Cigars Per Day: 0 Information on smoking cessation initiated: No 'Breaking Loose' booklet given: 08/01/17 Hx Alcohol Use: No Drug/Substance Use Hx: Yes (heroin) Substance Use Type: Alcohol, Cocaine, Heroin Hx Substance Use Treatment: Yes ([facility]) <Jerman Gaston - Last Filed: 08/28/17 18:13> <Sylvia Bai - Last Filed: 08/28/17 19:04> - Past Medical History Allergies/Adverse Reactions: Allergies Allergy/AdvReac Type Severity Reaction Status Date / Time Fish Containing Products Allergy Verified 08/28/17 15:07 Home Medications: Ambulatory Orders Clindamycin [Cleocin -] 300 mg PO Q6HPO 08/01/17 Mirtazapine [Remeron -] 45 mg PO HS #30 tablet 08/01/17 Levothyroxine [Synthroid -] 25 mcg PO DAILY@0700 tablet 08/03/17 Cephalexin Monohydrate [Keflex -] 500 mg PO Q6H #40 capsule 08/28/17 Sulfamethoxazole/Trimethoprim [Bactrim Ds -] 1 tab PO BID #20 tablet 08/28/17 Tramadol HCl 50 mg PO QID PRN #12 tablet MDD 4 08/28/17 Review of Systems - Review of Systems Able to Perform ROS?: Yes Comments:: 08/28/17 19:03 CONSTITUTIONAL: No reported: Fever, Chills, Diaphoresis, Generalized Weakness, Malaise, Loss of Appetite HEENT: No reported: Rhinorrhea, Nasal Congestion, Throat Pain, Throat Swelling, Difficulty Swallowing, Mouth Swelling, Ear Pain, Eye Pain, Visual Changes CARDIOVASCULAR: No reported: Chest Pain, Syncope, Palpitations, Irregular Heart Rate, Lightheadedness, Peripheral Edema RESPIRATORY: No reported: Cough, Shortness of Breath, SOB with Exertion, Orthopnea, Wheezing , Stridor, Hemoptysis GASTROINTESTINAL: No reported: Abdominal pain, Abdominal Distension, Nausea, Vomiting, Diarrhea, Constipation, Melena, Hematochezia GENITOURINARY: No reported: Dysuria, Frequency, Urgency, Hesitancy, Flank Pain, Genital Pain MUSCULOSKELETAL: (+) L. Lower extremity redness, swelling and pain. No reported: Myalgia, Arthralgia, Back pain, Neck Pain SKIN: No reported: Itching, Pallor HEMEATOLOGIC/IMMUNOLOGIC: No reported: Easy Bleeding, Easy Bruising, Lymphadenopathy, Frequent infections ENDOCRINE: No reported: Unexplained Weight Gain, Unexplained Weight Loss, Heat Intolerance , Cold Intolerance NEUROLOGIC: No reported: Headache, Focal Weakness, Paresthesias, Vertigo, Lightheadedness, Unsteady Gait, Seizure, Mental Status Changes, Incontinence PSYCHIATRIC: No reported: Anxiety, Depression <Sylvia Bai - Last Filed: 08/28/17 19:04> *Physical Exam - Vital Signs Last Vital Signs Temp Pulse Resp BP Pulse Ox 98.5 F 86 16 149/85 96 08/28/17 15:07 08/28/17 15:07 08/28/17 15:07 08/28/17 15:07 08/28/17 15:07 <MarilinJerman - Last Filed: 08/28/17 18:13> - Vital Signs Last Vital Signs Temp Pulse Resp BP Pulse Ox 98.5 F 86 16 149/85 96 08/28/17 15:07 08/28/17 15:07 08/28/17 15:07 08/28/17 15:07 08/28/17 15:07 - Physical Exam Comments: 08/28/17 19:03 GENERAL: The patient is awake, alert, and fully oriented, Nontoxic - in no acute distress. HEAD: Normocephalic, atraumatic. EYES: extraocular movements intact, sclera anicteric, conjunctiva clear. ENT: Normal voice, Moist mucous membranes. NECK: Normal range of motion, supple LUNGS: Breath sounds equal, clear to auscultation bilaterally. No wheezes, no rhonchi, no rales. HEART: Regular rate and rhythm, without murmur, rub or gallop. ABDOMEN: Soft, nontender, No guarding, no rebound.No CVA tenderness EXTREMITIES: (+) mild erythema/induration warmth on the R lower lopes with some edema in the ankle area. no focal bony tenderness. Normal range of motion, no edema. No cyanosis. +R foot noted for some skin breakage with cracked skin, but no erythema, discharge, focal tenderness NEUROLOGICAL: No facial assymetry, Normal speech, moving all 4 extremities spontaneously and symmetrically PSYCH: Normal mood, normal affect. SKIN: Warm, Dry, normal turgor. <Sylvia Bai - Last Filed: 08/28/17 19:04> ED Treatment Course - LABORATORY CBC & Chemistry Diagram: 08/28/17 15:29 08/28/17 15:29 - ADDITIONAL ORDERS Additional order review: Laboratory Results 08/28/17 15:29 Sodium 138 Potassium 4.3 Chloride 104 Carbon Dioxide 29 Anion Gap 5 L BUN 9 Creatinine 0.9 Creat Clearance w eGFR > 60 Random Glucose 95 Calcium 8.9 Total Bilirubin 0.6 AST 96 H ALT 220 H Alkaline Phosphatase 117 D Total Protein 7.4 Albumin 3.7 08/28/17 15:29 RBC 4.26 MCV 91.6 MCHC 33.6 RDW 14.5 MPV 7.9 Neutrophils % 59.9 Lymphocytes % 24.6 Monocytes % 9.6 Eosinophils % 5.1 H Basophils % 0.8 <Jerman Gaston - Last Filed: 08/28/17 18:13> - LABORATORY CBC & Chemistry Diagram: 08/28/17 15:29 08/28/17 15:29 - ADDITIONAL ORDERS Additional order review: Laboratory Results 08/28/17 08/28/17 15:52 15:29 Sodium 138 Potassium 4.3 Chloride 104 Carbon Dioxide 29 Anion Gap 5 L BUN 9 Creatinine 0.9 Creat Clearance w eGFR > 60 Random Glucose 95 Calcium 8.9 Total Bilirubin 0.6 AST 96 H ALT 220 H Alkaline Phosphatase 117 D Total Protein 7.4 Albumin 3.7 Urine Color Yellow Urine Appearance Clear Urine pH 6.0 D Ur Specific [place] 1.021 Urine Protein Negative Urine Glucose (UA) Negative Urine Ketones Negative Urine Blood Negative Urine Nitrite Negative Urine Bilirubin Negative Urine Urobilinogen 2.0 Ur Leukocyte Esterase Negative 08/28/17 15:29 RBC 4.26 MCV 91.6 MCHC 33.6 RDW 14.5 MPV 7.9 Neutrophils % 59.9 Lymphocytes % 24.6 Monocytes % 9.6 Eosinophils % 5.1 H Basophils % 0.8 - Medications Given in the ED: ED Medications Discontinued Medications Generic Name Dose Route Start Last Admin Trade Name Freq PRN Reason Stop Dose Admin Cephalexin HCl 500 mg 08/28/17 18:21 08/28/17 18:27 Keflex - PO 08/28/17 18:22 500 mg ONCE ONE Administration Vancomycin HCl 1,000 mg/ 250 mls @ 250 mls/hr 08/28/17 17:26 08/28/17 18:27 Dextrose IVPB 08/28/17 18:25 Not Given ONCE ONE Protocol Tramadol HCl 50 mg 08/28/17 17:28 08/28/17 18:27 Ultram - PO 08/28/17 17:29 Not Given ONCE ONE Trimethoprim/Sulfamethoxazole 1 each 08/28/17 18:21 08/28/17 18:26 Bactrim Ds - PO 08/28/17 18:22 1 each ONCE ONE Administration <Sylvia Bai - Last Filed: 08/28/17 19:04> Medical Decision Making - Medical Decision Making 08/28/17 17:11 41y M pmhx hypothyroidism, heroin use (snorts, denies iv use), jpresents with 5 days of RLE, started in the anterior lopes without jennifer discharge. Pain is 10/10 and worseening, taking clindamycin that was left over from prior tooth infeciton. denies any fever/chills, n/v, diaphoresis, abd pain, cp. on exam pt has mild erythmea/induration warmth on the R lower lopes with some edema in the ankle area. no focal bony tenderness suspect cellulitis without systemic sypmtoms labs from [facility] noted for minmal wbc count w/o left shift LFTs sligthly elevated, but seems chronic for pt no recent trauma will treat with bactrim/keflex will have pt fu with PMD in a few days for reassessment A portion of this note was documented by scribe services under my direction. I have reviewed the details of the note, within reason, and agree with the documentation with the following case summary and management plan written by me 08/28/17 18:13 pt declines iv abx will have pt start his PO meds and fu with dr. Winters in 2-3 days with return precautions including fever/chils, worsening redness or other concerns. I discussed the physical exam findings, ancillary test results and final diagnoses with the patient. I answered all of the patient's questions. The patient was satisfied with the care received and felt comfortable with the discharge plan and treatment plan. The patient will call their primary care physician within 24 hours to arrange follow-up and will return to the Emergency Department with any new, persistent or worsening symptoms. <Jerman Gaston - Last Filed: 08/28/17 18:13> *DC/Admit/Observation/Transfer - Discharge Dispostion Decision to Admit order: No <Jerman Gaston - Last Filed: 08/28/17 18:13> - Attestations Scribe Attestion: 08/28/17 19:04 Documentation prepared by Sylvia Bai, acting as director of medical staff services for Jerman Gaston MD. <Sylvia Bai - Last Filed: 08/28/17 19:04> Diagnosis at time of Disposition: Cellulitis of right leg - Discharge Dispostion Disposition: HOME Condition at time of disposition: Improved - Prescriptions Prescriptions: Cephalexin Monohydrate [Keflex -] 500 mg PO Q6H #40 capsule Sulfamethoxazole/Trimethoprim [Bactrim Ds -] 1 tab PO BID #20 tablet Tramadol HCl 50 mg PO QID PRN #12 tablet MDD 4 PRN Reason: Pain - Referrals Referrals: Nav Winters [Primary Care Provider] - - Patient Instructions Printed Discharge Instructions: DI for Cellulitis -- Adult Additional Instructions: Return to the emergency department immediately with ANY new, persistent or worsening symptoms including any fever, chills, worsening redness or other concerns. Continue taking the antibioitics You MUST call and follow up with your doctor tomorrow for further evaluation of your symptoms. Results were discussed with you. Please make sure your doctor reviews the results of your emergency evaluation. Print Language: ICELANDIC - Post Discharge Activity
[2017-08-28] MEDS ORDERED: VANCOMYCIN 1,000 MG in DEXTROSE 5%-WATER - 250 ML IVPB ONE (17:26)
[2017-08-28] MEDS ORDERED: traMADol HCL 50 MG TABLET PO ONE (17:28)
[2017-08-28] MEDS ORDERED: SULFAMETHOXAZOLE/TRIMETHOPRIM 800MG/160MG D.S. TABLET PO ONE (18:21)
[2017-08-28] MEDS ORDERED: CEPHALEXIN MONOHYDRATE 500 MG CAPSULE (UD) PO ONE (18:21)
[2017-08-28] MEDS ORDERED: CEPHALEXIN MONOHYDRATE 500 MG CAPSULE (UD) ONE (18:26)
[2017-08-28] MEDS ORDERED: SULFAMETHOXAZOLE/TRIMETHOPRIM 800MG/160MG D.S. TABLET ONE (18:26)
[2017-08-28 18:27] LABS: URINE APPEARANCE CLEAR; URINE BILIRUBIN NEGATIVE (<2.0 mg/dL); URINE COLOR YELLOW; URINE GLUCOSE (UA) NEGATIVE (NEGATIVE); URINE KETONE NEGATIVE (NEGATIVE); URINE LEUK ESTERASE NEGATIVE (NEGATIVE); URINE NITRITE NEGATIVE (NEGATIVE); URINE PROTEIN NEGATIVE (NEGATIVE)
--- NOTE | 2017-08-29 14:04 | PDOC ---
Patient Follow-up (Call Back) - Post ED Follow - Up Condition at time of discharge: Improved Disposition at time of original discharge: HOME Reason for Call Back: Abnwl. Microbiology (pos blood culture, organism pending.)
== END 2017-08-28 18:28 | disposition home or self-care (01) ==
LOC: JER 14:54
DX: L03.115 Cellulitis of right lower limb (principal); E03.9 Hypothyroidism, unspecified; K21.9 Gastro-esophageal reflux disease without esophagitis; F32.9 Major depressive disorder, single episode, unspecified; F11.10 Opioid abuse, uncomplicated; F17.210 Nicotine dependence, cigarettes, uncomplicated
CPT/HCPCS: 36415; 73610-TC-RT-FY; 73630-TC-RT-FY; 80053; 81003; 85025; 87040; 87086; 96365; 99282-25

== ENCOUNTER 2017-09-07 18:14 | Inpatient (IN) | payer OTHER ==
[2017-09-07 22:08] VITALS: BMI 24.2
--- NOTE | 2017-09-08 00:49 | HP ---
COWS - Scale Resting Pulse: 0= AR 80 or Below Sweatin=Flushed/Facial Moisture Restless Observation: 0= Sits Still Pupil Size: 1= Pupils >than Normal Bone or Joint Aches: 4=Acute Joint/Muscle Pain Runny Nose/ Eye Tearin= Nasal Congestion GI Upset > 30mins: 2= Nausea/Diarrhea (diarrhea x 2) Tremor Observation: 4= Gross Tremor/Twitching Yawning Observation: 0= None Anxiety or Irritability: 2=Irritable/Anxious Goose Flesh Skin: 0=Smooth Skin COWS Score: 16 CIWA Score - CIWA Score Nausea/Vomitin Muscle Tremors: 4-Moderate,w/Arms Extend Anxiety: 3 Agitation: 0-Normal Activity Paroxysmal Sweats: No Perspiration Orientation: 0-Oriented Tacttile Disturbances: 0-None Auditory Disturbances: 0-None Visual Disturbances: 0-None Headache: 5-Severe CIWA-Ar Total Score: 15 Admission ROS S - HPI Chief Complaint: Heroin and alcohol withdrawal symptoms Allergies/Adverse Reactions: Allergies Allergy/AdvReac Type Severity Reaction Status Date / Time Fish Containing Products Allergy Verified 08/28/17 15:07 History of Present Illness: 41 years old male with a long history of heroin and alcohol dependence is seeking admission to detox. Patient has been to previous detox and reports 8 of sobriety. He has medical history of depression, asthma, hypothyroidism, GERD and Nicotine Dependence. He denies suicidal ideation at this time Exam Limitations: No Limitations - Ebola screening Have you traveled outside of the country in the last 21 days: No Have you had contact with anyone from an Ebola affected area: No Have you been sick,other than usual withdrawal symptoms: No Do you have a fever: No - Review of Systems Constitutional: Chills, Loss of Appetite, Malaise, Night Sweats, Changes in sleep EENT: reports: No Symptoms Reported Respiratory: reports: No Symptoms reported Cardiac: reports: No Symptoms Reported GI: reports: Diarrhea (x 2), Nausea, Poor Appetite, Poor Fluid Intake, Abdominal cramping : reports: No Symptoms Reported Musculoskeletal: reports: Back Pain Integumentary: reports: No Symptoms Reported Neuro: reports: Headache, Tremors, Weakness Endocrine: reports: No Symptoms Reported Hematology: reports: No Symptoms Reported Psychiatric: reports: Mood/Affect Appropiate, Orientated x3 Other Systems: Reviewed and Negative Patient History - Patient Medical History Hx Anemia: No Hx Asthma: No Hx Chronic Obstructive Pulmonary Disease (COPD): No Hx Cancer: No Hx Cardiac Disorders: No Hx Congestive Heart Failure: No Hx Hypertension: No Hx Hypercholesterolemia: No Hx Pacemaker: No HX Cerebrovascular Accident: No Hx Seizures: No Hx Dementia: No Hx Diabetes: No Hx Gastrointestinal Disorders: Yes (GERD- Nexium) Hx Liver Disease: No Hx Genitourinary Disorders: No Hx Sexually Transmitted Disorders: No Hx Renal Disease (ESRD): No Hx Thyroid Disease: Yes (Not on medication) Hx Human Immunodeficiency Virus (HIV): No Hx Hepatitis C: No Hx Depression: Yes (Seroquel) Hx Suicide Attempt: No Hx Bipolar Disorder: No Hx Schizophrenia: No - Patient Surgical History Past Surgical History: No Hx Neurologic Surgery: No Hx Cataract Extraction: No Hx Cardiac Surgery: No Hx Lung Surgery: No Hx Abdominal Surgery: No Hx Appendectomy: No Hx Cholecystectomy: No Hx Genitourinary Surgery: No Hx Orthopedic Surgery: No Anesthesia Reaction: No - PPD History Previous Implant?: Yes Documented Results: Negative w/proof Implanted On Prior [facility] Admission?: Yes Date: 08/03/17 Results: 0 mm PPD to be Administered?: No - Reproductive History Patient is a Female of Child Bearing Age (11 -55 yrs old): No (Male) - Smoking Cessation Smoking history: Current every day smoker Have you smoked in the past 12 months: Yes Aproximately how many cigarettes per day: 20 Cigars Per Day: 0 Hx Chewing Tobacco Use: No Initiated information on smoking cessation: Yes 'Breaking Loose' booklet given: 09/08/17 - Substance & Tx. History Hx Alcohol Use: Yes Hx Substance Use: Yes Substance Use Type: Alcohol, Cocaine, Heroin Hx Substance Use Treatment: Yes ([facility]) - Substances Abused Alcohol Route: Smoking Amount used: VODKA - 2 PINTS Age of first use: 17 Date of Last Use: 09/07/17 Heroin Route: Injection Frequency: Daily Amount used: 20 BAGS Age of first use: 17 Date of Last Use: 09/07/17 Cocaine Route: Inhalation Frequency: Daily Amount used: 1 GRAM Age of first use: 18 Date of Last Use: 09/07/17 Family Disease History - Family Disease History Family Disease History: Other: Father (living, healthy), Mother (living, healthy ), Brother (younger etoh/drugs), Sister (living, depression) Admission Physical Exam [facility] - Vital Signs Vital Signs: Vital Signs - 24 hr 09/07/17 22:07 Temperature 98.3 F Pulse Rate 67 Respiratory 18 Rate Blood Pressure 144/85 - Physical General Appearance: Yes: Tremorous, Irritable, Sweating, Anxious HEENTM: Yes: EOMI, Normal ENT Inspection, Normocephalic, Normal Voice, SAMANTHA Respiratory: Yes: Lungs Clear, Normal Breath Sounds, No Respiratory Distress Neck: Yes: Supple Breast: Yes: Breast Exam Deferred Cardiology: Yes: Regular Rhythm, Regular Rate Abdominal: Yes: Normal Bowel Sounds, Soft Genitourinary: Yes: Within Normal Limits Back: Yes: Normal Inspection Musculoskeletal: Yes: Within Normal Limits Extremities: Yes: Normal Inspection 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: Yes: Alert, Normal Mood/Affect Integumentary: Yes: Dry Lymphatic: Yes: Within Normal Limits - Diagnostic (1) Alcohol dependence with uncomplicated withdrawal Current Visit: Yes Status: Chronic (2) Cocaine dependence, uncomplicated Current Visit: Yes Status: Chronic (3) Hypothyroidism Current Visit: Yes Status: Chronic Qualifiers: Hypothyroidism type: unspecified Qualified Code(s): E03.9 - Hypothyroidism , unspecified (4) Nicotine dependence Current Visit: Yes Status: Chronic Qualifiers: (5) Opioid dependence with withdrawal Current Visit: Yes Status: Chronic (6) Chronic lower back pain Current Visit: Yes Status: Chronic Qualifiers: Back pain laterality: bilateral Sciatica presence: without sciatica Qualified Code(s): M54.5 - Low back pain; G89.29 - Other chronic pain; G89.29 - Other chronic pain (7) GERD (gastroesophageal reflux disease) Current Visit: Yes Status: Chronic Qualifiers: (8) Hypothyroid Current Visit: Yes Status: Chronic Qualifiers: Cleared for Admission [facility] - Detox or Rehab [facility] Level of Care: Medically Managed Detox Regimen/Protocol: Methadone/Valium [facility] Breath Alcohol Content Breath Alcohol Content: 0 Urine Drug Screen - Results Drug Screen Negative: No Urine Drug Screen Results: BARBARA-Cocaine, OPI-Opiates
[2017-09-08] MEDS ORDERED: IBUPROFEN 400 MG TABLET (FP) PO PRN (01:07)
[2017-09-08] MEDS ORDERED: diazePAM 5 MG TABLET PO PRN (01:07)
[2017-09-08] MEDS ORDERED: P-EPHED 60MG/TRIPROLIDI 2.5MG TABLET PO PRN (01:07)
[2017-09-08] MEDS ORDERED: guaiFENesin/D-METHORPHAN HB 10 ML UNIT-DOSE CUPS PO PRN (01:07)
[2017-09-08] MEDS ORDERED: LOPERAMIDE HCL 2 MG CAPSULE PO PRN (01:07)
[2017-09-08] MEDS ORDERED: ACETAMINOPHEN 325 MG TABLET (FP) PO PRN (01:07)
[2017-09-08] MEDS ORDERED: MENTHOL/PHENOL 1 EACH UD MM PRN (01:07)
[2017-09-08] MEDS ORDERED: METHADONE HCL 10 MG TABLET (FOR DETOX USE ONLY) PO ONE ×3 (01:07→23:00)
[2017-09-08] MEDS ORDERED: MAG HYDROX/AL HYDROX/SIMETH 30 ML UNIT-DOSE CUP PO PRN (01:07)
[2017-09-08] MEDS ORDERED: NICOTINE POLACRILEX 2 MG GUM BC PRN (01:07)
[2017-09-08] MEDS ORDERED: MAGNESIUM HYDROX 2400MG/30ML ORAL SUSPENSION 30 ML CUP PO PRN (01:07)
[2017-09-08] MEDS ORDERED: MAGNESIUM CITRATE 300 ML BOTTLE PO PRN (01:07)
[2017-09-08] MEDS ORDERED: diazePAM 5 MG TABLET PO ONE (01:30)
[2017-09-08] MEDS: diazePAM 5 MG TABLET PO SCH ×3 (06:09→22:41)
[2017-09-08] MEDS: LEVOTHYROXINE NA 25 MCG TABLET (FP) PO SCH (07:00)
[2017-09-08] MEDS: PRENATAL VITAMINS W/ FOLIC ACID TABLET (FP) PO SCH (10:32)
[2017-09-08] MEDS: NICOTINE 14 MG/24 HOURS TOPICAL PATCH TD SCH (10:34)
[2017-09-08 11:26] LABS: ALBUMIN 3.2 g/dl (3.4-5.0); ANION GAP 5 (8-16); BLOOD UREA NITROGEN 11 mg/dL (7-18); CALCIUM 8.6 mg/dL (8.5-10.1); CHLORIDE 102 mmol/L (98-107); CO2 31 mmol/L (21-32); GLUCOSE,RANDOM 133 mg/dL (74-106); POTASSIUM 4.1 mmol/L (3.5-5.1); SODIUM 138 mmol/L (136-145)
[2017-09-08 11:30] LABS: ALK PHOS 104 U/L (45-117); BILIRUBIN,TOTAL 0.4 mg/dL (0.2-1.0); CREATININE 0.8 mg/dL (0.7-1.3); SGOT/AST 133 U/L (15-37); SGPT/ALT 280 U/L (12-78); TOT PROT 6.4 g/dl (6.4-8.2)
[2017-09-08 11:33] LABS: HEMOGLOBIN 12.8 GM/dL (11.7-16.9); MCH 31.8 pg (25.7-33.7); MCHC 34.5 g/dl (32.0-35.9); MEAN CELL VOLUME 92.2 fl (80-96); MEAN PLT VOLUME 8.5 fl (7.5-11.1); PLATELET COUNT 327 K/MM3 (134-434); RBC 4.01 M/mm3 (4.00-5.60); RDW 14.3 % (11.9-15.9); WHITE BLOOD COUNT 7.2 K/mm3 (4.0-10.0)
--- NOTE | 2017-09-08 16:48 | PN ---
[facility] CIWA - CIWA Score Nausea/Vomitin-No Nausea/No Vomiting Muscle Tremors: None Anxiety: 4-Mod. Anxious/Guarded Agitation: 3 Paroxysmal Sweats: 3 Orientation: 0-Oriented Tacttile Disturbances: 3-Moderate Itch/Numb/Burn Auditory Disturbances: 2-Mild Harshness/Frighten Visual Disturbances: 3-Moderate Sensitivity Headache: 0-None Present CIWA-Ar Total Score: 18 BHS COWS - Scale Resting Pulse: 0= [place] 80 or Below Sweatin=Flushed/Facial Moisture Restless Observation: 1= Difficult to Sit Still Pupil Size: 0= Normal to Room Light Bone or Joint Aches: 2= Severe Diffuse Aches Runny Nose/ Eye Tearin= Nasal Congestion GI Upset > 30mins: 0= None Tremor Observation of Outstretched Hands: 0= None Yawning Observation: 1= 1-2x During Session Anxiety or Irritability: 2=Irritable/Anxious Goose Flesh Skin: 3=Piloerection COWS Score: 12 S Progress Note (SOAP) Subjective: Sweating, Body Aches, Anxious. Objective: PATIENT A & O X 3, OBSERVED AMBULATING ON UNIT. NO ACUTE DISTRESS. 09/08/17 16:45 Vital Signs Temperature 98.1 F 09/08/17 15:17 Pulse Rate 70 09/08/17 15:17 Respiratory Rate 20 09/08/17 15:17 Blood Pressure 112/78 09/08/17 15:17 O2 Sat by Pulse Oximetry (%) Laboratory Tests 09/08/17 09/08/17 09/08/17 07:45 07:45 07:45 WBC 7.2 RBC 4.01 Hgb 12.8 Hct 37.0 MCV 92.2 MCH 31.8 MCHC 34.5 RDW 14.3 Plt Count 327 MPV 8.5 Sodium 138 Potassium 4.1 Chloride 102 Carbon Dioxide 31 Anion Gap 5 L BUN 11 Creatinine 0.8 Creat Clearance w eGFR > 60 Random Glucose 133 H D Calcium 8.6 Total Bilirubin 0.4 AST 133 H D ALT 280 H D Alkaline Phosphatase 104 D Total Protein 6.4 Albumin 3.2 L RPR Titer Nonreactive LABS NOTED. Assessment: 09/08/17 16:47 WITHDRAWAL SYMPTOMS. Plan: CONTINUE DETOX. INCREASE DAILY PO FLUID INTAKE. REPEAT AST, ALT ON 09/10/2017 FOR ELEVATED ADMISSION VALUES.
--- NOTE | 2017-09-08 17:40 | CONSULT ---
[facility] Psychiatric Consult - Data Date of interview: 09/08/17 Admission source: [facility] Identifying data: THREE attempts made to interview this patient.Mr Nickolas refused to converse with transportation sales consultant." I have nothing to say to a psychiatrist.Leave." Nursing staff is made aware.
[2017-09-08] MEDS ORDERED: THIAMINE HCL 100 MG TABLET (FP) PO SCH (22:00)
[2017-09-08] MEDS ORDERED: MELATONIN 5 MG TABLETS PO PRN (22:00)
[2017-09-09] MEDS: diazePAM 5 MG TABLET PO SCH (06:08)
[2017-09-09 06:25] VITALS: BP 106/66; PULSE 58; TEMP 98.6
[2017-09-09] MEDS: LEVOTHYROXINE NA 25 MCG TABLET (FP) PO SCH (07:42)
[2017-09-09] MEDS ORDERED: METHADONE HCL 10 MG TABLET (FOR DETOX USE ONLY) PO SCH (10:00)
--- NOTE | 2017-09-09 10:17 | EKG ---
Test Reason : Blood Pressure : / mmHG Vent. Rate : 064 BPM Atrial Rate : 064 BPM P-R Int : 122 ms QRS Dur : 082 ms QT Int : 412 ms P-R-T Axes : -22 050 029 degrees QTc Int : 425 ms NORMAL SINUS RHYTHM NORMAL ECG WHEN COMPARED WITH ECG OF 01-AUG-2017 02:50, NO SIGNIFICANT CHANGE WAS FOUND Confirmed by PRIMO MATHIAS MD ([id number]) on 09/09/2017 10:16:59 AM Referred By: Sonia Lucas Confirmed By:PRIMO MATHIAS MD
[2017-09-09] MEDS: PRENATAL VITAMINS W/ FOLIC ACID TABLET (FP) PO SCH (10:26)
[2017-09-09] MEDS: NICOTINE 14 MG/24 HOURS TOPICAL PATCH TD SCH (10:26)
--- NOTE | 2017-09-09 11:50 | PN ---
S Progress Note (SOAP) Subjective: pt states he wants to leave today and that he is going to walk out. Pt states that he is going to court and turn himself in for potential group home time Objective: 09/09/17 11:48 Vital Signs - 24 hr 09/08/17 09/08/17 09/08/17 15:17 18:33 23:53 Temperature 98.1 F 97 F L 97.4 F L Pulse Rate 70 84 64 Respiratory 20 18 16 Rate Blood Pressure 112/78 127/79 100/60 09/09/17 09/09/17 09/09/17 00:30 03:30 06:25 Temperature 98.6 F Pulse Rate 58 L Respiratory 18 18 18 Rate Blood Pressure 106/66 Laboratory Results - last 24 hr 09/08/17 07:45 RPR Titer Nonreactive CBC,CMP WBC 7.2 K/mm3 (4.0-10.0) 09/08/17 07:45 RBC 4.01 M/mm3 (4.00-5.60) 09/08/17 07:45 Hgb 12.8 GM/dL (11.7-16.9) 09/08/17 07:45 Hct 37.0 % (35.4-49) 09/08/17 07:45 MCV 92.2 fl (80-96) 09/08/17 07:45 MCH 31.8 pg (25.7-33.7) 09/08/17 07:45 MCHC 34.5 g/dl (32.0-35.9) 09/08/17 07:45 RDW 14.3 % (11.9-15.9) 09/08/17 07:45 Plt Count 327 K/MM3 (134-434) 09/08/17 07:45 MPV 8.5 fl (7.5-11.1) 09/08/17 07:45 Sodium 138 mmol/L (136-145) 09/08/17 07:45 Potassium 4.1 mmol/L (3.5-5.1) 09/08/17 07:45 Chloride 102 mmol/L (98-107) 09/08/17 07:45 Carbon Dioxide 31 mmol/L (21-32) 09/08/17 07:45 Anion Gap 5 (8-16) L 09/08/17 07:45 BUN 11 mg/dL (7-18) 09/08/17 07:45 Creatinine 0.8 mg/dL (0.7-1.3) 09/08/17 07:45 Creat Clearance w eGFR > 60 (>60) 09/08/17 07:45 Random Glucose 133 mg/dL (74-106) H D 09/08/17 07:45 Calcium 8.6 mg/dL (8.5-10.1) 09/08/17 07:45 Total Bilirubin 0.4 mg/dL (0.2-1.0) 09/08/17 07:45 AST 133 U/L (15-37) H D 09/08/17 07:45 ALT 280 U/L (12-78) H D 09/08/17 07:45 Alkaline Phosphatase 104 U/L (45-117) D 09/08/17 07:45 Total Protein 6.4 g/dl (6.4-8.2) 09/08/17 07:45 Albumin 3.2 g/dl (3.4-5.0) L 09/08/17 07:45 VSS PE grossly nl increased liver enzymes Assessment: 09/09/17 11:49 alcohol detox- pt does not want to complete detox, says he feels fine and needs to go to for legal reasons increase liver enzymes Plan: pt walked out of floor
--- NOTE | 2017-09-09 11:57 | DS ---
[facility] Detox Discharge Summary Admission Date: 09/08/17 Discharge Date: 09/09/17 - History Present History: Alcohol Dependence, Opioid Dependence Additional Comments: pt states feeling fine, leaving today to go to court tomorrow - Physical Exam Results Vital Signs: Vital Signs Temperature 98.6 F 09/09/17 06:25 Pulse Rate 58 L 09/09/17 06:25 Respiratory Rate 18 09/09/17 06:25 Blood Pressure 106/66 09/09/17 06:25 O2 Sat by Pulse Oximetry (%) - Treatment Hospital Course: Detox Protocol Followed Patient has Accepted a Rehab Referral to: pt did not complete detox protocol - Medication Discharge Medications: Ambulatory Orders Clindamycin [Cleocin -] 300 mg PO Q6HPO 08/01/17 Mirtazapine [Remeron -] 45 mg PO HS #30 tablet 08/01/17 Levothyroxine [Synthroid -] 25 mcg PO DAILY@0700 tablet 08/03/17 Cephalexin Monohydrate [Keflex -] 500 mg PO Q6H #40 capsule 08/28/17 Sulfamethoxazole/Trimethoprim [Bactrim Ds -] 1 tab PO BID #20 tablet 08/28/17 Tramadol HCl 50 mg PO QID PRN #12 tablet MDD 4 08/28/17 - Diagnosis (1) Alcohol dependence with uncomplicated withdrawal Current Visit: Yes Status: Acute (2) Opioid dependence with withdrawal Current Visit: Yes Status: Acute (3) History of - hypothyroidism Current Visit: No Status: Chronic (4) MDD (major depressive disorder), recurrent episode Current Visit: No Status: Ruled-out - AMA Did Patient Leave Against Medical Advice: Yes (pt has to go to court tomorrow)
[2017-09-10] MEDS ORDERED: diazePAM 5 MG TABLET PO SCH (10:00)
[2017-09-10] MEDS ORDERED: METHADONE HCL 5 MG TABLET (FOR DETOX USE ONLY) PO SCH (10:00)
[2017-09-12] MEDS ORDERED: METHADONE HCL 10 MG TABLET (FOR DETOX USE ONLY) PO SCH (10:00)
[2017-09-12] MEDS ORDERED: diazePAM 5 MG TABLET PO SCH (10:00)
[2017-09-13] MEDS ORDERED: METHADONE HCL 5 MG TABLET (FOR DETOX USE ONLY) PO SCH (06:00)
== END 2017-09-09 10:41 | disposition left against medical advice (07) | DRG 770 ==
LOC: YASAS 18:14 → Y3N 09-08 01:32
PROVIDERS: ADMIT Surgery; ATTEND Surgery
PROC: HZ2ZZZZ Detoxification Services for Substance Abuse Treatment (ICD-10-PCS; principal; 2017-09-08)
DX: F11.23 Opioid dependence with withdrawal (principal); F10.230 Alcohol dependence with withdrawal, uncomplicated; F14.20 Cocaine dependence, uncomplicated; F17.210 Nicotine dependence, cigarettes, uncomplicated; F33.9 Major depressive disorder, recurrent, unspecified; E03.9 Hypothyroidism, unspecified; K21.9 Gastro-esophageal reflux disease without esophagitis; M54.5 Low back pain; G89.29 Other chronic pain
CPT/HCPCS: 36415; 80053; 85027; 86593; 93005; 93010

== ENCOUNTER 2018-04-02 09:31 | Inpatient (IN) | payer OTHER ==
[2018-04-02] MEDS ORDERED: ACETAMINOPHEN 1000 MG/100 ML VIAL (NON FORMULARY) IVPB ONE (10:05)
--- NOTE | 2018-04-02 10:07 | PDOC ---
History of Present Illness - General Chief Complaint: Wound Stated Complaint: FOOT INFECTION Time Seen by Provider: 04/02/18 10:00 History Source: Patient Exam Limitations: No Limitations - History of Present Illness Initial Comments: 04/02/18 10:06 42 year old male with past medical history of depression, hypothyroidism, GERD, Nicotine Dependence, PSA and IVDA who presents with open blister on the plantar aspect of his R foot. The patient reports that he was playing soccer 4 days ago when he got blisters on his feet bilaterally, 3 days ago he noticed that the blister had opened and his feet started swelling bilaterally and he began feeling feverish. He reports that he does not take good care of his feet. He used sniffed heroin 2 days ago for pain relief. He denies infecting himself with any recreational drugs. He denies chest pain, shortness of breath, abdominal pain N/V/D/C. He has no other complaints aside from foot pain and fever. He denies muscle weakness, or joint pain. Primary care team is at [facility] where he sees multiple physicians. Recently was in detox 09/2017. Currently lives with parents. Restarted using heroin 2 weeks ago. Past History - Past Medical History Allergies/Adverse Reactions: Allergies Allergy/AdvReac Type Severity Reaction Status Date / Time Fish Containing Products Allergy Verified 09/08/17 02:14 Home Medications: Ambulatory Orders NK [No Known Home Medication] 04/02/18 Anemia: No Asthma: No Cancer: No Cardiac Disorders: No CVA: No COPD: No CHF: No DVT: No Dementia: No Diabetes: No GI Disorders: Yes (GERD- Nexium) Disorders: No HTN: No Hypercholesterolemia: No Kidney Stones: No Liver Disease: No Seizures: No Thyroid Disease: Yes (Not on medication) - Surgical History Abdominal Surgery: No Appendectomy: No Cardiac Surgery: No Cholecystectomy: No Lung Surgery: No Neurologic Surgery: No Orthopedic Surgery: No - Reproductive History Testicular Surgery: No - Suicide/Smoking/Psychosocial Hx Smoking History: Never smoked Have you smoked in the past 12 months: Yes Number of Cigarettes Smoked Daily: 20 Cigars Per Day: 0 'Breaking Loose' booklet given: 09/08/17 Hx Alcohol Use: No Drug/Substance Use Hx: No Substance Use Type: Alcohol, Cocaine, Heroin Hx Substance Use Treatment: Yes ([facility]) *Physical Exam - Vital Signs Last Vital Signs Temp Pulse Resp BP Pulse Ox 101.4 F H 97 H 17 128/74 95 04/02/18 09:45 04/02/18 09:45 04/02/18 09:45 04/02/18 09:45 04/02/18 09:45 - Physical Exam Comments: 04/02/18 10:43 GENERAL: Awake, alert, and fully oriented, in no acute distress HEAD: No signs of trauma, normocephalic, atraumatic EYES: EOMI, sclera anicteric, conjunctiva clear ENT: oropharynx clear without exudates. Moist mucosa NECK: Normal ROM, supple LUNGS: No distress, speaks full sentences, clear to auscultation bilaterally HEART: Regular rate and rhythm, normal S1 and S2, no murmurs, rubs or gallops, peripheral pulses normal and equal bilaterally. ABDOMEN: Soft, nontender, normoactive bowel sounds. No guarding, no rebound. No masses EXTREMITIES : Normal inspection, Normal range of motion, no edema. No clubbing or cyanosis. NEUROLOGICAL: Cranial nerves II through XII grossly intact. Normal speech, no focal sensorimotor deficits SKIN: multiple skin puncture wounds with surrounding cellutlits, open blister at plantar base of R large toe, blisters bilaterally on dorsum of 5th toes bilaterally Moderate Sedation - Procedure Monitoring Vital Signs: Procedure Monitoring Vital Signs Temperature 101.4 F H 04/02/18 09:45 Pulse Rate 97 H 04/02/18 09:45 Respiratory Rate 17 04/02/18 09:45 Blood Pressure 128/74 04/02/18 09:45 O2 Sat by Pulse Oximetry (%) 95 04/02/18 09:45 ED Treatment Course - LABORATORY CBC & Chemistry Diagram: 04/02/18 10:37 04/02/18 10:37 - RADIOLOGY Radiology Studies Ordered: Category Date Time Status CHEST X-RAY PORTABLE* [RAD] Stat Radiology 04/02/18 10:03 Ordered Medical Decision Making - Medical Decision Making 04/02/18 10:40 42 year old male with past medical history of depression, hypothyroidism, GERD, Nicotine Dependence, PSA and IVDA who presents with open blister on the plantar aspect of his R foot. The patient reports that he was playing soccer 4 days ago when he got blisters on his feet bilaterally, 3 days ago he noticed that the blister had opened and his feet started swelling bilaterally and he began feeling feverish. He reports that he does not take good care of his feet. He used sniffed heroin 2 days ago for pain relief. He denies infecting himself with any recreational drugs ED Course: consider sepsis 2/2 cellulitis vs uti vs pna r/o osteomyelitis vs c.perfinges Although patient denies current IVDA the patient has multuple puncture wounds concerning for injections 04/02/18 11:39 lactic acid: 2.3 utox: benzo, opiods, cocaine transaminitis, not changed from prior labs Clindamycin started for sepsis with skin source and possible kelley coverage. 04/02/18 11:46 CXR: midline airway, appropriate vascular markings, no blunting of costophrenic angle, no cardiomegaly, as read by this insurance underwriter. 04/02/18 12:10 Repeat BP recorded as 98/59, rechecked at bedside 119/59 pending XR of foot 04/02/18 12:57 Plan to admit for sepsis likely skin source requiring antibiotics and fluid rescucitation 04/02/18 13:42 foot XR: without gas in soft tissue, without fx or bone deformity, unchanged from prior imaging as read by this insurance underwriter and attneding. *DC/Admit/Observation/Transfer Diagnosis at time of Disposition: Sepsis Qualifiers: Sepsis type: sepsis due to unspecified organism Qualified Code(s): A41.9 - Sepsis, unspecified organism Cellulitis Qualifiers: Site of cellulitis: extremity Site of cellulitis of extremity: toe Laterality: right Qualified Code(s): L03.031 - Cellulitis of right toe - Discharge Dispostion Condition at time of disposition: Fair Decision to Admit order: Yes - Referrals - Patient Instructions - Post Discharge Activity
[2018-04-02] MEDS ORDERED: ACETAMINOPHEN INJECTION 100 ML IVPB ONE (10:10)
[2018-04-02] MEDS ORDERED: SODIUM CHLORIDE 1,000 ML IV SCH ×2 (10:15)
--- NOTE | 2018-04-02 10:27 | PDOC ---
Attending Attestation - HPI HPI: 04/02/18 10:49 The patient is a 42 year old female, with a significant past medical history of depression, hypothyroidism, GERD, Nicotine Dependence, PSA and IVDA, who presents to the emergency department with an open wound to her right foot. He states he was playing soccer 4 days ago, got blisters to bilateral feet, and noticed one of the blisters on his right foot opened up a couple of days ago. He reports pain and swelling to his foot since. He denies numbness or tingling. The patient denies chest pain, shortness of breath, headache and dizziness. The patient denies fever, chills, nausea, vomit, diarrhea and constipation. The patient denies dysuria, frequency, urgency and hematuria. Allergies: NKDA Social history: Daily tobacco use. Restarted using heroin 2 weeks ago. Last detox September 2017. Living home with parents. Documentation prepared by Alexandra Pinzon, acting as medical transport specialist for Stacey Schulz <Alexandra Pinzon - Last Filed: 04/02/18 10:49> - Resident Resident Name: Regina Murray - ED Attending Attestation I have performed the following: I have examined & evaluated the patient, The case was reviewed & discussed with the resident, I agree w/resident's findings & plan, Exceptions are as noted - Physicial Exam PE: GENERAL: Awake, alert, and fully oriented, in no acute distress HEAD: No signs of trauma EYES: PERRLA, EOMI, sclera anicteric, conjunctiva clear ENT: Auricles normal inspection, hearing grossly normal, nares patent, oropharynx clear without exudates. Moist mucosa NECK: Normal ROM, supple, no lymphadenopathy, JVD, or masses LUNGS: Breath sounds equal, clear to auscultation bilaterally. No wheezes, and no crackles HEART: Regular rate and rhythm, normal S1 and S2, no murmurs, rubs or gallops ABDOMEN: Soft, nontender, normoactive bowel sounds. No guarding, no rebound. No masses EXTREMITIES: Normal range of motion, no edema. No clubbing or cyanosis. No cords, erythema, or tenderness NEUROLOGICAL: Cranial nerves II through XII grossly intact. Normal speech, normal gait. Motor and sensation intact SKIN: Warm, Dry, normal turgor. +Erythema to B/L feet, worse on R side. +Open lesions to heels B/L and to R instep. RLE with erythema extending up the lower leg, no streaking. +Multiple excoriated areas to lower legs. +Multiple small lesions to BUE- pinpoint, many surrounded by erythema. - Medical Decision Making Pt with many skin lesions- he states he does not inject heroin, however, they are very concerning for track valdez. He has cellulitic changes to multiple lesions to the upper extremities, however, there is also a significant cellulitis to B/L feet, much worse on the R. Will send sepsis protocol, as he has fever and possibly IVDU, may have bloodborne infection. Will treat with vanco. Admit. <Ambreen Snider - Last Filed: 04/02/18 11:24>
[2018-04-02 10:55] LABS: VENOUS PC02 43.3 mmHg (38-52); VENOUS PH 7.4 (7.32-7.42); VENOUS PO2 52.9 mmHg (28-48)
[2018-04-02 11:03] LABS: BASO % 0.4 % (0-2.0); HEMATOCRIT 32.1 % (35.4-49); HEMOGLOBIN 11.2 GM/dL (11.7-16.9); LYMPH % 14.8 % (8-40); MCH 32.6 pg (25.7-33.7); MEAN CELL VOLUME 93.1 fl (80-96); MEAN PLT VOLUME 8.3 fl (7.5-11.1); MONO % 12.7 % (3.8-10.2); NEUT % 71.1 % (42.8-82.8); PLATELET COUNT 225 K/MM3 (134-434); RBC 3.45 M/mm3 (4.00-5.60); RDW 14.2 % (11.9-15.9); WHITE BLOOD COUNT 10.1 K/mm3 (4.0-10.0)
[2018-04-02 11:08] LABS: INR 1.02 (0.83-1.09)
[2018-04-02 11:11] LABS: ACTIVATED PTT 22.6 SECONDS (25.2-36.5)
[2018-04-02 11:14] LABS: METHADONE, UR NEGATIVE ng/ml (CUTOFF=300); PHENCYCLIDINE,URINE NEGATIVE ng/ml (CUTOFF=25); URINE AMPHETAMINES NEGATIVE ng/ml (CUTOFF=500); URINE BARBITURATES NEGATIVE ng/ml (CUTOFF=200)
[2018-04-02 11:18] LABS: COCAINE, UR POSITIVE ng/ml (CUTOFF=300); OPIATES, URI POSITIVE ng/ml (CUTOFF=300); URINE BENZODIAZEPINES POSITIVE ng/ml (CUTOFF=200)
[2018-04-02 11:22] LABS: URINE APPEARANCE CLEAR; URINE BILIRUBIN NEGATIVE (<2.0 mg/dL); URINE COLOR YELLOW; URINE GLUCOSE (UA) NEGATIVE (NEGATIVE); URINE KETONE NEGATIVE (NEGATIVE); URINE LEUK ESTERASE NEGATIVE (NEGATIVE); URINE NITRITE NEGATIVE (NEGATIVE); URINE PROTEIN 1+ (NEGATIVE)
[2018-04-02 11:25] LABS: ALBUMIN 3.5 g/dl (3.4-5.0); ALK PHOS 76 U/L (45-117); ANION GAP 9 MMOL/L (8-16); BILIRUBIN,TOTAL 0.4 mg/dL (0.2-1); BLOOD UREA NITROGEN 15 mg/dL (7-18); CALCIUM 7.9 mg/dL (8.5-10.1); CHLORIDE 100 mmol/L (98-107); CO2 26 mmol/L (21-32); CREATININE 1.1 mg/dL (0.55-1.3); GLUCOSE,RANDOM 138 mg/dL (74-106); POTASSIUM 3.8 mmol/L (3.5-5.1); SGOT/AST 124 U/L (15-37); SGPT/ALT 91 U/L (13-61); SODIUM 134 mmol/L (136-145); TOT PROT 6.6 g/dl (6.4-8.2)
[2018-04-02 11:42] LABS: URINE MUCUS FEW
[2018-04-02] MEDS ORDERED: CLINDAMYCIN 600MG PREMIX IVPB 600 MG/50 ML BAG IVPB ONE ×2 (11:48→13:05)
--- NOTE | 2018-04-02 12:13 | EKG ---
Test Reason : Blood Pressure : / mmHG Vent. Rate : 089 BPM Atrial Rate : 089 BPM P-R Int : 132 ms QRS Dur : 082 ms QT Int : 344 ms P-R-T Axes : 058 070 047 degrees QTc Int : 418 ms NORMAL SINUS RHYTHM NORMAL ECG WHEN COMPARED WITH ECG OF 08-SEP-2017 02:00, NO SIGNIFICANT CHANGE WAS FOUND Confirmed by MD RU, RAJAN ([id number]) on 04/02/2018 12:13:23 PM Referred By: Confirmed By:RAJAN VENCES MD
[2018-04-02] MEDS ORDERED: MORPHINE SULFATE 2 MG/ML VIAL IVPUSH ONE (15:05)
[2018-04-02] MEDS ORDERED: oxyCODONE HCL 5 MG TABLET PO PRN (15:06)
--- NOTE | 2018-04-02 15:12 | HP ---
Admitting History and Physical - Admission Chief Complaint: R foot pain History of Present Illness: 42 year old with a pmhx depression, hypothyroidism, GERD, Nicotine Dependence, PSA and IVDA presented to the ED with 3 days of pain to R foot. He had a blister from playing soccer which broke open. His last use of heroine was 2 days ago. He says he uses clean needles, and only uses on his UE. He has fever and chills and foot pain. History Source: Patient Limitations to Obtaining History: No Limitations - Past Medical History Endocrine: Yes: Hypothyroidism - Smoking History Smoking history: Never smoked Have you smoked in the past 12 months: Yes Aproximately how many cigarettes per day: 20 - Alcohol/Substance Use Hx Alcohol Use: No History of Substance Use: reports: Heroin Date of Last Use: 07/09/17 - Social History Usual Living Arrangement: Yes: Alone Home Medications - Allergies Allergies/Adverse Reactions: Allergies Allergy/AdvReac Type Severity Reaction Status Date / Time Fish Containing Products Allergy Verified 09/08/17 02:14 - Home Medications Home Medications: Ambulatory Orders NK [No Known Home Medication] 04/02/18 Family Disease History - Family Disease History Family Disease History: Other: Father (living, healthy), Mother (living, healthy ), Brother (younger etoh/drugs), Sister (living, depression) Review of Systems - Review of Systems Constitutional: reports: Chills, Fever Eyes: reports: No Symptoms HENT: reports: No Symptoms Neck: reports: No Symptoms Cardiovascular: reports: No Symptoms Respiratory: reports: No Symptoms Gastrointestinal: reports: No Symptoms Genitourinary: reports: No Symptoms Musculoskeletal: reports: Extremity Pain Integumentary: reports: No Symptoms 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: reports: No Symptoms Endocrine: reports: No Symptoms Hematology/Lymphatic: reports: No Symptoms Psychiatric: reports: No Symptoms Physical Examination Vital Signs: Vital Signs Temperature 98 F 04/02/18 14:50 Pulse Rate 73 04/02/18 14:50 Respiratory Rate 18 04/02/18 14:50 Blood Pressure 121/79 04/02/18 14:50 O2 Sat by Pulse Oximetry (%) 98 04/02/18 14:50 Constitutional: Yes: Mild Distress Eyes: Yes: Conjunctiva Clear HENT: Yes: Nasal Congestion Neck: Yes: Supple Cardiovascular: Yes: Regular Rate and Rhythm, S1, S2 Respiratory: Yes: Regular, CTA Bilaterally Gastrointestinal: Yes: Normal Bowel Sounds, Soft, Abdomen, Obese Extremities: Yes: Other (R foot blister open plantar side of great toe, tender, warm, red) Edema: Yes (RLE ) Peripheral Pulses WNL: Yes Integumentary: Yes: Erythema 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: Yes: Alert, Oriented, Cran Nerves II-XII Intact ...Motor Strength: WNL Labs: CBC, BMP 04/02/18 10:37 04/02/18 10:37 Imaging - Results X-ray: Pending, Report Reviewed (foot xray) Problem List - Problems (1) Cellulitis Code(s): L03.90 - CELLULITIS, UNSPECIFIED Qualifiers: Site of cellulitis: extremity Site of cellulitis of extremity: toe Laterality: right Qualified Code(s): L03.031 - Cellulitis of right toe (2) Sepsis Code(s): A41.9 - SEPSIS, UNSPECIFIED ORGANISM Qualifiers: Sepsis type: sepsis due to unspecified organism Qualified Code(s): A41.9 - Sepsis, unspecified organism (3) Cellulitis of right leg Code(s): L03.115 - CELLULITIS OF RIGHT LOWER LIMB (4) Drug abuse and dependence Code(s): F19.20 - OTHER PSYCHOACTIVE SUBSTANCE DEPENDENCE, UNCOMPLICATED (5) History of - hypothyroidism Code(s): Z86.39 - PERSONAL HISTORY OF ENDO, NUTRITIONAL AND METABOLIC DISEASE Assessment/Plan 42 year old male with pmhx of hypothyroid, IVDU last use 2 days ago heroine, admitted with R foot cellulitis x3 days. Plan: 1. Sepsis d/t cellulitis of R foot - Give x1 dose vanco 1250mg - Start zosyn q8 - Foot xray pending - Lactic acid wnl - Cont IVF - Blood cx pending - ID consulted 2. IVDU - Give morphine 2mg x1 now - Start oxycodone - Dr. Weiss substance abuse, aware will see patient 3. Hypothyroid - Cont synthroid 4. DVT ppx - Heparin sq Visit type - Emergency Visit Emergency Visit: Yes ED Registration Date: 04/02/18 Care time: The patient presented to the Emergency Department on the above date and was hospitalized for further evaluation of their emergent condition. - New Patient This patient is new to me today: Yes Date on this admission: 04/02/18 - Critical Care Critical Care patient: No
[2018-04-02 15:59] VITALS: BMI 31.6
[2018-04-02] MEDS ORDERED: VANCOMYCIN 1,250 MG in DEXTROSE 5%-WATER - 250 ML IVPB ONE (16:00)
[2018-04-02] MEDS ORDERED: PIPERACILLIN/TAZOBACTAM 3.375 GM VIAL IVPB ONE ×2 (16:27→22:50)
[2018-04-02] MEDS ORDERED: DEXTROSE 5%-WATER - 50 ML IVPB ONE (16:27)
--- NOTE | 2018-04-02 16:30 | PN ---
Progress Note (short form) - Note Progress Note: ID consult dictated imp/reccd 42 yo man former ivdu, still sniffs heroin, came to ED with four day history of fever and chills painful right foot with open blister on the plantar surface he was playing soccer without socks no cough no nausea or diarrhea denies IVDU still sniffs heroin in ER had fever to 101.4 cultures drawn and given clindamycin xray of foot pending fever in drug user mild cellulitis of the foot blood cultures empiric vancomycin and zosyn pending cultures f/u xray of foot detox consult hiv testing/hep c testing- patient consents d/w hospitalist Problem List - Problems (1) Fever Code(s): R50.9 - FEVER, UNSPECIFIED (2) Cellulitis of right leg Code(s): L03.115 - CELLULITIS OF RIGHT LOWER LIMB (3) Drug abuse and dependence Code(s): F19.20 - OTHER PSYCHOACTIVE SUBSTANCE DEPENDENCE, UNCOMPLICATED
[2018-04-02] MEDS: PIPERACILLIN/TAZOB 3.375 GM 3.375 GM in DEXTROSE 5%-WATER - 50 ML IVPB SCH ×2 (16:52→23:04)
[2018-04-02] MEDS: SODIUM CHLORIDE 1,000 ML IV SCH (16:52)
[2018-04-02] MEDS: HEPARIN NA (PORCINE) 5,000 UNITS/ML 1ML VIAL SQ SCH ×2 (16:56→23:04)
--- NOTE | 2018-04-02 17:47 | PN ---
[facility] COWS - Scale Resting Pulse: 0= KS 80 or Below Sweatin= Chills/Flushing Restless Observation: 3= Extraneous Movement Pupil Size: 0= Normal to Room Light Bone or Joint Aches: 2= Severe Diffuse Aches Runny Nose/ Eye Tearin= Nasal Congestion GI Upset > 30mins: 1= Stomach Cramp Tremor Observation of Outstretched Hands: 0= None Yawning Observation: 0= None Anxiety or Irritability: 1=Feels Anxious/Irritable Goose Flesh Skin: 0=Smooth Skin COWS Score: 9 BHS Progress Note (SOAP) Subjective: patient referred for consultation , 42 y.o. male w/ opioid dependence , reports 6-7 bags of heroin IVDU in arlyn UE , latest use yesterday morning, needles from exchange program, denies sharing or re-using, denies abscess, denies OD , detox x 10 , rehab x 3 most recently July 2017 @ [facility] , previous MMTP at [facility] MDD 70 mg stopped when incarcerated . Heroin first age of use 18 , with intermittent periods of sobriety , longest 1 yr when working . Currently unemployed . cocaine 3-4 bags/day IVDU . tobacco : 1 ppd denies other illicits ETOH dependence by history from [facility] - denies current use PMHX : depression, GERD , hypothyroidism , foot cellulitis - presented to ED w/ foot pain , currently on IV ABx . Active Medications Heparin Sodium (Porcine) (Heparin -) 5,000 unit SQ TID MAYA Last Admin: 04/02/18 16:56 Dose: 5,000 unit Piperacillin Sod/Tazobactam (Sod 3.375 gm/ Dextrose) 50 mls @ 100 mls/hr IVPB Q8H-IV MAYA; Protocol Stop: 04/03/18 15:14 Last Admin: 04/02/18 16:52 Dose: 100 mls/hr Sodium Chloride (Normal Saline -) 1,000 mls @ 100 mls/hr IV ASDIR MAYA Last Admin: 04/02/18 16:52 Dose: 100 mls/hr Vancomycin HCl 1,250 mg/ (Dextrose) 250 mls @ 166.667 mls/hr IVPB Q12H MAYA; Protocol Oxycodone HCl (Roxicodone -) 5 mg PO Q4H PRN PRN Reason: PAIN LEVEL 1-5 Patient Name: Trevin Olmos Date: 1975 Address: [address] [place] [address] Sex: Male Rx Written Rx Dispensed Drug Quantity Days Supply Prescriber Name 07/24/2017 07/24/2017 suboxone 8 mg-2 mg sl film 15 15 Kyree Kirby MD Patient Name: Trevin Olmos Date: 1975 Address: [address] [place] [address] [place] [address] Sex: Male Rx Written Rx Dispensed Drug Quantity Days Supply Prescriber Name 04/19/2017 04/19/2017 chlordiazepoxide 25 mg capsule 12 3 Ryan Us Objective: WNWD , resting in bed , current symptoms as above , + track valdez arlyn UE LEFT > Right Vital Signs - 24 hr 04/02/18 04/02/18 04/02/18 09:45 09:53 12:00 Temperature 101.4 F H 99.2 F Pulse Rate 97 H Pulse Rate [ 77 Right Radial] Respiratory 17 17 Rate Blood Pressure 128/74 Blood Pressure 98/59 L [Left Arm] O2 Sat by Pulse 95 98 96 Oximetry (%) 04/02/18 04/02/18 04/02/18 13:07 14:50 15:51 Temperature 98 F 98.1 F Pulse Rate 72 Pulse Rate [ 79 73 Right Radial] Respiratory 18 18 18 Rate Blood Pressure 100/55 L Blood Pressure 119/59 L 121/79 [Left Arm] O2 Sat by Pulse 98 98 Oximetry (%) 04/02/18 17:30 Temperature Pulse Rate Pulse Rate [ Right Radial] Respiratory 18 Rate Blood Pressure Blood Pressure [Left Arm] O2 Sat by Pulse 98 Oximetry (%) CBC, BMP 04/02/18 10:37 04/02/18 10:37 Abnormal Lab Results 04/02/18 04/02/18 04/02/18 10:37 10:37 10:37 WBC 10.1 H RBC 3.45 L Hgb 11.2 L Hct 32.1 L Monocytes % 12.7 H PTT (Actin FS) 22.6 L POC VBG pO2 Mixed VBG HCO3 Sodium Random Glucose Lactic Acid Calcium AST ALT Urine Protein 1+ H Opiates Screen Benzodiazepines Screen Cocaine Screen 04/02/18 04/02/18 04/02/18 10:37 10:37 10:37 WBC RBC Hgb Hct Monocytes % PTT (Actin FS) POC VBG pO2 52.9 H Mixed VBG HCO3 26.4 H Sodium 134 L Random Glucose 138 H Lactic Acid 2.3 H* Calcium 7.9 L AST 124 H ALT 91 H Urine Protein Opiates Screen Benzodiazepines Screen Cocaine Screen 04/02/18 10:37 WBC RBC Hgb Hct Monocytes % PTT (Actin FS) POC VBG pO2 Mixed VBG HCO3 Sodium Random Glucose Lactic Acid Calcium AST ALT Urine Protein Opiates Screen Positive A* Benzodiazepines Screen Positive A* Cocaine Screen Positive A* 04/02/18 18:50 Assessment: opiate dependence in withdrawal cocaine dependence nicotine dependence alcohol dependence 04/02/18 18:50 Plan: Methadone taper , d/c ROxicodone Pt to consider outpatient program upon d/c . discussed with patient at length , agreeable w/ POC
--- NOTE | 2018-04-02 17:56 | CONS ---
DATE OF CONSULTATION: DATE OF CONSULTATION: 04/02/2018 INFECTIOUS DISEASE CONSULTATION REQUESTED BY: Hospitalist Service HISTORY OF PRESENT ILLNESS: The patient is a 42-year-old man, a former IV drug user who still sniffs heroin, who came to the ER with a 4-day history of fevers and chills as well as a painful right foot with an open blister on the plantar surface. He reports he was playing soccer without socks. He has no cough, nausea or diarrhea. He denies IV drug use but still sniffs heroin. A urine toxicology screen in the emergency room was positive for opiates, benzodiazepines and cocaine. In the emergency room, he had a fever to 101.4. Cultures were drawn and he was given clindamycin. An x-ray of his right foot is pending. A chest x-ray is negative. PAST MEDICAL HISTORY: Notable for hypothyroidism. He was hospitalized here last July with a dental abscess. ALLERGIES: FISH-CONTAINING PRODUCTS. HOME MEDICATIONS: Synthroid as an outpatient. SOCIAL HISTORY: He lives in the community. He is still a substance user. He lives alone. He smokes 20 cigarettes a day. FAMILY HISTORY: Notable for a brother who is a substance user and a sister with depression. REVIEW OF SYSTEMS: Notable for chills and fever. PHYSICAL EXAMINATION: General: He is awake and alert, in no acute distress. Vital Signs: Current temperature is 98.1. T-max was 101.4. Pulse 72. Blood pressure 100/55. Respiratory rate 18. HEENT: Normocephalic. His eyes are anicteric. He has no conjunctival hemorrhages. He has no thrush. Neck: Supple. Lungs: Clear to auscultation. Heart: Regular rate and rhythm. Abdomen: Soft, nontender. Extremities: Notable for a painful blister on the plantar surface of his right foot with minimal erythema. A chest x-ray is negative for infiltrate. In summary, this is a 42-year-old man, a substance user, with fever and mild cellulitis of the right foot. I would obtain blood cultures, which has been done, give him empiric vancomycin and Zosyn pending the cultures. Follow up x-ray of his foot. He needs a detox consult. He has consented to HIV and hepatitis C testing as well. The case was discussed with the hospitalist. JASON MARQUEZ M.D. /[id number]
[2018-04-02] MEDS: VANCOMYCIN 1,250 MG in DEXTROSE 5%-WATER - 250 ML IVPB SCH (18:09)
[2018-04-02] MEDS ORDERED: METHADONE HCL 10 MG TABLET PO ONE ×2 (18:15→23:00)
[2018-04-02] MEDS ORDERED: DEXTROSE 5%-WATER - 100 ML IVPB ONE (22:50)
[2018-04-03] MEDS ORDERED: MAG HYDROX/AL HYDROX/SIMETH 30 ML UNIT-DOSE CUP PO ONE (00:08)
[2018-04-03] MEDS: PIPERACILLIN/TAZOB 3.375 GM 3.375 GM in DEXTROSE 5%-WATER - 50 ML IVPB SCH ×2 (02:05→09:13)
[2018-04-03] MEDS: VANCOMYCIN 1,250 MG in DEXTROSE 5%-WATER - 250 ML IVPB SCH ×2 (04:13→17:29)
[2018-04-03] MEDS: HEPARIN NA (PORCINE) 5,000 UNITS/ML 1ML VIAL SQ SCH ×3 (06:31→21:57)
[2018-04-03 07:36] LABS: BASO % 0.5 % (0-2.0); EOS % 3.9 % (0-4.5); HEMATOCRIT 32.7 % (35.4-49); HEMOGLOBIN 11.3 GM/dL (11.7-16.9); LYMPH % 18.9 % (8-40); MCH 32.3 pg (25.7-33.7); MCHC 34.5 g/dl (32.0-35.9); MEAN CELL VOLUME 93.4 fl (80-96); MEAN PLT VOLUME 8.5 fl (7.5-11.1); MONO % 12.4 % (3.8-10.2); NEUT % 64.3 % (42.8-82.8); PLATELET COUNT 215 K/MM3 (134-434); RDW 14.3 % (11.9-15.9); WHITE BLOOD COUNT 9.5 K/mm3 (4.0-10.0)
[2018-04-03 08:07] LABS: ALK PHOS 68 U/L (45-117); ANION GAP 4 MMOL/L (8-16); BILIRUBIN,TOTAL 0.4 mg/dL (0.2-1); BLOOD UREA NITROGEN 11 mg/dL (7-18); CALCIUM 7.4 mg/dL (8.5-10.1); CHLORIDE 105 mmol/L (98-107); CO2 27 mmol/L (21-32); CREATININE 0.8 mg/dL (0.55-1.3); GLUCOSE,RANDOM 103 mg/dL (74-106); POTASSIUM 3.9 mmol/L (3.5-5.1); SGOT/AST 85 U/L (15-37); SGPT/ALT 76 U/L (13-61); SODIUM 137 mmol/L (136-145)
[2018-04-03] MEDS ORDERED: DEXTROSE 5%-WATER - 50 ML IVPB ONE (08:52)
[2018-04-03] MEDS ORDERED: PIPERACILLIN/TAZOBACTAM 3.375 GM VIAL IVPB ONE (08:52)
[2018-04-03] MEDS: SODIUM CHLORIDE 1,000 ML IV SCH ×2 (09:14→16:04)
[2018-04-03] MEDS ORDERED: RANITIDINE HCL 150 MG TABLET (FP) PO ONE (09:23)
[2018-04-03] MEDS ORDERED: METHADONE HCL 10 MG TABLET PO ONE (10:00)
--- NOTE | 2018-04-03 11:07 | PN ---
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 04/02/18 10:37 Blood - Peripheral Venous Blood Culture - Preliminary NO GROWTH OBTAINED AFTER 24 HOURS, INCUBATION TO CONTINUE FOR 4 DAYS. 04/02/18 10:37 Urine - Urine Clean Catch Urine Culture - Final a/p fever in drug user-resolved mild cellulitis of the foot opiod withdrawal blood cultures empiric vancomycin and zosyn pending cultures hiv testing/hep c testing- patient consents Problem List - Problems (1) Fever Code(s): R50.9 - FEVER, UNSPECIFIED (2) Cellulitis of right leg Code(s): L03.115 - CELLULITIS OF RIGHT LOWER LIMB (3) Drug abuse and dependence Code(s): F19.20 - OTHER PSYCHOACTIVE SUBSTANCE DEPENDENCE, UNCOMPLICATED
--- NOTE | 2018-04-03 12:28 | PN ---
Progress Note (short form) - Note Progress Note: Subjective: The patient was seen and examined at the bedside, he has no complaints at this time. Refusing HIV testing Podiatry consult for right foot non-healing blister Continue Vanco and Zosyn for now Current Medications Generic Name Dose Route Start Last Admin Trade Name Dexterq PRN Reason Stop Dose Admin Heparin Sodium (Porcine) 5,000 unit 04/02/18 15:30 04/03/18 06:31 Heparin - SQ 5,000 unit TID MAYA Administration Piperacillin Sod/Tazobactam 50 mls @ 100 mls/hr 04/02/18 15:15 04/03/18 09:13 Sod 3.375 gm/ Dextrose IVPB 04/03/18 15:14 100 mls/hr Q8H-IV MAYA Administration Protocol Sodium Chloride 1,000 mls @ 100 mls/hr 04/02/18 15:22 04/03/18 09:14 Normal Saline - IV 100 mls/hr ASDIR MAYA Administration Vancomycin HCl 1,250 mg/ 250 mls @ 166.667 mls/hr 04/02/18 16:45 04/03/18 04: 13 Dextrose IVPB 166.667 mls/hr Q12H MAYA Administration Protocol Methadone HCl 15 mg 04/04/18 10:00 Dolophine - PO 04/04/18 10:01 ONCE ONE Methadone HCl 5 mg 04/06/18 06:00 Dolophine - PO 04/06/18 06:01 ONCE@0600 ONE Methadone HCl 10 mg 04/05/18 10:00 Dolophine - PO 04/05/18 10:01 ONCE ONE Objective: Vital Signs Period Temp Pulse Resp BP Sys/[place] Pulse Ox Last 24 Hr 98 F-98.7 F 67-87 17-20 100-130/54-79 98-100 Physical Exam: General: NAD, A&Ox3 Lungs: CTA bilaterally Heart: RRR, S1S2 Abd: Soft, non-tender, non-distended. Normoactive bowel sounds Ext: Right foot with plantar ulcer, no drainage, no fluctuance, tender CBCD WBC 9.5 K/mm3 (4.0-10.0) 04/03/18 06:30 RBC 3.50 M/mm3 (4.00-5.60) L 04/03/18 06:30 Hgb 11.3 GM/dL (11.7-16.9) L 04/03/18 06:30 Hct 32.7 % (35.4-49) L 04/03/18 06:30 MCV 93.4 fl (80-96) 04/03/18 06:30 MCHC 34.5 g/dl (32.0-35.9) 04/03/18 06:30 RDW 14.3 % (11.9-15.9) 04/03/18 06:30 Plt Count 215 K/MM3 (134-434) 04/03/18 06:30 MPV 8.5 fl (7.5-11.1) 04/03/18 06:30 CMP Sodium 137 mmol/L (136-145) 04/03/18 06:30 Potassium 3.9 mmol/L (3.5-5.1) 04/03/18 06:30 Chloride 105 mmol/L (98-107) 04/03/18 06:30 Carbon Dioxide 27 mmol/L (21-32) 04/03/18 06:30 Anion Gap 4 MMOL/L (8-16) L 04/03/18 06:30 BUN 11 mg/dL (7-18) 04/03/18 06:30 Creatinine 0.8 mg/dL (0.55-1.3) 04/03/18 06:30 Creat Clearance w eGFR > 60 (>60) 04/03/18 06:30 Random Glucose 103 mg/dL (74-106) 04/03/18 06:30 Calcium 7.4 mg/dL (8.5-10.1) L 04/03/18 06:30 Total Bilirubin 0.4 mg/dL (0.2-1) 04/03/18 06:30 AST 85 U/L (15-37) H 04/03/18 06:30 ALT 76 U/L (13-61) H 04/03/18 06:30 Alkaline Phosphatase 68 U/L (45-117) 04/03/18 06:30 Total Protein 6.0 g/dl (6.4-8.2) L 04/03/18 06:30 Albumin 3.0 g/dl (3.4-5.0) L 04/03/18 06:30 CARDIAC ENZYMES Troponin I 0.02 ng/ml (0.00-0.05) 04/02/18 10:37 Microbiology 04/02/18 18:14 Foot - Left Plantar Gram Stain - Final 04/02/18 10:20 Blood - Peripheral Venous Blood Culture - Preliminary NO GROWTH OBTAINED AFTER 24 HOURS, INCUBATION TO CONTINUE FOR 4 DAYS. 04/02/18 10:37 Blood - Peripheral Venous Blood Culture - Preliminary NO GROWTH OBTAINED AFTER 24 HOURS, INCUBATION TO CONTINUE FOR 4 DAYS. 04/02/18 10:37 Urine - Urine Clean Catch Urine Culture - Final Assessment: This is a 42 year old male with PMHx of hypothyroid, IVDU last use 3 days ago heroine, admitted with R foot cellulitis x3 days. Plan: 1) Right foot cellulitis - Fevers resolved - Follow blood cultures, NGTD - WBC wnl - Continue Zosyn - Continue Vancomycin - F/u podiatry consult for wound care of non-healing plantar blister on right foot - Appreciate ID consult 2. IVDU - Methadone taper through 04/06 - Appreciate detox consult 3. Hypothyroid - Patient does not know synthroid dose. TSH wnl, will hold doses until his dose can be confirmed 4. DVT ppx - Heparin sq Visit type - Emergency Visit Emergency Visit: Yes ED Registration Date: 04/02/18 Care time: The patient presented to the Emergency Department on the above date and was hospitalized for further evaluation of their emergent condition. - New Patient This patient is new to me today: Yes Date on this admission: 04/03/18 - Critical Care Critical Care patient: No
[2018-04-03] MEDS ORDERED: PANTOPRAZOLE SODIUM 40 MG VIAL IVPUSH ONE (14:49)
[2018-04-03] MEDS ORDERED: ACETAMINOPHEN 325 MG TABLET (FP) PO STA (20:34)
--- NOTE | 2018-04-03 22:11 | CONSULT ---
Consult Consult Specialty:: Podiatry Reason for Consultation:: Cellulitis right foot. Cellulitis/hematoma 4th toe left - History of Present Illness Chief Complaint: Painful right big toe nail. Wound Plantar right foot. Blister cellulitis 4th toe left. Patient states he caused all of them. History of Present Illness: Personal created wounds. - History Source History Provided By: Patient - Past Medical History Endocrine: Yes: Hypothyroidism - Alcohol/Substance Use Hx Alcohol Use: No History of Substance Use: reports: Heroin Date of Last Use: 07/09/17 - Smoking History Smoking history: Never smoked Have you smoked in the past 12 months: Yes Aproximately how many cigarettes per day: 20 - Social History Usual Living Arrangement: Alone Home Medications - Allergies Allergies/Adverse Reactions: Allergies Allergy/AdvReac Type Severity Reaction Status Date / Time Fish Containing Products Allergy Verified 09/08/17 02:14 - Home Medications Home Medications: Ambulatory Orders NK [No Known Home Medication] 04/02/18 Family Disease History - Family Disease History Family Disease History: Other: Father (living, healthy), Mother (living, healthy ), Brother (younger etoh/drugs), Sister (living, depression) Physical Exam Vital Signs: Vital Signs Temperature 98.8 F 04/03/18 18:55 Pulse Rate 72 04/03/18 18:55 Respiratory Rate 20 04/03/18 18:55 Blood Pressure 118/72 04/03/18 18:55 O2 Sat by Pulse Oximetry (%) 100 04/03/18 09:00 Extremities: Yes: Other (hypertrophic mycotic hallux nail right, +pretrophic wound plantar right foot, +blister hematoma 4th toe, wbc=9.5) Labs: CBC, BMP 04/03/18 06:30 04/03/18 06:30 Assessment/Plan onychomycosis blister grade 1 wound plantar right foot submet 1 Reviewed xray right. Betadine dressing 4th toe left. Santyl to right big toe nail area. Betadine plantar right foot.
[2018-04-04] MEDS: VANCOMYCIN 1,250 MG in DEXTROSE 5%-WATER - 250 ML IVPB SCH ×2 (05:33→16:39)
[2018-04-04] MEDS: HEPARIN NA (PORCINE) 5,000 UNITS/ML 1ML VIAL SQ SCH ×2 (05:35→14:17)
[2018-04-04] MEDS: SODIUM CHLORIDE 1,000 ML IV SCH (06:06)
[2018-04-04 08:51] VITALS: TEMP 98.5
[2018-04-04] MEDS ORDERED: METHADONE HCL 5 MG TABLET PO ONE (10:00)
[2018-04-04] MEDS ORDERED: COLLAGENASE CLOSTRIDIUM HIST. 30 GRAMS TUBE TP SCH (10:00)
[2018-04-04] MEDS ORDERED: POVIDONE-IODINE OINTMENT 10% - 28.4 GM TUBE TP SCH (10:30)
--- NOTE | 2018-04-04 11:00 | PN ---
Progress Note (short form) - Note Progress Note: 42yo M h/o polysubstance abuse with b/l foot wounds, was requested for vascular consult. Pt currently being seen by Podiatry Dr. Aguirre. Pt denies any history of vascular problems. Smokes 1ppd x 30 years Last Vital Signs Temp Pulse Resp BP Pulse Ox 98.5 F 72 20 128/74 100 04/04/18 08:48 04/04/18 08:48 04/04/18 08:48 04/04/18 08:48 04/03/18 21:00 CBC, BMP 04/03/18 06:30 04/03/18 06:30 PE: Gen: A&O x3 Resp: breathing comfortably Ext: Right foot 3 cm plantar wound, no erythema or drainage. +2 pedal pulses b/l Problem List - Problems (1) Cellulitis of right leg Assessment/Plan: Plan -no vascular surgery interventions needed at this time -podiatry for wound care -please contact if any new vascular issues. Code(s): L03.115 - CELLULITIS OF RIGHT LOWER LIMB
--- NOTE | 2018-04-04 11:56 | PN ---
Physical Exam: SUBJECTIVE: Patient seen and examined no fever, chills. Pt states foot tenderness improved. Denies withdrawal symptoms. OBJECTIVE: Vital Signs Period Temp Pulse Resp BP Sys/[place] Pulse Ox Last 24 Hr 98.5 F-98.8 F 63-77 20-20 118-128/57-74 100 PE Neuro: alert, awake, cn 2-12intact Pulm: CTAB CV: s1 s2 rrr no mrg Abd: s nt nd + bs Ext: R plantar wound no drainage, drying, swelling decreased, L foot 4th toe blister, Laboratory Results - last 24 hr 04/04/18 08:10 HIV 1&2 Antibody Screen Negative HIV P24 Antigen Negative Active Medications Generic Name Dose Route Start Last Admin Trade Name Freq PRN Reason Stop Dose Admin Collagenase 1 applic 04/04/18 10:00 04/04/18 09:22 Santyl - TP 1 applic DAILY MAYA Administration Protocol Heparin Sodium (Porcine) 5,000 unit 04/02/18 15:30 04/04/18 05:35 Heparin - SQ 5,000 unit TID MAYA Administration Vancomycin HCl 1,250 mg/ 250 mls @ 166.667 mls/hr 04/02/18 16:45 04/04/18 05: 33 Dextrose IVPB 166.667 mls/hr Q12H MAYA Administration Protocol Methadone HCl 5 mg 04/06/18 06:00 Dolophine - PO 04/06/18 06:01 ONCE@0600 ONE Methadone HCl 10 mg 04/05/18 10:00 Dolophine - PO 04/05/18 10:01 ONCE ONE Povidone Iodine 1 applic 04/04/18 10:30 Betadine 10% Ointment - TP DAILY [facility] Microbiology 04/02/18 10:37 Blood Culture - Preliminary Blood - Peripheral Venous NO GROWTH OBTAINED AFTER 48 HOURS, INCUBATION TO CONTINUE FOR 3 DAYS. 04/02/18 10:20 Blood Culture - Preliminary Blood - Peripheral Venous NO GROWTH OBTAINED AFTER 48 HOURS, INCUBATION TO CONTINUE FOR 3 DAYS. 04/02/18 18:14 Gram Stain - Final Foot - Left Plantar Wound Culture - Preliminary Presumptive Mrsa (Pbp2a Pos) 04/02/18 10:37 Urine Culture - Final Urine - Urine Clean Catch Assessment: This is a 42 year old male with PMHx of hypothyroid, IVDU last use 3 days ago heroine, admitted with R foot cellulitis x3 days. Plan: 1. Right foot cellulitis - Continue Zosyn - Continue Vancomycin - Per podiatry no acute intervention at this time - Awaiting final cultures - Abx per ID 2. IVDU - Methadone taper through 04/06 3. Hypothyroid - Patient does not know synthroid dose. TSH wnl, will hold doses until his dose can be confirmed 4. DVT ppx - Heparin sq Problem List - Problems (1) Cellulitis Code(s): L03.90 - CELLULITIS, UNSPECIFIED Qualifiers: Site of cellulitis: extremity Site of cellulitis of extremity: toe Laterality: right Qualified Code(s): L03.031 - Cellulitis of right toe (2) Sepsis Code(s): A41.9 - SEPSIS, UNSPECIFIED ORGANISM Qualifiers: Sepsis type: sepsis due to unspecified organism Qualified Code(s): A41.9 - Sepsis, unspecified organism (3) Cellulitis of right leg Code(s): L03.115 - CELLULITIS OF RIGHT LOWER LIMB (4) Drug abuse and dependence Code(s): F19.20 - OTHER PSYCHOACTIVE SUBSTANCE DEPENDENCE, UNCOMPLICATED (5) History of - hypothyroidism Code(s): Z86.39 - PERSONAL HISTORY OF ENDO, NUTRITIONAL AND METABOLIC DISEASE Visit type - Emergency Visit Emergency Visit: Yes ED Registration Date: 04/02/18 Care time: The patient presented to the Emergency Department on the above date and was hospitalized for further evaluation of their emergent condition. - New Patient This patient is new to me today: No - Critical Care Critical Care patient: No
--- NOTE | 2018-04-04 17:06 | PN ---
Progress Note (short form) - Note Progress Note: continued foot pain Vital Signs Period Temp Pulse Resp BP Sys/[place] Pulse Ox Last 24 Hr 98.5 F-98.8 F 63-77 20-20 118-128/63-74 97-100 cor-rrr lungs clear abd soft,nt ext no edema dressing right foot CBC, BMP 04/03/18 06:30 04/03/18 06:30 Microbiology 04/02/18 10:37 Blood - Peripheral Venous Blood Culture - Preliminary NO GROWTH OBTAINED AFTER 48 HOURS, INCUBATION TO CONTINUE FOR 3 DAYS. 04/02/18 10:20 Blood - Peripheral Venous Blood Culture - Preliminary NO GROWTH OBTAINED AFTER 48 HOURS, INCUBATION TO CONTINUE FOR 3 DAYS. 04/02/18 18:14 Foot - Left Plantar Gram Stain - Final 04/02/18 18:14 Foot - Left Plantar Wound Culture - Preliminary Presumptive Mrsa (Pbp2a Pos) 04/02/18 10:37 Urine - Urine Clean Catch Urine Culture - Final HIV negative a/p fever in drug user-resolved mild cellulitis of the foot opioid withdrawal blood cultures are negative d/c zosyn continue vanco l hopefully switch to po antiibotics in am contact isolation MRSA Problem List - Problems (1) Fever Code(s): R50.9 - FEVER, UNSPECIFIED (2) Cellulitis of right leg Code(s): L03.115 - CELLULITIS OF RIGHT LOWER LIMB (3) Drug abuse and dependence Code(s): F19.20 - OTHER PSYCHOACTIVE SUBSTANCE DEPENDENCE, UNCOMPLICATED
[2018-04-04 17:59] VITALS: BP 136/79; PULSE 74
[2018-04-04] MEDS ORDERED: ACETAMINOPHEN 325 MG TABLET (FP) PO ONE (18:00)
[2018-04-05] MEDS ORDERED: METHADONE HCL 10 MG TABLET PO ONE (10:00)
[2018-04-06] MEDS ORDERED: METHADONE HCL 5 MG TABLET PO ONE (06:00)
== END 2018-04-04 18:36 | disposition left against medical advice (07) | DRG 383 ==
LOC: JER 09:31 → JERBED 14:34 → J7W 15:25
PROVIDERS: ATTEND Nurse Practitioner Acute Care
DX: L03.115 Cellulitis of right lower limb (principal); F14.20 Cocaine dependence, uncomplicated; B95.62 Methicillin resistant Staphylococcus aureus infection as the cause of diseases classified elsewhere; F11.23 Opioid dependence with withdrawal; F10.20 Alcohol dependence, uncomplicated; F13.10 Sedative, hypnotic or anxiolytic abuse, uncomplicated; E03.9 Hypothyroidism, unspecified; L03.116 Cellulitis of left lower limb; E66.9 Obesity, unspecified; Z68.31 Body mass index [BMI] 31.0-31.9, adult; K21.9 Gastro-esophageal reflux disease without esophagitis; F32.9 Major depressive disorder, single episode, unspecified; F17.210 Nicotine dependence, cigarettes, uncomplicated; B35.1 Tinea unguium
CPT/HCPCS: 36415; 71045-TC-FY; 73630-TC-RT-FY; 80053; 80307; 81003; 81015; 82803; 83605; 84443; 84484; 85025; 85610; 85730; 86803; 87040; 87070; 87086; 87186; 87205; 87389; 93005; 93010; 99285-25; J0131; J1644; J7030

== ENCOUNTER 2018-04-09 21:48 | Emergency (ER) | payer OTHER ==
[2018-04-09 21:54] VITALS: BP 134/84; PULSE 84; TEMP 98.2; BMI 29.2
--- NOTE | 2018-04-09 23:16 | PDOC ---
History of Present Illness - General History Source: Patient Exam Limitations: No Limitations - History of Present Illness Initial Comments: 04/09/18 23:30 The patient is a 42 year old male, with a significant past medical history of depression, hypothyroidism, GERD, Nicotine Dependence, PSA and IVDA, who presents to the emergency department for medical clearance. Patient endorses a recent right foot wound which he was admitted for IV antibiotics at which time he signed out AMA. Patient present to [facility] today and a call was made to the ED informing the patient would be accepted once he received medical clearance. He denies any recent fevers, chills, headache or dizziness. He denies any recent nausea, vomit, diarrhea or constipation. He denies any recent chest pain or shortness of breath. He denies any recent dysuria, frequency, urgency or hematuria. Allergies: Fish containing products. <Santo High - Last Filed: 04/09/18 23:36> <Pauline Chappell - Last Filed: 04/10/18 01:11> - General Chief Complaint: Wound Stated Complaint: LACERATION Time Seen by Provider: 04/09/18 23:09 Past History <Santo High - Last Filed: 04/09/18 23:36> - Past Medical History Anemia: No Asthma: No Cancer: No Cardiac Disorders: No CVA: No COPD: No CHF: No DVT: No Dementia: No Diabetes: No GI Disorders: Yes (GERD- Nexium) Disorders: No HTN: No Hypercholesterolemia: No Kidney Stones: No Liver Disease: No Seizures: No Thyroid Disease: Yes (Not on medication) - Surgical History Abdominal Surgery: No Appendectomy: No Cardiac Surgery: No Cholecystectomy: No Lung Surgery: No Neurologic Surgery: No Orthopedic Surgery: No - Reproductive History Testicular Surgery: No - Suicide/Smoking/Psychosocial Hx Smoking History: Unknown if ever smoked Have you smoked in the past 12 months: Yes Number of Cigarettes Smoked Daily: 20 Cigars Per Day: 0 Hx Alcohol Use: Yes Drug/Substance Use Hx: Yes Substance Use Type: Cocaine, Heroin Hx Substance Use Treatment: Yes <Pauline Chappell - Last Filed: 04/10/18 01:11> - Past Medical History Allergies/Adverse Reactions: Allergies Allergy/AdvReac Type Severity Reaction Status Date / Time Fish Containing Products Allergy Verified 09/08/17 02:14 Home Medications: Ambulatory Orders Sulfamethoxazole/Trimethoprim [Bactrim Ds -] 1 tab PO BID #20 tablet 04/10/18 Review of Systems - Review of Systems Able to Perform ROS?: Yes Comments:: 04/09/18 23:30 GENERAL/CONSTITUTIONAL: No fever or chills. No weakness. HEAD, EYES, EARS, NOSE AND THROAT: No change in vision. No ear pain or discharge. No sore throat. GASTROINTESTINAL: No nausea, vomiting, diarrhea or constipation. GENITOURINARY: No dysuria, frequency, or change in urination. CARDIOVASCULAR: No chest pain or shortness of breath. RESPIRATORY: No cough, wheezing, or hemoptysis. MUSCULOSKELETAL: No joint or muscle swelling or pain. No neck or back pain. +SKIN: Small healed ulcer to the plantar aspect of the right foot. NEUROLOGIC: No headache, vertigo, loss of consciousness, or change in strength/ sensation. ENDOCRINE: No increased thirst. No abnormal weight change. HEMATOLOGIC/LYMPHATIC: No anemia, easy bleeding, or history of blood clots. ALLERGIC/IMMUNOLOGIC: No hives or skin allergy. All Other Systems: Reviewed and Negative <Santo High - Last Filed: 04/09/18 23:36> *Physical Exam - Vital Signs Last Vital Signs Temp Pulse Resp BP Pulse Ox 98.2 F 84 18 134/84 98 04/09/18 21:51 04/09/18 21:51 04/09/18 21:51 04/09/18 21:51 04/09/18 21:51 - Physical Exam Comments: 04/09/18 23:37 GENERAL: Awake, in no acute distress HEAD: No signs of trauma EYES: PERRLA, EOMI, sclera anicteric, conjunctiva clear, visual acuity grossly intact ENT: Moist mucosa NECK: Normal ROM, supple, no lymphadenopathy or JVD. LUNGS: Breath sounds equal, clear to auscultation bilaterally. No wheezes, and no crackles. Normal work of breathing. HEART: Regular rate and rhythm, normal S1 and S2, no murmurs, rubs or gallops ABDOMEN: Soft, nontender, normoactive bowel sounds. No guarding. Non- distended. : Deferred. CHEST WALL: BACK: No midline tenderness. EXTREMITIES: Normal range of motion, no edema. No clubbing or cyanosis. No erythema, or tenderness NEUROLOGICAL: Alert, and fully oriented x4, Cranial nerves II through XII grossly intact. Normal speech, normal gait. DTRs 2/4 bilaterally. +SKIN: Healed ulcer right plantar aspect of first MTP <Santo High - Last Filed: 04/09/18 23:36> - Vital Signs Last Vital Signs Temp Pulse Resp BP Pulse Ox 98.2 F 84 18 134/84 98 04/09/18 21:51 04/09/18 21:51 04/09/18 21:51 04/09/18 21:51 04/09/18 21:51 <Pauline Chappell - Last Filed: 04/10/18 01:11> Moderate Sedation - Procedure Monitoring Vital Signs: Procedure Monitoring Vital Signs Temperature 98.2 F 04/09/18 21:51 Pulse Rate 84 04/09/18 21:51 Respiratory Rate 18 04/09/18 21:51 Blood Pressure 134/84 04/09/18 21:51 O2 Sat by Pulse Oximetry (%) 98 04/09/18 21:51 <Santo High - Last Filed: 04/09/18 23:36> - Procedure Monitoring Vital Signs: Procedure Monitoring Vital Signs Temperature 98.2 F 04/09/18 21:51 Pulse Rate 84 04/09/18 21:51 Respiratory Rate 18 04/09/18 21:51 Blood Pressure 134/84 04/09/18 21:51 O2 Sat by Pulse Oximetry (%) 98 04/09/18 21:51 <Pauline Chappell - Last Filed: 04/10/18 01:11> ED Treatment Course - LABORATORY CBC & Chemistry Diagram: 04/09/18 23:52 04/09/18 23:52 <Pauline Chappell - Last Filed: 04/10/18 01:11> Medical Decision Making - Medical Decision Making 04/10/18 00:45 42-year-old male for medical clearance requesting detox from heroin and alcohol EKG shows a normal sinus rhythm at 89 bpm with no acute ST elevations Rhythm strip shows a sinus rhythm at 85-90 bpm Labs were reviewed, urine toxicology is positive for methadone and opiates and cocaine Patient will be medically cleared and escorted back to [facility]/ [facility] <MistiPaulinedeepika Wood - Last Filed: 04/10/18 01:11> *DC/Admit/Observation/Transfer - Attestations Scribe Attestion: 04/09/18 23:31 Documentation prepared by Santo High, acting as emergency medical technician/driver for Pauline Chappell DO. <Santo High - Last Filed: 04/09/18 23:36> - Discharge Dispostion Decision to Admit order: No - Attestations Physician Attestion: 04/10/18 00:59 I, Dr Pauline Chappell, attest that this document has been prepared under my direction and personally reviewed by me in its entirety. I further attest, that it accurately reflects all work, procedures and medical decision making performed by me. <MistiPaulinedeepika Wood - Last Filed: 04/10/18 01:11> Diagnosis at time of Disposition: Polysubstance abuse, MRSA (methicillin resistant staph aureus) culture positive - Discharge Dispostion Disposition: HOME Condition at time of disposition: Stable - Patient Instructions Printed Discharge Instructions: Getting Treatment for Drug Addiction, DI for Methicillin-Resistant Staph Infection (MRSA) Additional Instructions: Repeat cultures were done today. You are not eligible for the detox/ rehabilitation facility we have available at this time because she will require a private room. You may check back at a later date.
[2018-04-10] LABS: HEMATOCRIT 36.4 % (35.4-49); HEMOGLOBIN 12.9 GM/dL (11.7-16.9); MCH 33.5 pg (25.7-33.7); MCHC 35.6 g/dl (32.0-35.9); MEAN CELL VOLUME 94.1 fl (80-96); MEAN PLT VOLUME 7.7 fl (7.5-11.1); PLATELET COUNT 425 K/MM3 (134-434); RBC 3.86 M/mm3 (4.00-5.60); RDW 14.6 % (11.9-15.9); WHITE BLOOD COUNT 10.7 K/mm3 (4.0-10.0)
[2018-04-10 00:29] LABS: URINE APPEARANCE SLCLOUDY; URINE BILIRUBIN NEGATIVE (<2.0 mg/dL); URINE COLOR AMBER; URINE GLUCOSE (UA) NEGATIVE (NEGATIVE); URINE KETONE TRACE (NEGATIVE); URINE LEUK ESTERASE NEGATIVE (NEGATIVE); URINE NITRITE NEGATIVE (NEGATIVE); URINE PROTEIN 2+ (NEGATIVE)
[2018-04-10 00:34] LABS: EPI CELLS RARE /HPF (FEW); URINE BACTERIA RARE /hpf (NONE SEEN); URINE HYALINE CAST 49 /lpf; URINE MUCUS MANY
[2018-04-10 00:42] LABS: ALBUMIN 4.2 g/dl (3.4-5.0); ALK PHOS 100 U/L (45-117); ANION GAP 5 MMOL/L (8-16); BILIRUBIN,TOTAL 0.5 mg/dL (0.2-1); BLOOD UREA NITROGEN 15 mg/dL (7-18); CALCIUM 9.1 mg/dL (8.5-10.1); CHLORIDE 99 mmol/L (98-107); CO2 30 mmol/L (21-32); CREATININE 1.2 mg/dL (0.55-1.3); GLUCOSE,RANDOM 128 mg/dL (74-106); POTASSIUM 4.3 mmol/L (3.5-5.1); SGOT/AST 39 U/L (15-37); SGPT/ALT 58 U/L (13-61); SODIUM 134 mmol/L (136-145); TOT PROT 8.4 g/dl (6.4-8.2)
[2018-04-10 00:43] LABS: PHENCYCLIDINE,URINE NEGATIVE ng/ml (CUTOFF=25); URINE AMPHETAMINES NEGATIVE ng/ml (CUTOFF=500); URINE BARBITURATES NEGATIVE ng/ml (CUTOFF=200); URINE BENZODIAZEPINES NEGATIVE ng/ml (CUTOFF=200)
[2018-04-10 00:44] LABS: COCAINE, UR POSITIVE ng/ml (CUTOFF=300); METHADONE, UR POSITIVE ng/ml (CUTOFF=300); OPIATES, URI POSITIVE ng/ml (CUTOFF=300)
--- NOTE | 2018-04-10 11:37 | EKG ---
Test Reason : Blood Pressure : / mmHG Vent. Rate : 089 BPM Atrial Rate : 089 BPM P-R Int : 140 ms QRS Dur : 074 ms QT Int : 380 ms P-R-T Axes : -12 -18 -02 degrees QTc Int : 462 ms NORMAL SINUS RHYTHM NORMAL ECG WHEN COMPARED WITH ECG OF 02-APR-2018 10:12, QUESTIONABLE CHANGE IN QRS AXIS NON-SPECIFIC CHANGE IN ST SEGMENT IN INFERIOR LEADS Confirmed by RODRIGO GARSIA, NORMA ([id number]) on 04/10/2018 11:36:43 AM Referred By: Confirmed By:NORMA WALLACE MD
== END 2018-04-10 03:33 | disposition home or self-care (01) ==
LOC: JER 21:48
DX: F11.10 Opioid abuse, uncomplicated (principal); F10.10 Alcohol abuse, uncomplicated; E03.9 Hypothyroidism, unspecified; K21.9 Gastro-esophageal reflux disease without esophagitis; F17.210 Nicotine dependence, cigarettes, uncomplicated; Z86.14 Personal history of Methicillin resistant Staphylococcus aureus infection; Y90.0 Blood alcohol level of less than 20 mg/100 ml
CPT/HCPCS: 36415; 80053; 80307; 81003; 81015; 85027; 87081; 93005; 93010; 99281-25

== ENCOUNTER 2018-04-13 12:58 | Inpatient (IN) | payer OTHER ==
[2018-04-13 14:09] VITALS: BMI 29.9
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
[2018-04-13] MEDS ORDERED: MAGNESIUM HYDROX 2400MG/30ML ORAL SUSPENSION 30 ML CUP PO PRN (18:27)
[2018-04-13] MEDS ORDERED: MAGNESIUM CITRATE 300 ML BOTTLE PO PRN (18:27)
[2018-04-13] MEDS ORDERED: P-EPHED 60MG/TRIPROLIDI 2.5MG TABLET PO PRN (18:27)
[2018-04-13] MEDS ORDERED: METHADONE HCL 10 MG TABLET (FOR DETOX USE ONLY) PO ONE ×2 (18:27→23:00)
[2018-04-13] MEDS ORDERED: guaiFENesin/D-METHORPHAN HB 10 ML UNIT-DOSE CUPS PO PRN (18:27)
[2018-04-13] MEDS ORDERED: IBUPROFEN 400 MG TABLET (FP) PO PRN (18:27)
[2018-04-13] MEDS ORDERED: ACETAMINOPHEN 325 MG TABLET (FP) PO PRN (18:27)
[2018-04-13] MEDS ORDERED: LOPERAMIDE HCL 2 MG CAPSULE PO PRN (18:27)
[2018-04-13] MEDS ORDERED: MENTHOL/PHENOL 1 EACH UD MM PRN (18:27)
[2018-04-13] MEDS ORDERED: diazePAM 5 MG TABLET PO ONE (18:27)
[2018-04-13] MEDS ORDERED: hydrOXYzine PAMOATE 50 MG CAPSULE (FP) PO PRN (18:27)
[2018-04-13] MEDS ORDERED: diazePAM 5 MG TABLET PO PRN (18:27)
[2018-04-13] MEDS: MAG HYDROX/AL HYDROX/SIMETH 30 ML UNIT-DOSE CUP PO PRN (20:16)
[2018-04-13] MEDS: MELATONIN 5 MG TABLETS PO PRN (22:06)
[2018-04-13] MEDS: THIAMINE HCL 100 MG TABLET (FP) PO SCH (22:06)
[2018-04-13] MEDS: diazePAM 5 MG TABLET PO SCH (22:06)
[2018-04-14] MEDS: MAG HYDROX/AL HYDROX/SIMETH 30 ML UNIT-DOSE CUP PO PRN (01:29)
[2018-04-14] MEDS: diazePAM 5 MG TABLET PO SCH ×3 (05:41→22:11)
[2018-04-14] MEDS ORDERED: METHADONE HCL 10 MG TABLET (FOR DETOX USE ONLY) PO SCH (10:00)
[2018-04-14] MEDS ORDERED: PATIENT'S OWN MEDICATION (NON-FORMULARY) (Esomeprazole Magnesium [Nexium 24hr] 20 MG) PO SCH (10:00)
[2018-04-14 10:20] LABS: HEMATOCRIT 35.9 % (35.4-49); HEMOGLOBIN 12.2 GM/dL (11.7-16.9); MCH 31.9 pg (25.7-33.7); MCHC 33.9 g/dl (32.0-35.9); MEAN CELL VOLUME 94.2 fl (80-96); MEAN PLT VOLUME 8.2 fl (7.5-11.1); PLATELET COUNT 372 K/MM3 (134-434); RBC 3.81 M/mm3 (4.00-5.60); RDW 14.4 % (11.9-15.9); WHITE BLOOD COUNT 6.5 K/mm3 (4.0-10.0)
[2018-04-14 10:31] LABS: ALBUMIN 3.4 g/dl (3.4-5.0); ALK PHOS 77 U/L (45-117); ANION GAP 4 MMOL/L (8-16); BILIRUBIN,TOTAL 0.4 mg/dL (0.2-1); BLOOD UREA NITROGEN 11 mg/dL (7-18); CALCIUM 8.5 mg/dL (8.5-10.1); CHLORIDE 101 mmol/L (98-107); CO2 30 mmol/L (21-32); GLUCOSE,RANDOM 104 mg/dL (74-106); POTASSIUM 4.3 mmol/L (3.5-5.1); SGOT/AST 66 U/L (15-37); SGPT/ALT 94 U/L (13-61); SODIUM 135 mmol/L (136-145); TOT PROT 6.7 g/dl (6.4-8.2)
[2018-04-14] MEDS: PANTOPRAZOLE 20 MG TABLET (FP) PO SCH (10:39)
[2018-04-14] MEDS: PRENATAL VITAMINS W/ FOLIC ACID TABLET (FP) PO SCH (10:40)
[2018-04-14] MEDS: NICOTINE 21 MG/24 HOURS TOPICAL PATCH TD SCH (10:43)
[2018-04-14 11:33] LABS: URINE APPEARANCE TURBID; URINE BILIRUBIN NEGATIVE (<2.0 mg/dL); URINE COLOR YELLOW; URINE GLUCOSE (UA) NEGATIVE (NEGATIVE); URINE KETONE NEGATIVE (NEGATIVE); URINE LEUK ESTERASE NEGATIVE (NEGATIVE); URINE NITRITE NEGATIVE (NEGATIVE); URINE PROTEIN NEGATIVE (NEGATIVE); URINE UROBILINOGEN NEGATIVE mg/dL (0.2-1.0)
--- NOTE | 2018-04-14 14:51 | PN ---
S CIWA - CIWA Score Nausea/Vomitin-Mild Nausea/No Vomiting Muscle Tremors: 2 Anxiety: 3 Agitation: 1-Slight > Activity Paroxysmal Sweats: 2 Orientation: 1-Uncertain about Date Tacttile Disturbances: 0-None Auditory Disturbances: 0-None Visual Disturbances: 0-None Headache: 2-Mild CIWA-Ar Total Score: 12 BHS COWS - Scale Resting Pulse: 0= [place] 80 or Below Sweatin= Chills/Flushing Restless Observation: 0= Sits Still Pupil Size: 0= Normal to Room Light Bone or Joint Aches: 1= Mild Discomfort Runny Nose/ Eye Tearin= Nasal Congestion GI Upset > 30mins: 2= Nausea/Diarrhea Tremor Observation of Outstretched Hands: 2= Slight Tremor Visible Yawning Observation: 2= >3x During Session Anxiety or Irritability: 2=Irritable/Anxious Goose Flesh Skin: 0=Smooth Skin COWS Score: 11 S Progress Note (SOAP) Subjective: body aches tremor sweating nausea able to tolerate food in small amount Objective: 04/14/18 14:50 Vital Signs Temperature 98.5 F 04/14/18 13:33 Pulse Rate 99 H 04/14/18 13:33 Respiratory Rate 16 04/14/18 13:33 Blood Pressure 128/76 04/14/18 13:33 O2 Sat by Pulse Oximetry (%) Laboratory Last Values WBC 6.5 K/mm3 (4.0-10.0) 04/14/18 07:45 RBC 3.81 M/mm3 (4.00-5.60) L 04/14/18 07:45 Hgb 12.2 GM/dL (11.7-16.9) 04/14/18 07:45 Hct 35.9 % (35.4-49) 04/14/18 07:45 MCV 94.2 fl (80-96) 04/14/18 07:45 MCH 31.9 pg (25.7-33.7) 04/14/18 07:45 MCHC 33.9 g/dl (32.0-35.9) 04/14/18 07:45 RDW 14.4 % (11.9-15.9) 04/14/18 07:45 Plt Count 372 K/MM3 (134-434) 04/14/18 07:45 MPV 8.2 fl (7.5-11.1) 04/14/18 07:45 Sodium 135 mmol/L (136-145) L 04/14/18 07:45 Potassium 4.3 mmol/L (3.5-5.1) 04/14/18 07:45 Chloride 101 mmol/L (98-107) 04/14/18 07:45 Carbon Dioxide 30 mmol/L (21-32) 04/14/18 07:45 Anion Gap 4 MMOL/L (8-16) L 04/14/18 07:45 BUN 11 mg/dL (7-18) 04/14/18 07:45 Creatinine 1.0 mg/dL (0.55-1.3) 04/14/18 07:45 Creat Clearance w eGFR > 60 (>60) 04/14/18 07:45 Random Glucose 104 mg/dL (74-106) 04/14/18 07:45 Calcium 8.5 mg/dL (8.5-10.1) 04/14/18 07:45 Total Bilirubin 0.4 mg/dL (0.2-1) 04/14/18 07:45 AST 66 U/L (15-37) H 04/14/18 07:45 ALT 94 U/L (13-61) H 04/14/18 07:45 Alkaline Phosphatase 77 U/L (45-117) 04/14/18 07:45 Total Protein 6.7 g/dl (6.4-8.2) 04/14/18 07:45 Albumin 3.4 g/dl (3.4-5.0) 04/14/18 07:45 Urine Color Yellow 04/13/18 10:57 Urine Appearance Turbid 04/13/18 10:57 Urine pH 6.0 (5.0-8.0) 04/13/18 10:57 Ur Specific [place] 1.023 (1.010-1.035) 04/13/18 10:57 Urine Protein Negative (NEGATIVE) 04/13/18 10:57 Urine Glucose (UA) Negative (NEGATIVE) 04/13/18 10:57 Urine Ketones Negative (NEGATIVE) 04/13/18 10:57 Urine Blood Negative (NEGATIVE) 04/13/18 10:57 Urine Nitrite Negative (NEGATIVE) 04/13/18 10:57 Urine Bilirubin Negative (<2.0 mg/dL) 04/13/18 10:57 Urine Urobilinogen Negative mg/dL (0.2-1.0) 04/13/18 10:57 Ur Leukocyte Esterase Negative (NEGATIVE) 04/13/18 10:57 RPR Titer Nonreactive (NONREACTIVE) 04/14/18 07:45 lab noted Assessment: 04/14/18 14:51 withdrawal sx Plan: continue detox
[2018-04-14] MEDS: MELATONIN 5 MG TABLETS PO PRN (22:11)
[2018-04-14] MEDS: THIAMINE HCL 100 MG TABLET (FP) PO SCH (22:11)
[2018-04-15] MEDS ORDERED: diazePAM 5 MG TABLET PO SCH (10:00)
[2018-04-15] MEDS ORDERED: METHADONE HCL 5 MG TABLET (FOR DETOX USE ONLY) PO SCH (10:00)
--- NOTE | 2018-04-15 10:02 | PN ---
[facility] CIWA - CIWA Score Nausea/Vomitin-Mild Nausea/No Vomiting Muscle Tremors: 2 Anxiety: 3 Agitation: 1-Slight > Activity Paroxysmal Sweats: 1-Minimal Palms Moist Orientation: 1-Uncertain about Date Tacttile Disturbances: 0-None Auditory Disturbances: 0-None Visual Disturbances: 0-None Headache: 1-Very Mild CIWA-Ar Total Score: 10 BHS COWS - Scale Resting Pulse: 0= [place] 80 or Below Sweatin= Chills/Flushing Restless Observation: 0= Sits Still Pupil Size: 0= Normal to Room Light Bone or Joint Aches: 2= Severe Diffuse Aches Runny Nose/ Eye Tearin= Nasal Congestion GI Upset > 30mins: 2= Nausea/Diarrhea Tremor Observation of Outstretched Hands: 2= Slight Tremor Visible Yawning Observation: 1= 1-2x During Session Anxiety or Irritability: 1=Feels Anxious/Irritable Goose Flesh Skin: 0=Smooth Skin COWS Score: 10 S Progress Note (SOAP) Subjective: body aches tremor sweating low energy irritable Objective: 04/15/18 10:01 Vital Signs Temperature 98.2 F 04/15/18 09:26 Pulse Rate 58 L 04/15/18 09:26 Respiratory Rate 18 04/15/18 09:26 Blood Pressure 104/53 L 04/15/18 09:26 O2 Sat by Pulse Oximetry (%) Laboratory Last Values WBC 6.5 K/mm3 (4.0-10.0) 04/14/18 07:45 RBC 3.81 M/mm3 (4.00-5.60) L 04/14/18 07:45 Hgb 12.2 GM/dL (11.7-16.9) 04/14/18 07:45 Hct 35.9 % (35.4-49) 04/14/18 07:45 MCV 94.2 fl (80-96) 04/14/18 07:45 MCH 31.9 pg (25.7-33.7) 04/14/18 07:45 MCHC 33.9 g/dl (32.0-35.9) 04/14/18 07:45 RDW 14.4 % (11.9-15.9) 04/14/18 07:45 Plt Count 372 K/MM3 (134-434) 04/14/18 07:45 MPV 8.2 fl (7.5-11.1) 04/14/18 07:45 Sodium 135 mmol/L (136-145) L 04/14/18 07:45 Potassium 4.3 mmol/L (3.5-5.1) 04/14/18 07:45 Chloride 101 mmol/L (98-107) 04/14/18 07:45 Carbon Dioxide 30 mmol/L (21-32) 04/14/18 07:45 Anion Gap 4 MMOL/L (8-16) L 04/14/18 07:45 BUN 11 mg/dL (7-18) 04/14/18 07:45 Creatinine 1.0 mg/dL (0.55-1.3) 04/14/18 07:45 Creat Clearance w eGFR > 60 (>60) 04/14/18 07:45 Random Glucose 104 mg/dL (74-106) 04/14/18 07:45 Calcium 8.5 mg/dL (8.5-10.1) 04/14/18 07:45 Total Bilirubin 0.4 mg/dL (0.2-1) 04/14/18 07:45 AST 66 U/L (15-37) H 04/14/18 07:45 ALT 94 U/L (13-61) H 04/14/18 07:45 Alkaline Phosphatase 77 U/L (45-117) 04/14/18 07:45 Total Protein 6.7 g/dl (6.4-8.2) 04/14/18 07:45 Albumin 3.4 g/dl (3.4-5.0) 04/14/18 07:45 Urine Color Yellow 04/13/18 10:57 Urine Appearance Turbid 04/13/18 10:57 Urine pH 6.0 (5.0-8.0) 04/13/18 10:57 Ur Specific [place] 1.023 (1.010-1.035) 04/13/18 10:57 Urine Protein Negative (NEGATIVE) 04/13/18 10:57 Urine Glucose (UA) Negative (NEGATIVE) 04/13/18 10:57 Urine Ketones Negative (NEGATIVE) 04/13/18 10:57 Urine Blood Negative (NEGATIVE) 04/13/18 10:57 Urine Nitrite Negative (NEGATIVE) 04/13/18 10:57 Urine Bilirubin Negative (<2.0 mg/dL) 04/13/18 10:57 Urine Urobilinogen Negative mg/dL (0.2-1.0) 04/13/18 10:57 Ur Leukocyte Esterase Negative (NEGATIVE) 04/13/18 10:57 RPR Titer Nonreactive (NONREACTIVE) 04/14/18 07:45 lab noted Assessment: 04/15/18 10:02 withdrawal sx Plan: continue detox
[2018-04-15] MEDS: PRENATAL VITAMINS W/ FOLIC ACID TABLET (FP) PO SCH (10:25)
[2018-04-15] MEDS: PANTOPRAZOLE 20 MG TABLET (FP) PO SCH (10:25)
[2018-04-15] MEDS: NICOTINE 21 MG/24 HOURS TOPICAL PATCH TD SCH (10:25)
[2018-04-15 13:58] VITALS: BP 113/73; PULSE 84; TEMP 97.6
[2018-04-17] MEDS ORDERED: diazePAM 5 MG TABLET PO SCH (10:00)
[2018-04-17] MEDS ORDERED: METHADONE HCL 10 MG TABLET (FOR DETOX USE ONLY) PO SCH (10:00)
[2018-04-18] MEDS ORDERED: METHADONE HCL 5 MG TABLET (FOR DETOX USE ONLY) PO SCH (06:00)
== END 2018-04-15 16:30 | disposition left against medical advice (07) | DRG 770 ==
LOC: YASAS 12:58 → Y3N 18:24
PROVIDERS: ADMIT Surgery; ATTEND Surgery
PROC: HZ2ZZZZ Detoxification Services for Substance Abuse Treatment (ICD-10-PCS; principal; 2018-04-13)
DX: F11.23 Opioid dependence with withdrawal (principal); F10.230 Alcohol dependence with withdrawal, uncomplicated; F17.210 Nicotine dependence, cigarettes, uncomplicated; K21.9 Gastro-esophageal reflux disease without esophagitis; E03.9 Hypothyroidism, unspecified
CPT/HCPCS: 36415; 80053; 81003; 85027; 86593

== ENCOUNTER 2018-05-24 13:07 | Inpatient (IN) | payer OTHER ==
[2018-05-24 15:25] VITALS: BMI 28.5
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
[2018-05-24] MEDS ORDERED: IBUPROFEN 400 MG TABLET (FP) PO PRN (21:28)
[2018-05-24] MEDS ORDERED: diazePAM 5 MG TABLET PO ONE (21:28)
[2018-05-24] MEDS ORDERED: NICOTINE POLACRILEX 2 MG GUM BUC PRN (21:28)
[2018-05-24] MEDS ORDERED: NALOXONE HCL 0.4 MG/ML VIAL IVPUSH PRN (21:28)
[2018-05-24] MEDS ORDERED: MAGNESIUM HYDROX 2400MG/30ML ORAL SUSPENSION 30 ML CUP PO PRN (21:28)
[2018-05-24] MEDS ORDERED: BISMUTH SUBSALICYLATE 524 MG/30 ML UD PO PRN (21:28)
[2018-05-24] MEDS ORDERED: MAGNESIUM CITRATE 300 ML BOTTLE PO PRN (21:28)
[2018-05-24] MEDS ORDERED: METHOCARBAMOL 500 MG TABLET PO PRN (21:28)
[2018-05-24] MEDS ORDERED: MENTHOL/PHENOL 1 EACH UD MM PRN (21:28)
[2018-05-24] MEDS ORDERED: diazePAM 5 MG TABLET PO PRN (21:28)
[2018-05-24] MEDS ORDERED: ACETAMINOPHEN 325 MG TABLET (FP) PO PRN ×2 (21:28)
[2018-05-24] MEDS ORDERED: MAG HYDROX/AL HYDROX/SIMETH 30 ML UNIT-DOSE CUP PO PRN (21:28)
[2018-05-24] MEDS ORDERED: BACITRACIN 15 GM TUBE TOPICAL OINTMENT TP SCH (22:00)
[2018-05-24] MEDS: THIAMINE HCL 100 MG TABLET (FP) PO SCH (22:23)
[2018-05-24] MEDS: TOLNAFTATE 1% CREAM 15 GM TUBE TP SCH (22:23)
[2018-05-24] MEDS: MELATONIN 5 MG TABLETS PO PRN (22:24)
[2018-05-24] MEDS: BACITRACIN 0.9 GM PACKET TP SCH (22:25)
[2018-05-24] MEDS: diazePAM 5 MG TABLET PO SCH (22:25)
[2018-05-24] MEDS ORDERED: METHADONE HCL 10 MG TABLET (FOR DETOX USE ONLY) PO ONE (23:00)
[2018-05-25] MEDS: diazePAM 5 MG TABLET PO SCH ×3 (05:03→22:09)
[2018-05-25] MEDS ORDERED: LEVOTHYROXINE NA 50 MCG TABLET (FP) PO SCH (07:00)
[2018-05-25] MEDS ORDERED: LEVOTHYROXINE NA 25 MCG TABLET (FP) PO SCH (07:40)
[2018-05-25] MEDS: LEVOTHYROXINE NA 25 MCG TABLET (FP) PO SCH (08:00)
[2018-05-25] MEDS ORDERED: PANTOPRAZOLE 20 MG TABLET (FP) PO SCH (10:00)
[2018-05-25] MEDS ORDERED: METHADONE HCL 10 MG TABLET (FOR DETOX USE ONLY) PO ONE (10:00)
[2018-05-25] MEDS: BACITRACIN 0.9 GM PACKET TP SCH ×2 (10:06→22:09)
[2018-05-25] MEDS: PRENATAL VITAMINS W/ FOLIC ACID TABLET (FP) PO SCH (10:06)
[2018-05-25] MEDS: NICOTINE 21 MG/24 HOURS TOPICAL PATCH TD SCH (10:07)
[2018-05-25] MEDS: TOLNAFTATE 1% CREAM 15 GM TUBE TP SCH ×2 (10:07→22:10)
[2018-05-25] MEDS ORDERED: PANTOPRAZOLE 20 MG TABLET (FP) PO ONE (10:11)
[2018-05-25 10:59] LABS: ALBUMIN 3.4 g/dl (3.4-5.0); ALK PHOS 86 U/L (45-117); ANION GAP 7 MMOL/L (8-16); BILIRUBIN,TOTAL 0.3 mg/dL (0.2-1); BLOOD UREA NITROGEN 17 mg/dL (7-18); CALCIUM 8.6 mg/dL (8.5-10.1); CHLORIDE 102 mmol/L (98-107); CO2 28 mmol/L (21-32); CREATININE 0.9 mg/dL (0.55-1.3); GLUCOSE,RANDOM 85 mg/dL (74-106); POTASSIUM 3.7 mmol/L (3.5-5.1); SGOT/AST 24 U/L (15-37); SGPT/ALT 38 U/L (13-61); SODIUM 138 mmol/L (136-145); TOT PROT 6.7 g/dl (6.4-8.2)
[2018-05-25 11:14] LABS: HEMATOCRIT 37.5 % (35.4-49); HEMOGLOBIN 12.8 GM/dL (11.7-16.9); MCH 31.5 pg (25.7-33.7); MCHC 34.2 g/dl (32.0-35.9); MEAN CELL VOLUME 92.1 fl (80-96); MEAN PLT VOLUME 8.2 fl (7.5-11.1); PLATELET COUNT 301 K/MM3 (134-434); RBC 4.07 M/mm3 (4.00-5.60); WHITE BLOOD COUNT 8.2 K/mm3 (4.0-10.0)
[2018-05-25 11:19] LABS: PH,URINE 5.5 (5.0-8.0); URINE APPEARANCE CLEAR; URINE BILIRUBIN NEGATIVE (<2.0 mg/dL); URINE COLOR YELLOW; URINE GLUCOSE (UA) NEGATIVE (NEGATIVE); URINE KETONE TRACE (NEGATIVE); URINE LEUK ESTERASE NEGATIVE (NEGATIVE); URINE NITRITE NEGATIVE (NEGATIVE); URINE PROTEIN NEGATIVE (NEGATIVE); URINE UROBILINOGEN 0.2 mg/dL (0.2-1.0)
--- NOTE | 2018-05-25 12:56 | CONSULT ---
[facility] Psychiatric Consult - Data Date of interview: 05/25/18 Admission source: [facility] Identifying data: Readmission to [facility] for this 42 y/o male self- referred for detoxification (heroin, cocaine, alcohol). Interviewed on . Patient is single without children, domiciled, unemployed and supported on SSI benefits. Substance Abuse History: History of substance abuse is confirmed by the patient in the current interview. Correlates with details contained in this segment of [facility] report : Smoking history: Current every day smoker. Have you smoked in the past 12 months: Yes. Aproximately how many cigarettes per day: 20. Cigars Per Day: 0. Hx Chewing Tobacco Use: No. Initiated information on smoking cessation : Yes. 'Breaking Loose' booklet given: 05/24/18. - Substance & Tx. History. Hx Alcohol Use: Yes. Hx Substance Use: Yes. Substance Use Type: Alcohol, Cocaine, Heroin, Tranquilizers (klonopin, xanax). Hx Substance Use Treatment: Yes (detox, rehabs, attempts in past w/ [facility]. ). - Substances Abused. Heroin. Route: Injection. Frequency: Daily. Amount used: 20 BAGS. Age of first use: 17. Date of Last Use: 05/23/18. Alcohol. Route: Oral. Frequency: Daily. Amount used: LIQUOR- 2 PINTS, BEER- 2 SIX PACK. Age of first use: 17. Date of Last Use: 05/23/18 Medical History: Remarkable for bronchial asthma, GERD, hypothyroidism, antecedent of cellulitis of right leg and treated for MERSA (methicillin- resistant staphylococcus aureus) . Psychiatric History: History of multiple psychiatric admissions ([facility] and [facility]). Patient is diagnosed with MDD and Anxiety Disorder. Mr Olmos indicates past treatment with a seroquel 100 mg/ hs + remeron 45 mg/hs. Non-adherent to [facility] care for weeks. Patient confirms that he ignored his referrals to [facility] care. Gets refills from local emergency departments or primary care providers. No reported history history of suicide attempts. Physical/Sexual Abuse/Trauma History: None reported. Additional Comment: Urine Drug Screen Results: BARBARA-Cocaine, OPI-Opiates, BZO- Benzodiazepines, MTD-Methadone, FEN-Fentanyl. Noted. Mental Status Exam - Mental Status Exam Alert and Oriented to: Time, Place, Person Cognitive Function: Good Patient Appearance: Well Groomed (tattoos on right forearm) Mood: Nervous, Withdrawn Affect: Mood Congruent, Constricted Patient Behavior: Fatigued, Cooperative Speech Pattern: Clear, Appropriate Voice Loudness: Normal Thought Process: Goal Oriented Thought Disorder: Not Present Hallucinations: Denies Suicidal Ideation: Denies Homicidal Ideation: Denies Insight/Judgement: Poor Sleep: Poorly, Difficulty falling asleep Appetite: Good Muscle strength/Tone: Normal Gait/Station: Normal Psychiatric Findings - Problem List ([place] 1, 2,3) (1) Alcohol dependence with uncomplicated withdrawal Current Visit: Yes Status: Acute (2) Sedative, hypnotic or anxiolytic dependence with withdrawal, uncomplicated Current Visit: Yes Status: Acute Comment: States uses xanax and Klonopin (3) Opioid dependence with withdrawal Current Visit: Yes Status: Acute (4) Cocaine dependence, uncomplicated Current Visit: Yes Status: Chronic (5) Nicotine dependence Current Visit: Yes Status: Chronic Qualifiers: Nicotine product type: cigarettes Substance use status: uncomplicated Qualified Code(s): F17.210 - Nicotine dependence, cigarettes, uncomplicated (6) Substance induced mood disorder Current Visit: Yes Status: Chronic (7) Insomnia Current Visit: Yes Status: Chronic Qualifiers: Insomnia type: unspecified Qualified Code(s): G47.00 - Insomnia, unspecified (8) Non-compliance Current Visit: Yes Status: Chronic - Initial Treatment Plan Initial Treatment Plan: Psychoeducation. Sleep hygiene. Detoxification in progress. Support. AA/NA meetings. Groups. Relapse prevention : discussed with patient. Mr Olmos agrees to resume seroquel at the dose of 100 mg po hs. Side effects/benefits reviewed with patient. Made aware of potential for sedation and metabolic syndrome. Consent (verbal) granted to MD. Perry.
--- NOTE | 2018-05-25 15:14 | PN ---
[facility] CIWA - CIWA Score Nausea/Vomitin-No Nausea/No Vomiting Muscle Tremors: 3 Anxiety: 3 Agitation: 2 Paroxysmal Sweats: 3 Orientation: 0-Oriented Tacttile Disturbances: 2-Mild Itch/Numbness/Burn Auditory Disturbances: 0-None Visual Disturbances: 2-Mild Sensitivity Headache: 0-None Present CIWA-Ar Total Score: 15 BHS COWS - Scale Resting Pulse: 0= [place] 80 or Below Sweatin= Chills/Flushing Restless Observation: 1= Difficult to Sit Still Pupil Size: 0= Normal to Room Light Bone or Joint Aches: 2= Severe Diffuse Aches Runny Nose/ Eye Tearin= Nasal Congestion GI Upset > 30mins: 0= None Tremor Observation of Outstretched Hands: 2= Slight Tremor Visible Yawning Observation: 1= 1-2x During Session Anxiety or Irritability: 2=Irritable/Anxious Goose Flesh Skin: 3=Piloerection COWS Score: 13 BHS Progress Note (SOAP) Subjective: Body Aches, Anxious, Tremors, Sweating. Objective: PATIENT A & O X 3, OBSERVED AMBULATING ON UNIT. IN NO ACUTE DISTRESS. 05/25/18 15:15 Vital Signs Temperature 97.6 F 05/25/18 13:38 Pulse Rate 62 05/25/18 13:38 Respiratory Rate 18 05/25/18 13:38 Blood Pressure 134/85 05/25/18 13:38 O2 Sat by Pulse Oximetry (%) Laboratory Tests 05/25/18 05/25/18 05/25/18 08:20 09:00 09:00 WBC 8.2 RBC 4.07 Hgb 12.8 Hct 37.5 MCV 92.1 MCH 31.5 MCHC 34.2 RDW 14.0 Plt Count 301 MPV 8.2 Sodium Potassium Chloride Carbon Dioxide Anion Gap BUN Creatinine Creat Clearance w eGFR Random Glucose Calcium Total Bilirubin AST ALT Alkaline Phosphatase Total Protein Albumin Urine Color Yellow Urine Appearance Clear Urine pH 5.5 Ur Specific [place] 1.030 Urine Protein Negative Urine Glucose (UA) Negative Urine Ketones Trace H Urine Blood Negative Urine Nitrite Negative Urine Bilirubin Negative Urine Urobilinogen 0.2 Ur Leukocyte Esterase Negative RPR Titer HIV 1&2 Antibody Screen Negative HIV P24 Antigen Negative 05/25/18 05/25/18 09:00 09:00 WBC RBC Hgb Hct MCV MCH MCHC RDW Plt Count MPV Sodium 138 Potassium 3.7 Chloride 102 Carbon Dioxide 28 Anion Gap 7 L BUN 17 Creatinine 0.9 Creat Clearance w eGFR 92.10 Random Glucose 85 Calcium 8.6 Total Bilirubin 0.3 AST 24 ALT 38 Alkaline Phosphatase 86 Total Protein 6.7 Albumin 3.4 Urine Color Urine Appearance Urine pH Ur Specific [place] Urine Protein Urine Glucose (UA) Urine Ketones Urine Blood Urine Nitrite Urine Bilirubin Urine Urobilinogen Ur Leukocyte Esterase RPR Titer Nonreactive HIV 1&2 Antibody Screen HIV P24 Antigen LABS NOTED. Assessment: 05/25/18 15:15 WITHDRAWAL SYMPTOMS. Plan: CONTINUE DETOX. INCREASE DAILY PO FLUID INTAKE.
[2018-05-25] MEDS ORDERED: QUEtiapine FUMARATE 100 MG TABLET (FP) PO SCH (22:00)
[2018-05-25] MEDS: MELATONIN 5 MG TABLETS PO PRN (22:09)
[2018-05-25] MEDS: THIAMINE HCL 100 MG TABLET (FP) PO SCH (22:09)
[2018-05-26] MEDS ORDERED: PANTOPRAZOLE 40 MG TABLET (FP) PO SCH ×2 (06:00→10:00)
[2018-05-26 09:57] VITALS: BP 122/69; PULSE 62; TEMP 97.4
[2018-05-26] MEDS ORDERED: METHADONE HCL 10 MG TABLET (FOR DETOX USE ONLY) PO ONE (10:00)
[2018-05-26] MEDS ORDERED: diazePAM 5 MG TABLET PO SCH (10:00)
[2018-05-26] MEDS: BACITRACIN 0.9 GM PACKET TP SCH (10:05)
[2018-05-26] MEDS: TOLNAFTATE 1% CREAM 15 GM TUBE TP SCH (10:05)
[2018-05-26] MEDS: LEVOTHYROXINE NA 25 MCG TABLET (FP) PO SCH (10:06)
[2018-05-26] MEDS: PRENATAL VITAMINS W/ FOLIC ACID TABLET (FP) PO SCH (10:06)
[2018-05-26] MEDS: NICOTINE 21 MG/24 HOURS TOPICAL PATCH TD SCH (10:08)
--- NOTE | 2018-05-26 11:21 | PN ---
[facility] CIWA - CIWA Score Nausea/Vomitin-Mild Nausea/No Vomiting Muscle Tremors: 3 Anxiety: 1-Mildly Anxious Agitation: 2 Paroxysmal Sweats: 1-Minimal Palms Moist Orientation: 2-Disoriented Date<2 days Tacttile Disturbances: 0-None Auditory Disturbances: 0-None Visual Disturbances: 0-None Headache: 1-Very Mild CIWA-Ar Total Score: 11 BHS COWS - Scale Resting Pulse: 0= [place] 80 or Below Sweatin= Chills/Flushing Restless Observation: 0= Sits Still Pupil Size: 0= Normal to Room Light Bone or Joint Aches: 1= Mild Discomfort Runny Nose/ Eye Tearin= Nasal Congestion GI Upset > 30mins: 1= Stomach Cramp Tremor Observation of Outstretched Hands: 2= Slight Tremor Visible Yawning Observation: 2= >3x During Session Anxiety or Irritability: 1=Feels Anxious/Irritable Goose Flesh Skin: 0=Smooth Skin COWS Score: 9 S Progress Note (SOAP) Subjective: doing well tolerate food and fluid well sleep ok at night encourage oral fluid Objective: 05/26/18 11:19 Vital Signs Temperature 97.4 F L 05/26/18 09:57 Pulse Rate 62 05/26/18 09:57 Respiratory Rate 18 05/26/18 09:57 Blood Pressure 122/69 05/26/18 09:57 O2 Sat by Pulse Oximetry (%) Laboratory Last Values WBC 8.2 K/mm3 (4.0-10.0) 05/25/18 09:00 RBC 4.07 M/mm3 (4.00-5.60) 05/25/18 09:00 Hgb 12.8 GM/dL (11.7-16.9) 05/25/18 09:00 Hct 37.5 % (35.4-49) 05/25/18 09:00 MCV 92.1 fl (80-96) 05/25/18 09:00 MCH 31.5 pg (25.7-33.7) 05/25/18 09:00 MCHC 34.2 g/dl (32.0-35.9) 05/25/18 09:00 RDW 14.0 % (11.9-15.9) 05/25/18 09:00 Plt Count 301 K/MM3 (134-434) 05/25/18 09:00 MPV 8.2 fl (7.5-11.1) 05/25/18 09:00 Sodium 138 mmol/L (136-145) 05/25/18 09:00 Potassium 3.7 mmol/L (3.5-5.1) 05/25/18 09:00 Chloride 102 mmol/L (98-107) 05/25/18 09:00 Carbon Dioxide 28 mmol/L (21-32) 05/25/18 09:00 Anion Gap 7 MMOL/L (8-16) L 05/25/18 09:00 BUN 17 mg/dL (7-18) 05/25/18 09:00 Creatinine 0.9 mg/dL (0.55-1.3) 05/25/18 09:00 Creat Clearance w eGFR 92.10 (>60) 05/25/18 09:00 Random Glucose 85 mg/dL (74-106) 05/25/18 09:00 Calcium 8.6 mg/dL (8.5-10.1) 05/25/18 09:00 Total Bilirubin 0.3 mg/dL (0.2-1) 05/25/18 09:00 AST 24 U/L (15-37) 05/25/18 09:00 ALT 38 U/L (13-61) 05/25/18 09:00 Alkaline Phosphatase 86 U/L (45-117) 05/25/18 09:00 Total Protein 6.7 g/dl (6.4-8.2) 05/25/18 09:00 Albumin 3.4 g/dl (3.4-5.0) 05/25/18 09:00 Urine Color Yellow 05/25/18 08:20 Urine Appearance Clear 05/25/18 08:20 Urine pH 5.5 (5.0-8.0) 05/25/18 08:20 Ur Specific [place] 1.030 (1.010-1.035) 05/25/18 08:20 Urine Protein Negative (NEGATIVE) 05/25/18 08:20 Urine Glucose (UA) Negative (NEGATIVE) 05/25/18 08:20 Urine Ketones Trace (NEGATIVE) H 05/25/18 08:20 Urine Blood Negative (NEGATIVE) 05/25/18 08:20 Urine Nitrite Negative (NEGATIVE) 05/25/18 08:20 Urine Bilirubin Negative (<2.0 mg/dL) 05/25/18 08:20 Urine Urobilinogen 0.2 mg/dL (0.2-1.0) 05/25/18 08:20 Ur Leukocyte Esterase Negative (NEGATIVE) 05/25/18 08:20 RPR Titer Nonreactive (NONREACTIVE) 05/25/18 09:00 HIV 1&2 Antibody Screen Negative 05/25/18 09:00 HIV P24 Antigen Negative 05/25/18 09:00 lab noted Assessment: 05/26/18 11:20 alcohol and opiate withdrawal sx Plan: continue detox
--- NOTE | 2018-05-26 12:33 | DS ---
[facility] Detox Discharge Summary Admission Date: 05/24/18 Discharge Date: 05/26/18 - History Present History: Alcohol Dependence, Opioid Dependence Additional Comments: 42 years old male admitted on 05/24/18 for alcohol and opiate withdrawal stabilization feeling better today after lunch, showered, napped patient did not attend psychotherapy group preferring resting in bed patient is alert no acute distress denies suicidal ideation encourage the patient attend medication assisted treatment program Pertinent Past History: patient reported that he is feeling better and no need for alcohol and opiate detox preferred outpatient rehab for alcohol and opiate in respect to patients' preference that the patient wants out patient chemical rehab for his alcohol and opiate addiction patient stated that he has support network and family will help him go through difficult time - Physical Exam Results Vital Signs: Vital Signs Temperature 97.4 F L 05/26/18 09:57 Pulse Rate 62 05/26/18 09:57 Respiratory Rate 18 05/26/18 09:57 Blood Pressure 122/69 05/26/18 09:57 O2 Sat by Pulse Oximetry (%) Pertinent Admission Physical Exam Findings: alcohol and opiate withdrawal sx Laboratory Last Values WBC 8.2 K/mm3 (4.0-10.0) 05/25/18 09:00 RBC 4.07 M/mm3 (4.00-5.60) 05/25/18 09:00 Hgb 12.8 GM/dL (11.7-16.9) 05/25/18 09:00 Hct 37.5 % (35.4-49) 05/25/18 09:00 MCV 92.1 fl (80-96) 05/25/18 09:00 MCH 31.5 pg (25.7-33.7) 05/25/18 09:00 MCHC 34.2 g/dl (32.0-35.9) 05/25/18 09:00 RDW 14.0 % (11.9-15.9) 05/25/18 09:00 Plt Count 301 K/MM3 (134-434) 05/25/18 09:00 MPV 8.2 fl (7.5-11.1) 05/25/18 09:00 Sodium 138 mmol/L (136-145) 05/25/18 09:00 Potassium 3.7 mmol/L (3.5-5.1) 05/25/18 09:00 Chloride 102 mmol/L (98-107) 05/25/18 09:00 Carbon Dioxide 28 mmol/L (21-32) 05/25/18 09:00 Anion Gap 7 MMOL/L (8-16) L 05/25/18 09:00 BUN 17 mg/dL (7-18) 05/25/18 09:00 Creatinine 0.9 mg/dL (0.55-1.3) 05/25/18 09:00 Creat Clearance w eGFR 92.10 (>60) 05/25/18 09:00 Random Glucose 85 mg/dL (74-106) 05/25/18 09:00 Calcium 8.6 mg/dL (8.5-10.1) 05/25/18 09:00 Total Bilirubin 0.3 mg/dL (0.2-1) 05/25/18 09:00 AST 24 U/L (15-37) 05/25/18 09:00 ALT 38 U/L (13-61) 05/25/18 09:00 Alkaline Phosphatase 86 U/L (45-117) 05/25/18 09:00 Total Protein 6.7 g/dl (6.4-8.2) 05/25/18 09:00 Albumin 3.4 g/dl (3.4-5.0) 05/25/18 09:00 Urine Color Yellow 05/25/18 08:20 Urine Appearance Clear 05/25/18 08:20 Urine pH 5.5 (5.0-8.0) 05/25/18 08:20 Ur Specific [place] 1.030 (1.010-1.035) 05/25/18 08:20 Urine Protein Negative (NEGATIVE) 05/25/18 08:20 Urine Glucose (UA) Negative (NEGATIVE) 05/25/18 08:20 Urine Ketones Trace (NEGATIVE) H 05/25/18 08:20 Urine Blood Negative (NEGATIVE) 05/25/18 08:20 Urine Nitrite Negative (NEGATIVE) 05/25/18 08:20 Urine Bilirubin Negative (<2.0 mg/dL) 05/25/18 08:20 Urine Urobilinogen 0.2 mg/dL (0.2-1.0) 05/25/18 08:20 Ur Leukocyte Esterase Negative (NEGATIVE) 05/25/18 08:20 RPR Titer Nonreactive (NONREACTIVE) 05/25/18 09:00 HIV 1&2 Antibody Screen Negative 05/25/18 09:00 HIV P24 Antigen Negative 05/25/18 09:00 lab noted - Treatment Hospital Course: Detox Protocol Followed, Detoxed Safely, Responded well, Discharged Condition Good, Rehab Referral Accepted Patient has Accepted a Rehab Referral to: community self help group - Medication Discharge Medications: Ambulatory Orders Esomeprazole Magnesium [Nexium 24Hr] 20 mg PO DAILY 04/13/18 Mirtazapine [Remeron -] 30 mg PO HS 04/13/18 Levothyroxine [Synthroid -] 50 mcg PO DAILY 05/07/18 - Diagnosis (1) Alcohol dependence with uncomplicated withdrawal Current Visit: Yes Status: Acute (2) Opioid dependence with withdrawal Current Visit: Yes Status: Acute (3) GERD (gastroesophageal reflux disease) Current Visit: Yes Status: Chronic Qualifiers: Esophagitis presence: without esophagitis Qualified Code(s): K21.9 - Gastro -esophageal reflux disease without esophagitis (4) Nicotine dependence Current Visit: Yes Status: Acute Qualifiers: Nicotine product type: cigarettes Substance use status: in withdrawal Qualified Code(s): F17.213 - Nicotine dependence, cigarettes, with withdrawal (5) Substance induced mood disorder Current Visit: Yes Status: Suspected (6) Hypothyroid Current Visit: Yes Status: Chronic Qualifiers: Hypothyroidism type: acquired Qualified Code(s): E03.9 - Hypothyroidism, unspecified - AMA Did Patient Leave Against Medical Advice: No
[2018-05-27] MEDS ORDERED: diazePAM 5 MG TABLET PO SCH (06:00)
[2018-05-27] MEDS ORDERED: METHADONE HCL 10 MG TABLET (FOR DETOX USE ONLY) PO ONE (10:00)
[2018-05-28] MEDS ORDERED: METHADONE HCL 5 MG TABLET (FOR DETOX USE ONLY) PO ONE (06:00)
== END 2018-05-26 12:30 | disposition home or self-care (01) | DRG 773 ==
LOC: YASAS 13:07 → Y3N 20:46
PROVIDERS: ADMIT Surgery; ATTEND Surgery
PROC: HZ2ZZZZ Detoxification Services for Substance Abuse Treatment (ICD-10-PCS; principal; 2018-05-24)
DX: F11.23 Opioid dependence with withdrawal (principal); F10.230 Alcohol dependence with withdrawal, uncomplicated; F13.230 Sedative, hypnotic or anxiolytic dependence with withdrawal, uncomplicated; F14.20 Cocaine dependence, uncomplicated; F17.213 Nicotine dependence, cigarettes, with withdrawal; F19.24 Other psychoactive substance dependence with psychoactive substance-induced mood disorder; G47.00 Insomnia, unspecified; E03.9 Hypothyroidism, unspecified; K21.9 Gastro-esophageal reflux disease without esophagitis; L03.115 Cellulitis of right lower limb; B35.3 Tinea pedis; L98.8 Other specified disorders of the skin and subcutaneous tissue; Z91.19 Patient's noncompliance with other medical treatment and regimen
CPT/HCPCS: 36415; 80053; 81003; 85027; 86593; 87389

== ENCOUNTER 2018-06-25 13:54 | Inpatient (IN) | payer OTHER ==
[2018-06-25 19:09] VITALS: BMI 29.0
--- NOTE | 2018-06-25 20:06 | HP ---
COWS - Scale Resting Pulse: 0= [place] 80 or Below Sweatin= Chills/Flushing Restless Observation: 1= Difficult to Sit Still Pupil Size: 1= Pupils >than Normal Bone or Joint Aches: 1= Mild Discomfort Runny Nose/ Eye Tearin= Runny Nose/Eyes GI Upset > 30mins: 3= Vomiting/Diarrhea (vomit x2, diarrhea x 4) Tremor Observation: 0= None Yawning Observation: 1= 1-2x During Session Anxiety or Irritability: 2=Irritable/Anxious Goose Flesh Skin: 0=Smooth Skin COWS Score: 12 CIWA Score Nausea/Vomitin (vomit x 2) Muscle Tremors: 2 Anxiety: 3 Agitation: 2 Paroxysmal Sweats: 2 Orientation: 0-Oriented Tacttile Disturbances: 1-Very Mild Itch/Numbness Auditory Disturbances: 0-None Visual Disturbances: 0-None Headache: 1-Very Mild CIWA-Ar Total Score: 14 - Admission Criteria OASAS Guidelines: Admission for Medically Managed Detox: Requires at least one of the followin. CIWA greater than 12 2. Seizures within the past 24 hours 3. Delirium tremens within the past 24 hours 4. Hallucinations within the past 24 hours 5. Acute intervention needed for co occurring medical disorder 6. Acute intervention needed for co occurring psychiatric disorder 7. Severe withdrawal that cannot be handled at a lower level of care (continued vomiting, continued diarrhea, abnormal vital signs) requiring intravenous medication and/or fluids 8. Patient presents the following: CIWA greater than 12 Admission Criteria Met: Admission criteria met Admission ROS [facility] - [facility] Chief Complaint: alcohol and opioid withdrawal symptoms Allergies/Adverse Reactions: Allergies Allergy/AdvReac Type Severity Reaction Status Date / Time shellfish derived Allergy Rash Verified 06/25/18 19:03 History of Present Illness: Patient is a 42 yo male with hx of heroin (IV) and alcohol dependence is here seeking detox, this is one of multiple admission but keeps relapsing. As per patient he is legally mandated to attend detox. Last detox [facility] 05/24/18 -. Patient reports interested in out patient methadone maintenance upon completing detox. PMHX: hypothyroidsm, GERD Psych: depression on remron Denies hx of seizures or blackouts. Exam Limitations: No Limitations - Ebola screening Have you traveled outside of the country in the last 21 days: No (N) Have you had contact with anyone from an Ebola affected area: No Do you have a fever: No - Review of Systems Constitutional: Chills, Loss of Appetite, Changes in sleep, Unintentional Wgt. Loss EENT: reports: Nose Congestion Respiratory: reports: No Symptoms reported Cardiac: reports: No Symptoms Reported GI: reports: Diarrhea (x4), Nausea, Poor Appetite, Vomiting (x2) : reports: No Symptoms Reported Musculoskeletal: reports: Back Pain, Joint Pain Integumentary: reports: Dryness Neuro: reports: Headache, Dizziness Endocrine: reports: Increased Thirst Hematology: reports: No Symptoms Reported Psychiatric: reports: Orientated x3, Anxious, Depressed (mother suffered stroke two days ago) Other Systems: Reviewed and Negative Patient History - Patient Medical History Hx Anemia: No Hx Asthma: No Hx Chronic Obstructive Pulmonary Disease (COPD): No Hx Cancer: No Hx Cardiac Disorders: No Hx Congestive Heart Failure: No Hx Hypertension: No Hx Hypercholesterolemia: No Hx Pacemaker: No HX Cerebrovascular Accident: No Hx Seizures: No Hx Dementia: No Hx Diabetes: No Hx Gastrointestinal Disorders: No Hx Liver Disease: No Hx Genitourinary Disorders: No Hx Sexually Transmitted Disorders: No Hx Renal Disease (ESRD): No Hx Thyroid Disease: Yes Hx Human Immunodeficiency Virus (HIV): No Hx Hepatitis C: No Hx Depression: Yes Hx Suicide Attempt: No Hx Bipolar Disorder: No Hx Schizophrenia: No - Patient Surgical History Past Surgical History: No Hx Neurologic Surgery: No Hx Cataract Extraction: No Hx Cardiac Surgery: No Hx Lung Surgery: No Hx Breast Surgery: No Hx Breast Biopsy: No Hx Abdominal Surgery: No Hx Appendectomy: No Hx Cholecystectomy: No Hx Genitourinary Surgery: No Hx Section: No Hx Orthopedic Surgery: No Hx Hysterectomy: No Anesthesia Reaction: No - PPD History Previous Implant?: No Documented Results: Negative w/proof Date: 08/03/17 Results: 0 mm PPD to be Administered?: No - Smoking Cessation Smoking history: Current every day smoker Have you smoked in the past 12 months: Yes Aproximately how many cigarettes per day: 20 Cigars Per Day: 0 Hx Chewing Tobacco Use: No Initiated information on smoking cessation: Yes 'Breaking Loose' booklet given: 06/25/18 - Substance & Tx. History Hx Alcohol Use: Yes Hx Substance Use: Yes Substance Use Type: Alcohol, Heroin Hx Substance Use Treatment: Yes (Last detox [facility] 05/24/18 -05/26/18.) - Substances abused Heroin Substance route: Injection Frequency: Daily Amount used: 20 bags Age of first use: 17 Date of last use: 06/24/18 Alcohol Substance route: Oral Frequency: Daily Amount used: vodka 1 pint, beer 3 x 22 oz Age of first use: 14 Date of last use: 06/24/18 Family Disease History - Family Disease History Family Disease History: Other: Father (living, healthy), Mother (living, healthy ), Brother (younger etoh/drugs), Sister (living, depression) Admission Physical Exam [facility] - Vital Signs Vital Signs: Vital Signs - 24 hr 06/25/18 18:55 Temperature 98.1 F Pulse Rate 79 Respiratory 18 Rate Blood Pressure 131/90 - Physical General Appearance: Yes: Disheveled, Mild Distress, Anxious HEENTM: Yes: EOMI, Hearing grossly Normal, Normal ENT Inspection, Normal Voice, SAMANTHA, Pharynx Normal, Tm's normal, Rhinorrhea Respiratory: Yes: Chest Non-Tender, Lungs Clear, No Respiratory Distress, No Accessory Muscle Use, Wheezing Neck: Yes: Within Normal Limits Breast: Yes: Breast Exam Deferred Cardiology: Yes: Regular Rhythm Abdominal: Yes: Normal Bowel Sounds, Non Tender, Flat, Soft Genitourinary: Yes: Within Normal Limits Back: Yes: Normal Inspection Musculoskeletal: Yes: full range of Motion, Gait Steady, Pelvis Stable, Back pain Extremities: Yes: Normal Capillary Refill, Normal Inspection, Normal Range of Motion 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: Yes: ged tutor II-XII NML intact, Fully Oriented, Alert, Motor Strength 5/5, Depressed Affect Integumentary: Yes: Normal Color, Warm, Diaphoresis, Track Rodriguez (bilateral anticubital fossa) Lymphatic: Yes: Within Normal Limits - Diagnostic (1) IVDU (intravenous drug user) Current Visit: Yes Status: Acute (2) Alcohol dependence with uncomplicated withdrawal Current Visit: Yes Status: Acute (3) Asthma Current Visit: Yes Status: Chronic Qualifiers: Asthma severity: moderate Asthma persistence: persistent Asthma complication type: uncomplicated Qualified Code(s): J45.40 - Moderate persistent asthma, uncomplicated (4) Chronic lower back pain Current Visit: Yes Status: Chronic Qualifiers: Back pain laterality: bilateral Sciatica presence: without sciatica Qualified Code(s): M54.5 - Low back pain; G89.29 - Other chronic pain (5) GERD (gastroesophageal reflux disease) Current Visit: Yes Status: Chronic Qualifiers: Esophagitis presence: without esophagitis Qualified Code(s): K21.9 - Gastro -esophageal reflux disease without esophagitis (6) Hypothyroidism Current Visit: Yes Status: Chronic Qualifiers: Hypothyroidism type: unspecified Qualified Code(s): E03.9 - Hypothyroidism , unspecified (7) Non-compliance Current Visit: Yes Status: Chronic Cleared for Admission S - Detox or Rehab [facility] Level of Care: Medically Managed Detox Regimen/Protocol: Methadone/Valium Breathalyzer - Breathalyzer Breathalyzer: 0 Urine Drug Screen - Test Device Lot number: [id number] Expiration date: 02/02/20 - Control Is test valid?: Yes - Results Drug screen NEGATIVE: No Urine drug screen results: BARBARA-Cocaine, FEN-Fentanyl, MOP-Opiates Inpatient Rehab Admission - Rehab Decision to Admit Inpatient rehab admission?: No
[2018-06-25] MEDS ORDERED: IBUPROFEN 400 MG TABLET (FP) PO PRN (20:13)
[2018-06-25] MEDS ORDERED: BISMUTH SUBSALICYLATE 524 MG/30 ML UD PO PRN (20:13)
[2018-06-25] MEDS ORDERED: ACETAMINOPHEN 325 MG TABLET (FP) PO PRN ×2 (20:13)
[2018-06-25] MEDS ORDERED: cloNIDine HCL 0.1 MG TABLET PO PRN (20:13)
[2018-06-25] MEDS ORDERED: ONDANSETRON *ODT* 4 MG TABLET SL PRN (20:13)
[2018-06-25] MEDS ORDERED: MAG HYDROX/AL HYDROX/SIMETH 30 ML UNIT-DOSE CUP PO PRN (20:13)
[2018-06-25] MEDS ORDERED: MENTHOL/PHENOL 1 EACH UD MM PRN (20:13)
[2018-06-25] MEDS ORDERED: MAGNESIUM HYDROX 2400MG/30ML ORAL SUSPENSION 30 ML CUP PO PRN (20:13)
[2018-06-25] MEDS ORDERED: MAGNESIUM CITRATE 300 ML BOTTLE PO PRN (20:13)
[2018-06-25] MEDS ORDERED: METHOCARBAMOL 500 MG TABLET PO PRN (20:13)
[2018-06-25] MEDS ORDERED: NICOTINE POLACRILEX 2 MG GUM BUC PRN (20:13)
[2018-06-25] MEDS ORDERED: ALBUTEROL SO4 2.5/IPRATROPIUM 0.5 INH SOL 3 ML VIAL.NEB. NEB PRN (20:21)
[2018-06-25] MEDS: diazePAM 5 MG TABLET PO PRN (21:14)
[2018-06-25] MEDS: diazePAM 5 MG TABLET PO SCH (22:12)
[2018-06-25] MEDS: THIAMINE HCL 100 MG TABLET (FP) PO SCH (22:16)
[2018-06-25] MEDS: MELATONIN 5 MG TABLETS PO PRN (22:16)
[2018-06-25] MEDS: CEPHALEXIN MONOHYDRATE 250 MG CAPSULE (FP) PO SCH (22:59)
[2018-06-25] MEDS ORDERED: METHADONE HCL 10 MG TABLET (FOR DETOX USE ONLY) PO ONE (23:00)
[2018-06-26] MEDS ORDERED: LEVOTHYROXINE NA 50 MCG TABLET (FP) PO SCH (07:00)
[2018-06-26] MEDS: diazePAM 5 MG TABLET PO SCH ×3 (07:13→22:08)
[2018-06-26] MEDS: CEPHALEXIN MONOHYDRATE 250 MG CAPSULE (FP) PO SCH ×4 (07:13→23:38)
[2018-06-26] MEDS: LEVOTHYROXINE NA 25 MCG TABLET (FP) PO SCH (07:14)
[2018-06-26] MEDS ORDERED: METHADONE HCL 10 MG TABLET (FOR DETOX USE ONLY) PO ONE (10:00)
[2018-06-26] MEDS: PRENATAL VITAMINS W/ FOLIC ACID TABLET (FP) PO SCH (11:06)
[2018-06-26] MEDS: NICOTINE 14 MG/24 HOURS TOPICAL PATCH TD SCH (11:07)
--- NOTE | 2018-06-26 12:00 | PN ---
[facility] CIWA - CIWA Score Nausea/Vomitin-No Nausea/No Vomiting Muscle Tremors: 3 Anxiety: 3 Agitation: 4-Moderately Restless Paroxysmal Sweats: 3 Orientation: 0-Oriented Tacttile Disturbances: 0-None Auditory Disturbances: 0-None Visual Disturbances: 0-None Headache: 0-None Present CIWA-Ar Total Score: 13 [facility] COWS - Scale Resting Pulse: 0= [place] 80 or Below Sweatin= Chills/Flushing Restless Observation: 1= Difficult to Sit Still Pupil Size: 0= Normal to Room Light Bone or Joint Aches: 2= Severe Diffuse Aches Runny Nose/ Eye Tearin= Runny Nose/Eyes GI Upset > 30mins: 0= None Tremor Observation of Outstretched Hands: 1= Tremor [place], Not Seen Yawning Observation: 2= >3x During Session Anxiety or Irritability: 2=Irritable/Anxious Goose Flesh Skin: 0=Smooth Skin COWS Score: 11 [facility] Progress Note (SOAP) Subjective: nasal congestions sweats shakes interrupted sleep body aches irritable chills Objective: 06/26/18 11:59 Vital Signs Temperature 97.7 F 06/26/18 10:38 Pulse Rate 61 06/26/18 10:38 Respiratory Rate 18 06/26/18 10:38 Blood Pressure 112/69 06/26/18 10:38 O2 Sat by Pulse Oximetry (%) labs pending aaox3 ambulating no acute distress Assessment: 06/26/18 11:59 withdrawal sx Plan: continue detox increase fluids labs pending
[2018-06-26] MEDS: PANTOPRAZOLE 40 MG TABLET (FP) PO SCH (13:18)
--- NOTE | 2018-06-26 16:15 | CONSULT ---
[facility] Psychiatric Consult - Data Date of interview: 06/26/18 Admission source: [facility] Identifying data: Patient is a 42 year old single female, without children, unemployed, and is supported by SSI benefits. This is one of multiple admissions for patient. Patient admitted to for alcohol dependence. Substance Abuse History: Smoking Cessation. Smoking history: Current every day smoker. Have you smoked in the past 12 months: Yes. Aproximately how many cigarettes per day: 20. Cigars Per Day: 0. Hx Chewing Tobacco Use: No. Initiated information on smoking cessation: Yes. 'Breaking Loose' booklet given : 06/25/18. - Substance & Tx. History. Hx Alcohol Use: Yes. Hx Substance Use : Yes. Substance Use Type: Alcohol, Heroin. Hx Substance Use Treatment: Yes ( Last detox [facility] 05/24/18 -05/26/18.). - Substances abused. Heroin. Substance route: Injection. Frequency: Daily. Amount used: 20 bags. Age of first use: 17. Date of last use: 06/24/18. Alcohol. Substance route: Oral. Frequency: Daily. Amount used: vodka 1 pint, beer 3 x 22 oz. Age of first use: 14. Date of last use: 06/24/18 Medical History: hypothyroidsm, GERD Psychiatric History: Patient reports h/o two psychiatric hospitalizations, most recently four months ago for depression at [facility]. Self reports diagnosis of Major depressive disorder. States he was prescribed seroquel 100mg + Remeron 45mg HS. He reports noncompliance to medications and to outpatient psychiatric care. States he takes the medications as needed. Patient was seen by Dr. Hinton on 05/25/18 and was prescribed seroquel 100mg with favorable effect. At present, patient reports difficulty sleeping. Physical/Sexual Abuse/Trauma History: denies. Mental Status Exam - Mental Status Exam Alert and Oriented to: Time, Place, Person Cognitive Function: Good Patient Appearance: Well Groomed Mood: Euthymic Affect: Appropriate Patient Behavior: Cooperative Speech Pattern: Appropriate Voice Loudness: Moderately Soft/Quiet Thought Process: Goal Oriented Thought Disorder: Not Present Hallucinations: Denies Suicidal Ideation: Denies Homicidal Ideation: Denies Insight/Judgement: Poor Sleep: Poorly Appetite: Fair Muscle strength/Tone: Normal Gait/Station: Normal Psychiatric Findings - Problem List ([place] 1, 2,3) (1) Alcohol dependence with uncomplicated withdrawal Current Visit: Yes Status: Acute (2) Opioid dependence with withdrawal Current Visit: Yes Status: Acute (3) Substance-induced sleep disorder Current Visit: Yes Status: Acute (4) Substance induced mood disorder Current Visit: Yes Status: Acute - Initial Treatment Plan Initial Treatment Plan: Psychoeducation provided. Detoxification in progress. Will order Seroquel 100mg HS. Benefits and side effects discussed. Verbal consent given.
[2018-06-26] MEDS: THIAMINE HCL 100 MG TABLET (FP) PO SCH (22:08)
[2018-06-26] MEDS: QUEtiapine FUMARATE 100 MG TABLET (FP) PO SCH (22:08)
[2018-06-27] MEDS: LEVOTHYROXINE NA 25 MCG TABLET (FP) PO SCH (07:37)
[2018-06-27] MEDS: CEPHALEXIN MONOHYDRATE 250 MG CAPSULE (FP) PO SCH ×4 (07:37→23:11)
[2018-06-27] MEDS ORDERED: METHADONE HCL 10 MG TABLET (FOR DETOX USE ONLY) PO ONE (10:00)
[2018-06-27 10:16] LABS: ALBUMIN 3.4 g/dl (3.4-5.0); ALK PHOS 86 U/L (45-117); ANION GAP 6 MMOL/L (8-16); BILIRUBIN,TOTAL 0.4 mg/dL (0.2-1); BLOOD UREA NITROGEN 13 mg/dL (7-18); CALCIUM 9.2 mg/dL (8.5-10.1); CHLORIDE 108 mmol/L (98-107); CO2 26 mmol/L (21-32); CREATININE 0.9 mg/dL (0.55-1.3); GLUCOSE,RANDOM 89 mg/dL (74-106); POTASSIUM 4.4 mmol/L (3.5-5.1); SGOT/AST 24 U/L (15-37); SGPT/ALT 46 U/L (13-61); SODIUM 140 mmol/L (136-145); TOT PROT 6.8 g/dl (6.4-8.2)
[2018-06-27 10:22] LABS: HEMATOCRIT 41.9 % (35.4-49); HEMOGLOBIN 13.8 GM/dL (11.7-16.9); MCH 30.3 pg (25.7-33.7); MCHC 32.9 g/dl (32.0-35.9); MEAN PLT VOLUME 8.2 fl (7.5-11.1); PLATELET COUNT 333 K/MM3 (134-434); RBC 4.55 M/mm3 (4.00-5.60); RDW 14.6 % (11.9-15.9); WHITE BLOOD COUNT 7.5 K/mm3 (4.0-10.0)
[2018-06-27] MEDS: PRENATAL VITAMINS W/ FOLIC ACID TABLET (FP) PO SCH (10:28)
[2018-06-27] MEDS: PANTOPRAZOLE 40 MG TABLET (FP) PO SCH (10:28)
[2018-06-27] MEDS: diazePAM 5 MG TABLET PO SCH ×2 (10:28→22:19)
[2018-06-27] MEDS: NICOTINE 14 MG/24 HOURS TOPICAL PATCH TD SCH (10:28)
--- NOTE | 2018-06-27 12:22 | PN ---
[facility] CIWA - CIWA Score Nausea/Vomitin-No Nausea/No Vomiting Muscle Tremors: 3 Anxiety: 3 Agitation: 3 Paroxysmal Sweats: 2 Orientation: 0-Oriented Tacttile Disturbances: 0-None Auditory Disturbances: 0-None Visual Disturbances: 0-None Headache: 0-None Present CIWA-Ar Total Score: 11 S COWS - Scale Resting Pulse: 0= [place] 80 or Below Sweatin= Chills/Flushing Restless Observation: 1= Difficult to Sit Still Pupil Size: 0= Normal to Room Light Bone or Joint Aches: 2= Severe Diffuse Aches Runny Nose/ Eye Tearin= Nasal Congestion GI Upset > 30mins: 0= None Tremor Observation of Outstretched Hands: 2= Slight Tremor Visible Yawning Observation: 2= >3x During Session Anxiety or Irritability: 2=Irritable/Anxious Goose Flesh Skin: 0=Smooth Skin COWS Score: 11 [facility] Progress Note (SOAP) Subjective: restless sweats chills interrupted sleep agitation Objective: 06/27/18 12:21 Vital Signs Temperature 97.9 F 06/27/18 06:18 Pulse Rate 55 L 06/27/18 06:18 Respiratory Rate 18 06/27/18 06:18 Blood Pressure 112/66 06/27/18 06:18 O2 Sat by Pulse Oximetry (%) Laboratory Tests 06/27/18 06/27/18 06/27/18 07:00 07:00 07:00 WBC 7.5 RBC 4.55 Hgb 13.8 Hct 41.9 MCV 92.0 MCH 30.3 MCHC 32.9 RDW 14.6 Plt Count 333 MPV 8.2 Sodium 140 Potassium 4.4 Chloride 108 H Carbon Dioxide 26 Anion Gap 6 L BUN 13 Creatinine 0.9 Creat Clearance w eGFR 92.10 Random Glucose 89 Calcium 9.2 Total Bilirubin 0.4 AST 24 ALT 46 Alkaline Phosphatase 86 Total Protein 6.8 Albumin 3.4 RPR Titer Nonreactive aaox3 ambulating no acute distress Assessment: 06/27/18 12:22 withdrawal sx Plan: continue detox increase fluids
[2018-06-27] MEDS: diazePAM 5 MG TABLET PO PRN (17:14)
[2018-06-27 21:57] VITALS: TEMP 97.9
[2018-06-27] MEDS: QUEtiapine FUMARATE 100 MG TABLET (FP) PO SCH (22:19)
[2018-06-27] MEDS: MELATONIN 5 MG TABLETS PO PRN (22:19)
[2018-06-27] MEDS: THIAMINE HCL 100 MG TABLET (FP) PO SCH (22:19)
[2018-06-28] MEDS ORDERED: diazePAM 5 MG TABLET PO SCH (06:00)
[2018-06-28] MEDS: CEPHALEXIN MONOHYDRATE 250 MG CAPSULE (FP) PO SCH (06:31)
[2018-06-28 06:42] VITALS: BP 90/48; PULSE 48
[2018-06-28] MEDS ORDERED: METHADONE HCL 10 MG TABLET (FOR DETOX USE ONLY) PO ONE (10:00)
[2018-06-28] MEDS: PRENATAL VITAMINS W/ FOLIC ACID TABLET (FP) PO SCH (10:04)
[2018-06-28] MEDS: LEVOTHYROXINE NA 25 MCG TABLET (FP) PO SCH (10:05)
[2018-06-28] MEDS: NICOTINE 14 MG/24 HOURS TOPICAL PATCH TD SCH (10:05)
--- NOTE | 2018-06-28 10:12 | DS ---
[facility] Detox Discharge Summary Admission Date: 06/25/18 Discharge Date: 06/28/18 - History Present History: Alcohol Dependence - Physical Exam Results Vital Signs: Vital Signs Temperature 97.9 F 06/27/18 21:56 Pulse Rate 48 L 06/28/18 06:00 Respiratory Rate 18 06/28/18 06:00 Blood Pressure 90/48 L 06/28/18 06:00 O2 Sat by Pulse Oximetry (%) - Treatment Hospital Course: Detox Protocol Followed, Detoxed Safely, Responded well, Discharged Condition Good, Rehab Referral Accepted - Medication Discharge Medications: Ambulatory Orders Esomeprazole Magnesium [Nexium 24Hr] 20 mg PO DAILY 04/13/18 Mirtazapine [Remeron -] 30 mg PO HS 04/13/18 Levothyroxine [Synthroid -] 50 mcg PO DAILY 05/07/18 - Diagnosis (1) Alcohol dependence with uncomplicated withdrawal Current Visit: Yes Status: Chronic (2) IVDU (intravenous drug user) Current Visit: Yes Status: Chronic (3) Opioid dependence with withdrawal Current Visit: Yes Status: Chronic (4) Substance induced mood disorder Current Visit: Yes Status: Acute (5) Substance-induced sleep disorder Current Visit: Yes Status: Acute (6) Asthma Current Visit: Yes Status: Chronic Qualifiers: Asthma severity: moderate Asthma persistence: persistent Asthma complication type: uncomplicated Qualified Code(s): J45.40 - Moderate persistent asthma, uncomplicated (7) Chronic lower back pain Current Visit: Yes Status: Chronic Qualifiers: Back pain laterality: bilateral Sciatica presence: without sciatica Qualified Code(s): M54.5 - Low back pain; G89.29 - Other chronic pain (8) GERD (gastroesophageal reflux disease) Current Visit: Yes Status: Chronic Qualifiers: Esophagitis presence: without esophagitis Qualified Code(s): K21.9 - Gastro -esophageal reflux disease without esophagitis (9) Hypothyroidism Current Visit: Yes Status: Chronic Qualifiers: Hypothyroidism type: unspecified Qualified Code(s): E03.9 - Hypothyroidism , unspecified (10) Cocaine use disorder, moderate, in early remission Current Visit: No Status: Acute (11) Drug-induced mood disorder Current Visit: No Status: Acute (12) Major depressive disorder Current Visit: No Status: Acute (13) Nicotine dependence Current Visit: Yes Status: Acute Qualifiers: Nicotine product type: cigarettes Substance use status: uncomplicated Qualified Code(s): F17.210 - Nicotine dependence, cigarettes, uncomplicated (14) Sedative, hypnotic or anxiolytic dependence with withdrawal, uncomplicated Current Visit: Yes Status: Acute (15) MDD (major depressive disorder), recurrent episode Current Visit: No Status: Ruled-out Qualifiers: Major depression episode severity: unspecified Qualified Code(s): F33.9 - Major depressive disorder, recurrent, unspecified - AMA Did Patient Leave Against Medical Advice: No (pt declined aftercare; going home)
[2018-06-28] MEDS: PANTOPRAZOLE 40 MG TABLET (FP) PO SCH (10:22)
[2018-06-29] MEDS ORDERED: METHADONE HCL 5 MG TABLET (FOR DETOX USE ONLY) PO ONE (06:00)
== END 2018-06-28 10:25 | disposition home or self-care (01) | DRG 773 ==
LOC: YASAS 13:54 → Y6N 20:50
PROVIDERS: ADMIT Surgery; ATTEND Surgery
PROC: HZ2ZZZZ Detoxification Services for Substance Abuse Treatment (ICD-10-PCS; principal; 2018-06-25)
DX: F11.23 Opioid dependence with withdrawal (principal); F10.230 Alcohol dependence with withdrawal, uncomplicated; F13.230 Sedative, hypnotic or anxiolytic dependence with withdrawal, uncomplicated; F14.20 Cocaine dependence, uncomplicated; F17.210 Nicotine dependence, cigarettes, uncomplicated; F19.24 Other psychoactive substance dependence with psychoactive substance-induced mood disorder; F19.282 Other psychoactive substance dependence with psychoactive substance-induced sleep disorder; F33.9 Major depressive disorder, recurrent, unspecified; J45.40 Moderate persistent asthma, uncomplicated; E03.9 Hypothyroidism, unspecified; K21.9 Gastro-esophageal reflux disease without esophagitis; M54.5 Low back pain; G89.29 Other chronic pain; Z91.013 Allergy to seafood; Z91.19 Patient's noncompliance with other medical treatment and regimen
CPT/HCPCS: 36415; 80053; 85027; 86593; J0735

== ENCOUNTER 2018-08-03 09:50 | Inpatient (IN) | payer OTHER ==
[2018-08-03 11:10] VITALS: BMI 29.5
--- NOTE | 2018-08-03 12:08 | HP ---
COWS - Scale Resting Pulse: 0= [place] 80 or Below Sweatin= No chills or Flushing Restless Observation: 0= Sits Still Pupil Size: 0= Normal to Room Light Bone or Joint Aches: 1= Mild Discomfort Runny Nose/ Eye Tearin= Nasal Congestion GI Upset > 30mins: 1= Stomach Cramp Tremor Observation: 2= Slight Tremor Visible Yawning Observation: 1= 1-2x During Session Anxiety or Irritability: 1=Feels Anxious/Irritable Goose Flesh Skin: 0=Smooth Skin COWS Score: 7 CIWA Score Nausea/Vomitin-Mild Nausea/No Vomiting Muscle Tremors: 4-Moderate,w/Arms Extend Anxiety: 4-Mod. Anxious/Guarded Agitation: 1-Slight > Activity Paroxysmal Sweats: No Perspiration Orientation: 1-Uncertain about Date Tacttile Disturbances: 2-Mild Itch/Numbness/Burn Auditory Disturbances: 1-Very Mild Visual Disturbances: 1-Very Mild Sensitivity Headache: 2-Mild CIWA-Ar Total Score: 17 - Admission Criteria OASAS Guidelines: Admission for Medically Managed Detox: Requires at least one of the followin. CIWA greater than 12 2. Seizures within the past 24 hours 3. Delirium tremens within the past 24 hours 4. Hallucinations within the past 24 hours 5. Acute intervention needed for co occurring medical disorder 6. Acute intervention needed for co occurring psychiatric disorder 7. Severe withdrawal that cannot be handled at a lower level of care (continued vomiting, continued diarrhea, abnormal vital signs) requiring intravenous medication and/or fluids 8. Patient presents the following: CIWA greater than 12 Admission Criteria Met: Admission criteria met Admission ROS [facility] Chief Complaint: I'm doing more and more drugs, I'm tired, I can't stop, my mother is suffering watching me. Allergies/Adverse Reactions: Allergies Allergy/AdvReac Type Severity Reaction Status Date / Time shellfish derived Allergy Intermediate Rash Verified 08/03/18 11:00 History of Present Illness: 42 yo gentleman here for detox from alcohol and intravenous opiates, also using cocaine. This is one of multiple visits for treatment, last here for detox 06/25. Was in [facility] alf 07/05-07/07/18 and relapsed after that. He has a history of overdoses and black outs but denies seizures. Denies being on probation currently. Discussed MAT options and encouraged him to consider same for fpc recovery. Exam Limitations: No Limitations - Ebola screening Have you traveled outside of the country in the last 21 days: No (N) Have you had contact with anyone from an Ebola affected area: No Do you have a fever: No - Review of Systems Constitutional: Loss of Appetite, Malaise, Changes in sleep, Weakness EENT: reports: Nose Congestion Respiratory: reports: No Symptoms reported Cardiac: reports: No Symptoms Reported GI: reports: Nausea, Poor Fluid Intake, Indigestion, Abdominal cramping : reports: Dysuria Musculoskeletal: reports: Back Pain, Muscle Pain Integumentary: reports: Pruritus, Rash, Other (erythematous raised area dorsal aspect of left arm from injection use - tender) Neuro: reports: Headache, Tremors, Weakness Endocrine: reports: No Symptoms Reported Hematology: reports: No Symptoms Reported Psychiatric: reports: Mood/Affect Appropiate, Orientated x3, Anxious Other Systems: Reviewed and Negative Patient History - Patient Medical History Hx Anemia: No Hx Asthma: No Hx Chronic Obstructive Pulmonary Disease (COPD): No Hx Cancer: No Hx Cardiac Disorders: No Hx Congestive Heart Failure: No Hx Hypertension: No Hx Hypercholesterolemia: No Hx Pacemaker: No HX Cerebrovascular Accident: No Hx Seizures: No Hx Dementia: No Hx Diabetes: No Hx Gastrointestinal Disorders: No Hx Liver Disease: No Hx Genitourinary Disorders: No Hx Sexually Transmitted Disorders: No Hx Renal Disease (ESRD): No Hx Thyroid Disease: Yes (on meds) Hx Human Immunodeficiency Virus (HIV): No Hx Hepatitis C: Yes (not treated) Hx Depression: Yes (on meds, never hospitalized) Hx Suicide Attempt: No (denies) Hx Bipolar Disorder: No Hx Schizophrenia: No - Patient Surgical History Past Surgical History: No Hx Neurologic Surgery: No Hx Cataract Extraction: No Hx Cardiac Surgery: No Hx Lung Surgery: No Hx Breast Surgery: No Hx Breast Biopsy: No Hx Abdominal Surgery: No Hx Appendectomy: No Hx Cholecystectomy: No Hx Genitourinary Surgery: No Hx Section: No Hx Orthopedic Surgery: No Hx Hysterectomy: No Anesthesia Reaction: No - PPD History Previous Implant?: Yes Documented Results: Negative w/proof Implanted On Prior R Admission?: Yes Date: 08/03/17 Results: 0 mm PPD to be Administered?: Yes - Reproductive History Patient is a Female of Child Bearing Age (11 -55 yrs old): No - Smoking Cessation Smoking history: Current every day smoker Have you smoked in the past 12 months: Yes Aproximately how many cigarettes per day: 20 Cigars Per Day: 0 Hx Chewing Tobacco Use: No Initiated information on smoking cessation: Yes 'Breaking Loose' booklet given: 08/03/18 (give on floor) - Substance & Tx. History Hx Alcohol Use: Yes Hx Substance Use: Yes Substance Use Type: Alcohol, Cocaine, Opiates Hx Substance Use Treatment: Yes (detox, rehab) - Substances abused Heroin Substance route: Injection Frequency: Daily Amount used: 20 bags Age of first use: 17 Date of last use: 08/02/18 Alcohol Substance route: Oral Frequency: Daily Amount used: 2 PINTS liquor, two 22 ounces of beer Age of first use: 14 Date of last use: 08/02/18 Cocaine Substance route: Injection Frequency: Daily Amount used: 1 gram Age of first use: 17 Date of last use: 08/02/18 Family Disease History - Family Disease History Family Disease History: Other: Father (living, healthy), Mother (living, healthy ), Brother (two - one uses etoh/drugs), Sister (one - living, depression) Admission Physical Exam S - Vital Signs Vital Signs: Vital Signs - 24 hr 08/03/18 11:03 Temperature 97.8 F Pulse Rate 75 Respiratory 18 Rate Blood Pressure 145/80 - Physical General Appearance: Yes: Nourished, Appropriately Dressed, Moderate Distress, Tremorous, Anxious HEENTM: Yes: Hearing grossly Normal, Normocephalic, Normal Voice Respiratory: Yes: Normal Breath Sounds, No Respiratory Distress Neck: Yes: No masses,lesions,Nodules, Supple Breast: Yes: Breast Exam Deferred Cardiology: Yes: Regular Rhythm, Regular Rate Abdominal: Yes: Soft Genitourinary: Yes: Dysuria Back: Yes: Normal Inspection Musculoskeletal: Yes: full range of Motion, Gait Steady, Back pain, Muscle Pain Extremities: Yes: Normal Inspection 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: Yes: Fully Oriented, Alert, Normal Mood/Affect, Normal Response Integumentary: Yes: Rash (excoriation both legs from scratching; track valdez right antecubital space and dorsal aspect of left arm - mild erythema and swelling), Track Valdez, Other Lymphatic: Yes: Within Normal Limits - Diagnostic (1) Opioid dependence with withdrawal Current Visit: Yes Status: Chronic (2) IVDU (intravenous drug user) Current Visit: Yes Status: Chronic (3) Alcohol dependence with uncomplicated withdrawal Current Visit: Yes Status: Chronic (4) Hepatitis C Current Visit: Yes Status: Acute Qualifiers: Viral hepatitis chronicity: chronic Hepatic coma status: without hepatic coma Qualified Code(s): B18.2 - Chronic viral hepatitis C (5) Cellulitis of arm, left Current Visit: Yes Status: Acute (6) Nicotine dependence Current Visit: Yes Status: Acute Qualifiers: Nicotine product type: cigarettes Substance use status: uncomplicated Qualified Code(s): F17.210 - Nicotine dependence, cigarettes, uncomplicated (7) Hypothyroidism Current Visit: Yes Status: Chronic Qualifiers: Hypothyroidism type: unspecified Qualified Code(s): E03.9 - Hypothyroidism , unspecified (8) Cocaine dependence Current Visit: Yes Status: Acute Qualifiers: Substance use status: uncomplicated Qualified Code(s): F14.20 - Cocaine dependence, uncomplicated (9) GERD (gastroesophageal reflux disease) Current Visit: Yes Status: Chronic Qualifiers: Esophagitis presence: without esophagitis Qualified Code(s): K21.9 - Gastro -esophageal reflux disease without esophagitis Cleared for Admission S - Detox or Rehab [facility] Level of Care: Medically Managed Detox Regimen/Protocol: Methadone/Librium Breathalyzer - Breathalyzer Breathalyzer: 0 Urine Drug Screen - Test Device Lot number: [id number] Expiration date: 05/02/20 - Control Is test valid?: Yes - Results Drug screen NEGATIVE: No Urine drug screen results: BARBARA-Cocaine, FEN-Fentanyl, MOP-Opiates, BZO- Benzodiazepines Inpatient Rehab Admission - Rehab Decision to Admit Inpatient rehab admission?: No
[2018-08-03] MEDS ORDERED: NICOTINE POLACRILEX 4 MG GUM BUC PRN (12:26)
[2018-08-03] MEDS ORDERED: chlordiazePOXIDE HCL 25 MG CAPSULE PO PRN (12:26)
[2018-08-03] MEDS ORDERED: MAGNESIUM CITRATE 300 ML BOTTLE PO PRN (12:26)
[2018-08-03] MEDS ORDERED: MAG HYDROX/AL HYDROX/SIMETH 30 ML UNIT-DOSE CUP PO PRN (12:26)
[2018-08-03] MEDS ORDERED: cloNIDine HCL 0.1 MG TABLET PO PRN (12:26)
[2018-08-03] MEDS ORDERED: METHOCARBAMOL 500 MG TABLET PO PRN (12:26)
[2018-08-03] MEDS ORDERED: MENTHOL/PHENOL 1 EACH UD MM PRN (12:26)
[2018-08-03] MEDS ORDERED: BISMUTH SUBSALICYLATE 524 MG/30 ML UD PO PRN (12:26)
[2018-08-03] MEDS ORDERED: NALOXONE HCL 0.4 MG/ML VIAL IVPUSH PRN (12:26)
[2018-08-03] MEDS ORDERED: ACETAMINOPHEN 325 MG TABLET (FP) PO PRN (12:26)
[2018-08-03] MEDS ORDERED: MAGNESIUM HYDROX 2400MG/30ML ORAL SUSPENSION 30 ML CUP PO PRN (12:26)
[2018-08-03] MEDS ORDERED: IBUPROFEN 400 MG TABLET (FP) PO PRN (12:26)
[2018-08-03] MEDS ORDERED: chlordiazePOXIDE HCL 25 MG CAPSULE PO ONE (13:00)
[2018-08-03] MEDS: CEPHALEXIN MONOHYDRATE 500 MG CAPSULE (UD) PO SCH ×2 (13:24→22:20)
[2018-08-03] MEDS ORDERED: METHADONE HCL 10 MG TABLET PO ONE (15:04)
[2018-08-03] MEDS: chlordiazePOXIDE HCL 25 MG CAPSULE PO SCH ×2 (17:38→22:20)
[2018-08-03] MEDS: THIAMINE HCL 100 MG TABLET (FP) PO SCH (22:20)
[2018-08-03] MEDS ORDERED: METHADONE HCL 10 MG TABLET (FOR DETOX USE ONLY) PO ONE (23:00)
[2018-08-04] MEDS: MELATONIN 5 MG TABLETS PO PRN ×2 (01:14→23:02)
[2018-08-04] MEDS: chlordiazePOXIDE HCL 25 MG CAPSULE PO SCH ×4 (05:48→22:58)
[2018-08-04] MEDS: LEVOTHYROXINE NA 25 MCG TABLET (FP) PO SCH (06:58)
[2018-08-04] MEDS ORDERED: METHADONE HCL 10 MG TABLET (FOR DETOX USE ONLY) PO ONE (10:00)
[2018-08-04 10:52] LABS: ALBUMIN 3.2 g/dl (3.4-5.0); BILIRUBIN,TOTAL 0.4 mg/dL (0.2-1); CALCIUM 8.5 mg/dL (8.5-10.1); CREATININE 0.9 mg/dL (0.55-1.3); POTASSIUM 4.1 mmol/L (3.5-5.1); TOT PROT 6.2 g/dl (6.4-8.2)
[2018-08-04 10:56] LABS: HEMATOCRIT 39.6 % (35.4-49); MCH 29.7 pg (25.7-33.7); MCHC 32.8 g/dl (32.0-35.9); MEAN CELL VOLUME 90.5 fl (80-96); MEAN PLT VOLUME 8.2 fl (7.5-11.1); PLATELET COUNT 283 K/MM3 (134-434); RBC 4.38 M/mm3 (4.00-5.60); RDW 14.9 % (11.9-15.9); WHITE BLOOD COUNT 8.7 K/mm3 (4.0-10.0)
--- NOTE | 2018-08-04 11:12 | CONSULT ---
[facility] Psychiatric Consult - Data Date of interview: 08/04/18 Admission source: Self-referred Identifying data: Mr Olmos is a 42 years old single Black male, unemployed on SSI, domiciled seeking detox treatment for alcohol, opioid and cocaine Substance Abuse History: Reports history of alcohol, heroin and cocaine use. Refer to addiction counselor's summary for further information Medical History: Significant for GERD, hypothyroidism, history of cellulitis of right leg and treated for MERSA (methicillin-resistant staphylococcus aureus). Smokes cigarettes 1 ppd Psychiatric History: Patient reports that he was diagnosed with MDD in 2007 while in [facility]way and treated with Prozac, Seroquel. Reports multiple psychiatric admissions to [facility] and [facility]. Reports non- adherent to OPD care and medications. Usually, gets medications via ED or PCP. He was last prescribed Seroquel 100 mg/hs by Dr Hinton who saw him on 05/25/18 while admitted to detox in this facility. He has been off medication since his discharge from this facility on 05/26/18. Denies previous suicidal attemt. At present, feels very irritable and reports sleeping poorly Physical/Sexual Abuse/Trauma History: Denies Mental Status Exam - Mental Status Exam Alert and Oriented to: Time, Place, Person Cognitive Function: Fair Patient Appearance: Well Groomed Mood: Irritable Affect: Appropriate Patient Behavior: Cooperative (superficially) Speech Pattern: Clear Voice Loudness: Normal Thought Process: Intact, Goal Oriented Hallucinations: Denies Suicidal Ideation: Denies Homicidal Ideation: Denies Insight/Judgement: Poor Sleep: Poorly Appetite: Good Muscle strength/Tone: Normal Gait/Station: Normal Psychiatric Findings - Problem List ([place] 1, 2,3) (1) Mood disorder Current Visit: Yes Status: Chronic (2) MDD (major depressive disorder) Current Visit: Yes Status: Ruled-out (3) Substance induced mood disorder Current Visit: Yes Status: Acute (4) Substance-induced sleep disorder Current Visit: No Status: Acute (5) Alcohol dependence with uncomplicated withdrawal Current Visit: Yes Status: Acute (6) Opioid dependence with withdrawal Current Visit: Yes Status: Acute (7) Cocaine dependence Current Visit: Yes Status: Acute (8) Nicotine dependence Current Visit: Yes Status: Chronic Qualifiers: Nicotine product type: cigarettes Substance use status: uncomplicated Qualified Code(s): F17.210 - Nicotine dependence, cigarettes, uncomplicated (9) Hepatitis C Current Visit: Yes Status: Acute Qualifiers: Viral hepatitis chronicity: chronic Hepatic coma status: without hepatic coma Qualified Code(s): B18.2 - Chronic viral hepatitis C (10) GERD (gastroesophageal reflux disease) Current Visit: Yes Status: Chronic Qualifiers: Esophagitis presence: without esophagitis Qualified Code(s): K21.9 - Gastro -esophageal reflux disease without esophagitis (11) Hypothyroidism Current Visit: Yes Status: Chronic Qualifiers: Hypothyroidism type: unspecified Qualified Code(s): E03.9 - Hypothyroidism , unspecified - Initial Treatment Plan Initial Treatment Plan: 1) Start Seroquel 100 mg po HS. 2) Continue inpatient detoxification
[2018-08-04] MEDS: CEPHALEXIN MONOHYDRATE 500 MG CAPSULE (UD) PO SCH ×2 (11:22→22:58)
[2018-08-04] MEDS: PRENATAL VITAMINS W/ FOLIC ACID TABLET (FP) PO SCH (11:22)
--- NOTE | 2018-08-04 15:46 | PN ---
[facility] CIWA - CIWA Score Nausea/Vomitin-Mild Nausea/No Vomiting Muscle Tremors: 3 Anxiety: 3 Agitation: 3 Paroxysmal Sweats: 3 Orientation: 0-Oriented Tacttile Disturbances: 0-None Auditory Disturbances: 0-None Visual Disturbances: 0-None Headache: 0-None Present CIWA-Ar Total Score: 13 BHS COWS - Scale Resting Pulse: 0= [place] 80 or Below Sweatin= Chills/Flushing Restless Observation: 3= Extraneous Movement Pupil Size: 0= Normal to Room Light Bone or Joint Aches: 2= Severe Diffuse Aches Runny Nose/ Eye Tearin= Runny Nose/Eyes GI Upset > 30mins: 3= Vomiting/Diarrhea Tremor Observation of Outstretched Hands: 1= Tremor [place], Not Seen Yawning Observation: 0= None Anxiety or Irritability: 1=Feels Anxious/Irritable Goose Flesh Skin: 0=Smooth Skin COWS Score: 13 [facility] Progress Note (SOAP) Subjective: Sweating, tremor, chills, diarrhea, back pain Objective: 08/04/18 15:45 Last Vital Signs Temp Pulse Resp BP Pulse Ox 98.1 F 61 20 120/75 08/04/18 13:45 08/04/18 13:45 08/04/18 13:45 08/04/18 13:45 Laboratory Tests 08/04/18 08/04/18 08/04/18 07:40 07:40 07:40 WBC 8.7 RBC 4.38 Hgb 13.0 Hct 39.6 MCV 90.5 MCH 29.7 MCHC 32.8 RDW 14.9 Plt Count 283 MPV 8.2 Sodium 137 Potassium 4.1 Chloride 102 Carbon Dioxide 29 Anion Gap 6 L BUN 12 Creatinine 0.9 Est GFR (CKD-EPI)AfAm 120.81 Est GFR (CKD-EPI)NonAf 104.24 Random Glucose 102 Calcium 8.5 Total Bilirubin 0.4 AST 29 ALT 49 Alkaline Phosphatase 87 Total Protein 6.2 L Albumin 3.2 L RPR Titer Nonreactive Labs reviewed Assessment: 08/04/18 15:45 Withdrawal symptoms Plan: Continue detox Encouraged PO water intake
[2018-08-04 22:21] VITALS: TEMP 97.7
[2018-08-04] MEDS: THIAMINE HCL 100 MG TABLET (FP) PO SCH (22:58)
[2018-08-05] MEDS: chlordiazePOXIDE HCL 25 MG CAPSULE PO SCH ×2 (06:33→10:17)
[2018-08-05 09:16] VITALS: BP 116/71; PULSE 61
[2018-08-05] MEDS ORDERED: METHADONE HCL 10 MG TABLET (FOR DETOX USE ONLY) PO ONE (10:00)
--- NOTE | 2018-08-05 10:14 | PN ---
[facility] CIWA - CIWA Score Nausea/Vomitin-No Nausea/No Vomiting Muscle Tremors: 3 Anxiety: 3 Agitation: 3 Paroxysmal Sweats: 3 Orientation: 0-Oriented Tacttile Disturbances: 0-None Auditory Disturbances: 0-None Visual Disturbances: 0-None Headache: 0-None Present CIWA-Ar Total Score: 12 BHS COWS - Scale Resting Pulse: 0= [place] 80 or Below Sweatin= Chills/Flushing Restless Observation: 1= Difficult to Sit Still Pupil Size: 0= Normal to Room Light Bone or Joint Aches: 2= Severe Diffuse Aches Runny Nose/ Eye Tearin= Nasal Congestion GI Upset > 30mins: 0= None Tremor Observation of Outstretched Hands: 2= Slight Tremor Visible Yawning Observation: 2= >3x During Session Anxiety or Irritability: 2=Irritable/Anxious Goose Flesh Skin: 0=Smooth Skin COWS Score: 11 S Progress Note (SOAP) Subjective: sweats shakes body aches interrupted sleep irritable agitation back pain Objective: 08/05/18 10:13 Vital Signs Temperature 97.7 F 08/05/18 09:15 Pulse Rate 61 08/05/18 09:15 Respiratory Rate 18 08/05/18 09:15 Blood Pressure 116/71 08/05/18 09:15 O2 Sat by Pulse Oximetry (%) Laboratory Tests 08/04/18 08/04/18 08/04/18 07:40 07:40 07:40 WBC 8.7 RBC 4.38 Hgb 13.0 Hct 39.6 MCV 90.5 MCH 29.7 MCHC 32.8 RDW 14.9 Plt Count 283 MPV 8.2 Sodium 137 Potassium 4.1 Chloride 102 Carbon Dioxide 29 Anion Gap 6 L BUN 12 Creatinine 0.9 Est GFR (CKD-EPI)AfAm 120.81 Est GFR (CKD-EPI)NonAf 104.24 Random Glucose 102 Calcium 8.5 Total Bilirubin 0.4 AST 29 ALT 49 Alkaline Phosphatase 87 Total Protein 6.2 L Albumin 3.2 L RPR Titer Nonreactive labs noted aaox3 ambulating no acute distress Assessment: 08/05/18 10:13 withdrawal sx Plan: continue detox increase fluids lidocaine patch
[2018-08-05] MEDS: CEPHALEXIN MONOHYDRATE 500 MG CAPSULE (UD) PO SCH (10:15)
[2018-08-05] MEDS: PRENATAL VITAMINS W/ FOLIC ACID TABLET (FP) PO SCH (10:15)
[2018-08-05] MEDS ORDERED: LIDOCAINE 5% TOPICAL PATCH TP SCH (10:15)
[2018-08-05] MEDS: LEVOTHYROXINE NA 25 MCG TABLET (FP) PO SCH (10:57)
--- NOTE | 2018-08-05 12:58 | PN ---
S Progress Note Note: pt states he "had things to do". pt signed out AMA. Pt refused to wait for provider to re-assess him. pt insisted on leaving.
--- NOTE | 2018-08-05 13:00 | DS ---
[facility] Detox Discharge Summary Admission Date: 08/03/18 - History Present History: Alcohol Dependence, Cocaine Dependence, Opioid Dependence, Sedative Dependence - Physical Exam Results Vital Signs: Vital Signs Temperature 97.7 F 08/05/18 09:15 Pulse Rate 61 08/05/18 09:15 Respiratory Rate 18 08/05/18 09:15 Blood Pressure 116/71 08/05/18 09:15 O2 Sat by Pulse Oximetry (%) - Treatment Hospital Course: Discharged Condition Good - Medication Discharge Medications: Ambulatory Orders Esomeprazole Magnesium [Nexium 24Hr] 20 mg PO DAILY 04/13/18 Mirtazapine [Remeron -] 45 mg PO HS 04/13/18 Levothyroxine [Synthroid -] 50 mcg PO DAILY 05/07/18 - Diagnosis (1) Alcohol dependence with uncomplicated withdrawal Status: Chronic (2) Cellulitis of arm, left Status: Acute (3) Cocaine dependence Status: Chronic Qualifiers: Substance use status: uncomplicated Qualified Code(s): F14.20 - Cocaine dependence, uncomplicated (4) Hepatitis C Status: Acute Qualifiers: Viral hepatitis chronicity: chronic Hepatic coma status: without hepatic coma Qualified Code(s): B18.2 - Chronic viral hepatitis C (5) Major depressive disorder Status: Acute (6) Opioid dependence with withdrawal Status: Chronic (7) Sedative, hypnotic or anxiolytic dependence with withdrawal, uncomplicated Status: Chronic (8) Substance-induced sleep disorder Status: Acute (9) Asthma Status: Chronic Qualifiers: Asthma severity: moderate Asthma persistence: persistent Asthma complication type: uncomplicated Qualified Code(s): J45.40 - Moderate persistent asthma, uncomplicated (10) Chronic lower back pain Status: Chronic Qualifiers: Back pain laterality: bilateral Sciatica presence: without sciatica Qualified Code(s): M54.5 - Low back pain; G89.29 - Other chronic pain (11) GERD (gastroesophageal reflux disease) Status: Chronic Qualifiers: Esophagitis presence: without esophagitis Qualified Code(s): K21.9 - Gastro -esophageal reflux disease without esophagitis (12) Hypothyroidism Status: Chronic Qualifiers: Hypothyroidism type: unspecified Qualified Code(s): E03.9 - Hypothyroidism , unspecified (13) IVDU (intravenous drug user) Status: Chronic (14) Nicotine dependence Status: Chronic Qualifiers: Nicotine product type: cigarettes Substance use status: uncomplicated Qualified Code(s): F17.210 - Nicotine dependence, cigarettes, uncomplicated (15) MDD (major depressive disorder) Status: Ruled-out (16) MDD (major depressive disorder), recurrent episode Status: Ruled-out Qualifiers: Major depression episode severity: unspecified Qualified Code(s): F33.9 - Major depressive disorder, recurrent, unspecified - AMA Did Patient Leave Against Medical Advice: Yes (going home)
[2018-08-05] MEDS ORDERED: chlordiazePOXIDE HCL 10 MG CAPSULE PO PRN (17:00)
[2018-08-05] MEDS ORDERED: chlordiazePOXIDE HCL 10 MG CAPSULE PO SCH (17:00)
[2018-08-05] MEDS ORDERED: LIDOCAINE PATCH REMOVAL MC SCH (22:00)
[2018-08-06] MEDS ORDERED: METHADONE HCL 10 MG TABLET (FOR DETOX USE ONLY) PO ONE (10:00)
[2018-08-06] MEDS ORDERED: chlordiazePOXIDE HCL 10 MG CAPSULE PO SCH (17:00)
[2018-08-07] MEDS ORDERED: METHADONE HCL 5 MG TABLET (FOR DETOX USE ONLY) PO ONE (06:00)
== END 2018-08-05 12:15 | disposition left against medical advice (07) | DRG 770 ==
LOC: YASAS 09:50 → Y6N 12:45
PROVIDERS: ADMIT Surgery; ATTEND Surgery
PROC: HZ2ZZZZ Detoxification Services for Substance Abuse Treatment (ICD-10-PCS; principal; 2018-08-03)
DX: F11.23 Opioid dependence with withdrawal (principal); F10.230 Alcohol dependence with withdrawal, uncomplicated; F13.230 Sedative, hypnotic or anxiolytic dependence with withdrawal, uncomplicated; F14.20 Cocaine dependence, uncomplicated; F17.210 Nicotine dependence, cigarettes, uncomplicated; F19.282 Other psychoactive substance dependence with psychoactive substance-induced sleep disorder; F19.24 Other psychoactive substance dependence with psychoactive substance-induced mood disorder; F39 Unspecified mood [affective] disorder; F33.9 Major depressive disorder, recurrent, unspecified; J45.40 Moderate persistent asthma, uncomplicated; E03.9 Hypothyroidism, unspecified; K21.9 Gastro-esophageal reflux disease without esophagitis; M54.5 Low back pain; G89.29 Other chronic pain; B18.2 Chronic viral hepatitis C; L03.114 Cellulitis of left upper limb; Z91.013 Allergy to seafood
CPT/HCPCS: 36415; 80053; 85027; 86593

== ENCOUNTER 2018-11-23 12:22 | Inpatient (IN) | payer OTHER ==
[2018-11-23 13:09] VITALS: BMI 33.9
--- NOTE | 2018-11-23 14:36 | HP ---
COWS - Scale Resting Pulse: 1= [place] 81-100 Sweatin= Chills/Flushing Restless Observation: 1= Difficult to Sit Still Pupil Size: 0= Normal to Room Light Bone or Joint Aches: 1= Mild Discomfort Runny Nose/ Eye Tearin= Runny Nose/Eyes GI Upset > 30mins: 2= Nausea/Diarrhea Tremor Observation: 2= Slight Tremor Visible Yawning Observation: 1= 1-2x During Session Anxiety or Irritability: 2=Irritable/Anxious Goose Flesh Skin: 3=Piloerection COWS Score: 16 CIWA Score Nausea/Vomitin Muscle Tremors: 4-Moderate,w/Arms Extend Anxiety: 4-Mod. Anxious/Guarded Agitation: 1-Slight > Activity Paroxysmal Sweats: 1-Minimal Palms Moist Orientation: 0-Oriented Tacttile Disturbances: 0-None Auditory Disturbances: 1-Very Mild Visual Disturbances: 1-Very Mild Sensitivity Headache: 2-Mild CIWA-Ar Total Score: 16 - Admission Criteria OASAS Guidelines: Admission for Medically Managed Detox: Requires at least one of the followin. CIWA greater than 12 2. Seizures within the past 24 hours 3. Delirium tremens within the past 24 hours 4. Hallucinations within the past 24 hours 5. Acute intervention needed for co occurring medical disorder 6. Acute intervention needed for co occurring psychiatric disorder 7. Severe withdrawal that cannot be handled at a lower level of care (continued vomiting, continued diarrhea, abnormal vital signs) requiring intravenous medication and/or fluids 8. Patient presents the following: CIWA greater than 12 Admission Criteria Met: Admission criteria met Admission ROS [facility] - [facility] Chief Complaint: I 43 yo gentleman here for detox from alcohol and opiates, also using cocaine. States he has had seizures when he tried to stop drinking on his own - also has history of black outs and overdose. This is one of many admission for treatment , last time here August 05 but left AMA. Allergies/Adverse Reactions: Allergies Allergy/AdvReac Type Severity Reaction Status Date / Time shellfish derived Allergy Intermediate Rash Verified 11/23/18 12:35 History of Present Illness: 43 yo gentleman here for detox from opiates and alcohol, also using cocaine. History of seizure, overdose and black out. Lives with his parents, unemployed. History of suboxone but did not stay with it, briefly on methadone in 2012 but then was incarcerated. [place]: Others' Prescriptions Patient Name: Trevin Olmos Date: 1975 Address: [address] [place] [address] Sex: Male Rx Written Rx Dispensed Drug Quantity Days Supply Prescriber Name 08/22/2018 08/22/2018 chlordiazepoxide 25 mg capsule 18 4 Bhavin Anthony 07/04/2018 07/05/2018 chlordiazepoxide 25 mg capsule 18 3 Jana Martinez FNP 05/27/2018 05/28/2018 chlordiazepoxide 25 mg capsule 18 3 Erica Aguila NP Patient Name: Trevin Olmos Date: 1975 Address: [address] [place] [address] Sex: Male Rx Written Rx Dispensed Drug Quantity Days Supply Prescriber Name 06/17/2018 06/17/2018 buprenorphine-naloxone 8-2 mg sl film 15 15 Yunier Hernandez MD Exam Limitations: No Limitations - Ebola screening Have you traveled outside of the country in the last 21 days: No (NN) Have you had contact with anyone from an Ebola affected area: No Do you have a fever: No - Review of Systems Constitutional: Loss of Appetite, Changes in sleep, Weakness EENT: reports: Blurred Vision, Nose Congestion Respiratory: reports: No Symptoms reported Cardiac: reports: No Symptoms Reported GI: reports: Nausea, Poor Appetite, Indigestion, Abdominal cramping : reports: Frequency Musculoskeletal: reports: Back Pain, Joint Pain, Muscle Pain Integumentary: reports: No Symptoms Reported Neuro: reports: Headache, Numbness, Tremors Endocrine: reports: No Symptoms Reported Hematology: reports: No Symptoms Reported Psychiatric: reports: Judgement Intact, Mood/Affect Appropiate, Orientated x3, Anxious Other Systems: Reviewed and Negative Patient History - Patient Medical History Hx Anemia: No Hx Asthma: No Hx Chronic Obstructive Pulmonary Disease (COPD): No Hx Cancer: No Hx Cardiac Disorders: No Hx Congestive Heart Failure: No Hx Hypertension: No Hx Hypercholesterolemia: No Hx Pacemaker: No HX Cerebrovascular Accident: No Hx Seizures: Yes (drug related several years ago) Hx Dementia: No Hx Diabetes: No Hx Gastrointestinal Disorders: Yes (GERD) Hx Liver Disease: No Hx Genitourinary Disorders: No Hx Sexually Transmitted Disorders: No Hx Renal Disease (ESRD): No Hx Thyroid Disease: Yes (on meds) Hx Human Immunodeficiency Virus (HIV): No Hx Hepatitis C: Yes (not treated) Hx Depression: Yes (on meds, sees psych) Hx Suicide Attempt: No Hx Bipolar Disorder: No Hx Schizophrenia: No - Patient Surgical History Past Surgical History: No Hx Neurologic Surgery: No Hx Cataract Extraction: No Hx Cardiac Surgery: No Hx Lung Surgery: No Hx Breast Surgery: No Hx Breast Biopsy: No Hx Abdominal Surgery: No Hx Appendectomy: No Hx Cholecystectomy: No Hx Genitourinary Surgery: No Hx Section: No Hx Orthopedic Surgery: No Hx Hysterectomy: No Anesthesia Reaction: No - PPD History Previous Implant?: Yes Documented Results: Negative w/proof Implanted On Prior R Admission?: Yes Date: 08/05/18 Results: 0 mm PPD to be Administered?: No - Reproductive History Patient is a Female of Child Bearing Age (11 -55 yrs old): No - Smoking Cessation Smoking history: Current every day smoker Have you smoked in the past 12 months: Yes Aproximately how many cigarettes per day: 20 Cigars Per Day: 0 Hx Chewing Tobacco Use: No Initiated information on smoking cessation: Yes 'Breaking Loose' booklet given: 11/23/18 (give on floor) - Substance & Tx. History Hx Alcohol Use: Yes Hx Substance Use: Yes Substance Use Type: Alcohol, Cocaine, Opiates Hx Substance Use Treatment: Yes (detox, rehab, suboxone, methadone) - Substances abused Heroin Other (specify): only fentanyl in urine tox Substance route: Inhalation Frequency: Daily Amount used: 5-7 bags Age of first use: 17 Date of last use: 11/22/18 Alcohol Substance route: Oral Frequency: Daily Amount used: 2 PINTS liquor, two 22 ounces of beer Age of first use: 14 Date of last use: 11/22/18 Cocaine Substance route: Inhalation Frequency: Daily Amount used: 1 gram Age of first use: 17 Date of last use: 11/22/18 Admission Physical Exam BHS - Vital Signs Vital Signs: Vital Signs - 24 hr 11/23/18 13:03 Temperature 97.9 F Pulse Rate 87 Respiratory 16 Rate Blood Pressure 159/102 H - Physical General Appearance: Yes: Nourished, Appropriately Dressed, Moderate Distress, Tremorous, Anxious HEENTM: Yes: EOMI, Hearing grossly Normal, Normocephalic, Normal Voice, Pharynx Normal, Nasal Congestion Respiratory: Yes: Normal Breath Sounds, No Respiratory Distress Neck: Yes: No masses,lesions,Nodules Breast: Yes: Breast Exam Deferred Cardiology: Yes: Regular Rhythm, Regular Rate Abdominal: Yes: Soft, Protuberent Genitourinary: Yes: Frequency Back: Yes: Normal Inspection Musculoskeletal: Yes: full range of Motion, Gait Steady, Back pain, Muscle Pain Extremities: Yes: Normal Inspection, Normal Range of Motion, Non-Tender, Tremors 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: Yes: Fully Oriented, Alert, Normal Mood/Affect, Normal Response Integumentary: Yes: Normal Color, Warm Lymphatic: Yes: Within Normal Limits - Diagnostic (1) Opioid dependence with withdrawal Current Visit: Yes Status: Chronic (2) Alcohol dependence with uncomplicated withdrawal Current Visit: Yes Status: Chronic (3) Cocaine dependence Current Visit: Yes Status: Chronic Qualifiers: Substance use status: uncomplicated Qualified Code(s): F14.20 - Cocaine dependence, uncomplicated (4) Nicotine dependence Current Visit: Yes Status: Chronic Qualifiers: Nicotine product type: cigarettes Substance use status: uncomplicated Qualified Code(s): F17.210 - Nicotine dependence, cigarettes, uncomplicated (5) GERD (gastroesophageal reflux disease) Current Visit: Yes Status: Chronic Qualifiers: Esophagitis presence: without esophagitis Qualified Code(s): K21.9 - Gastro -esophageal reflux disease without esophagitis (6) Hypothyroidism Current Visit: Yes Status: Chronic Qualifiers: Hypothyroidism type: unspecified Qualified Code(s): E03.9 - Hypothyroidism , unspecified (7) Hepatitis C Current Visit: Yes Status: Chronic Qualifiers: Viral hepatitis chronicity: chronic Hepatic coma status: without hepatic coma Qualified Code(s): B18.2 - Chronic viral hepatitis C (8) History of seizure Current Visit: Yes Status: Acute Cleared for Admission S - Detox or Rehab [facility] Level of Care: Medically Managed Detox Regimen/Protocol: Methadone/Valium Breathalyzer - Breathalyzer Breathalyzer: 0 Urine Drug Screen - Test Device Lot number: [id number] Expiration date: 08/02/20 - Control Is test valid?: Yes - Results Drug screen NEGATIVE: No Urine drug screen results: BARBARA-Cocaine, FEN-Fentanyl Inpatient Rehab Admission - Rehab Decision to Admit Inpatient rehab admission?: No
[2018-11-23] MEDS ORDERED: diazePAM 5 MG TABLET PO ONE (14:50)
[2018-11-23] MEDS ORDERED: METHADONE HCL 10 MG TABLET (FOR DETOX USE ONLY) PO ONE (14:50)
[2018-11-23] MEDS ORDERED: cloNIDine HCL 0.1 MG TABLET PO PRN (14:50)
[2018-11-23] MEDS ORDERED: MAGNESIUM CITRATE 300 ML BOTTLE PO PRN (14:50)
[2018-11-23] MEDS ORDERED: MENTHOL/PHENOL 1 EACH UD MM PRN (14:50)
[2018-11-23] MEDS ORDERED: MAGNESIUM HYDROX 2400MG/30ML ORAL SUSPENSION 30 ML CUP PO PRN (14:50)
[2018-11-23] MEDS ORDERED: ACETAMINOPHEN 325 MG TABLET (FP) PO PRN (14:50)
[2018-11-23] MEDS ORDERED: MELATONIN 5 MG TABLETS PO PRN (14:50)
[2018-11-23] MEDS ORDERED: NICOTINE POLACRILEX 4 MG GUM BUC PRN (14:50)
[2018-11-23] MEDS ORDERED: MAG HYDROX/AL HYDROX/SIMETH 30 ML UNIT-DOSE CUP PO PRN (14:50)
[2018-11-23] MEDS ORDERED: BISMUTH SUBSALICYLATE 524 MG/30 ML UD PO PRN (14:50)
[2018-11-23] MEDS ORDERED: IBUPROFEN 400 MG TABLET (FP) PO PRN (14:50)
[2018-11-23] MEDS: PANTOPRAZOLE 20 MG TABLET (FP) PO SCH (17:15)
[2018-11-23] MEDS ORDERED: MIRTAZAPINE 15 MG TABLET (FP) ONE (20:11)
[2018-11-23] MEDS: THIAMINE HCL 100 MG TABLET (FP) PO SCH (21:03)
[2018-11-23] MEDS: diazePAM 5 MG TABLET PO SCH (21:05)
[2018-11-23] MEDS ORDERED: MIRTAZAPINE 30 MG TABLET (FP) PO ONE (22:00)
[2018-11-24] MEDS: diazePAM 5 MG TABLET PO PRN ×3 (01:11→19:16)
[2018-11-24] MEDS: ACETAMINOPHEN 325 MG TABLET (FP) PO PRN ×2 (02:57→13:19)
[2018-11-24] MEDS: diazePAM 5 MG TABLET PO SCH ×3 (05:12→22:03)
[2018-11-24] MEDS: LEVOTHYROXINE NA 25 MCG TABLET (FP) PO SCH (05:59)
[2018-11-24] MEDS ORDERED: METHADONE HCL 10 MG TABLET (FOR DETOX USE ONLY) ONE (08:31)
[2018-11-24] MEDS ORDERED: METHADONE HCL 5 MG TABLET (FOR DETOX USE ONLY) ONE (08:31)
[2018-11-24 09:16] LABS: HEMATOCRIT 41.7 % (35.4-49); HEMOGLOBIN 13.7 GM/dL (11.7-16.9); MCH 30.3 pg (25.7-33.7); MCHC 32.8 g/dl (32.0-35.9); MEAN CELL VOLUME 92.3 fl (80-96); MEAN PLT VOLUME 8.3 fl (7.5-11.1); PLATELET COUNT 273 K/MM3 (134-434); RBC 4.52 M/mm3 (4.00-5.60)
[2018-11-24 09:21] LABS: BILIRUBIN,TOTAL 0.8 mg/dL (0.2-1); CREATININE 1.1 mg/dL (0.55-1.3); POTASSIUM 4.5 mmol/L (3.5-5.1); TOT PROT 7.3 g/dl (6.4-8.2)
--- NOTE | 2018-11-24 09:28 | PN ---
[facility] CIWA - CIWA Score Nausea/Vomitin-Mild Nausea/No Vomiting Muscle Tremors: 4-Moderate,w/Arms Extend Anxiety: 4-Mod. Anxious/Guarded Agitation: 3 Paroxysmal Sweats: 2 Orientation: 1-Uncertain about Date (date of week) Tacttile Disturbances: 0-None Auditory Disturbances: 0-None Visual Disturbances: 0-None Headache: 0-None Present CIWA-Ar Total Score: 15 S COWS - Scale Resting Pulse: 0= [place] 80 or Below Sweatin= Chills/Flushing Restless Observation: 0= Sits Still Pupil Size: 0= Normal to Room Light Bone or Joint Aches: 2= Severe Diffuse Aches Runny Nose/ Eye Tearin= Nasal Congestion GI Upset > 30mins: 2= Nausea/Diarrhea (no diarrhea) Tremor Observation of Outstretched Hands: 2= Slight Tremor Visible Yawning Observation: 2= >3x During Session Anxiety or Irritability: 2=Irritable/Anxious Goose Flesh Skin: 3=Piloerection COWS Score: 15 [facility] Progress Note (SOAP) Subjective: 43 years old male multiple patient [facility] admission since 2009 doing well with Valium and methadone detox regimen ate 90% breakfast resting on bed comfortably feeling tired left cheek skin abrasion from "shave" had tetanus shoot 4-5 years ago bacitracin oint keep area clean avoid irritation discuss medication 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 pharmacy upon discharged Objective: 11/24/18 09:31 Vital Signs Temperature 98.1 F 11/24/18 09:12 Pulse Rate 76 11/24/18 09:12 Respiratory Rate 18 11/24/18 09:12 Blood Pressure 97/58 L 11/24/18 09:12 O2 Sat by Pulse Oximetry (%) Laboratory Last Values WBC 10.0 K/mm3 (4.0-10.0) 11/24/18 07:40 RBC 4.52 M/mm3 (4.00-5.60) 11/24/18 07:40 Hgb 13.7 GM/dL (11.7-16.9) 11/24/18 07:40 Hct 41.7 % (35.4-49) 11/24/18 07:40 MCV 92.3 fl (80-96) 11/24/18 07:40 MCH 30.3 pg (25.7-33.7) 11/24/18 07:40 MCHC 32.8 g/dl (32.0-35.9) 11/24/18 07:40 RDW 15.0 % (11.9-15.9) 11/24/18 07:40 Plt Count 273 K/MM3 (134-434) 11/24/18 07:40 MPV 8.3 fl (7.5-11.1) 11/24/18 07:40 Sodium 136 mmol/L (136-145) 11/24/18 07:40 Potassium 4.5 mmol/L (3.5-5.1) 11/24/18 07:40 Chloride 97 mmol/L (98-107) L 11/24/18 07:40 Carbon Dioxide 34 mmol/L (21-32) H 11/24/18 07:40 Anion Gap 5 MMOL/L (8-16) L 11/24/18 07:40 BUN 13.0 mg/dL (7-18) 11/24/18 07:40 Creatinine 1.1 mg/dL (0.55-1.3) 11/24/18 07:40 Est GFR (CKD-EPI)AfAm 94.13 11/24/18 07:40 Est GFR (CKD-EPI)NonAf 81.21 11/24/18 07:40 Random Glucose 104 mg/dL (74-106) 11/24/18 07:40 Calcium 9.0 mg/dL (8.5-10.1) 11/24/18 07:40 Total Bilirubin 0.8 mg/dL (0.2-1) 11/24/18 07:40 AST 122 U/L (15-37) H 11/24/18 07:40 ALT 82 U/L (13-61) H 11/24/18 07:40 Alkaline Phosphatase 82 U/L (45-117) 11/24/18 07:40 Total Protein 7.3 g/dl (6.4-8.2) 11/24/18 07:40 Albumin 4.0 g/dl (3.4-5.0) 11/24/18 07:40 lab noted ast elevatin repeat ast Assessment: 11/24/18 09:32 alcohol and opiate withdrawal sx Plan: continue valium and methadone detox regimen repeat ast 11/27/18
[2018-11-24] MEDS ORDERED: METHADONE (DETOX) 20 MG, METHADONE (DETOX) 5 MG PO ONE (10:00)
[2018-11-24] MEDS: PRENATAL VITAMINS W/ FOLIC ACID TABLET (FP) PO SCH (10:10)
--- NOTE | 2018-11-24 11:00 | CONSULT ---
[facility] Psychiatric Consult - Data Date of interview: 11/24/18 Admission source: Self-referred Identifying data: Mr Olmos is a 42 years old single Black male, unemployed on SSI, domiciled seeking detox treatment for alcohol, opioid and cocaine Substance Abuse History: Reports history of alcohol, heroin and cocaine use. Refer to addiction counselor's summary for further information Medical History: Significant for GERD, hypothyroidism, hepatitis C, history of alcohol related seizure and cellulitis of right leg and treated for MERSA ( methicillin-resistant staphylococcus aureus). Smokes cigarettes 1 ppd Psychiatric History: Patient is well known to documentation writer from an encounter during a previous admission to this facillity in August 2018. Historical narrative remains consistent. He reports that he was diagnosed with MDD in 2007 while in jail and treated with Prozac, Seroquel. Reports multiple psychiatric admissions to [facility] and [facility]. Reports non-adherent to OPD care and medications. Usually, gets medications via ED or whenever admitted to inpatient detox/rehab. He was last admitted to this facility from 08/03/18 to when he saw documentation writer and he was prescribed Seroquel 100 mg/hs. Told documentation writer that he has been off medication after running out of the 30 days supply provided to him on discharge. Denies previous suicidal attempt. At present, reports feeling anxious and sleeping poorly. Requests to resume Seroquel Physical/Sexual Abuse/Trauma History: Denies history of emotional, physical or sexual as well as DV relationship. No service Additional Comment: Reports history of 5 previous misdemeanor arrests. Denies being on probatioat present Mental Status Exam - Mental Status Exam Alert and Oriented to: Place, Person Cognitive Function: Fair Patient Appearance: Well Groomed Mood: Anxious Affect: Appropriate, Constricted Patient Behavior: Cooperative Speech Pattern: Clear Voice Loudness: Normal Thought Process: Intact, Goal Oriented Hallucinations: Denies Suicidal Ideation: Denies Homicidal Ideation: Denies Insight/Judgement: Poor Sleep: Poorly Appetite: Poor Muscle strength/Tone: Normal Gait/Station: Normal Psychiatric Findings - Problem List ([place] 1, 2,3) (1) Depressive disorder Current Visit: Yes Status: Chronic (2) MDD (major depressive disorder), recurrent episode Current Visit: No Status: Ruled-out Qualifiers: Major depression episode severity: unspecified Qualified Code(s): F33.9 - Major depressive disorder, recurrent, unspecified (3) Substance-induced anxiety disorder Current Visit: Yes Status: Acute (4) Substance-induced sleep disorder Current Visit: No Status: Acute - Initial Treatment Plan Initial Treatment Plan: 1) Resume Seroquel 100 mg po HS. 2) Continue inpatient detoxification
[2018-11-24] MEDS: PANTOPRAZOLE 20 MG TABLET (FP) PO SCH (13:19)
[2018-11-24] MEDS ORDERED: BACITRACIN 0.9 GM PACKET TP SCH (14:00)
[2018-11-24] MEDS: BACITRACIN 15 GM TUBE TOPICAL OINTMENT TP SCH ×2 (14:13→22:03)
[2018-11-24] MEDS: THIAMINE HCL 100 MG TABLET (FP) PO SCH (22:03)
[2018-11-24] MEDS: METHOCARBAMOL 500 MG TABLET PO PRN (22:03)
[2018-11-24] MEDS: QUEtiapine FUMARATE 100 MG TABLET (FP) PO SCH (22:03)
[2018-11-25] MEDS: diazePAM 5 MG TABLET PO PRN ×3 (02:10→21:00)
[2018-11-25] MEDS: diazePAM 5 MG TABLET PO SCH ×2 (05:13→17:10)
[2018-11-25] MEDS: BACITRACIN 15 GM TUBE TOPICAL OINTMENT TP SCH ×3 (05:18→21:00)
[2018-11-25] MEDS: LEVOTHYROXINE NA 25 MCG TABLET (FP) PO SCH (07:33)
[2018-11-25] MEDS: PRENATAL VITAMINS W/ FOLIC ACID TABLET (FP) PO SCH (09:59)
[2018-11-25] MEDS ORDERED: METHADONE HCL 10 MG TABLET (FOR DETOX USE ONLY) PO ONE (10:00)
[2018-11-25] MEDS: METHOCARBAMOL 500 MG TABLET PO PRN ×2 (10:00→21:00)
[2018-11-25] MEDS: PANTOPRAZOLE 20 MG TABLET (FP) PO SCH (10:46)
[2018-11-25] MEDS: ALBUTEROL SO4 8 GM HFA INHALER IH PRN ×2 (11:28→17:16)
[2018-11-25] MEDS ORDERED: ALBUTEROL SO4 8 GM HFA INHALER IH ONE (11:28)
--- NOTE | 2018-11-25 13:19 | PN ---
[facility] CIWA - CIWA Score Nausea/Vomitin-Mild Nausea/No Vomiting Muscle Tremors: 1-None Visible, but [place] Anxiety: 2 Agitation: 2 Paroxysmal Sweats: No Perspiration Orientation: 0-Oriented Tacttile Disturbances: 1-Very Mild Itch/Numbness Auditory Disturbances: 0-None Visual Disturbances: 0-None Headache: 2-Mild CIWA-Ar Total Score: 9 [facility] COWS - Scale Resting Pulse: 0= [place] 80 or Below Sweatin= No chills or Flushing Restless Observation: 1= Difficult to Sit Still Pupil Size: 1= Pupils >than Normal Bone or Joint Aches: 1= Mild Discomfort Runny Nose/ Eye Tearin= Nasal Congestion GI Upset > 30mins: 1= Stomach Cramp Tremor Observation of Outstretched Hands: 1= Tremor [place], Not Seen Yawning Observation: 1= 1-2x During Session Anxiety or Irritability: 2=Irritable/Anxious Goose Flesh Skin: 0=Smooth Skin COWS Score: 9 [facility] Progress Note (SOAP) Subjective: ALERT,IRRITABLE,ANXIOUS,PAIN IN THE BODY AND BACK,TRMEOR,INTERRUPTED SLEEP, Objective: 11/25/18 13:17 Vital Signs Temperature 96.7 F L 11/25/18 13:15 Pulse Rate 18 L 11/25/18 13:15 Respiratory Rate 70 H 11/25/18 13:15 Blood Pressure 132/85 11/25/18 13:15 O2 Sat by Pulse Oximetry (%) 11/25/18 13:17 Laboratory Last Values WBC 10.0 K/mm3 (4.0-10.0) 11/24/18 07:40 RBC 4.52 M/mm3 (4.00-5.60) 11/24/18 07:40 Hgb 13.7 GM/dL (11.7-16.9) 11/24/18 07:40 Hct 41.7 % (35.4-49) 11/24/18 07:40 MCV 92.3 fl (80-96) 11/24/18 07:40 MCH 30.3 pg (25.7-33.7) 11/24/18 07:40 MCHC 32.8 g/dl (32.0-35.9) 11/24/18 07:40 RDW 15.0 % (11.9-15.9) 11/24/18 07:40 Plt Count 273 K/MM3 (134-434) 11/24/18 07:40 MPV 8.3 fl (7.5-11.1) 11/24/18 07:40 Sodium 136 mmol/L (136-145) 11/24/18 07:40 Potassium 4.5 mmol/L (3.5-5.1) 11/24/18 07:40 Chloride 97 mmol/L (98-107) L 11/24/18 07:40 Carbon Dioxide 34 mmol/L (21-32) H 11/24/18 07:40 Anion Gap 5 MMOL/L (8-16) L 11/24/18 07:40 BUN 13.0 mg/dL (7-18) 11/24/18 07:40 Creatinine 1.1 mg/dL (0.55-1.3) 11/24/18 07:40 Est GFR (CKD-EPI)AfAm 94.13 11/24/18 07:40 Est GFR (CKD-EPI)NonAf 81.21 11/24/18 07:40 Random Glucose 104 mg/dL (74-106) 11/24/18 07:40 Calcium 9.0 mg/dL (8.5-10.1) 11/24/18 07:40 Total Bilirubin 0.8 mg/dL (0.2-1) 11/24/18 07:40 AST 122 U/L (15-37) H 11/24/18 07:40 ALT 82 U/L (13-61) H 11/24/18 07:40 Alkaline Phosphatase 82 U/L (45-117) 11/24/18 07:40 Total Protein 7.3 g/dl (6.4-8.2) 11/24/18 07:40 Albumin 4.0 g/dl (3.4-5.0) 11/24/18 07:40 RPR Titer Nonreactive (NONREACTIVE) 11/24/18 07:40 Assessment: 11/25/18 13:19 WITHDRAWAL SYMPTOM Plan: CONTINUE DETOX METHADONE AND VALIUM REGIMEN
[2018-11-25] MEDS: QUEtiapine FUMARATE 100 MG TABLET (FP) PO SCH (21:00)
[2018-11-25] MEDS: THIAMINE HCL 100 MG TABLET (FP) PO SCH (21:00)
[2018-11-26] MEDS ORDERED: diazePAM 5 MG TABLET PO ONE (06:00)
[2018-11-26] MEDS: BACITRACIN 15 GM TUBE TOPICAL OINTMENT TP SCH (07:03)
[2018-11-26] MEDS: LEVOTHYROXINE NA 25 MCG TABLET (FP) PO SCH (07:05)
[2018-11-26] MEDS: ALBUTEROL SO4 8 GM HFA INHALER IH PRN (07:34)
[2018-11-26] MEDS ORDERED: METHADONE HCL 10 MG TABLET (FOR DETOX USE ONLY) ONE (08:49)
[2018-11-26] MEDS ORDERED: METHADONE HCL 5 MG TABLET (FOR DETOX USE ONLY) ONE (08:49)
[2018-11-26 09:29] VITALS: BP 114/61; PULSE 80; TEMP 97
[2018-11-26] MEDS ORDERED: METHADONE (DETOX) 10 MG, METHADONE (DETOX) 5 MG PO ONE (10:00)
[2018-11-26] MEDS: PRENATAL VITAMINS W/ FOLIC ACID TABLET (FP) PO SCH (10:05)
[2018-11-26] MEDS: PANTOPRAZOLE 20 MG TABLET (FP) PO SCH (10:05)
--- NOTE | 2018-11-26 10:41 | DS ---
[facility] Detox Discharge Summary Admission Date: 11/23/18 Discharge Date: 11/26/18 - History Present History: Alcohol Dependence, Opioid Dependence Additional Comments: patient has court date today at 2 pm report feeling good good eye contact speech clearly coherently showered and ate breakfast alert oriented x 3 ambulating steady gait did well with valium and methadone detox regimen cardiac S1S2 regular rate rhythm respiratory wheezing right lower lob treated with 2 pupps of ventolin clear lung bilaterally abdomen soft no rebound tenderness - Physical Exam Results Vital Signs: Vital Signs Temperature 97 F L 11/26/18 09:28 Pulse Rate 80 11/26/18 09:28 Respiratory Rate 18 11/26/18 09:28 Blood Pressure 114/61 11/26/18 09:28 O2 Sat by Pulse Oximetry (%) Pertinent Admission Physical Exam Findings: alcohol and opiate withdrawal sx Laboratory Last Values WBC 10.0 K/mm3 (4.0-10.0) 11/24/18 07:40 RBC 4.52 M/mm3 (4.00-5.60) 11/24/18 07:40 Hgb 13.7 GM/dL (11.7-16.9) 11/24/18 07:40 Hct 41.7 % (35.4-49) 11/24/18 07:40 MCV 92.3 fl (80-96) 11/24/18 07:40 MCH 30.3 pg (25.7-33.7) 11/24/18 07:40 MCHC 32.8 g/dl (32.0-35.9) 11/24/18 07:40 RDW 15.0 % (11.9-15.9) 11/24/18 07:40 Plt Count 273 K/MM3 (134-434) 11/24/18 07:40 MPV 8.3 fl (7.5-11.1) 11/24/18 07:40 Sodium 136 mmol/L (136-145) 11/24/18 07:40 Potassium 4.5 mmol/L (3.5-5.1) 11/24/18 07:40 Chloride 97 mmol/L (98-107) L 11/24/18 07:40 Carbon Dioxide 34 mmol/L (21-32) H 11/24/18 07:40 Anion Gap 5 MMOL/L (8-16) L 11/24/18 07:40 BUN 13.0 mg/dL (7-18) 11/24/18 07:40 Creatinine 1.1 mg/dL (0.55-1.3) 11/24/18 07:40 Est GFR (CKD-EPI)AfAm 94.13 11/24/18 07:40 Est GFR (CKD-EPI)NonAf 81.21 11/24/18 07:40 Random Glucose 104 mg/dL (74-106) 11/24/18 07:40 Calcium 9.0 mg/dL (8.5-10.1) 11/24/18 07:40 Total Bilirubin 0.8 mg/dL (0.2-1) 11/24/18 07:40 AST 122 U/L (15-37) H 11/24/18 07:40 ALT 82 U/L (13-61) H 11/24/18 07:40 Alkaline Phosphatase 82 U/L (45-117) 11/24/18 07:40 Total Protein 7.3 g/dl (6.4-8.2) 11/24/18 07:40 Albumin 4.0 g/dl (3.4-5.0) 11/24/18 07:40 RPR Titer Nonreactive (NONREACTIVE) 11/24/18 07:40 lab noted patient will bring in lab report to primary care provider - Treatment Hospital Course: Detox Protocol Followed, Detoxed Safely, Responded well, Discharged Condition Good, Rehab Referral Accepted Patient has Accepted a Rehab Referral to: [facility] - Medication Discharge Medications: Ambulatory Orders Esomeprazole Magnesium [Nexium 24Hr] 20 mg PO DAILY 04/13/18 Mirtazapine [Remeron -] 45 mg PO HS 04/13/18 Levothyroxine [Synthroid -] 50 mcg PO DAILY 05/07/18 Naloxone HCl [Narcan] 4 mg NS ASDIR PRN #1 spray 11/24/18 - Diagnosis (1) Alcohol dependence with uncomplicated withdrawal Status: Acute (2) Asthma Status: Chronic Qualifiers: Asthma severity: mild Asthma persistence: intermittent Asthma complication type: with status asthmaticus Qualified Code(s): J45.22 - Mild intermittent asthma with status asthmaticus (3) GERD (gastroesophageal reflux disease) Status: Chronic Qualifiers: Esophagitis presence: without esophagitis Qualified Code(s): K21.9 - Gastro -esophageal reflux disease without esophagitis (4) Hepatitis C Status: Chronic Qualifiers: Viral hepatitis chronicity: chronic Hepatic coma status: without hepatic coma Qualified Code(s): B18.2 - Chronic viral hepatitis C (5) Nicotine dependence Status: Acute Qualifiers: Nicotine product type: cigarettes Substance use status: in withdrawal Qualified Code(s): F17.213 - Nicotine dependence, cigarettes, with withdrawal (6) Sedative, hypnotic or anxiolytic dependence with withdrawal, uncomplicated Status: Acute - AMA Did Patient Leave Against Medical Advice: No CIWA Score - CIWA Score Nausea/Vomitin-No Nausea/No Vomiting Muscle Tremors: 1-None Visible, but [place] Anxiety: 1-Mildly Anxious Agitation: 1-Slight > Activity Paroxysmal Sweats: No Perspiration Orientation: 0-Oriented Tacttile Disturbances: 0-None Auditory Disturbances: 0-None Visual Disturbances: 0-None Headache: 1-Very Mild CIWA-Ar Total Score: 4 COWS (PN) - Opiate Withdrawal Resting Pulse: 0= [place] 80 or Below Sweatin= Chills/Flushing Restless Observation: 0= Sits Still Pupil Size: 0= Normal to Room Light Bone or Joint Aches: 1= Mild Discomfort Runny Nose/ Eye Tearin= None GI Upset > 30mins: 0= None Tremor Observation of Outstretched Hands: 1= Tremor [place], Not Seen Yawning Observation: 0= None Anxiety or Irritability: 1=Feels Anxious/Irritable Goose Flesh Skin: 0=Smooth Skin COWS Score: 4
[2018-11-27] MEDS ORDERED: METHADONE HCL 10 MG TABLET (FOR DETOX USE ONLY) PO ONE (10:00)
[2018-11-28] MEDS ORDERED: METHADONE HCL 5 MG TABLET (FOR DETOX USE ONLY) PO ONE (06:00)
== END 2018-11-26 08:50 | disposition home or self-care (01) | DRG 773 ==
LOC: YASAS 12:22 → Y3N 15:14
PROVIDERS: ADMIT Surgery; ATTEND Surgery
PROC: HZ2ZZZZ Detoxification Services for Substance Abuse Treatment (ICD-10-PCS; principal; 2018-11-23)
DX: F11.23 Opioid dependence with withdrawal (principal); F10.230 Alcohol dependence with withdrawal, uncomplicated; F14.20 Cocaine dependence, uncomplicated; F17.213 Nicotine dependence, cigarettes, with withdrawal; F33.9 Major depressive disorder, recurrent, unspecified; F19.280 Other psychoactive substance dependence with psychoactive substance-induced anxiety disorder; F19.282 Other psychoactive substance dependence with psychoactive substance-induced sleep disorder; J45.22 Mild intermittent asthma with status asthmaticus; K21.9 Gastro-esophageal reflux disease without esophagitis; B18.2 Chronic viral hepatitis C; E03.9 Hypothyroidism, unspecified; R74.0 Nonspecific elevation of levels of transaminase and lactic acid dehydrogenase [LDH]; Z86.69 Personal history of other diseases of the nervous system and sense organs; Z86.14 Personal history of Methicillin resistant Staphylococcus aureus infection; Z91.013 Allergy to seafood
CPT/HCPCS: 36415; 80053; 85027; 86593; J0735